=== PATIENT | female | born 1970 | race Caucasian/White ===

== ENCOUNTER 2021-06-28 15:47 | Emergency (ER) | payer MEDICAID ==
--- NOTE | 2021-06-28 16:35 | ED Physician Documentation ---
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 She has a history of asthma, bronchitis, diabetes and was worked up for her current pain in [place] in April and was found to have some sort of pulmonic cyst per her which was quite small and not felt to be the reason for her pain. She presents today with 1 weeks worth of kind of diffuse pain across the upper left breast, shoulder, and left upper back. Is worse with deep breathing and she is short of breath with it. It is also much worse if she moves the left shoulder. She denies fevers or chills. No cough. Review of Systems Constitutional: denies: Fever, Chills Cardiac: reports: Chest pain / pressure Respiratory: reports: Dyspnea. denies: Cough GI: denies: Abdominal Pain, Nausea, Vomiting PD PAST MEDICAL HISTORY - Present Medications Home Medications: Ambulatory Orders Medication Instructions Recorded Confirmed Meloxicam [Mobic] 7.5 mg PO BID PRN #20 tablet 06/28/21 - Allergies Allergies/Adverse Reactions: Allergies Allergy/AdvReac Type Severity Reaction Status Date / Time Iodinated Contrast Media AdvReac Rash Verified 06/28/21 16:15 PD ED PE NORMAL - Vitals Vital signs reviewed: Yes - General General: Alert and oriented X 3, Other (She appears uncomfortable and especially winces with any motion of the left shoulder.) - Neck Neck: Supple, no meningeal sign, No bony TTP - Cardiac Cardiac: RRR, No murmur - Respiratory Respiratory: No respiratory distress, Clear bilaterally - Abdomen Abdomen: Normal bowel sounds, Soft, Non tender - Back Back: No CVA TTP, No spinal TTP - Derm Derm: Normal color, Warm and dry - Extremities Extremities: Other (Kind of diffuse muscular tenderness of the upper back, left sternocleidomastoids and shoulder. Pain with range of motion of the shoulder which at times is quite severe but she is able to move it.) - Neuro Neuro: Alert and oriented X 3, Normal speech Results - Vitals Vitals: Vital Signs - 24 hr 06/28/21 06/28/21 06/28/21 15:52 16:48 17:35 Temperature 36.6 C Heart Rate 84 79 72 Respiratory 20 22 21 Rate Blood Pressure 136/80 H 141/90 H 141/83 H O2 Saturation 98 95 96 Oxygen O2 Source Room air - EKG (time done) 1602 Rate: Rate (enter#) (77) Rhythm: NSR [place]: Normal Intervals: Normal [place] QRS: Normal Ischemia: Non specific changes. No: ST elevation c/w ischemia, ST depression, T wave inversion - Labs Labs: Laboratory Tests 06/28/21 06/28/21 06/28/21 16:30 16:30 16:30 WBC 6.5 RBC 4.28 Hgb 12.8 Hct 38.3 MCV 89.5 MCH 29.9 MCHC 33.4 RDW 13.2 Plt Count 204 MPV 8.8 Neut # (Auto) 4.4 Lymph # (Auto) 1.7 Person # (Auto) 0.4 Eos # (Auto) 0.1 Baso # (Auto) 0.0 Absolute Nucleated RBC 0.00 Nucleated RBC % 0.0 Sodium 135 Potassium 4.1 Chloride 102 Carbon Dioxide 23 Anion Gap 10.0 BUN 15 Creatinine 0.7 Estimated GFR (MDRD) 89 Glucose 169 H Calcium 9.0 Total Bilirubin 0.4 AST 15 ALT 17 Alkaline Phosphatase 60 Troponin I High Sens 3.5 Total Protein 7.4 Albumin 3.8 Globulin 3.6 Albumin/Globulin Ratio 1.1 PD MEDICAL DECISION MAKING - ED course ED course: 51-year-old woman with what seems like musculoskeletal pain around the left shoulder neck. That said with recent travel and shortness of breath as well as some previous work-ups concerning for lung disease CT angiography was done to rule out structural lung disease and pulmonary embolus and this was done and negative. As was her EKG and labs except for mild hyperglycemia given known history of type 2 diabetes. She is feeling better after Toradol. Discussed need for follow-up and return precautions. Departure - Departure Disposition: 01 Home, Self Care Clinical Impression: Acromioclavicular arthrosis Qualifiers: Laterality: left Qualified Code(s): M19.012 - Primary osteoarthritis, left shoulder Chest wall muscle strain Qualifiers: Encounter type: initial encounter Qualified Code(s): S29.011A - Strain of muscle and tendon of front wall of thorax, initial encounter Condition: Good Record reviewed to determine appropriate education?: Yes Instructions: ED Sprain Strain Neck, Arthritis Acromioclavicular Prescriptions: Meloxicam [Mobic] 7.5 mg PO BID PRN #20 tablet PRN Reason: Pain Print Language: Omani Comments: Geovany se discuti, lo vieron hoy por dolor en el pecho, el zaynab y el hombro. Se realizaron anlisis de laboratorio y solo tiene un nivel levemente elevado de azcar en la shayan; de ??lo contrario, jaclyn anlisis son todos normales, sin evidencia de problemas cardacos. La tomografa computarizada de sanchez trax fue normal y la radiografa del hombro mostr artritis de la articulacin acromioclavicular. Le estoy recetando algunos antiinflamatorios y puede recogerlos en [facility] en [place], le envi la receta electrnicamente all. Cuando sanchez nuevo seguro est activo la prxima semana, trate de encontrar un mdico de atencin primaria para establecer. Regrese por cualquier sntoma nuevo o que empeore. Puede usar calor y estiramientos suaves, as geovany la medicacin para el dolor.
[2021-06-28 16:44] LABS: BASOPHILS % (AUTO) 0.5 %; EOSINOPHILS # (AUTO) 0.1 10^3/uL (0.0-0.7); EOSINOPHILS % (AUTO) 0.8 %; HCT - HEMATOCRIT 38.3 % (37.0-47.0); HGB - HEMOGLOBIN 12.8 g/dL (12.0-16.0); LYMPHOCYTES # (AUTO) 1.7 10^3/uL (1.5-3.5); MEAN CORPUSCULAR HEMOGLOBIN 29.9 pg (27.0-31.0); MEAN CORPUSCULAR HGB CONC 33.4 g/dL (32.0-36.0); MEAN CORPUSCULAR VOLUME 89.5 fL (81.0-99.0); MEAN PLATELET VOLUME 8.8 fL (7.9-10.8); MONOCYTES # (AUTO) 0.4 10^3/uL (0.0-1.0); MONOCYTES % (AUTO) 5.4 %; NEUTROPHILS # (AUTO) 4.4 10^3/uL (1.5-6.6); NEUTROPHILS % (AUTO) 66.8 %; PLT - PLATELET COUNT 204 10^3/uL (130-450); RED BLOOD COUNT 4.28 10^6/uL (4.20-5.40); RED CELL DISTRIBUTION WIDTH 13.2 % (12.0-15.0); WHITE BLOOD COUNT 6.5 x10^3/uL (4.8-10.8)
[2021-06-28] MEDS ORDERED: iohexoL-300 100 ML VIAL ONE (16:46)
[2021-06-28] MEDS: KETOROLAC 15 MG/ML VIAL IVP STA (16:48)
[2021-06-28 16:54] LABS: ALBUMIN 3.8 g/dL (3.2-5.5); ALBUMIN/GLOBULIN RATIO 1.1 (1.0-2.2); BILIRUBIN,TOTAL 0.4 mg/dL (0.2-1.0); CREATININE 0.7 mg/dL (0.4-1.0); POTASSIUM 4.1 mmol/L (3.5-5.0); TOTAL PROTEIN 7.4 g/dL (6.7-8.2)
--- NOTE | 2021-06-28 17:11 | XRAY Report ---
PROCEDURE: Shoulder 3 View LT INDICATIONS: L shoulder pain TECHNIQUE: 3 views of the shoulder were acquired. COMPARISON: None. FINDINGS: Bones: No acute fractures or dislocations. Degenerative changes of the acromioclavicular joint. No s uspicious bony lesions. Visualized ribs appear intact. Soft tissues: No suspicious soft tissue calcifications. IMPRESSION: Left shoulder without acute fracture or dislocation. Left acromioclavicular osteoarthros is. Reviewed by: Campos Nowak MD on 06/28/2021 5:10 PM PST Approved by: Campos Nowak MD on 06/28/2021 5:10 PM PST Station ID: [id number]
[2021-06-28] MEDS: diphenhydrAMINE INJ 50 MG/ML VIAL IVP STA (17:36)
--- NOTE | 2021-06-28 18:32 | CT Report ---
PROCEDURE: ANGIO CHEST W/WO INDICATIONS: chest pain, dyspnea, pe protocol CONTRAST: IV CONTRAST: Isovue 300 ml: 80 PO CONTRAST: *NO PO CONTRAST TECHNIQUE: After the administration of intravenous contrast, 2 mm axial images were acquired from the pulmonary apices to the posterior costophrenic angles during the arterial phase. In addition, 1 mm lung kernel and 5 mm soft tissue kernel reconstructions were performed. 3-dimensional coronal oblique maximum int ensity projection (MIP) reformats, 8 mm axial MIP, and 5 mm coronal and sagittal MPR reformats were t hen performed through the thorax. For radiation dose reduction, the following was used: automated exp osure control, adjustment of mA and/or kV according to patient size. COMPARISON: None FINDINGS: Image quality: Excellent. Pulmonary arteries: Pulmonary arteries are normal in size, and demonstrate no intraluminal filling d efects to suggest central pulmonary embolism. Lungs and pleura: Lungs are clear. No pleural effusions or pneumothorax. Central and peripheral ai rways are patent. Right lower lobe pulmonary infiltrate noted in the costophrenic sulcus Mediastinum: Heart size is normal, without pericardial effusion. No mediastinal or hilar adenopathy . Thoracic aorta is normal in caliber and enhancement. Esophagus is normal in caliber, without hiat al hernia. Bones and chest wall: No suspicious bony lesions. Ribs and thoracic spine appear intact throughout. No axillary or supraclavicular adenopathy. The thyroid is normal in size and there are no incident al findings. Abdomen: Visualized upper abdominal solid organs appear normal in the early arterial phase of enhanc ement. IMPRESSION: No evidence of pulmonary motion, aortic dissection or aneurysm. Small focus of atelectasis and or infiltrate in the right lower lobe costophrenic sulcus. Reviewed by: Dung Howard MD on 06/28/2021 5:31 PM [facility] Approved by: Dung Howard MD on 06/28/2021 5:31 PM [facility] Station ID: [id number]
[2021-06-28] MEDS ORDERED: KETOROLAC 15 MG/ML VIAL IVP STA (18:43)
[2021-06-28 18:58] VITALS: BP 136/79
[2021-06-28] MEDS: iohexoL-300 100 ML VIAL IVP ONE (20:49)
== END 2021-06-28 18:56 | disposition home or self-care (01) ==
LOC: ED 15:47
DX: M19.012 Primary osteoarthritis, left shoulder (principal); S29.011A Strain of muscle and tendon of front wall of thorax, initial encounter; X58.XXXA Exposure to other specified factors, initial encounter; R06.09 Other forms of dyspnea
CPT/HCPCS: 36415; 71275; 73030; 80053; 84484; 85025; 93005; 96374; 96375; 99284; J1200; Q9967

== ENCOUNTER 2021-07-26 10:35 | Emergency (ER) | payer MEDICAID ==
[2021-07-26 13:19] VITALS: BP 136/83
[2021-07-26] MEDS ORDERED: oxyCODONE 5 MG TABLET PO STA (13:57)
[2021-07-26] MEDS ORDERED: methocarbamoL 500 MG TABLET PO STA (13:57)
--- NOTE | 2021-07-26 14:02 | ED Physician Documentation ---
History of Present Illness - Stated complaint Stated Complaint: L SHOULDER AND BACK PX - Chief complaint Chief Complaint: Ext Problem - History obtained from History obtained from: Patient - History of Present Illness Timing: How many weeks ago (2) Pain level max: 8 Pain level now: 7 - Additonal information Additional information: Patient is a 51-year-old female who states she slipped and fell 2 weeks ago. Injuring the left ribs, mid back and left shoulder. Most of the pain is in the left shoulder. She states worse with movement, better with rest. Unable to fully lift her arm. Patient is right-handed. No loss of bowel or bladder control. She is not having relief with Motrin and Tylenol. Back pain is worse with bending over. 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 Review of Systems Constitutional: denies: Fever, Chills GI: denies: Abdominal Pain, Nausea, Vomiting, Diarrhea Musculoskeletal: denies: Neck pain, Back pain Neurologic: denies: Focal weakness, Numbness, Headache PD PAST MEDICAL HISTORY - Past Medical History Past Medical History: No - Present Medications Home Medications: Ambulatory Orders Medication Instructions Recorded Confirmed Meloxicam [Mobic] 7.5 mg PO BID PRN #20 tablet 06/28/21 Oxycodone HCl/Acetaminophen 1 - 2 each PO Q6H PRN #14 tablet 07/26/21 [Percocet 5-325 mg Tablet] methocarbamoL [Robaxin] 500 mg PO Q6H PRN #20 tablet 07/26/21 - Allergies Allergies/Adverse Reactions: Allergies Allergy/AdvReac Type Severity Reaction Status Date / Time Iodinated Contrast Media AdvReac Rash Verified 07/26/21 11:09 - Living Situation Living Arrangement: reports: At home - Social History Does the pt have substance abuse?: No - Family History Family history: reports: Non contributory PD ED PE NORMAL - Vitals Vital signs reviewed: Yes - General General: Alert and oriented X 3, No acute distress - HEENT HEENT: Moist mucous membranes - Neck Neck: Supple, no meningeal sign - Cardiac Cardiac: RRR, Strong equal pulses - Respiratory Respiratory: No respiratory distress, Clear bilaterally - Abdomen Abdomen: Soft, Non tender, Non distended - Back Back: No spinal TTP (No midline tenderness to palpation or percussion. No step- off or deformity.) - Derm Derm: Warm and dry - Extremities Extremities: Other (Normal bilateral lower extremity patellar and ankle jerk reflexes. Normal great toe extension bilaterally. no saddle anesthesia) - Neuro Neuro: Alert and oriented X 3, No motor deficit, No sensory deficit - Psych Psych: Normal mood, Normal affect - Free text exam Free text exam: Mild tenderness over the left glenohumeral joint. Has significant pain with abduction of the left arm, especially above 90 degrees. She is unable to actively range her left shoulder above about 80 degrees. Also has pain with external rotation. The pain is in the anterior aspect of the rotator cuff. Neurovascular intact. No bony tenderness Also has mild tenderness over the left posterior ribs. No crepitus or ecchymosis Results - Vitals Vitals: Vital Signs - 24 hr 07/26/21 07/26/21 07/26/21 10:54 13:19 14:44 Temperature 36.7 C 36.9 C Heart Rate 77 70 80 Respiratory 19 16 18 Rate Blood Pressure 140/85 H 136/83 H O2 Saturation 100 98 Oxygen O2 Source Room air - Rads (name of study) Chest x-ray with ribs Radiology: Final report received, EMP read contemporaneously, See rad report (No acute abnormality) Left shoulder x-ray Radiology: Final report received, EMP read contemporaneously, See rad report (No acute abnormality) PD MEDICAL DECISION MAKING - ED course Complexity details: reviewed results, re-evaluated patient, considered different ial, d/w patient ED course: 51-year-old female with what appears to be a rotator cuff injury. Possible tendinitis versus strain versus tear. No acute findings on x-ray. We will have her follow-up with orthopedics for further care. Given a sling for comfort. Pain well controlled. No significant findings on rib x-ray. No indication for x-ray of the back at this time. No midline tenderness to palpation or percussion. No step-off or deformity. Neurologically normal. I am prescribing a short course of short-acting opioid pain medication for this patient. I have reviewed the patients [employer]TER and no concerning findings were noted. I have discussed that the opioids are for short term therapy only, and will not be refilled from the ED. patient counseled regarding signs and symptoms for which I believe and urgent re-evaluation would be necessary. Patient with good understanding of and agreement to plan and is comfortable going home at this time This document was made in part using voice recognition software. While efforts are made to proofread this document, sound alike and grammatical errors may occur. Departure - Departure Disposition: 01 Home, Self Care Clinical Impression: Rotator cuff strain Qualifiers: Encounter type: initial encounter Laterality: left Qualified Code(s): S46.012A - Strain of muscle(s) and tendon(s) of the rotator cuff of left shoulder, initial encounter Back strain Qualifiers: Encounter type: initial encounter Qualified Code(s): S39.012A - Strain of muscle, fascia and tendon of lower back, initial encounter Condition: Good Instructions: ED Neck Back Pain General, ED Torn Rotator Cuff, ED Tendinitis Rotator Cuff Follow-Up: Orthopedic Care [Provider Group] - Within 1 week Prescriptions: Oxycodone HCl/Acetaminophen [Percocet 5-325 mg Tablet] 1 - 2 each PO Q6H PRN #14 tablet PRN Reason: pain methocarbamoL [Robaxin] 500 mg PO Q6H PRN #20 tablet PRN Reason: muscle spasm Print Language: Palestinian Comments: Por favor, john un seguimiento con ortopedia para recibir atencin adicional. Regresa si empeoras. Aleksandra recetas fueron enviadas a [facility] en [place]. Contine estirando suavemente sanchez hombro nathalie discutimos. Puede usar el cabestrillo segn sea necesario para mayor comodidad. Le estoy recetando un ciclo corto de analgsicos narcticos. Estos son medicamentos potencialmente peligrosos y adictivos que deben usarse con cuidado. Estos medicamentos pueden causarle estreimiento. [place] un ablandador de heces de venta porfirio (docusato) dos veces al da con abundante agua mientras matilde estos medicamentos. Si pasa 24 horas sin defecar, tome miralax de venta porfirio, segn las instrucciones del paquete. No zhao ni conduzca mientras matilde estos medicamentos. Si recibi medicamentos narcticos o sedantes mientras estaba en el departamento de emergencias, no conduzca tania 24 horas. Guarde abhi medicamento en un lugar seguro y fuera del alcance de los nios. Es va violacin de la yanna federal nikhil o teacher selection specialist abhi medicamento a otra persona o usarlo de va manera diferente a la recetada. El ED no volver a surtir recetas de narcticos, incluidas las recetas perdidas o robadas. Para desechar medicamentos no deseados: 1. Precinto Gretchen del Departamento del [facility] del [facility] en [facility] [address] en [place] tiene un buzn de medicamentos. Aceptan medicamentos recetados (en forma de pastillas) de lunes a viernes de 9:00 a. m. a 5:00 p. m. 2. El Departamento de [place] de la [facility] acepta medicamentos recetados (solo en forma de pldora) para sanchez eliminacin tania todo el ao. Williams phillips para ms informacin. 3. Comunquese con el alguacil del [facility] para conocer el prximo evento de recoleccin de medicamentos recetados patrocinado por la BETH. , [phone], o [phone]; Please follow-up with orthopedics for further care. Return if you worsen. Your prescriptions were sent to [facility] in [place]. Continue to gently stretch your shoulder as we discussed. You can wear the sling as needed for comfort. I am prescribing a short course of narcotic pain medication for you. These are potentially dangerous and addictive medications that should be used carefully. These medications may constipate you. Take an qouf-ykv-neouzkf stool softener (docusate) twice daily with plenty of water while taking these medications. If you go 24 hours without a bowel movement, take pomh-jea-aznuyqv miralax, per package instructions. Do not drink or drive while taking these medications. If you received narcotic or sedating medications while in the emergency department, do not drive for 24 hours. Store this medication in a safe, secure place and out of reach of children. It is a violation of federal law to give or sell this medication to another person or to use in a manner other than prescribed. The ED will not refill narcotic prescriptions, including prescriptions lost or stolen. To dispose of unwanted medications: 1. [facility] at [address] [facility] in [place] has a medication drop box. They accept prescription medications (in pill form) Friday through Friday 9:00 a.m. to 5:00 p.m. 2. The [facility] accepts prescription medications (in pill form only) for disposal year round. Call for more information. 3. Contact the [facility] for the next [facility] sponsored prescription drug collection event. , [phone], or [phone]; Discharge Date/Time: 07/26/21 14:44
--- NOTE | 2021-07-26 14:08 | XRAY Report ---
PROCEDURE: Ribs w/PA Chest LT INDICATIONS: fall, L rib pain TECHNIQUE: 2 views of the left ribs were acquired, along with a single view chest. COMPARISON: 06/28/2021 FINDINGS: Surgical changes and devices: None. Bones and chest wall: No fractures or dislocations. No suspicious bony lesions. Overlying soft tis sues appear unremarkable. Left humeral bone island or enostosis noted in the humeral head Lungs and pleura: No pleural effusions or pneumothorax. Lungs appear clear. Mediastinum: Mediastinal contours appear normal. Heart size is normal. IMPRESSION: No evidence of rib fracture or pneumothorax No acute cardiac pulmonary findings Reviewed by: Dung Howard MD on 07/26/2021 1:07 PM [facility] Approved by: Dung Howard MD on 07/26/2021 1:07 PM [facility] Station ID: [id number]
--- NOTE | 2021-07-26 14:29 | XRAY Report ---
PROCEDURE: Shoulder 3 View LT INDICATIONS: fall, L shoulder pain TECHNIQUE: 3 views of the shoulder were acquired. COMPARISON: None. FINDINGS: Bones: No fractures or dislocations. No suspicious bony lesions. Visualized ribs appear intact. 1 cm osteoma or enostosis noted in the left humeral head, stable from the prior. Mild degenerative harvey nges noted involving the acromioclavicular joint Soft tissues: No suspicious soft tissue calcifications. Surgical clips noted over the thyroid bed IMPRESSION: 1. No acute findings. No fracture or dislocation. 2. Stable humeral head osteoma or bone island Reviewed by: Dugn Howard MD on 07/26/2021 1:28 PM [facility] Approved by: Dung Howard MD on 07/26/2021 1:28 PM [facility] Station ID: [id number]
== END 2021-07-26 14:44 | disposition home or self-care (01) ==
LOC: ED 10:35
DX: S46.012A Strain of muscle(s) and tendon(s) of the rotator cuff of left shoulder, initial encounter (principal); S39.012A Strain of muscle, fascia and tendon of lower back, initial encounter; W01.0XXA Fall on same level from slipping, tripping and stumbling without subsequent striking against object, initial encounter; E03.9 Hypothyroidism, unspecified; E78.5 Hyperlipidemia, unspecified; E11.9 Type 2 diabetes mellitus without complications; M06.9 Rheumatoid arthritis, unspecified; Z86.2 Personal history of diseases of the blood and blood-forming organs and certain disorders involving the immune mechanism; Z11.59 Encounter for screening for other viral diseases; Z13.1 Encounter for screening for diabetes mellitus
CPT/HCPCS: 36415; 71101; 73030; 80053; 80061; 82043; 82570; 83036; 84443; 84481; 85025; 85651; 86038; 86140; 86376; 86800; 86803; 99282; 99284; A9270; 83721

== ENCOUNTER 2021-07-26 12:29 | Outpatient (CLI) | payer MEDICAID ==
[2021-07-26 12:51] LABS: BASOPHILS % (AUTO) 0.5 %; EOSINOPHILS # (AUTO) 0.1 10^3/uL (0.0-0.7); EOSINOPHILS % (AUTO) 0.7 %; HCT - HEMATOCRIT 40.7 % (37.0-47.0); HGB - HEMOGLOBIN 13.4 g/dL (12.0-16.0); LYMPHOCYTES # (AUTO) 2.1 10^3/uL (1.5-3.5); LYMPHOCYTES % (AUTO) 26.4 %; MEAN CORPUSCULAR HEMOGLOBIN 29.5 pg (27.0-31.0); MEAN CORPUSCULAR HGB CONC 32.9 g/dL (32.0-36.0); MEAN CORPUSCULAR VOLUME 89.5 fL (81.0-99.0); MEAN PLATELET VOLUME 8.6 fL (7.9-10.8); MONOCYTES # (AUTO) 0.5 10^3/uL (0.0-1.0); MONOCYTES % (AUTO) 6.6 %; NEUTROPHILS # (AUTO) 5.2 10^3/uL (1.5-6.6); NEUTROPHILS % (AUTO) 65.3 %; PLT - PLATELET COUNT 211 10^3/uL (130-450); RED BLOOD COUNT 4.55 10^6/uL (4.20-5.40); RED CELL DISTRIBUTION WIDTH 13.5 % (12.0-15.0)
[2021-07-26 13:10] LABS: ALBUMIN 4.3 g/dL (3.2-5.5); ALBUMIN/GLOBULIN RATIO 1.1 (1.0-2.2); ALKALINE PHOSPHATASE 62 IU/L (42-121); ALT ALANINE AMINOTRANSFERASE 18 IU/L (10-60); AST ASPARTATE AMINOTRANSFERASE 14 IU/L (10-42); BILIRUBIN,TOTAL 0.6 mg/dL (0.2-1.0); BUN - BLOOD UREA NITROGEN 16 mg/dL (6-20); CARBON DIOXIDE - CO2 27 mmol/L (21-32); CHLORIDE 99 mmol/L (101-111); CHOL/HDL RATIO 3.8 (<4.4); CHOLESTEROL 230 mg/dL; CREATININE 0.7 mg/dL (0.4-1.0); GFR - MDRD 89 (>89); GLUCOSE 129 mg/dL (70-100); HDL CHOLESTEROL 60 mg/dL; LDL CHOLESTEROL,CALCULATED 139 mg/dL; LDL/HDL RATIO 2.3 (<4.4); POTASSIUM 4.1 mmol/L (3.5-5.0); SODIUM 132 mmol/L (135-145); TOTAL PROTEIN 8.2 g/dL (6.7-8.2); TRIGLYCERIDES 154 mg/dL; VLDL CHOLESTEROL 31 mg/dL
[2021-07-26 13:12] LABS: CREATININE,URINE 168.3 mg/dL; MICROALBUM/CREATININE RATIO,UR 4.2 ug/mg (<30.0); MICROALBUMIN,URINE 0.7 mg/dL (0-300.0)
[2021-07-26 13:13] LABS: CRP - C-REACTIVE PROTEIN < 1.0 mg/dL (0-1.0)
[2021-07-26 13:21] LABS: THYROID STIMULATING HORMONE 3.45 uIU/mL (0.34-5.60)
[2021-07-26 13:22] LABS: FREE T3 3.32 pg/mL (2.5-3.9)
[2021-07-26 13:28] LABS: ESTIMATED AVERAGE GLUCOSE 151 mg/dL (70-100); HEMOGLOBIN A1c% 6.9 % (4.27-6.07)
[2021-07-27 10:35] LABS: HEPATITIS C ANTIBODY NON-REACTIVE (NON-REACTIVE)
[2021-07-30 16:36] LABS: THYROID PEROXIDASE ANTIBODIES 1 IU/mL (<9)
[2021-07-31 06:26] LABS: ANA SCREEN NEGATIVE (NEGATIVE)
== END 2021-07-26 12:30 | disposition home or self-care (01) ==
LOC: LAB 12:29
PROVIDERS: ATTEND Nurse Practitioner Family
DX: E03.9 Hypothyroidism, unspecified (principal); E78.5 Hyperlipidemia, unspecified; E11.9 Type 2 diabetes mellitus without complications; M06.9 Rheumatoid arthritis, unspecified; Z86.2 Personal history of diseases of the blood and blood-forming organs and certain disorders involving the immune mechanism; Z11.59 Encounter for screening for other viral diseases; Z13.1 Encounter for screening for diabetes mellitus; Z13.220 Encounter for screening for lipoid disorders
CPT/HCPCS: 36415; 80053; 80061; 82043; 82570; 83036; 83721; 84443; 84481; 85025; 85651; 86038; 86140; 86376; 86800; 86803

== ENCOUNTER 2021-07-29 13:26 | Outpatient (CLI) | payer MEDICAID ==
--- NOTE | 2021-07-29 14:49 | XRAY Report ---
PROCEDURE: Cervical Spine 2 View INDICATIONS: PAIN OF LEFT SHOULDER JOINT TECHNIQUE: 2 lateral view(s) of the cervical spine were acquired. COMPARISON: None. FINDINGS: Bones: On the lateral view, no acute fracture or traumatic dislocation noted to the level of C7. Stra ightening of normal cervical lordosis. Moderate multilevel cervical spondylosis with degenerative end plate changes and prominent endplate osteophyte formation. Findings are most pronounced from C4-5 thr ough C6-7. Soft tissues: No prevertebral soft tissue swelling. Multiple surgical clips project in the lower ne ck over the expected location of the thyroid gland. IMPRESSION: Lateral view of the cervical spine without evidence for acute fracture or traumatic amado lignment. Straightening of normal cervical lordosis likely related to positioning and/or concurrent m uscle spasms. Moderate multilevel cervical spondylosis. Reviewed by: Campos Nowak MD on 07/29/2021 1:48 PM [facility] Approved by: Campos Nowak MD on 07/29/2021 1:[address] [facility] Station ID: [id number]
--- NOTE | 2021-07-29 14:51 | XRAY Report ---
PROCEDURE: Knee 3 View LT INDICATIONS: PAIN IN LEFT KNEE TECHNIQUE: 2 views of the left knee(s) were acquired. COMPARISON: None. FINDINGS: Bones: No acute fractures or dislocations. No suspicious bony lesions. Tricompartmental degenerativ e changes of the left knee with mild joint space narrowing of the medial femorotibial compartment. Soft tissues: No joint effusion. No suspicious soft tissue calcifications. IMPRESSION: Left knee without acute fracture or dislocation. Mild tricompartmental degenerative campos ges of the left knee with mild medial femorotibial compartment joint space narrowing. Reviewed by: Campos Nowak MD on 07/29/2021 1:49 PM [facility] Approved by: Campos Nowak MD on 07/29/2021 1:49 PM [facility] Station ID: [id number]
--- NOTE | 2021-07-30 05:55 | XRAY Report ---
PROCEDURE: Shoulder 3 View LT INDICATIONS: LEFT SHOULDER PAIN TECHNIQUE: 2 views of the shoulder were acquired. COMPARISON: 06/28/2021. FINDINGS: Bones: No acute fractures or dislocations. Mild-moderate hypertrophic osteoarthritic changes of the acromioclavicular joint. Stable 1.0 cm oval sclerotic focus in the left humeral head likely represent ing an osteoma or bone island. Visualized ribs appear intact. Soft tissues: No suspicious soft tissue calcifications. IMPRESSION: Left shoulder without acute fracture or dislocation. Degenerative changes of the left acromioclavicular joint. Stable humeral head osteonecrosis/bone island. Reviewed by: Campos Nowak MD on 07/29/2021 1:53 PM [facility] Approved by: Campos Nowak MD on 07/29/2021 1:53 PM [facility] Station ID: [id number]
== END 2021-07-29 13:27 | disposition home or self-care (01) ==
LOC: DI 13:26
PROVIDERS: ATTEND Nurse Practitioner Family
DX: M25.512 Pain in left shoulder (principal); M25.562 Pain in left knee; M47.812 Spondylosis without myelopathy or radiculopathy, cervical region; E03.9 Hypothyroidism, unspecified; E78.5 Hyperlipidemia, unspecified; E11.9 Type 2 diabetes mellitus without complications; M06.9 Rheumatoid arthritis, unspecified; Z86.2 Personal history of diseases of the blood and blood-forming organs and certain disorders involving the immune mechanism; Z11.59 Encounter for screening for other viral diseases; Z13.1 Encounter for screening for diabetes mellitus; Z13.220 Encounter for screening for lipoid disorders; M17.12 Unilateral primary osteoarthritis, left knee; M19.012 Primary osteoarthritis, left shoulder; M87.9 Osteonecrosis, unspecified
CPT/HCPCS: 36415; 80053; 80061; 82043; 82570; 83036; 83721; 84443; 84481; 85025; 85651; 86038; 86140; 86376; 86800; 86803

== ENCOUNTER 2021-08-15 08:58 | Outpatient (CLI) | payer MEDICAID ==
--- NOTE | 2021-08-15 16:04 | DEXA Report ---
PROCEDURE: Dexa Spine and/or Hip INDICATIONS: OSTEOPENIA TECHNIQUE: Dual energy x-ray absorptiometry (DXA) was performed on a [employer] System. Regions measur ed are the AP Spine, femoral neck, and if needed forearm. COMPARISON: None. FINDINGS: Lumbar Spine: Bone Mineral Density 1.467 g/cm/cm,T score 2.4, normal bone density Left Hip: Bone Mineral Density 1.100 g/cm/cm,T score 0.7, normal bone density Left Femoral Neck: Bone Mineral Density 0.905 g/cm/cm, T score -1.0, normal bone density (T score greater or equal to -1.0: NORMAL) (T score from -1.1 to -2.4: OSTEOPENIA) (T score less than or equal to -2.5 to: OSTEOPOROSIS) Impression: Normal bone mineral density. Patients with diagnosis of osteoporosis or osteopenia should have regular bone mineral density assess ment. For those eligible for Medicare, routine testing is allowed once every 2 years. Testing frequ ency can be increased for patients who have rapidly progressing disease or for those who are receivin g medical therapy to restore bone mass. Reviewed by: Campos Nowak MD on 08/15/2021 4:03 PM PDT Approved by: Campos Nowak MD on 08/15/2021 4:03 PM PDT Station ID: [id number]
== END 2021-08-15 08:59 | disposition home or self-care (01) ==
LOC: DI 08:58
PROVIDERS: ATTEND Nurse Practitioner Family
DX: M85.80 Other specified disorders of bone density and structure, unspecified site (principal)

== ENCOUNTER 2021-09-17 10:53 | Outpatient (CLI) | payer MEDICAID ==
--- NOTE | 2021-09-17 14:53 | XRAY Report ---
PROCEDURE: Shoulder 3 View LT INDICATIONS: LEFT SHOULDER DISLOCATION TECHNIQUE: 4 views of the shoulder were acquired. COMPARISON: Left shoulder radiograph 07/29/2021 FINDINGS: Bones: No acute fractures or dislocations. No suspicious bony lesions. Stable benign bone island i n the humeral head. Visualized ribs appear intact. Mild to moderate grade articular surfaces. Soft tissues: No suspicious soft tissue calcifications. Surgical clips partially imaged in the neck . IMPRESSION: No acute osseous abnormality. If symptoms persist or there is continued clinical concern , further evaluation with MRI or CT may be helpful. Reviewed by: Neto Salazar MD on 09/17/2021 2:51 PM PDT Approved by: Neto Salazar MD on 09/17/2021 2:51 PM PDT Station ID: [id number]
== END 2021-09-17 23:59 | disposition home or self-care (01) ==
LOC: DI.WOS 10:53
PROVIDERS: ATTEND Orthopaedic Surgery
DX: M25.512 Pain in left shoulder (principal)

== ENCOUNTER 2021-10-03 11:00 | Outpatient (CLI) | payer MEDICAID ==
[2021-10-03] MEDS ORDERED: ALBUTEROL 1 PUFF INH STA (17:37)
== END 2021-10-03 11:01 | disposition home or self-care (01) ==
LOC: RT 11:00
PROVIDERS: ATTEND Nurse Practitioner Family
DX: J44.9 Chronic obstructive pulmonary disease, unspecified (principal)
CPT/HCPCS: 94060

== ENCOUNTER 2021-11-13 06:00 | Outpatient (CLI) | payer MEDICAID ==
--- NOTE | 2021-11-13 17:48 | XRAY Report ---
PROCEDURE: Knee 2 View LT INDICATIONS: LEFT KNEE PAIN TECHNIQUE: 2 views of the left knee(s) were acquired. COMPARISON: None. FINDINGS: Bones: No fractures or dislocations. No suspicious bony lesions. Mild left knee lateral and medial compartment osteoarthritis. Soft tissues: No joint effusion. No suspicious soft tissue calcifications. IMPRESSION: Mild left knee osteoarthritis. Reviewed by: Renée Estrada MD, PhD on 11/13/2021 5:46 PM PDT Approved by: Renée Estrada MD, PhD on 11/13/2021 5:46 PM PDT Station ID: [id number]
== END 2021-11-13 23:59 | disposition home or self-care (01) ==
LOC: DI.WOS 06:00
PROVIDERS: ATTEND Physician Assistant
DX: M17.12 Unilateral primary osteoarthritis, left knee (principal)

== ENCOUNTER 2022-03-05 11:43 | Emergency (ER) | payer MEDICAID ==
[2022-03-05] MEDS ORDERED: diphenhydrAMINE INJ 50 MG/ML VIAL IVP STA (12:35)
[2022-03-05] MEDS ORDERED: methylPREDNISolone SUCCINATE 125 MG/2 ML VIAL IVP STA (12:35)
--- NOTE | 2022-03-05 12:55 | ED Physician Documentation ---
History of Present Illness - Stated complaint Stated Complaint: LT EYE SWELLING/POST OP - Chief complaint Chief Complaint: Heent - History obtained from History obtained from: Patient - History of Present Illness Timing: How many days ago (4) Pain level max: 7 Pain level now: 6 - Additonal information Additional information: Patient is a 51-year-old female, history of diabetes who presents to the emergency department complaining of postoperative swelling. She states that she had surgery to her left eye about 4 days ago. This was done at [facility] in [place]. She does not know what the operation was or why she had the operation. She is unsure if the operation was performed in a clinic or a hos pital. She states that her daughter had been speaking with the office staff and they had recently prescribed an antibiotic for her. She started this 2 days ago but is having continued swelling today. She has had fevers at home as well. No vision changes. She has had pain to the left side of her face and left side of her head. She is taking Percocet for this. Review of Systems Constitutional: reports: Fever (Subjective). denies: Chills Nose: denies: Rhinorrhea / runny nose, Congestion Cardiac: denies: Chest pain / pressure Respiratory: denies: Cough GI: denies: Vomiting : denies: Dysuria Skin: denies: Rash Musculoskeletal: denies: Neck pain, Back pain Neurologic: reports: Other (Patient states she occasionally feels lightheaded with standing.) PD PAST MEDICAL HISTORY - Past Medical History Cardiovascular: Hypertension, High cholesterol Respiratory: Asthma, COPD Neuro: Migraines, Seizure disorder Endocrine/Autoimmune: Type 2 diabetes GI: GERD, Diverticulitis Psych: Depression, Anxiety Derm: Eczema - Present Medications Home Medications: Ambulatory Orders Medication Instructions Recorded Confirmed Albuterol Sulf [Ventolin Hfa 1 - 2 puffs INH Q4HR PRN 08/23/21 08/23/21 Inhaler] EPINEPHrine [Epinephrine] 0.3 mg IJ ONCE PRN 08/23/21 08/23/21 Levetiracetam [Keppra] 500 mg PO BID 08/23/21 08/23/21 Montelukast [Singulair] 10 mg PO QPM 08/23/21 08/23/21 Omeprazole 20 mg PO BID 08/23/21 08/23/21 Rosuvastatin Calcium [Crestor] 5 mg PO QPM 08/23/21 08/23/21 Sertraline HCl 200 mg PO QPM 08/23/21 08/23/21 Spironolactone [Aldactone] 25 mg PO DAILY 08/23/21 08/23/21 Thyroid,Pork [[place] Thyroid] 60 mg PO DAILY 08/23/21 08/23/21 Triamterene/Hydrochlorothiazid 0.5 tab PO DAILY 08/23/21 08/23/21 [Maxzide 37.5 mg-25 mg Tablet] metFORMIN [Glucophage] 500 mg PO BIDWM 10/26/21 10/26/21 Metoclopramide [Reglan] 10 mg PO Q6H PRN #20 tablet 01/14/22 Sucralfate [Carafate] 1 gm PO ACHS #60 tablet 01/14/22 Ondansetron Odt [Zofran] 4 mg TL Q6H PRN #20 tablet 03/05/22 Oxycodone HCl/Acetaminophen 1 each PO Q6H PRN #10 tablet 03/05/22 [Percocet 5-325 mg Tablet] - Allergies Allergies/Adverse Reactions: Allergies Allergy/AdvReac Type Severity Reaction Status Date / Time Iodinated Contrast Media AdvReac Rash Verified 01/14/22 18:48 - Social History Does the pt have substance abuse?: No PD ED PE NORMAL - Vitals Vital signs reviewed: Yes - General General: Alert and oriented X 3, No acute distress - HEENT HEENT: Moist mucous membranes, Other (There is swelling to the left upper eyelid, sutures in place. No purulent drainage at this time. Pupil is equal, round, reactive to light. There is swelling in the left periorbital area and down the left side of the face. There is tenderness on that side as well. No overlying skin changes.) - Neck Neck: Supple, no meningeal sign - Cardiac Cardiac: RRR, Strong equal pulses - Respiratory Respiratory: No respiratory distress, Clear bilaterally - Abdomen Abdomen: Soft, Non tender, Non distended - Derm Derm: Warm and dry - Neuro Neuro: Alert and oriented X 3, respiratory support technician 2-12 intact, No motor deficit, No sensory deficit, Normal speech Eye Opening: Spontaneous Motor: Obeys Commands Verbal: Oriented GCS Score: 15 - Psych Psych: Normal mood, Normal affect Results - Vitals Vitals: Vital Signs - 24 hr 03/05/22 03/05/22 03/05/22 11:49 11:56 12:26 Temperature 37.7 C 37.7 C Heart Rate 82 82 76 Respiratory 22 22 19 Rate Blood Pressure 146/82 H 146/82 H 159/99 H O2 Saturation 100 100 97 03/05/22 03/05/22 03/05/22 12:30 13:00 13:30 Temperature 36.6 C Heart Rate 77 72 74 Respiratory 17 20 18 Rate Blood Pressure 159/99 H 140/96 H 138/94 H O2 Saturation 97 99 100 03/05/22 03/05/22 03/05/22 14:00 14:30 15:00 Temperature Heart Rate 74 68 74 Respiratory 20 20 23 Rate Blood Pressure 135/86 H 139/82 H 129/85 H O2 Saturation 99 99 98 03/05/22 15:30 Temperature Heart Rate 77 Respiratory 21 Rate Blood Pressure 129/85 H O2 Saturation 98 Oxygen O2 Source Room air - Labs Labs: Laboratory Tests 03/05/22 03/05/22 03/05/22 12:02 12:20 12:45 WBC 7.2 RBC 4.27 Hgb 12.7 Hct 37.9 MCV 88.8 MCH 29.7 MCHC 33.5 RDW 13.3 Plt Count 200 MPV 8.5 Neut # (Auto) 4.3 Lymph # (Auto) 2.3 [place] # (Auto) 0.5 Eos # (Auto) 0.1 Baso # (Auto) 0.0 Absolute Nucleated RBC 0.00 Nucleated RBC % 0.0 Sodium Potassium Chloride Carbon Dioxide Anion Gap BUN Creatinine Estimated GFR (MDRD) Glucose POC Whole Bld Glucose 133 H Lactic Acid Calcium Total Bilirubin AST ALT Alkaline Phosphatase Total Protein Albumin Globulin Albumin/Globulin Ratio Nasal Adenovirus (PCR) NOT DETECTED Nasal B. parapertussis DNA (PCR) NOT DETECTED Nasal Coronavir 229E PCR NOT DETECTED Nasal Coronavir HKU1 PCR NOT DETECTED Nasal Coronavir NL63 PCR NOT DETECTED Nasal Coronavir OC43 PCR NOT DETECTED Nasal Enterovir/Rhinovir PCR NOT DETECTED Nasal Influenza B PCR NOT DETECTED Nasal Influenza A PCR NOT DETECTED Nasal Parainfluen 1 PCR NOT DETECTED Nasal Parainfluen 2 PCR NOT DETECTED Nasal Parainfluen 3 PCR NOT DETECTED Nasal Parainfluen 4 PCR NOT DETECTED Nasal RSV (PCR) NOT DETECTED Nasal B.pertussis DNA PCR NOT DETECTED Nasal C.pneumoniae (PCR) NOT DETECTED Herbert Human Metapneumo PCR NOT DETECTED Nasal M.pneumoniae (PCR) NOT DETECTED Nasal SARS-CoV-2 (PCR) NOT DETECTED 03/05/22 03/05/22 12:45 12:45 WBC RBC Hgb Hct MCV MCH MCHC RDW Plt Count MPV Neut # (Auto) Lymph # (Auto) [place] # (Auto) Eos # (Auto) Baso # (Auto) Absolute Nucleated RBC Nucleated RBC % Sodium 135 Potassium 3.6 Chloride 99 L Carbon Dioxide 28 Anion Gap 8.0 BUN 16 Creatinine 0.7 Estimated GFR (MDRD) 89 Glucose 117 H POC Whole Bld Glucose Lactic Acid 1.3 Calcium 9.2 Total Bilirubin 0.4 AST 18 ALT 23 Alkaline Phosphatase 64 Total Protein 7.5 Albumin 4.0 Globulin 3.5 Albumin/Globulin Ratio 1.1 Nasal Adenovirus (PCR) Nasal B. parapertussis DNA (PCR) Nasal Coronavir 229E PCR Nasal Coronavir HKU1 PCR Nasal Coronavir NL63 PCR Nasal Coronavir OC43 PCR Nasal Enterovir/Rhinovir PCR Nasal Influenza B PCR Nasal Influenza A PCR Nasal Parainfluen 1 PCR Nasal Parainfluen 2 PCR Nasal Parainfluen 3 PCR Nasal Parainfluen 4 PCR Nasal RSV (PCR) Nasal B.pertussis DNA PCR Nasal C.pneumoniae (PCR) Herbert Human Metapneumo PCR Nasal M.pneumoniae (PCR) Nasal SARS-CoV-2 (PCR) - Rads (name of study) CT head with Radiology: Final report received, EMP read contemporaneously, See rad report CT orbits with Radiology: Final report received, EMP read contemporaneously, See rad report PD MEDICAL DECISION MAKING - ED course Complexity details: reviewed results, re-evaluated patient, considered differential, d/w patient, d/w legal nurse consultant ED course: web pressman was used for all patient interactions. [facility] was contacted regarding records for this patient. They did send over partial records but there is no operative note available. The procedure was an orbitotomy without bone flap with removal. Patient does not have significant infection on physical exam. Appears more consistent with bruising. Discussed the case with her security analyst, Dr. Reid, We reviewed her laboratory test and her CT findings of the orbits and head. No significant abnormalities at this time. We will have her continue her antibiotics at home as well as her steroids. We will prescribe pain medication and nausea medication for home as well. Afebrile here. No evidence of sepsis. No evidence of orbital cellulitis or abscess. Patient has a follow-up appointment in 3 days with the security analyst. She will return if she worsens. Patient counseled regarding signs and symptoms for which I believe and urgent re-evaluation would be necessary. Patient with good understanding of and agreement to plan and is comfortable going home at this time This document was made in part using voice recognition software. While efforts are made to proofread this document, sound alike and grammatical errors may occur. Departure - Departure Disposition: Home, Self Care Clinical Impression: Post-operative pain Condition: Good Instructions: ED Post Op Pain Follow-Up: NATALI SCHUSTER ARNP [Primary Care Provider] - ELIZABETH REID MD [Physician No Access] - 03/08/22 Prescriptions: Oxycodone HCl/Acetaminophen [Percocet 5-325 mg Tablet] 1 each PO Q6H PRN #10 tablet PRN Reason: pain Ondansetron Odt [Zofran] 4 mg TL Q6H PRN #20 tablet PRN Reason: Nausea / Vomiting Print Language: Persian Comments: Please continue your antibiotics at home. Please return if you worsen. Please follow-up with your doctor on Friday as scheduled. You should continue the steroids at home as well. Your head CT, orbital CT and laboratory testing are normal today. Your respiratory panel including a COVID test is negative today as well. Your prescriptions were sent to [facility] in [place]. Contine con aleksandra antibiticos en casa. Por favor, devulvelo si empeoras. Por favor, john un seguimiento con ecsobar mdico el viernes segn lo programado. Tambin debe continuar con los esteroides en casa. Escobar tomografa computarizada de la adrian, la tomografa computarizada orbital y las pruebas de laboratorio son normales hoy. Escobar panel respiratorio, incluida va prueba de COVID, tambin es negativo hoy. Aleksandra recetas fueron enviadas a [facility] en [place]. Discharge Date/Time: 03/05/22 15:43
[2022-03-05 12:57] LABS: BASOPHILS % (AUTO) 0.4 %; EOSINOPHILS # (AUTO) 0.1 10^3/uL (0.0-0.7); EOSINOPHILS % (AUTO) 0.8 %; HCT - HEMATOCRIT 37.9 % (37.0-47.0); HGB - HEMOGLOBIN 12.7 g/dL (12.0-16.0); LYMPHOCYTES # (AUTO) 2.3 10^3/uL (1.5-3.5); LYMPHOCYTES % (AUTO) 31.5 %; MEAN CORPUSCULAR HEMOGLOBIN 29.7 pg (27.0-31.0); MEAN CORPUSCULAR HGB CONC 33.5 g/dL (32.0-36.0); MEAN CORPUSCULAR VOLUME 88.8 fL (81.0-99.0); MEAN PLATELET VOLUME 8.5 fL (7.9-10.8); MONOCYTES # (AUTO) 0.5 10^3/uL (0.0-1.0); MONOCYTES % (AUTO) 7.5 %; NEUTROPHILS # (AUTO) 4.3 10^3/uL (1.5-6.6); NEUTROPHILS % (AUTO) 59.5 %; PLT - PLATELET COUNT 200 10^3/uL (130-450); RED BLOOD COUNT 4.27 10^6/uL (4.20-5.40); RED CELL DISTRIBUTION WIDTH 13.3 % (12.0-15.0); WHITE BLOOD COUNT 7.2 x10^3/uL (4.8-10.8)
[2022-03-05] MEDS ORDERED: SODIUM CHLORIDE 0.9% 1,000 ML IV STA (12:57)
[2022-03-05 13:00] LABS: B. PARAPERTUSSIS- RESP PCR PAN NOT DETECTED; B. PERTUSSIS- RESP PCR PANEL NOT DETECTED; C. PNEUMONIAE- RESP PCR PANEL NOT DETECTED; CORONAVIRUS 229E-RESP PCR NOT DETECTED; CORONAVIRUS HKU1-RESP PCR NOT DETECTED; CORONAVIRUS NL63-RESP PCR NOT DETECTED; CORONAVIRUS OC43-RESP PCR NOT DETECTED; HUMAN METAPNEUMOVIRUS NOT DETECTED; INFLUENZA A- RESP PCR PANEL NOT DETECTED; INFLUENZA B - RESP PCR PANEL NOT DETECTED; M. PNEUMONIAE- RESP PCR PANEL NOT DETECTED; PARAINFLUENZA VIRUS 1 NOT DETECTED; PARAINFLUENZA VIRUS 2 NOT DETECTED; PARAINFLUENZA VIRUS 3 NOT DETECTED; PARAINFLUENZA VIRUS 4 NOT DETECTED; RHINOVIRUS/ENTEROVIRUS NOT DETECTED; RSV- RESP PCR PANEL NOT DETECTED; SARS-CoV-2 -RESP PCR PANEL NOT DETECTED
[2022-03-05 13:12] LABS: ALBUMIN/GLOBULIN RATIO 1.1 (1.0-2.2); BILIRUBIN,TOTAL 0.4 mg/dL (0.2-1.0); CALCIUM 9.2 mg/dL (8.5-10.3); CREATININE 0.7 mg/dL (0.4-1.0); POTASSIUM 3.6 mmol/L (3.5-5.0); TOTAL PROTEIN 7.5 g/dL (6.7-8.2)
[2022-03-05] MEDS ORDERED: iohexoL-300 100 ML VIAL ONE (13:39)
--- NOTE | 2022-03-05 14:33 | CT Report ---
PROCEDURE: HEAD W INDICATIONS: headaches post op, L eye orbitotomy CONTRAST: IV CONTRAST: Optiray 320 ml: 100 PO CONTRAST: *NO PO CONTRAST TECHNIQUE: 4.5 mm thick angled axial sections acquired from the foramen magnum to the vertex after the administr ation of intravenous contrast. For radiation dose reduction, the following was used: automated expo sure control, adjustment of mA and/or kV according to patient size. COMPARISON: CT orbits 03/05/2022 FINDINGS: Image quality: Excellent. CSF Spaces: Basal cisterns are patent. No extra-axial fluid collections. Ventricles are normal in size and shape. Brain: No midline shift. No intracranial bleeds or masses. No abnormal intracranial enhancement. Tello-white interface appears normal. Skull and face: Calvarium and visualized facial bones appear intact, without suspicious lesions. Th ere is mild left periorbital soft tissue edema. No focal fluid collection. No retroconal inflammatory change. Sinuses: Visualized sinuses and mastoids are clear. IMPRESSION: 1. No acute intracranial process. Reviewed by: Kimberly Mayen MD on 03/05/2022 2:31 PM PDT Approved by: Kimberly Mayen MD on 03/05/2022 2:31 PM PDT Station ID: [id number]
--- NOTE | 2022-03-05 14:37 | CT Report ---
PROCEDURE: ORBITS W INDICATIONS: swelling, fever, post op, L eye orbitotomy CONTRAST: IV CONTRAST: Optiray 320 ml: 100 PO CONTRAST: *NO PO CONTRAST TECHNIQUE: After the administration of intravenous contrast, 2.0 mm axial images acquired through the orbits, wi th coronal reformatting. For radiation dose reduction, the following was used: automated exposure c ontrol, adjustment of mA and/or kV according to patient size. COMPARISON: CT head: 03/05/2022 FINDINGS: Image quality: Excellent. Orbits: Globes are symmetrical. The optic nerves are normal in size and enhancement. No retrobulba r masses or fat abnormalities. The extra-ocular muscles are normal and symmetrical in appearance. L acrimal glands are normal. Optic chiasm is normal. There is mild left anterior periorbital soft tiss ue edema. No abscess. Clinical information. Intracranial: The pituitary gland is normal, without sellar or suprasellar masses. Visualized cereb ral hemispheres, brainstem, and spinal cord appear normal. Bones and sinuses: Visualized calvarium and facial bones appear intact. Visualized sinuses and mast oids are clear. IMPRESSION: Left periorbital soft tissue edema without abscess. No retroconal inflammatory change. Reviewed by: Kimberly Mayen MD on 03/05/2022 2:35 PM PDT Approved by: Kimberly Mayen MD on 03/05/2022 2:35 PM PDT Station ID: [id number]
[2022-03-05 15:04] VITALS: BP 129/85
[2022-03-05] MEDS ORDERED: oxyCODONE 5 MG TABLET PO STA (15:06)
[2022-03-05] MEDS ORDERED: iohexoL-300 100 ML VIAL IVP ONE (18:21)
== END 2022-03-05 15:43 | disposition home or self-care (01) ==
LOC: ED 11:43
DX: L76.34 Postprocedural seroma of skin and subcutaneous tissue following other procedure (principal); I10 Essential (primary) hypertension; Z20.822 Contact with and (suspected) exposure to COVID-19
CPT/HCPCS: 36415; 70460; 70481; 80053; 83605; 85025; 87633; 96374; 96375; 99284; A9270; J1200; Q9967

== ENCOUNTER 2022-05-01 13:45 | Outpatient (CLI) | payer MEDICAID ==
[2022-05-02 10:49] LABS: BILIRUBIN,URINE NEGATIVE (NEGATIVE); GLUCOSE, URINE (UA) NEGATIVE (NEGATIVE); KETONES,URINE (UA) NEGATIVE (NEGATIVE); LEUKOCYTE ESTERASE, URINE NEGATIVE (NEGATIVE); NITRITE,URINE NEGATIVE (NEGATIVE); OCCULT BLOOD,URINE SMALL (NEGATIVE); PROTEIN,URINE NEGATIVE (NEGATIVE); UROBILINOGEN,URINE 0.2 (NORMAL) E.U./dL (NORMAL)
[2022-05-02 10:51] LABS: CLARITY,URINE CLEAR (CLEAR)
[2022-05-02 11:27] LABS: BACTERIA,URINE Rare /HPF (None Seen); RBC,URINE 0-5 /HPF (0-5); SQUAMOUS EPITHELIAL CELL,UR FEW Squamous (<= Few); WBC,URINE 0-3 /HPF (0-5)
[2022-05-02 11:28] LABS: CRYSTALS,URINE 6-10 Calcium Oxalate /LPF
== END 2022-05-01 23:59 | disposition home or self-care (01) ==
LOC: LAB.WC 13:45
PROVIDERS: ATTEND Nurse Practitioner
DX: R30.0 Dysuria (principal); N90.89 Other specified noninflammatory disorders of vulva and perineum
CPT/HCPCS: 81001; 87086; 87252

== ENCOUNTER 2022-05-06 08:53 | Emergency (ER) | payer MEDICAID ==
--- NOTE | 2022-05-06 09:41 | ED Physician Documentation ---
PD HPI FEMALE - Stated complaint Stated Complaint: DIZZY,FEMALE - Chief complaint Chief Complaint: General - History obtained from History obtained from: Patient - History of Present Illness Timing - onset: How many weeks ago (1) Timing - duration: Weeks (1) Timing - details: Gradual onset, Still present Associated symptoms: Other (rash on lower abdomen for a week. seen at [facility] clinic 4 days ago and given nystatin cream, that patient says caused increased pain radiating to left abd soon after applying it. now pain left abd for past 2 days.). No: Vaginal bleeding, Vaginal discharge, Dysuria Contributing factors: No: Exposed to STD Similar symptoms before: Has not had sx before Recently seen: Clinic Review of Systems Constitutional: denies: Fever, Chills, Myalgias Nose: denies: Rhinorrhea / runny nose, Congestion Throat: denies: Sore throat Cardiac: denies: Chest pain / pressure, Palpitations Respiratory: denies: Dyspnea, Cough GI: reports: Abdominal Pain, Constipation. denies: Nausea, Vomiting, Diarrhea : denies: Dysuria, Frequency Skin: reports: Rash (lower abd under pannus of the abdomen) PD PAST MEDICAL HISTORY - Past Medical History Cardiovascular: Hypertension, High cholesterol Respiratory: Asthma, COPD Neuro: Migraines, Seizure disorder Endocrine/Autoimmune: Type 2 diabetes GI: GERD, Diverticulitis Psych: Depression, Anxiety Derm: Eczema - Present Medications Home Medications: Ambulatory Orders Medication Instructions Recorded Confirmed Albuterol Sulf [Ventolin Hfa 1 - 2 puffs INH Q4HR PRN 08/23/21 08/23/21 Inhaler] EPINEPHrine [Epinephrine] 0.3 mg IJ ONCE PRN 08/23/21 08/23/21 Levetiracetam [Keppra] 500 mg PO BID 08/23/21 08/23/21 Montelukast [Singulair] 10 mg PO QPM 08/23/21 08/23/21 Omeprazole 20 mg PO BID 08/23/21 08/23/21 Rosuvastatin Calcium [Crestor] 5 mg PO QPM 08/23/21 08/23/21 Sertraline HCl 200 mg PO QPM 08/23/21 08/23/21 Spironolactone [Aldactone] 25 mg PO DAILY 08/23/21 08/23/21 Thyroid,Pork [[place] Thyroid] 60 mg PO DAILY 08/23/21 08/23/21 Triamterene/Hydrochlorothiazid 0.5 tab PO DAILY 08/23/21 08/23/21 [Maxzide 37.5 mg-25 mg Tablet] metFORMIN [Glucophage] 500 mg PO BIDWM 10/26/21 10/26/21 Metoclopramide [Reglan] 10 mg PO Q6H PRN #20 tablet 01/14/22 Sucralfate [Carafate] 1 gm PO ACHS #60 tablet 01/14/22 Ondansetron Odt [Zofran] 4 mg TL Q6H PRN #20 tablet 03/05/22 Oxycodone HCl/Acetaminophen 1 each PO Q6H PRN #10 tablet 03/05/22 [Percocet 5-325 mg Tablet] Fluconazole [Diflucan] 150 mg PO Q3D #2 tablet 05/06/22 HYDROcod/ACETAM 5/325 [[place] 5/325] 1 ea PO Q6H PRN #10 tablet 05/06/22 Naproxen 500 mg PO BID #20 tab 05/06/22 - Allergies Allergies/Adverse Reactions: Allergies Allergy/AdvReac Type Severity Reaction Status Date / Time Iodinated Contrast Media AdvReac Rash Verified 05/06/22 09:14 - Social History Does the pt smoke?: No Smoking Status: Never smoker Does the pt have substance abuse?: No PD ED PE NORMAL - Vitals Vital signs reviewed: Yes - General General: Alert and oriented X 3, Well developed/nourished - Neck Neck: Supple, no meningeal sign, No adenopathy - Cardiac Cardiac: RRR, No murmur - Respiratory Respiratory: Clear bilaterally - Abdomen Abdomen: Normal bowel sounds, Soft, Non distended, No organomegaly, Other (tender without guarding left lower to mid abdomen. the lower mid abdomen has red rash with mild excoriation on crease under the abd tissue pannus. red edged with mild superficial discharge. no abscess. ) Results - Vitals Vitals: Oxygen O2 Source Room air - Labs Labs: Laboratory Tests 05/06/22 05/06/22 05/06/22 10:22 10:22 11:57 WBC 5.6 RBC 4.08 L Hgb 12.0 Hct 36.5 L MCV 89.5 MCH 29.4 MCHC 32.9 RDW 13.5 Plt Count 160 MPV 8.4 Neut # (Auto) 4.1 Lymph # (Auto) 0.9 L [place] # (Auto) 0.5 Eos # (Auto) 0.1 Baso # (Auto) 0.0 Absolute Nucleated RBC 0.00 Nucleated RBC % 0.0 Sodium 136 Potassium 3.7 Chloride 99 L Carbon Dioxide 26 Anion Gap 11.0 BUN 12 Creatinine 0.6 Estimated GFR (MDRD) 106 Glucose 155 H Calcium 8.6 Total Bilirubin 0.7 AST 15 ALT 19 Alkaline Phosphatase 59 Total Protein 7.0 Albumin 4.1 Globulin 2.9 Albumin/Globulin Ratio 1.4 Lipase 59 H Urine Color LIGHT YELLOW Urine Clarity CLEAR Urine pH 6.5 Ur Specific [place] <=1.005 Urine Protein NEGATIVE Urine Glucose (UA) NEGATIVE Urine Ketones NEGATIVE Urine Occult Blood NEGATIVE Urine Nitrite NEGATIVE Urine Bilirubin NEGATIVE Urine Urobilinogen 0.2 (NORMAL) Ur Leukocyte Esterase NEGATIVE Ur Microscopic Review NOT INDICATED Urine Culture Comments NOT INDICATED - Rads (name of study) abd/pelvic cT Radiology: Prelim report reviewed (No acute intraabdominbal process. ), See rad report PD MEDICAL DECISION MAKING - ED course Complexity details: reviewed results (no acute abd process. ), considered differential (has rash under pannus skin of abd with redness, mild weeping, seems c/w yeast. also tender LLQ/left abd, so consider other process as well. Can get labs/ct. ), d/w patient Departure - Departure Disposition: 01 Home, Self Care Clinical Impression: Left sided abdominal pain, Yeast infection of the skin Condition: Stable Record reviewed to determine appropriate education?: Yes Instructions: ED Abdominal Pain Female Non-Specific Abdominal Pain, ED Candidiasis Cutaneous Follow-Up: NATALI SCHUSTER ARNP [Primary Care Provider] - [facility] [Provider Group] Prescriptions: Fluconazole [Diflucan] 150 mg PO Q3D #2 tablet Naproxen 500 mg PO BID #20 tab HYDROcod/ACETAM 5/325 [[place] 5/325] 1 ea PO Q6H PRN #10 tablet PRN Reason: Pain Comments: Your CT scan does not show any acute abnormality. Your urine test is not showing any signs of infection. Basic blood count and chemistry panel/electrolytes are good as well. No signs of more significant cause of the pain on your abdomen. Consideration would be musculoskeletal pain. There could also be stomach inflammation or irritation of the intestines that would not necessarily show up on the CT scan. Common treatment for these would be anti-inflammatory of naproxen twice daily with food for the next 7 to 10 days. Add Tylenol if needed for pain. To that add hydrocodone every 4-6 hours if needed for worse pain. Regarding the infection/rash in the lower abdominal fold, discontinue the antifungal that seem to cause the reaction. Instead clean the area with soap and water once or twice daily and apply some skin barrier treatment such as zinc oxide/Desitin or vitamin A&E or similar. Use Diflucan every 3 days for 2 more doses to help with the fungal infection. You did receive a dose today so your next dose will be in 3 days. I sent your prescriptions to [facility] pharmacy in [place]. Recheck if not improved well over the next 2 to 3 days return sooner if worse. I am prescribing a short course of narcotic pain medication for you. These are potentially dangerous and addictive medications that should be used carefully. These medications may constipate you. Take an [id number] stool softener such as docusate twice daily with plenty of water while taking these medications. If you go 24 hours without a bowel movement, take [id number] MiraLAX, per package instructions. Do not drink or drive while taking these medications. If you received narcotic or sedating medications while in the emergency department do not drive for 24 hours. Store this medication in a safe, secure place and out of reach of children. It is a violation of federal law to give or sell this medication to another person or to use in a manner other than prescribed. The ED will not refill narcotic prescriptions, including prescriptions lost or stolen. You can dispose of unwanted medications at the [facility]'s office or at several pharmacies such as [facility]. Discharge Date/Time: 05/06/22 12:34
[2022-05-06] MEDS ORDERED: KETOROLAC 15 MG/ML VIAL IVP STA (10:13)
[2022-05-06] MEDS ORDERED: FLUCONAZOLE 100 MG TABLET PO STA (10:13)
[2022-05-06 10:29] LABS: BASOPHILS % (AUTO) 0.4 %; EOSINOPHILS # (AUTO) 0.1 10^3/uL (0.0-0.7); EOSINOPHILS % (AUTO) 1.4 %; HCT - HEMATOCRIT 36.5 % (37.0-47.0); LYMPHOCYTES # (AUTO) 0.9 10^3/uL (1.5-3.5); LYMPHOCYTES % (AUTO) 16.2 %; MEAN CORPUSCULAR HEMOGLOBIN 29.4 pg (27.0-31.0); MEAN CORPUSCULAR HGB CONC 32.9 g/dL (32.0-36.0); MEAN CORPUSCULAR VOLUME 89.5 fL (81.0-99.0); MEAN PLATELET VOLUME 8.4 fL (7.9-10.8); MONOCYTES # (AUTO) 0.5 10^3/uL (0.0-1.0); MONOCYTES % (AUTO) 8.6 %; NEUTROPHILS # (AUTO) 4.1 10^3/uL (1.5-6.6); PLT - PLATELET COUNT 160 10^3/uL (130-450); RED BLOOD COUNT 4.08 10^6/uL (4.20-5.40); RED CELL DISTRIBUTION WIDTH 13.5 % (12.0-15.0); WHITE BLOOD COUNT 5.6 x10^3/uL (4.8-10.8)
[2022-05-06 10:49] LABS: ALBUMIN 4.1 g/dL (3.2-5.5); ALBUMIN/GLOBULIN RATIO 1.4 (1.0-2.2); BILIRUBIN,TOTAL 0.7 mg/dL (0.2-1.0); CALCIUM 8.6 mg/dL (8.5-10.3); CREATININE 0.6 mg/dL (0.4-1.0); POTASSIUM 3.7 mmol/L (3.5-5.0)
--- NOTE | 2022-05-06 11:37 | CT Report ---
PROCEDURE: ABDOMEN/PELVIS WO INDICATIONS: left flank/abd pain several days TECHNIQUE: Noncontrast 5 mm thick sections acquired from the diaphragms to the symphysis. 5 mm coronal and sagi ttal reformats were then performed. For radiation dose reduction, the following was used: automated exposure control, adjustment of mA and/or kV according to patient size. COMPARISON: CT abdomen and pelvis dated 01/14/2022.. FINDINGS: Image quality: Excellent. ABDOMEN: Lung bases: There is a small nodular density at the extreme right lung base, lateral aspect, image 15 /3. This was present on the prior study. It potentially a bit larger. It may represent atelectasis. H owever, cannot exclude a growing pulmonary nodule. Heart size is normal. Solid organs: Liver and spleen are normal in size. Probable calcified granuloma in the spleen. Gall bladder is unremarkable. Pancreas is normal in contours. No adrenal nodules. Kidneys are normal in size, without hydronephrosis or nephrolithiasis. Peritoneum and bowel: Unenhanced bowel loops demonstrate normal wall thickness and caliber. No free fluid or air. Nodes and vessels: No retroperitoneal or mesenteric adenopathy by size criteria. Aorta and inferior vena cava are normal in caliber. Mild diverticulosis without evidence of diverticulitis. Miscellaneous: No ventral hernias. PELVIS: Genitourinary: Bladder wall thickness is normal. Miscellaneous: No inguinal hernias or adenopathy. Remote supracervical hysterectomy. Probable bilate ral ovaries are normal in size. Bones: No suspicious bony lesions. No vertebral body compression fractures. Degenerative change. A t least moderate canal stenosis at L4-L5. IMPRESSION: 1. No evidence of acute abdominal process. No renal stones, ureteral stones, or hydronephrosis. 2. Mild diverticulosis. 3. Small nodular density extreme right lung base. This may represent a tiny area of atelectasis. Reid otoniel, cannot exclude a growing pulmonary nodule. Comment: Consider CT chest. Reviewed by: Jim Santos MD on 05/06/2022 11:36 AM PST Approved by: Jim Santos MD on 05/06/2022 11:36 AM PST Station ID: [id number]
[2022-05-06 12:34] VITALS: BP 131/74
[2022-05-06 12:46] LABS: BILIRUBIN,URINE NEGATIVE (NEGATIVE); CLARITY,URINE CLEAR (CLEAR); GLUCOSE, URINE (UA) NEGATIVE (NEGATIVE); KETONES,URINE (UA) NEGATIVE (NEGATIVE); LEUKOCYTE ESTERASE, URINE NEGATIVE (NEGATIVE); NITRITE,URINE NEGATIVE (NEGATIVE); OCCULT BLOOD,URINE NEGATIVE (NEGATIVE); PH,URINE 6.5 PH (5.0-7.5); PROTEIN,URINE NEGATIVE (NEGATIVE); UROBILINOGEN,URINE 0.2 (NORMAL) E.U./dL (NORMAL)
== END 2022-05-06 12:34 | disposition home or self-care (01) ==
LOC: ED 08:53
DX: R10.32 Left lower quadrant pain (principal); B37.2 Candidiasis of skin and nail
CPT/HCPCS: 36415; 74176; 80053; 81003; 83690; 85025; 96374; 99284; A9270; 81001; 87086

== ENCOUNTER 2022-05-13 11:51 | Emergency (ER) | payer MEDICAID ==
[2022-05-13 12:56] LABS: BASOPHILS % (AUTO) 0.2 %; EOSINOPHILS % (AUTO) 0.3 %; HCT - HEMATOCRIT 39.1 % (37.0-47.0); HGB - HEMOGLOBIN 12.7 g/dL (12.0-16.0); LYMPHOCYTES # (AUTO) 1.8 10^3/uL (1.5-3.5); MEAN CORPUSCULAR HEMOGLOBIN 29.1 pg (27.0-31.0); MEAN CORPUSCULAR HGB CONC 32.5 g/dL (32.0-36.0); MEAN CORPUSCULAR VOLUME 89.7 fL (81.0-99.0); MEAN PLATELET VOLUME 8.7 fL (7.9-10.8); MONOCYTES # (AUTO) 0.4 10^3/uL (0.0-1.0); MONOCYTES % (AUTO) 6.3 %; NEUTROPHILS # (AUTO) 3.7 10^3/uL (1.5-6.6); NEUTROPHILS % (AUTO) 61.9 %; PLT - PLATELET COUNT 169 10^3/uL (130-450); RED BLOOD COUNT 4.36 10^6/uL (4.20-5.40); RED CELL DISTRIBUTION WIDTH 13.4 % (12.0-15.0); WHITE BLOOD COUNT 5.9 x10^3/uL (4.8-10.8)
--- NOTE | 2022-05-13 13:06 | XRAY Report ---
PROCEDURE: Chest 1 View X-Ray INDICATIONS: Chest Pain TECHNIQUE: One view of the chest was acquired. COMPARISON: None. FINDINGS: Surgical changes and devices: None. Lungs and pleura: No pleural effusions or pneumothorax. Lungs are clear. Mediastinum: Mediastinal contours appear normal. Heart size is normal. Bones and chest wall: No suspicious bony lesions. Overlying soft tissues appear unremarkable. IMPRESSION: No acute cardiopulmonary process demonstrated radiographically. Reviewed by: Tyler Thomas MD on 05/13/2022 1:05 PM [facility] Approved by: Tyler Thomas MD on 05/13/2022 1:05 PM [facility] Station ID: [id number]
[2022-05-13 13:07] LABS: ALBUMIN/GLOBULIN RATIO 1.1 (1.0-2.2); BILIRUBIN,TOTAL 0.6 mg/dL (0.2-1.0); CALCIUM 9.1 mg/dL (8.5-10.3); CREATININE 0.7 mg/dL (0.4-1.0); POTASSIUM 3.9 mmol/L (3.5-5.0); TOTAL PROTEIN 7.7 g/dL (6.7-8.2)
[2022-05-13 16:16] VITALS: BP 130/94
== END 2022-05-13 19:20 | disposition left against medical advice (07) ==
LOC: ED 11:51
DX: U07.1 COVID-19 (principal); Z53.21 Procedure and treatment not carried out due to patient leaving prior to being seen by health care provider
CPT/HCPCS: 36415; 80053; 83690; 84484; 85025; 93005

== ENCOUNTER 2022-05-31 10:23 | Outpatient (CLI) | payer MEDICAID ==
[2022-05-31 10:49] LABS: BILIRUBIN,URINE NEGATIVE (NEGATIVE); GLUCOSE, URINE (UA) NEGATIVE (NEGATIVE); KETONES,URINE (UA) NEGATIVE (NEGATIVE); LEUKOCYTE ESTERASE, URINE NEGATIVE (NEGATIVE); NITRITE,URINE NEGATIVE (NEGATIVE); OCCULT BLOOD,URINE NEGATIVE (NEGATIVE); PROTEIN,URINE NEGATIVE (NEGATIVE); UROBILINOGEN,URINE 0.2 (NORMAL) E.U./dL (NORMAL)
[2022-05-31 10:51] LABS: BASOPHILS % (AUTO) 0.5 %; EOSINOPHILS # (AUTO) 0.1 10^3/uL (0.0-0.7); EOSINOPHILS % (AUTO) 1.3 %; HCT - HEMATOCRIT 35.7 % (37.0-47.0); HGB - HEMOGLOBIN 11.5 g/dL (12.0-16.0); LYMPHOCYTES # (AUTO) 1.5 10^3/uL (1.5-3.5); LYMPHOCYTES % (AUTO) 27.6 %; MEAN CORPUSCULAR HEMOGLOBIN 28.8 pg (27.0-31.0); MEAN CORPUSCULAR HGB CONC 32.2 g/dL (32.0-36.0); MEAN CORPUSCULAR VOLUME 89.5 fL (81.0-99.0); MEAN PLATELET VOLUME 8.6 fL (7.9-10.8); MONOCYTES # (AUTO) 0.5 10^3/uL (0.0-1.0); MONOCYTES % (AUTO) 8.2 %; NEUTROPHILS # (AUTO) 3.4 10^3/uL (1.5-6.6); NEUTROPHILS % (AUTO) 61.7 %; PLT - PLATELET COUNT 205 10^3/uL (130-450); RED BLOOD COUNT 3.99 10^6/uL (4.20-5.40); WHITE BLOOD COUNT 5.6 x10^3/uL (4.8-10.8)
[2022-05-31 10:54] LABS: BACTERIA,URINE Rare /HPF (None Seen); CLARITY,URINE CLEAR (CLEAR); RBC,URINE None Seen /HPF (0-5); SQUAMOUS EPITHELIAL CELL,UR RARE Squamous (<= Few); WBC,URINE 0-3 /HPF (0-5)
[2022-05-31 11:11] LABS: ESTIMATED AVERAGE GLUCOSE 154 mg/dL (70-100)
[2022-05-31 11:13] LABS: ALBUMIN/GLOBULIN RATIO 1.3 (1.0-2.2); ALKALINE PHOSPHATASE 52 IU/L (42-121); ALT ALANINE AMINOTRANSFERASE 37 IU/L (10-60); AST ASPARTATE AMINOTRANSFERASE 25 IU/L (10-42); BILIRUBIN,TOTAL 0.5 mg/dL (0.2-1.0); BUN - BLOOD UREA NITROGEN 13 mg/dL (6-20); CALCIUM 8.5 mg/dL (8.5-10.3); CARBON DIOXIDE - CO2 26 mmol/L (21-32); CHLORIDE 101 mmol/L (101-111); CHOL/HDL RATIO 2.7 (<4.4); CHOLESTEROL 155 mg/dL; CREATININE 0.6 mg/dL (0.4-1.0); GFR - MDRD 105 (>89); GLUCOSE 148 mg/dL (70-100); HDL CHOLESTEROL 57 mg/dL; LDL CHOLESTEROL,CALCULATED 81 mg/dL; LDL/HDL RATIO 1.4 (<4.4); POTASSIUM 3.9 mmol/L (3.5-5.0); SODIUM 135 mmol/L (135-145); TOTAL PROTEIN 7.2 g/dL (6.7-8.2); TRIGLYCERIDES 87 mg/dL; VLDL CHOLESTEROL 17 mg/dL
[2022-06-01 07:08] LABS: HSV 2 IGG TYPE SPEC <0.91 index (0.00-0.90)
== END 2022-05-31 10:24 | disposition home or self-care (01) ==
LOC: LAB 10:23
PROVIDERS: ATTEND Nurse Practitioner
DX: R31.9 Hematuria, unspecified (principal); R30.0 Dysuria; Z13.1 Encounter for screening for diabetes mellitus; Z13.0 Encounter for screening for diseases of the blood and blood-forming organs and certain disorders involving the immune mechanism; N90.89 Other specified noninflammatory disorders of vulva and perineum; Z13.220 Encounter for screening for lipoid disorders
CPT/HCPCS: 36415; 80053; 80061; 81001; 83036; 83721; 85025; 86695; 86696; 87086

== ENCOUNTER 2022-06-06 11:42 | Outpatient (CLI) | payer MEDICAID ==
[2022-06-06 12:24] LABS: % IRON SATURATION 18 % (20-50); IRON 69 ug/dL (28-170); TOTAL IRON BINDING CAPACITY 377 ug/dL (250-450); TRANSFERRIN 269 mg/dL (192-382)
[2022-06-06 12:35] LABS: FERRITIN 19.9 ng/mL (11.0-306.8)
== END 2022-06-06 11:43 | disposition home or self-care (01) ==
LOC: LAB 11:42
PROVIDERS: ATTEND Nurse Practitioner
DX: Z13.0 Encounter for screening for diseases of the blood and blood-forming organs and certain disorders involving the immune mechanism (principal)
CPT/HCPCS: 36415; 82607; 82728; 83540; 84466

== ENCOUNTER 2022-07-10 08:03 | Outpatient (CLI) | payer MEDICAID ==
[2022-07-10 08:25] LABS: BASOPHILS % (AUTO) 0.5 %; EOSINOPHILS # (AUTO) 0.1 10^3/uL (0.0-0.7); EOSINOPHILS % (AUTO) 1.1 %; HCT - HEMATOCRIT 39.3 % (37.0-47.0); HGB - HEMOGLOBIN 12.6 g/dL (12.0-16.0); LYMPHOCYTES # (AUTO) 2.6 10^3/uL (1.5-3.5); LYMPHOCYTES % (AUTO) 31.9 %; MEAN CORPUSCULAR HEMOGLOBIN 28.6 pg (27.0-31.0); MEAN CORPUSCULAR HGB CONC 32.1 g/dL (32.0-36.0); MEAN CORPUSCULAR VOLUME 89.1 fL (81.0-99.0); MEAN PLATELET VOLUME 8.6 fL (7.9-10.8); MONOCYTES # (AUTO) 0.6 10^3/uL (0.0-1.0); MONOCYTES % (AUTO) 7.5 %; NEUTROPHILS # (AUTO) 4.7 10^3/uL (1.5-6.6); NEUTROPHILS % (AUTO) 58.6 %; PLT - PLATELET COUNT 220 10^3/uL (130-450); RED BLOOD COUNT 4.41 10^6/uL (4.20-5.40); RED CELL DISTRIBUTION WIDTH 13.6 % (12.0-15.0)
[2022-07-10 08:56] LABS: THYROID STIMULATING HORMONE 1.79 uIU/mL (0.34-5.60)
[2022-07-10 08:58] LABS: FREE T4 (FREE THYROXINE) 0.72 ng/dL (0.58-1.64)
[2022-07-10 08:59] LABS: FREE T3 2.64 pg/mL (2.5-3.9)
[2022-07-10 09:04] LABS: FERRITIN 36.7 ng/mL (11.0-306.8)
[2022-07-11 06:10] LABS: VITAMIN D 25-HYDROXY 37.6 ng/mL (30.0-100.0)
== END 2022-07-10 08:04 | disposition home or self-care (01) ==
LOC: LAB 08:03
PROVIDERS: ATTEND Nurse Practitioner
DX: L65.9 Nonscarring hair loss, unspecified (principal); L30.4 Erythema intertrigo
CPT/HCPCS: 36415; 82306; 82607; 82728; 82746; 84439; 84443; 84481; 84630; 85025

== ENCOUNTER 2022-07-10 15:17 | Outpatient (CLI) | payer MEDICAID ==
--- NOTE | 2022-07-11 17:27 | Ultrasound Report ---
PROCEDURE: Pelvic w/Transvaginal INDICATIONS: PELVIC MASS TECHNIQUE: Real-time scanning was performed of the pelvic organs, with image documentation. Additional endovagi nal scanning was necessary due to incomplete visualization of the adnexal and endometrial structures by transabdominal scanning. COMPARISON: None. FINDINGS: Uterus: Removed. Ovaries: The right ovary measures 3.9 x 2.2 x 2.3 cm, with a calculated ovarian volume of 10.4 cc. The left ovary measures 3.4 x 1.7 x 2.1 cm, with a calculated ovarian volume of 6.0 cc. The ovaries have a normal sonographic appearance. Less than 12 follicles can be seen in each ovary. No adnexal masses are seen. Other: No pathologic free abdominal or pelvic fluid. IMPRESSION: No visualized pelvic mass. Reviewed by: Kimberly Mayen MD on 07/11/2022 4:56 PM PST Approved by: Kimberly Mayen MD on 07/11/2022 4:56 PM [facility] Station ID: [id number]
== END 2022-07-10 15:18 | disposition home or self-care (01) ==
LOC: DI 15:17
PROVIDERS: ATTEND Nurse Practitioner
DX: R19.00 Intra-abdominal and pelvic swelling, mass and lump, unspecified site (principal); L65.9 Nonscarring hair loss, unspecified; L30.4 Erythema intertrigo
CPT/HCPCS: 36415; 82306; 82607; 82728; 82746; 84439; 84443; 84481; 84630; 85025

== ENCOUNTER 2022-09-11 10:48 | Emergency (ER) | payer MEDICAID ==
[2022-09-11 11:35] LABS: BILIRUBIN,URINE NEGATIVE (NEGATIVE); GLUCOSE, URINE (UA) NEGATIVE (NEGATIVE); KETONES,URINE (UA) NEGATIVE (NEGATIVE); LEUKOCYTE ESTERASE, URINE SMALL (NEGATIVE); NITRITE,URINE NEGATIVE (NEGATIVE); OCCULT BLOOD,URINE NEGATIVE (NEGATIVE); PROTEIN,URINE NEGATIVE (NEGATIVE); UROBILINOGEN,URINE 0.2 (NORMAL) E.U./dL (NORMAL)
[2022-09-11 11:37] LABS: CLARITY,URINE CLEAR (CLEAR)
[2022-09-11 11:39] LABS: HCG UR QUAL NEGATIVE
[2022-09-11 11:45] LABS: BASOPHILS % (AUTO) 0.5 %
[2022-09-11 11:48] LABS: EOSINOPHILS # (AUTO) 0.1 10^3/uL (0.0-0.7); EOSINOPHILS % (AUTO) 1.1 %; HCT - HEMATOCRIT 40.3 % (37.0-47.0); HGB - HEMOGLOBIN 12.9 g/dL (12.0-16.0); LYMPHOCYTES # (AUTO) 2.2 10^3/uL (1.5-3.5); LYMPHOCYTES % (AUTO) 30.1 %; MEAN CORPUSCULAR VOLUME 87.6 fL (81.0-99.0); MEAN PLATELET VOLUME 8.8 fL (7.9-10.8); MONOCYTES # (AUTO) 0.5 10^3/uL (0.0-1.0); NEUTROPHILS # (AUTO) 4.5 10^3/uL (1.5-6.6); NEUTROPHILS % (AUTO) 60.9 %; PLT - PLATELET COUNT 205 10^3/uL (130-450); RED CELL DISTRIBUTION WIDTH 13.6 % (12.0-15.0); WHITE BLOOD COUNT 7.4 x10^3/uL (4.8-10.8)
[2022-09-11 11:54] LABS: BACTERIA,URINE Few /HPF (None Seen); RBC,URINE 0-5 /HPF (0-5); SQUAMOUS EPITHELIAL CELL,UR FEW Squamous (<= Few)
[2022-09-11 11:54] LABS: SLIDE REVIEW? Indicated
[2022-09-11] MEDS ORDERED: ONDANSETRON 4 MG/2 ML VIAL IVP STA (11:56)
[2022-09-11] MEDS ORDERED: HYDROmorphone 1 MG/ML CARPUJECT IVP STA (11:56)
--- NOTE | 2022-09-11 11:59 | ED Physician Documentation ---
PD HPI ABD PAIN - Stated complaint Stated Complaint: ABD PX, NAUSEA, INFLAMMATION - Chief complaint Chief Complaint: Abd Pain - History obtained from History obtained from: Patient - Additional information Additional information: 52-year-old woman with history of type 2 diabetes, seizure disorder, hypertension presents with 4 days of epigastric and left upper quadrant pain radiating to the left flank. It is associated with nausea but no vomiting. She has been constipated and poor appetite with it. She feels bloated. No history of abdominal surgeries. Review of the chart shows that she had similar symptoms in December of last year with negative work-up, and pelvic ultrasound approximately 2 months ago which was negative. PD PAST MEDICAL HISTORY - Past Medical History Cardiovascular: Hypertension, High cholesterol Respiratory: Asthma, COPD Neuro: Migraines, Seizure disorder Endocrine/Autoimmune: Type 2 diabetes GI: GERD, Diverticulitis Psych: Depression, Anxiety Derm: Eczema - Present Medications Home Medications: Ambulatory Orders Medication Instructions Recorded Confirmed Albuterol Sulf [Ventolin Hfa 1 - 2 puffs INH Q4HR PRN 08/23/21 08/23/21 Inhaler] EPINEPHrine [Epinephrine] 0.3 mg IJ ONCE PRN 08/23/21 08/23/21 Levetiracetam [Keppra] 500 mg PO BID 08/23/21 08/23/21 Montelukast [Singulair] 10 mg PO QPM 08/23/21 08/23/21 Omeprazole 20 mg PO BID 08/23/21 08/23/21 Rosuvastatin Calcium [Crestor] 5 mg PO QPM 08/23/21 08/23/21 Sertraline HCl 200 mg PO QPM 08/23/21 08/23/21 Spironolactone [Aldactone] 25 mg PO DAILY 08/23/21 08/23/21 Thyroid,Pork [[place] Thyroid] 60 mg PO DAILY 08/23/21 08/23/21 Triamterene/Hydrochlorothiazid 0.5 tab PO DAILY 08/23/21 08/23/21 [Maxzide 37.5 mg-25 mg Tablet] metFORMIN [Glucophage] 500 mg PO BIDWM 10/26/21 10/26/21 Metoclopramide [Reglan] 10 mg PO Q6H PRN #20 tablet 01/14/22 Sucralfate [Carafate] 1 gm PO ACHS #60 tablet 01/14/22 Ondansetron Odt [Zofran] 4 mg TL Q6H PRN #20 tablet 03/05/22 Oxycodone HCl/Acetaminophen 1 each PO Q6H PRN #10 tablet 03/05/22 [Percocet 5-325 mg Tablet] Fluconazole [Diflucan] 150 mg PO Q3D #2 tablet 05/06/22 HYDROcod/ACETAM 5/325 [Paron 5/325] 1 ea PO Q6H PRN #10 tablet 05/06/22 Naproxen 500 mg PO BID #20 tab 05/06/22 Metoclopramide [Reglan] 10 mg PO Q6H PRN #20 tablet 09/11/22 Sucralfate [Carafate] 1 gm PO ACHS #60 tablet 09/11/22 - Allergies Allergies/Adverse Reactions: Allergies Allergy/AdvReac Type Severity Reaction Status Date / Time Iodinated Contrast Media AdvReac Rash Verified 09/11/22 11:04 - Social History Does the pt smoke?: No Smoking Status: Never smoker Does the pt have substance abuse?: No PD ED PE NORMAL - Vitals Vital signs reviewed: Yes - General General: Alert and oriented X 3, No acute distress - Abdomen Abdomen: Normal bowel sounds, Soft, Non tender, Other (Bedside ultrasound does not demonstrate ascites) - Back Back: No CVA TTP, No spinal TTP - Extremities Extremities: No edema, No calf tenderness / cord - Neuro Neuro: Alert and oriented X 3, Normal speech Results - Vitals Vitals: Vital Signs - 24 hr 09/11/22 09/11/22 09/11/22 11:00 12:09 12:30 Temperature 36.0 C L Heart Rate 77 74 78 Respiratory 16 16 15 Rate Blood Pressure 132/87 H 128/87 H 140/95 H O2 Saturation 99 100 100 If not protocol 2 : Oxygen Flow, liters/minute Oxygen O2 Source Nasal cannula - Labs Labs: Laboratory Tests 09/11/22 09/11/22 09/11/22 11:25 11:25 11:38 WBC 7.4 RBC 4.60 Hgb 12.9 Hct 40.3 MCV 87.6 MCH 28.0 MCHC 32.0 RDW 13.6 Plt Count 205 MPV 8.8 Neut # (Auto) 4.5 Lymph # (Auto) 2.2 [place] # (Auto) 0.5 Eos # (Auto) 0.1 Baso # (Auto) 0.0 Absolute Nucleated RBC 0.00 Nucleated RBC % 0.0 Manual Slide Review Indicated WBC Morphology 1+ REACTIVE LYMPHS Sodium Potassium Chloride Carbon Dioxide Anion Gap BUN Creatinine Estimated GFR (MDRD) Glucose Calcium Total Bilirubin AST ALT Alkaline Phosphatase Total Protein Albumin Globulin Albumin/Globulin Ratio Lipase Urine Color YELLOW Urine Clarity CLEAR Urine pH 6.0 Ur Specific [place] 1.025 Urine Protein NEGATIVE Urine Glucose (UA) NEGATIVE Urine Ketones NEGATIVE Urine Occult Blood NEGATIVE Urine Nitrite NEGATIVE Urine Bilirubin NEGATIVE Urine Urobilinogen 0.2 (NORMAL) Ur Leukocyte Esterase SMALL H Urine RBC 0-5 Urine WBC 6-10 H Ur Squamous Epith Cells FEW Squamous Urine Bacteria Few Ur Microscopic Review INDICATED Urine Culture Comments INDICATED Urine HCG, Qual NEGATIVE 09/11/22 11:38 WBC RBC Hgb Hct MCV MCH MCHC RDW Plt Count MPV Neut # (Auto) Lymph # (Auto) [place] # (Auto) Eos # (Auto) Baso # (Auto) Absolute Nucleated RBC Nucleated RBC % Manual Slide Review WBC Morphology Sodium 136 Potassium 4.4 Chloride 103 Carbon Dioxide 29 Anion Gap 4.0 L BUN 18 Creatinine 0.6 Estimated GFR (MDRD) 105 Glucose 145 H Calcium 9.0 Total Bilirubin 0.3 AST 14 ALT 18 Alkaline Phosphatase 66 Total Protein 7.7 Albumin 4.1 Globulin 3.6 Albumin/Globulin Ratio 1.1 Lipase 54 H Urine Color Urine Clarity Urine pH Ur Specific [place] Urine Protein Urine Glucose (UA) Urine Ketones Urine Occult Blood Urine Nitrite Urine Bilirubin Urine Urobilinogen Ur Leukocyte Esterase Urine RBC Urine WBC Ur Squamous Epith Cells Urine Bacteria Ur Microscopic Review Urine Culture Comments Urine HCG, Qual - Rads (name of study) CT KUB (no contrast d/t allergy) Relevant Findings:: Final report received, EMP independent interpretation of test PD Medical Decision Making - ED course ED course: This is a silvia 52-year-old woman who presents with left upper quadrant pain radiating to the left flank. Review of the chart shows she had a similar episode in December of last year thought to be gastritis or gastroparesis and she did get relief at that time with a combination of sucralfate and metoclopramide. Today her pain is all but resolved after a single dose of Dilaudid and Zofran. Her work-up is notable for normal CBC, CMP showing minimal elevation of lipase and glucose, otherwise negative, urine showing a few white cells and small leukocyte esterase in the absence of urinary symptoms so would not treat at this juncture. Urine test is negative. CT of the abdomen pelvis de monstrating mild hepatomegaly and steatosis and diverticulosis without diverticulitis. Departure - Departure Disposition: Home, Self Care Clinical Impression: Gastritis Qualifiers: Gastritis type: unspecified gastritis Chronicity: acute Gastritis bleeding: without bleeding Qualified Code(s): K29.00 - Acute gastritis without bleeding Condition: Good Record reviewed to determine appropriate education?: Yes Instructions: ED PUD Vs Gastritis Prescriptions: Sucralfate [Carafate] 1 gm PO ACHS #60 tablet Metoclopramide [Reglan] 10 mg PO Q6H PRN #20 tablet PRN Reason: nausea or headache Comments: You were seen today for a for abdominal pain which I think is either gastritis or gastroparesis. You should follow-up with your primary care physician for further evaluation and treatment. In the meantime I sent the prescription for the medication that helped last year to [facility] in [place]. Return if worse.
[2022-09-11 12:00] LABS: ALBUMIN 4.1 g/dL (3.2-5.5); ALBUMIN/GLOBULIN RATIO 1.1 (1.0-2.2); BILIRUBIN,TOTAL 0.3 mg/dL (0.2-1.0); CREATININE 0.6 mg/dL (0.4-1.0); POTASSIUM 4.4 mmol/L (3.5-5.0); TOTAL PROTEIN 7.7 g/dL (6.7-8.2)
--- OUTSIDE RECORDS SUMMARY | 2022-09-11 12:04 | EXTERNAL MEDICAL SUMMARY RPT | Continuity of Care Document ---
:1970 Author Organization [facility] Address [address] [place] [address] Phone Care Team Providers Name Role Phone Regina Doyle Unavailable Unavailable Julian Anglin Unavailable Unavailable Allergies and Intolerances date description facility type (no date) No Known Drug Allergies [facility] ([facility] own) Encounters No information. Functional Status No information. Immunizations No information. Medications date description facility 2022-06-17 00:00 famotidine All 2022-06-17 00:00 nitrofurantoin monohyd/m-cryst All 2022-06-17 00:00 ondansetron All 2022-06-17 00:00 lidocaine All 2022-06-17 00:00 ondansetron All 2022-06-17 00:00 phenazopyridine All 2022-06-17 00:00 dexlansoprazole All 2022-06-17 00:00 nitrofurantoin monohyd/m-cryst All 2022-06-17 00:00 phenazopyridine All 2022-06-17 00:00 nitrofurantoin monohyd/m-cryst All 2022-06-17 00:00 lidocaine All 2022-06-17 00:00 montelukast All 2022-06-17 00:00 ketoconazole All 2022-06-17 00:00 diclofenac sodium All 2022-06-17 00:00 clobetasol All 2022-06-17 00:00 metformin All 2022-06-17 00:00 famotidine All 2022-06-17 00:00 ketoconazole All 2022-06-17 00:00 nitrofurantoin monohyd/m-cryst All 2022-06-17 00:00 sertraline All 2022-06-21 00:00 [facility] 2022-06-17 00:00 famotidine All 2022-06-17 00:00 sertraline All 2022-06-17 00:00 sumatriptan succinate All 2022-06-17 00:00 atorvastatin All 2022-06-17 00:00 clotrimazole All 2022-06-17 00:00 sumatriptan succinate All 2022-06-17 00:00 montelukast All 2022-06-17 00:00 atorvastatin All 2022-06-17 00:00 famotidine All 2022-06-17 00:00 dexlansoprazole All 2022-06-17 00:00 ondansetron All 2022-06-17 00:00 clobetasol All 2022-06-17 00:00 clotrimazole All 2022-06-17 00:00 ketoconazole All 2022-06-17 00:00 montelukast All 2022-06-17 00:00 pimecrolimus All 2022-06-17 00:00 phenazopyridine All 2022-06-17 00:00 sertraline All 2022-06-17 00:00 sertraline All 2022-06-17 00:00 atorvastatin All 2022-06-17 00:00 metformin All 2022-06-17 00:00 sumatriptan succinate All 2022-06-17 00:00 atorvastatin All 2022-06-17 00:00 ondansetron All 2022-06-17 00:00 dexlansoprazole All 2022-06-17 00:00 diclofenac sodium All 2022-06-17 00:00 lidocaine All 2022-06-17 00:00 montelukast All 2022-06-17 00:00 phenazopyridine All 2022-06-17 00:00 sumatriptan succinate All 2022-06-17 00:00 metformin All 2022-06-17 00:00 pimecrolimus All 2022-06-17 00:00 pimecrolimus All 2022-06-17 00:00 diclofenac sodium All 2022-06-17 00:00 metformin All 2022-06-17 00:00 clobetasol All 2022-06-17 00:00 clotrimazole All 2022-06-17 00:00 ketoconazole All 2022-06-17 00:00 diclofenac sodium All 2022-06-17 00:00 dexlansoprazole All 2022-06-17 00:00 clobetasol All 2022-06-17 00:00 pimecrolimus All 2022-06-17 00:00 lidocaine All Problems date description facility 2022-06-21 00:00 Otitis media [facility] 2022-06-21 00:[address] [facility] 2022-06-21 00:00 Multiple pulmonary nodules [facility] Procedures date description facility 2022-06-21 00:00 X-ray of chest, single view [facility] 2022-06-21 00:00 CT abdomen pelvis w con [facility] Results/Labs test date author facility value unit interpret ation Result panel 1 ([facility]) (no [facility]) Result panel 2 (unknown) (no date) ([facility]) Result panel 3 (unknown) (no date) (unknown[facility]) Result panel 4 (unknown) (no date) (unknown[facility]) Result panel 5 (unknown) (no date) (unknown[facility]) Result panel 6 (unknown) (no date) (unknown[facility]) Result panel 7 (unknown) (no date) (unknown[facility]) Result panel 8 (unknown) (no date) (unknown[facility]) Result panel 9 (unknown) (no date) (unknown[facility]) Result panel 10 (unknown) (no date) (unknown[facility]) Result panel 11 (unknown) (no date) (unknown[facility]) Result panel 12 (unknown) (no date) (unknown[facility]) Result panel 13 (unknown) (no date) (unknown[facility]) Result panel 14 (unknown) (no date) (unknown[facility]) Result panel 15 (unknown) (no date) (unknown[facility]) Result panel 16 (unknown) (no date) (unknown[facility]) Result panel 17 (unknown) (no date) (unknown[facility]) Result panel 18 (unknown) (no date) (unknown[facility]) Result panel 19 (unknown) (no date) (unknown[facility]) Result panel 20 (unknown) (no date) (unknown[facility]) Result panel 21 (unknown) (no date) (unknown[facility]) Result panel 22 (unknown) (no date) (unknown[facility]) Result panel 23 (unknown) (no date) (unknown[facility]) Result panel 24 (unknown) (no date) (unknown[facility]) Result panel 25 (unknown) (no date) (unknown[facility]) Result panel 26 (unknown) (no date) (unknown[facility]) Result panel 27 (unknown) (no date) (unknown[facility]) Result panel 28 (unknown) (no date) (unknown[facility]) Result panel 29 (unknown) (no date) (unknown[facility]) Result panel 30 (unknown) (no date) (unknown[facility]) Result panel 31 (unknown) (no date) (unknown[facility]) Result panel 32 (unknown) (no date) (unknown[facility]) Result panel 33 (unknown) (no date) (unknown[facility]) Result panel 34 (unknown) (no date) (unknown[facility]) Result panel 35 (unknown) (no date) (unknown[facility]) Result panel 36 (unknown) (no date) (unknown[facility]) Result panel 37 (unknown) (no date) (unknown[facility]) Result panel 38 (unknown) (no date) (unknown[facility]) Result panel 39 (unknown) (no date) (unknown[facility]) Result panel 40 (unknown) (no date) (unknown[facility]) Result panel 41 (unknown) (no date) (unknown[facility]) Result panel 42 (unknown) (no date) (unknown[facility]) Result panel 43 (unknown) (no date) (unknown[facility]) Result panel 44 (unknown) (no date) (unknown[facility]) Result panel 45 (unknown) (no date) (unknown[facility]) Result panel 46 (unknown) (no date) (unknown[facility]) Result panel 47 (unknown) (no date) (unknown[facility]) Result panel 48 (unknown) (no date) (unknown[facility]) Result panel 49 (unknown) (no date) (unknown[facility]) Result panel 50 (unknown) (no date) (unknown[facility]) Result panel 51 (unknown) (no date) (unknown[facility]) Result panel 52 (unknown) (no date) (unknown[facility]) Result panel 53 (unknown) (no date) (unknown[facility]) Result panel 54 (unknown) (no date) (unknown[facility]) Result panel 55 (unknown) (no date) (unknown[facility]) Result panel 56 (unknown) (no date) (unknown[facility]) Result panel 57 (unknown) (no date) (unknown[facility]) Result panel 58 (unknown) (no date) (unknown[facility]) Result panel 59 (unknown) (no date) (unknown[facility]) Result panel 60 (unknown) (no date) (unknown[facility]) Result panel 61 (unknown) (no date) (unknown[facility]) Result panel 62 (unknown) (no date) (unknown[facility]) Result panel 63 (unknown) (no date) (unknown[facility]) Result panel 64 (unknown) (no date) (unknown[facility]) Result panel 65 (unknown) (no date) (unknown[facility]) Result panel 66 (unknown) (no date) (unknown[facility]) Result panel 67 (unknown) (no date) (unknown[facility]) Result panel 68 (unknown) (no date) (unknown[facility]) Result panel 69 (unknown) (no date) (unknown[facility]) Result panel 70 (unknown) (no date) (unknown[facility]) Result panel 71 (unknown) (no date) (unknown[facility]) Result panel 72 (unknown) (no date) (unknown[facility]) Result panel 73 (unknown) (no date) (unknown) (unknown) (no value) (units (un known) unknown) (unknown) (no date) (unknown) (unknown) 06/21/22 04:44 (units (unknown) unknown) (unknown) (no date) (unknown) (unknown) : [id number] (units ( unknown) unknown) (unknown) (no date) (unknown) (unknown) Age/Sex: 52 / (units (unknown) F unknown) (unknown) (no date) (unknown) (unknown) Chief (units (unkn own) complaint: unknown) Upper Respiratory Symptoms (unknown) (no date) (unknown) (unknown) Course (units (unkn own) unknown) (unknown) (no date) (unknown) (unknown) Covid-19 + FLU (units (unknown) A/B + RSV - PCR unknown) Stat (unknown) (no date) (unknown) (unknown) : (units (unkn own) 1970 unknown) Acct:[id number] (unknown) (no date) (unknown) (unknown) Date of (units (unkn own) Service: unknown) 06/21/22 (unknown) (no date) (unknown) (unknown) ED Orders (units (unk nown) unknown) (unknown) (no date) (unknown) (unknown) ER Physician: (units (unknown) Wisam Barone unknown) D.O. (unknown) (no date) (unknown) (unknown) Emergency (units (unk nown) Report unknown) (unknown) (no date) (unknown) (unknown) General (units (unkn own) unknown) (unknown) (no date) (unknown) (unknown) HPI - General (units (unknown) Adult unknown) (unknown) (no date) (unknown) (unknown) [facility] [address] unknown) [address] [place] [id number] (unknown) (no date) (unknown) (unknown) Ordered: (units (unkn own) unknown) (unknown) (no date) (unknown) (unknown) Orders (units (unkn own) unknown) (unknown) (no date) (unknown) (unknown) Patient: Cristiana (units (unknown) Maggie Orourke unknown) MR# (unknown) (no date) (unknown) (unknown) Signed By: (units (un known) unknown) (unknown) (no date) (unknown) (unknown) Stated (units (unkn own) complaint: unknown) bodyaches, congested (unknown) (no date) (unknown) (unknown) Time Seen by (units ( unknown) Provider: unknown) 06/21/22 04:34 Result panel 74 (unknown) (no date) (unknown) (unknown) Flu A (units (unkn own) NEGATIVE unknown) (unknown) (no date) (unknown) (unknown) Flu B (units (unkn own) NEGATIVE unknown) (unknown) (no date) (unknown) (unknown) Negative (units (unkn own) unknown) (unknown) (no date) (unknown) (unknown) Negative (units (unkn own) unknown) Result panel 75 (unknown) (no (unknown) (unknown) (no value) (units (unk nown) date) unknown) (unknown) (no (unknown) (unknown) #: [id number] (units ( unknown) date) unknown) (unknown) (no (unknown) (unknown) 06/21/22 (units (unkno wn) date) unknown) (unknown) (no (unknown) (unknown) [address] [place] [address] (units (unknown) date) unknown) (unknown) (no (unknown) (unknown) Accession Number: (units (unknown) date) [id number] unknown) (unknown) (no (unknown) (unknown) Age/Sex: 52 / F (units (unknown) date) Date of Service: unknown) (unknown) (no (unknown) (unknown) [place] (units ( unknown) date) [id number] unknown) (unknown) (no (unknown) (unknown) Approved by: (units (u nknown) date) Campos Nowak M.D. on unknown) 06/21/2022 at 7:04 (unknown) (no (unknown) (unknown) Bones and chest (units (unknown) date) wall: No unknown) suspicious bony lesions. Overlying soft tissues (unknown) (no (unknown) (unknown) COMPARISON: None. (units (unknown) date) unknown) (unknown) (no (unknown) (unknown) : 1970 (units (unknown) date) Acct:[id number] unknown) (unknown) (no (unknown) (unknown) Dictated by: (units (u nknown) date) Campos Nowak M.D. on unknown) 06/21/2022 at 7:04 (unknown) (no (unknown) (unknown) FINDINGS: (units (unkn own) date) unknown) (unknown) (no (unknown) (unknown) IMPRESSION: No (units (unknown) date) acute unknown) cardiopulmonary abnormalities or focal airspace disease. (unknown) (no (unknown) (unknown) INDICATIONS: eval (units (unknown) date) for PNA unknown) (unknown) (no (unknown) (unknown) [facility] (units (unknown) date) unknown) (unknown) (no (unknown) (unknown) Loc: ED (units (unkno wn) date) unknown) (unknown) (no (unknown) (unknown) Lungs and pleura: (units (unknown) date) Lungs are clear. unknown) No pleural effusions or pneumothorax. (unknown) (no (unknown) (unknown) Mediastinum: (units (u nknown) date) Mediastinal unknown) contours appear normal. Heart size is normal. (unknown) (no (unknown) (unknown) No significant (units (unknown) date) discrepancy with unknown) the awake overnight monitor radiology preliminary report. (unknown) (no (unknown) (unknown) Ordering (units (unkno wn) date) Provider: unknown) Wisam Barone D.O. (unknown) (no (unknown) (unknown) PROCEDURE: XR (units ( unknown) date) CHEST 1V unknown) (unknown) (no (unknown) (unknown) Patient: Cristiana (units (unknown) date) Maggie Orourke MR unknown) (unknown) (no (unknown) (unknown) Procedure: XR (units ( unknown) date) chest 1V unknown) (unknown) (no (unknown) (unknown) Signed (units (unkno wn) date) unknown) (unknown) (no (unknown) (unknown) Surgical changes (units (unknown) date) and devices: None. unknown) (unknown) (no (unknown) (unknown) TECHNIQUE: One (units (unknown) date) view of the chest unknown) was acquired. (unknown) (no (unknown) (unknown) XRay Report (units (un known) date) unknown) (unknown) (no (unknown) (unknown) appear (units (unkno wn) date) unknown) (unknown) (no (unknown) (unknown) unremarkable. (units ( unknown) date) unknown) Result panel 76 (unknown) (no (unknown) (unknown) (no value) (units (unk nown) date) unknown) (unknown) (no (unknown) (unknown) 06/21/22 04:40 (units (unknown) date) unknown) (unknown) (no (unknown) (unknown) 06/21/22 05:31 (units (unknown) date) unknown) (unknown) (no (unknown) (unknown) 06/21/22 (units (unkno wn) date) Range/Units unknown) (unknown) (no (unknown) (unknown) 06/21/22 (units (unkno wn) date) unknown) (unknown) (no (unknown) (unknown) 04:40 (units (unkno wn) date) unknown) (unknown) (no (unknown) (unknown) 04:46 (units (unkno wn) date) unknown) (unknown) (no (unknown) (unknown) 52-year-old (units (un known) date) female. Is unknown) Cuban-speaking only. Language/translat ion line was (unknown) (no (unknown) (unknown) : [id number] (units (u nknown) date) unknown) (unknown) (no (unknown) (unknown) Acetaminophen (units ( unknown) date) (Acetaminophen unknown) 325 Mg Tablet) 650 mg PO NOW ONE (unknown) (no (unknown) (unknown) Age/Sex: 52 / F (units (unknown) date) unknown) (unknown) (no (unknown) (unknown) Allergies (units (unkn own) date) unknown) (unknown) (no (unknown) (unknown) Allergy/AdvReac (units (unknown) date) Type Severity unknown) Reaction Status Date / Time (unknown) (no (unknown) (unknown) Auscultation: (units ( unknown) date) clear to unknown) auscultation bilaterally (unknown) (no (unknown) (unknown) Blood Pressure (units (unknown) date) 185/93 H 06/21/22 unknown) 04:46 (unknown) (no (unknown) (unknown) Blood Pressure (units (unknown) date) 185/93 H unknown) (unknown) (no (unknown) (unknown) Cardio (units (unkno wn) date) unknown) (unknown) (no (unknown) (unknown) Chief complaint: (units (unknown) date) Upper Respiratory unknown) Symptoms (unknown) (no (unknown) (unknown) Const (units (unkno wn) date) unknown) (unknown) (no (unknown) (unknown) Constitutional (units (unknown) date) unknown) (unknown) (no (unknown) (unknown) Constitutional: (units (unknown) date) Reports system unknown) reviewed and no additional complaints, except as (unknown) (no (unknown) (unknown) Course (units (unkno wn) date) unknown) (unknown) (no (unknown) (unknown) Covid-19 + FLU (units (unknown) date) A/B + RSV - PCR unknown) Stat (unknown) (no (unknown) (unknown) : 1970 (units (unknown) date) Acct:[id number] unknown) (unknown) (no (unknown) (unknown) Date of Service: (units (unknown) date) 06/21/22 unknown) (unknown) (no (unknown) (unknown) Discontinued (units (u nknown) date) Medications unknown) (unknown) (no (unknown) (unknown) Documented By: (units (unknown) date) OW unknown) (unknown) (no (unknown) (unknown) ED Orders (units (unkn own) date) unknown) (unknown) (no (unknown) (unknown) ENT (units (unkno wn) date) unknown) (unknown) (no (unknown) (unknown) ER Physician: (units ( unknown) date) Wisam Barone unknown) D.O. (unknown) (no (unknown) (unknown) Ears, Nose, (units (un known) date) Mouth, and unknown) Throat: Reports system reviewed and no additional (unknown) (no (unknown) (unknown) Ears: EAC's (units (un known) date) normal and TM unknown) abnormal bulging on the left; not on the right, dull (unknown) (no (unknown) (unknown) Effort + (units (unkno wn) date) Inspection: unknown) normal respiratory effort (unknown) (no (unknown) (unknown) Emergency Report (units (unknown) date) unknown) (unknown) (no (unknown) (unknown) Exam (units (unkno wn) date) unknown) (unknown) (no (unknown) (unknown) Extrem (units (unkno wn) date) unknown) (unknown) (no (unknown) (unknown) GI (units (unkno wn) date) unknown) (unknown) (no (unknown) (unknown) General (units (unkno wn) date) unknown) (unknown) (no (unknown) (unknown) General: (units (unkno wn) date) cooperative and unknown) comfortable (unknown) (no (unknown) (unknown) General: no (units (un known) date) rashes or lesions unknown) noted (unknown) (no (unknown) (unknown) General: normal (units (unknown) date) to inspection and unknown) capillary refill normal (unknown) (no (unknown) (unknown) General: patient (units (unknown) date) alert, patient unknown) awake and moves all extremities (unknown) (no (unknown) (unknown) HENMT (units (unkno wn) date) unknown) (unknown) (no (unknown) (unknown) HPI - General (units ( unknown) date) Adult unknown) (unknown) (no (unknown) (unknown) HPI narrative: (units (unknown) date) unknown) (unknown) (no (unknown) (unknown) History of (units (unk nown) date) Present Illness unknown) (unknown) (no (unknown) (unknown) Influenza A (units (un known) date) (RT-PCR) Flu a unknown) negative (NEGATIVE) (unknown) (no (unknown) (unknown) Influenza B (units (un known) date) (RT-PCR) Flu b unknown) negative (NEGATIVE) (unknown) (no (unknown) (unknown) Initial Vital (units ( unknown) date) Signs unknown) (unknown) (no (unknown) (unknown) Initial Vital (units ( unknown) date) Signs: unknown) (unknown) (no (unknown) (unknown) Inspection: (units (un known) date) normal to unknown) inspection (unknown) (no (unknown) (unknown) Integumentary/Br (units (unknown) date) easts unknown) (unknown) (no (unknown) (unknown) [facility] (units (unknown) date) [address] [place] [address] unknown) [place] [address] (unknown) (no (unknown) (unknown) Lab Data (units (unkno wn) date) unknown) (unknown) (no (unknown) (unknown) Lab Results (units (un known) date) unknown) (unknown) (no (unknown) (unknown) Labs: (units (unkno wn) date) unknown) (unknown) (no (unknown) (unknown) Last Admin: (units (un known) date) 06/21/22 04:48 unknown) Dose: 650 mg (unknown) (no (unknown) (unknown) Limitations: (units (u nknown) date) language barrier unknown) (unknown) (no (unknown) (unknown) Medical Decision (units (unknown) date) Making unknown) (unknown) (no (unknown) (unknown) Mode of arrival: (units (unknown) date) Ambulatory unknown) (unknown) (no (unknown) (unknown) Neuro (units (unkno wn) date) unknown) (unknown) (no (unknown) (unknown) No Known Drug (units ( unknown) date) Allergies Allergy unknown) Verified 06/21/22 04:46 (unknown) (no (unknown) (unknown) Ordered: (units (unkno wn) date) unknown) (unknown) (no (unknown) (unknown) Orders (units (unkno wn) date) unknown) (unknown) (no (unknown) (unknown) Oxygen Delivery (units (unknown) date) Method 06/21/22 unknown) 04:46 (unknown) (no (unknown) (unknown) Oxygen Delivery (units (unknown) date) Method Room Air unknown) (unknown) (no (unknown) (unknown) Patient History (units (unknown) date) unknown) (unknown) (no (unknown) (unknown) Patient: Cristiana (units (unknown) date) Maggie Orourke unknown) MR# (unknown) (no (unknown) (unknown) Pulse Oximetry (units (unknown) date) 98 06/21/22 04:46 unknown) (unknown) (no (unknown) (unknown) Pulse Oximetry (units (unknown) date) 98 unknown) (unknown) (no (unknown) (unknown) Pulse Rate 100 H (units (unknown) date) 06/21/22 04:46 unknown) (unknown) (no (unknown) (unknown) Pulse Rate 100 H (units (unknown) date) unknown) (unknown) (no (unknown) (unknown) RSV (PCR) (units (unkn own) date) Negative unknown) (Negative) (unknown) (no (unknown) (unknown) Rate: regular (units ( unknown) date) rate unknown) (unknown) (no (unknown) (unknown) Related Data (units (u nknown) date) unknown) (unknown) (no (unknown) (unknown) Resp (units (unkno wn) date) unknown) (unknown) (no (unknown) (unknown) Respiratory Rate (units (unknown) date) 21 06/21/22 04:46 unknown) (unknown) (no (unknown) (unknown) Respiratory Rate (units (unknown) date) 21 unknown) (unknown) (no (unknown) (unknown) Respiratory (units (un known) date) unknown) (unknown) (no (unknown) (unknown) Respiratory: (units (u nknown) date) Reports system unknown) reviewed and no additional complaints, except as (unknown) (no (unknown) (unknown) Review of (units (unkn own) date) Systems unknown) (unknown) (no (unknown) (unknown) SARS-CoV-2 (PCR) (units (unknown) date) Negative unknown) (Negative) (unknown) (no (unknown) (unknown) Signed By: (units (unk nown) date) unknown) (unknown) (no (unknown) (unknown) Skin (units (unkno wn) date) unknown) (unknown) (no (unknown) (unknown) Skin/Breast: (units (u nknown) date) Reports system unknown) reviewed and no additional complaints, except as (unknown) (no (unknown) (unknown) Smoking Status: (units (unknown) date) Never smoker unknown) (unknown) (no (unknown) (unknown) Social History (units (unknown) date) (Reviewed unknown) 06/21/22 @ 05:41 by Wisam Barone DO) (unknown) (no (unknown) (unknown) Source: patient (units (unknown) date) unknown) (unknown) (no (unknown) (unknown) Stated (units (unkno wn) date) complaint: unknown) bodyaches, congested (unknown) (no (unknown) (unknown) Stop: 06/21/22 (units (unknown) date) 04:46 unknown) (unknown) (no (unknown) (unknown) Temperature 98.5 (units (unknown) date) F 06/21/22 04:46 unknown) (unknown) (no (unknown) (unknown) Temperature 98.5 (units (unknown) date) F unknown) (unknown) (no (unknown) (unknown) Time Seen by (units (u nknown) date) Provider: unknown) 06/21/22 04:34 (unknown) (no (unknown) (unknown) Vital Signs - 8 (units (unknown) date) hr unknown) (unknown) (no (unknown) (unknown) Vital Signs (units (un known) date) unknown) (unknown) (no (unknown) (unknown) Vital signs: (units (u nknown) date) unknown) (unknown) (no (unknown) (unknown) XR chest 1V Stat (units (unknown) date) unknown) (unknown) (no (unknown) (unknown) complaints, (units (un known) date) except as unknown) documented (unknown) (no (unknown) (unknown) documented (units (unk nown) date) unknown) (unknown) (no (unknown) (unknown) left ear pain, (units (unknown) date) body aches, unknown) headache, cough and generally not feeling well for (unknown) (no (unknown) (unknown) on the left and (units (unknown) date) with fluid behind unknown) the TM on the left; not on the right (unknown) (no (unknown) (unknown) the past several (units (unknown) date) hours/day. No unknown) fevers. (unknown) (no (unknown) (unknown) used for HPI and (units (unknown) date) review of unknown) systems. She is here for evaluation of congestion, Result panel 77 (unknown) (no (unknown) (unknown) (no value) (units (unk nown) date) unknown) (unknown) (no (unknown) (unknown) #: [id number] (units ( unknown) date) unknown) (unknown) (no (unknown) (unknown) (image (units (unkno wn) date) unknown) (unknown) (no (unknown) (unknown) 06/21/22 (units (unkno wn) date) unknown) (unknown) (no (unknown) (unknown) 1. CT abdomen and (units (unknown) date) pelvis without unknown) acute abnormalities. (unknown) (no (unknown) (unknown) [address] [place] [address] (units (unknown) date) unknown) (unknown) (no (unknown) (unknown) 2. Multiple (units (un known) date) scattered unknown) mesenteric lymph nodes more notable for number rather (unknown) (no (unknown) (unknown) 3. Scanned (units (unk nown) date) colonic unknown) diverticulosis without acute diverticulitis. (unknown) (no (unknown) (unknown) 4. Multiple right (units (unknown) date) middle lobe sub cm unknown) nodules with a 9 mm ground-glass nodule. (unknown) (no (unknown) (unknown) 5. Multilevel (units ( unknown) date) lumbar spondylosis unknown) most severe at L4-5. (unknown) (no (unknown) (unknown) 5/series 3). (units (u nknown) date) unknown) (unknown) (no (unknown) (unknown) 9 mm (units (unkno wn) date) unknown) (unknown) (no (unknown) (unknown) ABDOMEN: (units (unkno wn) date) unknown) (unknown) (no (unknown) (unknown) Abdominal Nodes: (units (unknown) date) Multiple scattered unknown) mesenteric lymph nodes are more notable (unknown) (no (unknown) (unknown) Accession Number: (units (unknown) date) [id number] unknown) (unknown) (no (unknown) (unknown) Adrenal Glands: (units (unknown) date) Unremarkable. unknown) (unknown) (no (unknown) (unknown) After the (units (unkn own) date) administration of unknown) intravenous contrast, axial sections acquired from (unknown) (no (unknown) (unknown) Age/Sex: 52 / F (units (unknown) date) Date of Service: unknown) (unknown) (no (unknown) (unknown) [place], [place] (units ( unknown) date) [id number] unknown) (unknown) (no (unknown) (unknown) Approved by: (units (u ) date) Campos Nowak M.D. on unknown) 06/21/2022 at 7:33 (unknown) (no (unknown) (unknown) Biliary ducts: (units (unknown) date) Unremarkable. unknown) (unknown) (no (unknown) (unknown) Bladder: (units (unkno wn) date) Unremarkable. unknown) (unknown) (no (unknown) (unknown) Bones: No acute (units (unknown) date) vertebral body unknown) compression fractures. Multilevel spondylitic (unknown) (no (unknown) (unknown) COMPARISON: None. (units (unknown) date) unknown) (unknown) (no (unknown) (unknown) CT Scan Report (units (unknown) date) unknown) (unknown) (no (unknown) (unknown) : 1970 (units (unknown) date) Acct:[id number] unknown) (unknown) (no (unknown) (unknown) Dictated by: (units (u nknown) date) Campos Nowak M.D. on unknown) 06/21/2022 at 7:20 (unknown) (no (unknown) (unknown) FINDINGS: (units (unkn own) date) unknown) (unknown) (no (unknown) (unknown) For (units (unkno wn) date) unknown) (unknown) (no (unknown) (unknown) Gallbladder: (units (u nknown) date) Unremarkable. unknown) (unknown) (no (unknown) (unknown) Heart: No (units (unkn own) date) significant unknown) findings. (unknown) (no (unknown) (unknown) IMPRESSION: (units (un known) date) unknown) (unknown) (no (unknown) (unknown) INDICATIONS: (units (u nknown) date) Left-sided unknown) abdominal pain (unknown) (no (unknown) (unknown) Image quality: (units (unknown) date) Excellent. unknown) (unknown) (no (unknown) (unknown) [facility] (units (unknown) date) unknown) (unknown) (no (unknown) (unknown) Kidneys and (units (un known) date) Ureters: unknown) Unremarkable. (unknown) (no (unknown) (unknown) Liver: There is (units (unknown) date) diffuse unknown) hypoattenuation of the liver parenchyma relative to (unknown) (no (unknown) (unknown) Loc: ED (units (unkno wn) date) unknown) (unknown) (no (unknown) (unknown) Lung bases: (units (un known) date) Bibasilar unknown) atelectasis. Multiple scattered noncalcified pulmonary (unknown) (no (unknown) (unknown) Miscellaneous: No (units (unknown) date) inguinal hernias unknown) are seen. (unknown) (no (unknown) (unknown) No significant (units (unknown) date) discrepancy with unknown) the awake overnight monitor radiology preliminary report. (unknown) (no (unknown) (unknown) Ordering (units (unkno wn) date) Provider: unknown) Wisam Barone D.O. (unknown) (no (unknown) (unknown) PELVIS: (units (unkno wn) date) unknown) (unknown) (no (unknown) (unknown) PROCEDURE: CT (units ( unknown) date) ABDOMEN PELVIS W unknown) CON (unknown) (no (unknown) (unknown) Pancreas: (units (unkn own) date) Unremarkable. unknown) (unknown) (no (unknown) (unknown) Patient: Illas (units (unknown) date) Orourke,Maggie MR unknown) (unknown) (no (unknown) (unknown) Pelvic Nodes: No (units (unknown) date) enlarged lymph unknown) nodes. (unknown) (no (unknown) (unknown) Pelvic Organs: (units (unknown) date) Unremarkable. unknown) (unknown) (no (unknown) (unknown) Peritoneum: No (units (unknown) date) abnormal unknown) intraperitoneal fluid. No free air. (unknown) (no (unknown) (unknown) Procedure: CT (units ( unknown) date) abdomen pelvis w unknown) con (unknown) (no (unknown) (unknown) Recommend (units (unkn own) date) unknown) (unknown) (no (unknown) (unknown) Signed (units (unkno wn) date) unknown) (unknown) (no (unknown) (unknown) Spleen: (units (unkno wn) date) Unremarkable. unknown) (unknown) (no (unknown) (unknown) Stomach and (units (un known) date) Bowel: Stomach, unknown) small bowel loops, and colon are unremarkable. A (unknown) (no (unknown) (unknown) TECHNIQUE: (units (unk nown) date) unknown) (unknown) (no (unknown) (unknown) Ventral Wall: No (units (unknown) date) hernia. unknown) (unknown) (no (unknown) (unknown) Vessels: Aorta (units (unknown) date) and inferior vena unknown) cava are normal in size. (unknown) (no (unknown) (unknown) adjustment (units (unk nown) date) unknown) (unknown) (no (unknown) (unknown) appendix. (units (unkn own) date) unknown) (unknown) (no (unknown) (unknown) bases to the (units (u nknown) date) pubic symphysis. unknown) Coronal and sagittal reformats were performed. (unknown) (no (unknown) (unknown) changes (units (unkno wn) date) unknown) (unknown) (no (unknown) (unknown) colonic (units (unkno wn) date) diverticula unknown) without evidence for acute diverticulitis. Normal (unknown) (no (unknown) (unknown) compatible with (units (unknown) date) hepatic steatosis. unknown) (unknown) (no (unknown) (unknown) degenerative (units (u nknown) date) unknown) (unknown) (no (unknown) (unknown) endplate changes (units (unknown) date) noted at L4-5. unknown) Focal oval sclerotic lesion at L1. (unknown) (no (unknown) (unknown) few scant (units (unkn own) date) unknown) (unknown) (no (unknown) (unknown) follow-up chest (units (unknown) date) CT further unknown) evaluation. (unknown) (no (unknown) (unknown) for number (units (unk nown) date) unknown) (unknown) (no (unknown) (unknown) ground-glass (units (u nknown) date) nodule noted in unknown) the subpleural region of the right middle lobe (unknown) (no (unknown) (unknown) left periaortic (units (unknown) date) region near the unknown) level of the renal vessels. (unknown) (no (unknown) (unknown) likely reactive (units (unknown) date) in etiology. unknown) (unknown) (no (unknown) (unknown) nodules in (units (unk nown) date) unknown) (unknown) (no (unknown) (unknown) noted in the (units (u nknown) date) unknown) (unknown) (no (unknown) (unknown) of mA and/or kV (units (unknown) date) according to unknown) patient size. (unknown) (no (unknown) (unknown) radiation dose (units (unknown) date) reduction, the unknown) following was used: automated exposure control, (unknown) (no (unknown) (unknown) rather than size (units (unknown) date) and likely unknown) reactive in etiology. Most prominent lymph node (unknown) (no (unknown) (unknown) than size, (units (unk nown) date) unknown) (unknown) (no (unknown) (unknown) the lung (units (unkno wn) date) unknown) (unknown) (no (unknown) (unknown) the right middle (units (unknown) date) lobe measuring unknown) approximately 4-5 mm in size. There is also a (unknown) (no (unknown) (unknown) the spleen (units (unk nown) date) unknown) (unknown) (no (unknown) (unknown) throughout the (units (unknown) date) imaged spine. No unknown) suspicious osseous lesions. Moderate Result panel 78 (unknown) (no date) (unknown) (unknown) 0.4 % (unkn own) (unknown) (no date) (unknown) (unknown) 0.7 % (unkn own) (unknown) (no date) (unknown) (unknown) 100 /ul (unkn own) (unknown) (no date) (unknown) (unknown) 100 /ul (unkn own) (unknown) (no date) (unknown) (unknown) 11.9 g/dl (unkn own) (unknown) (no date) (unknown) (unknown) 12.0 x10 3/ul (unkn own) (unknown) (no date) (unknown) (unknown) 14.5 % (unkn own) (unknown) (no date) (unknown) (unknown) 15.2 % (unkn own) (unknown) (no date) (unknown) (unknown) 1800 /ul (unkn own) (unknown) (no date) (unknown) (unknown) 223 x10 3/ul (unkn own) (unknown) (no date) (unknown) (unknown) 28.9 pg (unkn own) (unknown) (no date) (unknown) (unknown) 33.2 % (unkn own) (unknown) (no date) (unknown) (unknown) 35.7 % (unkn own) (unknown) (no date) (unknown) (unknown) 4.10 x10 6/ul (unkn own) (unknown) (no date) (unknown) (unknown) 7.4 % (unkn own) (unknown) (no date) (unknown) (unknown) 76.3 % (unkn own) (unknown) (no date) (unknown) (unknown) 87.1 fl (unkn own) (unknown) (no date) (unknown) (unknown) 900 /ul (unkn own) (unknown) (no date) (unknown) (unknown) 9100 /ul (unkn own) Result panel 79 (unknown) (no (unknown) (unknown) (no value) (units (unk nown) date) unknown) (unknown) (no (unknown) (unknown) 06/21/22 04:40 (units (unknown) date) unknown) (unknown) (no (unknown) (unknown) 06/21/22 05:31 (units (unknown) date) unknown) (unknown) (no (unknown) (unknown) 06/21/22 06:04 (units (unknown) date) unknown) (unknown) (no (unknown) (unknown) 06/21/22 06:10 (units (unknown) date) unknown) (unknown) (no (unknown) (unknown) 06/21/22 (units (unkno wn) date) Range/Units unknown) (unknown) (no (unknown) (unknown) 06/21/22 (units (unkno wn) date) unknown) (unknown) (no (unknown) (unknown) 04:40 (units (unkno wn) date) unknown) (unknown) (no (unknown) (unknown) 04:46 06/21/22 (units (unknown) date) unknown) (unknown) (no (unknown) (unknown) 05:56 (units (unkno wn) date) unknown) (unknown) (no (unknown) (unknown) 52-year-old (units (un known) date) female. Is unknown) Cuban-speaking only. Language/translat ion line was (unknown) (no (unknown) (unknown) : [id number] (units (u nknown) date) unknown) (unknown) (no (unknown) (unknown) Acetaminophen (units ( unknown) date) (Acetaminophen unknown) 325 Mg Tablet) 650 mg PO NOW ONE (unknown) (no (unknown) (unknown) Age/Sex: 52 / F (units (unknown) date) unknown) (unknown) (no (unknown) (unknown) Allergies (units (unkn own) date) unknown) (unknown) (no (unknown) (unknown) Allergy/AdvReac (units (unknown) date) Type Severity unknown) Reaction Status Date / Time (unknown) (no (unknown) (unknown) Attestation: I (units (unknown) date) personally unknown) reviewed and interpreted this imaging study as (unknown) (no (unknown) (unknown) Auscultation: (units ( unknown) date) clear to unknown) auscultation bilaterally (unknown) (no (unknown) (unknown) Blood Pressure (units (unknown) date) 185/93 H 06/21/22 unknown) 04:46 (unknown) (no (unknown) (unknown) Blood Pressure (units (unknown) date) 185/93 H 139/88 unknown) (unknown) (no (unknown) (unknown) CT abdomen (units (unk nown) date) pelvis w con Stat unknown) (unknown) (no (unknown) (unknown) Cardio (units (unkno wn) date) unknown) (unknown) (no (unknown) (unknown) Chest x-ray: (units (u nknown) date) unknown) (unknown) (no (unknown) (unknown) Chief complaint: (units (unknown) date) Upper Respiratory unknown) Symptoms (unknown) (no (unknown) (unknown) Complete Blood (units (unknown) date) Count AUTO DIFF unknown) Stat (unknown) (no (unknown) (unknown) Comprehensive (units ( unknown) date) Metabolic Panel unknown) Stat (unknown) (no (unknown) (unknown) Condition is:: (units (unknown) date) Failing to change unknown) as expected (unknown) (no (unknown) (unknown) Const (units (unkno wn) date) unknown) (unknown) (no (unknown) (unknown) Constitutional (units (unknown) date) unknown) (unknown) (no (unknown) (unknown) Constitutional: (units (unknown) date) Reports system unknown) reviewed and no additional complaints, except as (unknown) (no (unknown) (unknown) Course (units (unkno wn) date) unknown) (unknown) (no (unknown) (unknown) Covid-19 + FLU (units (unknown) date) A/B + RSV - PCR unknown) Stat (unknown) (no (unknown) (unknown) : 1970 (units (unknown) date) Acct:[id number] unknown) (unknown) (no (unknown) (unknown) Date of Service: (units (unknown) date) 06/21/22 unknown) (unknown) (no (unknown) (unknown) Differential (units (u nknown) date) Diagnosis unknown) (unknown) (no (unknown) (unknown) Differential (units (u nknown) date) Diagnosis: unknown) COVID-19, influenza, sepsis urinary tract infection, (unknown) (no (unknown) (unknown) Discontinued (units (u nknown) date) Medications unknown) (unknown) (no (unknown) (unknown) Documented By: (units (unknown) date) OW unknown) (unknown) (no (unknown) (unknown) ED Orders (units (unkn own) date) unknown) (unknown) (no (unknown) (unknown) ENT (units (unkno wn) date) unknown) (unknown) (no (unknown) (unknown) ER Physician: (units ( unknown) date) Wisam Barone unknown) D.O. (unknown) (no (unknown) (unknown) Ears, Nose, (units (un known) date) Mouth, and unknown) Throat: Reports system reviewed and no additional (unknown) (no (unknown) (unknown) Ears: EAC's (units (un known) date) normal and TM unknown) abnormal bulging on the left; not on the right, dull (unknown) (no (unknown) (unknown) Effort + (units (unkno wn) date) Inspection: unknown) normal respiratory effort (unknown) (no (unknown) (unknown) Emergency Report (units (unknown) date) unknown) (unknown) (no (unknown) (unknown) [place] and I (units ( unknown) date) was able to have unknown) a conversation with her without the language (unknown) (no (unknown) (unknown) Exam (units (unkno wn) date) unknown) (unknown) (no (unknown) (unknown) Extrem (units (unkno wn) date) unknown) (unknown) (no (unknown) (unknown) GI (units (unkno wn) date) unknown) (unknown) (no (unknown) (unknown) General (units (unkno wn) date) unknown) (unknown) (no (unknown) (unknown) General: (units (unkno wn) date) cooperative and unknown) comfortable (unknown) (no (unknown) (unknown) General: no (units (un known) date) rashes or lesions unknown) noted (unknown) (no (unknown) (unknown) General: normal (units (unknown) date) to inspection and unknown) capillary refill normal (unknown) (no (unknown) (unknown) General: patient (units (unknown) date) alert, patient unknown) awake and moves all extremities (unknown) (no (unknown) (unknown) HENMT (units (unkno wn) date) unknown) (unknown) (no (unknown) (unknown) HPI - General (units ( unknown) date) Adult unknown) (unknown) (no (unknown) (unknown) HPI narrative: (units (unknown) date) unknown) (unknown) (no (unknown) (unknown) History of (units (unk nown) date) Present Illness unknown) (unknown) (no (unknown) (unknown) Imaging Data (units (u nknown) date) unknown) (unknown) (no (unknown) (unknown) Influenza A (units (un known) date) (RT-PCR) Flu a unknown) negative (NEGATIVE) (unknown) (no (unknown) (unknown) Influenza B (units (un known) date) (RT-PCR) Flu b unknown) negative (NEGATIVE) (unknown) (no (unknown) (unknown) Initial Vital (units ( unknown) date) Signs unknown) (unknown) (no (unknown) (unknown) Initial Vital (units ( unknown) date) Signs: unknown) (unknown) (no (unknown) (unknown) Inspection: (units (un known) date) normal to unknown) inspection (unknown) (no (unknown) (unknown) Integumentary/Br (units (unknown) date) easts unknown) (unknown) (no (unknown) (unknown) [facility] (units (unknown) date) [address] [place] [address] unknown) [place] [address] (unknown) (no (unknown) (unknown) Ketorolac (units (unkn own) date) Tromethamine unknown) (Ketorolac 30 Mg/Ml Vial) 30 mg IV NOW ONE (unknown) (no (unknown) (unknown) Lab Data (units (unkno wn) date) unknown) (unknown) (no (unknown) (unknown) Lab Results (units (un known) date) unknown) (unknown) (no (unknown) (unknown) Labs: (units (unkno wn) date) unknown) (unknown) (no (unknown) (unknown) Last Admin: (units (un known) date) 06/21/22 04:48 unknown) Dose: 650 mg (unknown) (no (unknown) (unknown) Last Admin: (units (un known) date) 06/21/22 06:15 unknown) Dose: 1,000 mls/hr (unknown) (no (unknown) (unknown) Last Admin: (units (un known) date) 06/21/22 06:16 unknown) Dose: 30 mg (unknown) (no (unknown) (unknown) Limitations: (units (u nknown) date) language barrier unknown) (unknown) (no (unknown) (unknown) Lipase Stat (units (un known) date) unknown) (unknown) (no (unknown) (unknown) MDM Narrative (units ( unknown) date) unknown) (unknown) (no (unknown) (unknown) Medical Decision (units (unknown) date) Making unknown) (unknown) (no (unknown) (unknown) Medical decision (units (unknown) date) making narrative: unknown) (unknown) (no (unknown) (unknown) Mode of arrival: (units (unknown) date) Ambulatory unknown) (unknown) (no (unknown) (unknown) My Impression: (units (unknown) date) unknown) (unknown) (no (unknown) (unknown) Neuro (units (unkno wn) date) unknown) (unknown) (no (unknown) (unknown) No Known Drug (units ( unknown) date) Allergies Allergy unknown) Verified 06/21/22 04:46 (unknown) (no (unknown) (unknown) No acute changes (units (unknown) date) unknown) (unknown) (no (unknown) (unknown) No acute (units (unkno wn) date) findings unknown) (unknown) (no (unknown) (unknown) Ordered: (units (unkno wn) date) unknown) (unknown) (no (unknown) (unknown) Orders (units (unkno wn) date) unknown) (unknown) (no (unknown) (unknown) Oxygen Delivery (units (unknown) date) Method 06/21/22 unknown) 04:46 (unknown) (no (unknown) (unknown) Oxygen Delivery (units (unknown) date) Method Room Air unknown) Room Air (unknown) (no (unknown) (unknown) Patient History (units (unknown) date) unknown) (unknown) (no (unknown) (unknown) Patient: Cristiana (units (unknown) date) Maggie Orourke unknown) MR# (unknown) (no (unknown) (unknown) Pulse Oximetry (units (unknown) date) 98 06/21/22 04:46 unknown) (unknown) (no (unknown) (unknown) Pulse Oximetry (units (unknown) date) 98 97 unknown) (unknown) (no (unknown) (unknown) Pulse Rate 100 H (units (unknown) date) 06/21/22 04:46 unknown) (unknown) (no (unknown) (unknown) Pulse Rate 100 H (units (unknown) date) 82 unknown) (unknown) (no (unknown) (unknown) RSV (PCR) (units (unkn own) date) Negative unknown) (Negative) (unknown) (no (unknown) (unknown) Radiologist's (units ( unknown) date) Impression: unknown) (unknown) (no (unknown) (unknown) Rate: regular (units ( unknown) date) rate unknown) (unknown) (no (unknown) (unknown) Related Data (units (u nknown) date) unknown) (unknown) (no (unknown) (unknown) Resp (units (unkno wn) date) unknown) (unknown) (no (unknown) (unknown) Respiratory Rate (units (unknown) date) 21 06/21/22 04:46 unknown) (unknown) (no (unknown) (unknown) Respiratory Rate (units (unknown) date) 21 20 unknown) (unknown) (no (unknown) (unknown) Respiratory (units (un known) date) unknown) (unknown) (no (unknown) (unknown) Respiratory: (units (u nknown) date) Reports system unknown) reviewed and no additional complaints, except as (unknown) (no (unknown) (unknown) Result diagrams: (units (unknown) date) unknown) (unknown) (no (unknown) (unknown) Review of (units (unkn own) date) Systems unknown) (unknown) (no (unknown) (unknown) SARS-CoV-2 (PCR) (units (unknown) date) Negative unknown) (Negative) (unknown) (no (unknown) (unknown) She is having (units ( unknown) date) some left-sided unknown) abdominal tenderness. This has been worsening (unknown) (no (unknown) (unknown) Signed By: (units (unk nown) date) unknown) (unknown) (no (unknown) (unknown) Skin (units (unkno wn) date) unknown) (unknown) (no (unknown) (unknown) Skin/Breast: (units (u nknown) date) Reports system unknown) reviewed and no additional complaints, except as (unknown) (no (unknown) (unknown) Smoking Status: (units (unknown) date) Never smoker unknown) (unknown) (no (unknown) (unknown) Social History (units (unknown) date) (Reviewed unknown) 06/21/22 @ 05:41 by Wisam Barone DO) (unknown) (no (unknown) (unknown) Sodium Chloride (units (unknown) date) (Normal Saline unknown) 0.9%) 1,000 mls @ 1,000 mls/hr IV BOLUS ONE (unknown) (no (unknown) (unknown) Source: patient (units (unknown) date) unknown) (unknown) (no (unknown) (unknown) Stated (units (unkno wn) date) complaint: unknown) bodyaches, congested (unknown) (no (unknown) (unknown) Stop: 06/21/22 (units (unknown) date) 04:46 unknown) (unknown) (no (unknown) (unknown) Stop: 06/21/22 (units (unknown) date) 06:04 unknown) (unknown) (no (unknown) (unknown) Stop: 06/21/22 (units (unknown) date) 07:02 unknown) (unknown) (no (unknown) (unknown) Temperature 98.5 (units (unknown) date) F 06/21/22 04:46 unknown) (unknown) (no (unknown) (unknown) Temperature 98.5 (units (unknown) date) F 98.1 F unknown) (unknown) (no (unknown) (unknown) Time Seen by (units (u nknown) date) Provider: unknown) 06/21/22 04:34 (unknown) (no (unknown) (unknown) Upon arrival my (units (unknown) date) initial thought unknown) was that the patient either had COVID or (unknown) (no (unknown) (unknown) Vital Signs - 8 (units (unknown) date) hr unknown) (unknown) (no (unknown) (unknown) Vital Signs (units (un known) date) unknown) (unknown) (no (unknown) (unknown) Vital signs: (units (u nknown) date) unknown) (unknown) (no (unknown) (unknown) XR chest 1V Stat (units (unknown) date) unknown) (unknown) (no (unknown) (unknown) [Embedded Image (units (unknown) date) Not Available] unknown) (unknown) (no (unknown) (unknown) and COVID we (units (u nknown) date) will draw labs unknown) and obtain a CT scan of the abdomen for further (unknown) (no (unknown) (unknown) banding. She (units (u nknown) date) would quite a bit unknown) of discomfort afterwards but not much today. (unknown) (no (unknown) (unknown) cellulitis. (units (un known) date) Given her lack of unknown) improvement with Tylenol and negative influenza (unknown) (no (unknown) (unknown) complaints, (units (un known) date) except as unknown) documented (unknown) (no (unknown) (unknown) documented (units (unk nown) date) unknown) (unknown) (no (unknown) (unknown) does have a rash (units (unknown) date) under the her unknown) abdominal pannus but no other signs of (unknown) (no (unknown) (unknown) evaluation. (units (un known) date) Patient expressed unknown) understanding and agreement with this. (unknown) (no (unknown) (unknown) follows: (units (unkno wn) date) unknown) (unknown) (no (unknown) (unknown) infection (units (unkn own) date) however her unknown) testing for COVID influenza is negative. Her chest x-ray (unknown) (no (unknown) (unknown) influenza given (units (unknown) date) her presentation. unknown) She has a bulging left tympanic membrane that (unknown) (no (unknown) (unknown) is not (units (unkno wn) date) erythematous and unknown) other findings consistent with an upper respiratory (unknown) (no (unknown) (unknown) left ear pain, (units (unknown) date) body aches, unknown) headache, cough and generally not feeling well for (unknown) (no (unknown) (unknown) line. She denied (units (unknown) date) any urinary unknown) symptoms. Yesterday she did have hemorrhoid (unknown) (no (unknown) (unknown) on the left and (units (unknown) date) with fluid behind unknown) the TM on the left; not on the right (unknown) (no (unknown) (unknown) over the past (units ( unknown) date) couple days. She unknown) is also had some nausea but no vomiting. She (unknown) (no (unknown) (unknown) pneumonia and (units ( unknown) date) others unknown) (unknown) (no (unknown) (unknown) shows no signs (units (unknown) date) of pneumonia. unknown) Turns out that the patient does speak very good (unknown) (no (unknown) (unknown) the past several (units (unknown) date) hours/day. No unknown) fevers. (unknown) (no (unknown) (unknown) used for HPI and (units (unknown) date) review of unknown) systems. She is here for evaluation of congestion, Result panel 80 (unknown) (no date) (unknown) (unknown) > 60 ml/min (unkn own) (unknown) (no date) (unknown) (unknown) > 60 ml/min (unkn own) (unknown) (no date) (unknown) (unknown) 0.55 mg/dl (unkn own) (unknown) (no date) (unknown) (unknown) 0.6 mg/dl (unkn own) (unknown) (no date) (unknown) (unknown) 101 mmol/l (unkn own) (unknown) (no date) (unknown) (unknown) 13 mg/dl (unkn own) (unknown) (no date) (unknown) (unknown) 138 mmol/l (unkn own) (unknown) (no date) (unknown) (unknown) 139 mg/dl (unkn own) (unknown) (no date) (unknown) (unknown) 139 mg/dl (unkn own) (unknown) (no date) (unknown) (unknown) 17 iu/l (unkn own) (unknown) (no date) (unknown) (unknown) 21 iu/l (unkn own) (unknown) (no date) (unknown) (unknown) 23.6 (units unknown) (unknown) (unknown) (no date) (unknown) (unknown) 267 u/l (unkn own) (unknown) (no date) (unknown) (unknown) 27 mmol/l (unkn own) (unknown) (no date) (unknown) (unknown) 4.0 mmol/l (unkn own) (unknown) (no date) (unknown) (unknown) 7.7 g/dl (unkn own) (unknown) (no date) (unknown) (unknown) 73 u/l (unkn own) (unknown) (no date) (unknown) (unknown) 8.4 mg/dl (unkn own) Result panel 81 (unknown) (no (unknown) (unknown) (no value) (units (unk nown) date) unknown) (unknown) (no (unknown) (unknown) 06/21/22 (units (unkno wn) date) 06/21/22 06/21/22 unknown) Range/Units (unknown) (no (unknown) (unknown) 06/21/22 04:40 (units (unknown) date) unknown) (unknown) (no (unknown) (unknown) 06/21/22 05:31 (units (unknown) date) unknown) (unknown) (no (unknown) (unknown) 06/21/22 06:04 (units (unknown) date) unknown) (unknown) (no (unknown) (unknown) 06/21/22 06:10 (units (unknown) date) unknown) (unknown) (no (unknown) (unknown) 06/21/22 (units (unkno wn) date) unknown) (unknown) (no (unknown) (unknown) 04:40 06:10 (units (un known) date) 06:10 unknown) (unknown) (no (unknown) (unknown) 04:46 06/21/22 (units (unknown) date) unknown) (unknown) (no (unknown) (unknown) 05:56 (units (unkno wn) date) unknown) (unknown) (no (unknown) (unknown) 52-year-old (units (un known) date) female. Is unknown) Cuban-speaking only. Language/translat ion line was (unknown) (no (unknown) (unknown) : [id number] (units (u nknown) date) unknown) (unknown) (no (unknown) (unknown) ALT 21 (<35) (units (u nknown) date) IU/L unknown) (unknown) (no (unknown) (unknown) AST 17 (14-36) (units (unknown) date) IU/L unknown) (unknown) (no (unknown) (unknown) Acetaminophen (units ( unknown) date) (Acetaminophen unknown) 325 Mg Tablet) 650 mg PO NOW ONE (unknown) (no (unknown) (unknown) Age/Sex: 52 / F (units (unknown) date) unknown) (unknown) (no (unknown) (unknown) Alkaline (units (unkno wn) date) Phosphatase 73 unknown) (38-126) U/L (unknown) (no (unknown) (unknown) Allergies (units (unkn own) date) unknown) (unknown) (no (unknown) (unknown) Allergy/AdvReac (units (unknown) date) Type Severity unknown) Reaction Status Date / Time (unknown) (no (unknown) (unknown) Attestation: I (units (unknown) date) personally unknown) reviewed and interpreted this imaging study as (unknown) (no (unknown) (unknown) Auscultation: (units ( unknown) date) clear to unknown) auscultation bilaterally (unknown) (no (unknown) (unknown) BUN 13 (7-17) (units ( unknown) date) mg/dL unknown) (unknown) (no (unknown) (unknown) BUN/Creatinine (units (unknown) date) Ratio 23.6 H unknown) (6-22) (unknown) (no (unknown) (unknown) Baso # (Auto) (units ( unknown) date) 100 (0-100) /uL unknown) (unknown) (no (unknown) (unknown) Baso % (Auto) (units ( unknown) date) 0.4 (0-2) % unknown) (unknown) (no (unknown) (unknown) Blood Pressure (units (unknown) date) 185/93 H 06/21/22 unknown) 04:46 (unknown) (no (unknown) (unknown) Blood Pressure (units (unknown) date) 185/93 H 139/88 unknown) (unknown) (no (unknown) (unknown) CT abdomen (units (unk nown) date) pelvis w con Stat unknown) (unknown) (no (unknown) (unknown) Calcium 8.4 (units (un known) date) (8.4-10.2) mg/dL unknown) (unknown) (no (unknown) (unknown) Carbon Dioxide (units (unknown) date) 27 (22-32) mmol/L unknown) (unknown) (no (unknown) (unknown) Cardio (units (unkno wn) date) unknown) (unknown) (no (unknown) (unknown) Chest x-ray: (units (u nknown) date) unknown) (unknown) (no (unknown) (unknown) Chief complaint: (units (unknown) date) Upper Respiratory unknown) Symptoms (unknown) (no (unknown) (unknown) Chloride 101 (units (u nknown) date) (98-107) mmol/L unknown) (unknown) (no (unknown) (unknown) Complete Blood (units (unknown) date) Count AUTO DIFF unknown) Stat (unknown) (no (unknown) (unknown) Comprehensive (units ( unknown) date) Metabolic Panel unknown) Stat (unknown) (no (unknown) (unknown) Condition is:: (units (unknown) date) Failing to change unknown) as expected (unknown) (no (unknown) (unknown) Const (units (unkno wn) date) unknown) (unknown) (no (unknown) (unknown) Constitutional (units (unknown) date) unknown) (unknown) (no (unknown) (unknown) Constitutional: (units (unknown) date) Reports system unknown) reviewed and no additional complaints, except as (unknown) (no (unknown) (unknown) Course (units (unkno wn) date) unknown) (unknown) (no (unknown) (unknown) Covid-19 + FLU (units (unknown) date) A/B + RSV - PCR unknown) Stat (unknown) (no (unknown) (unknown) Creatinine 0.55 (units (unknown) date) (0.52-1.04) mg/dL unknown) (unknown) (no (unknown) (unknown) : 1970 (units (unknown) date) Acct:[id number] unknown) (unknown) (no (unknown) (unknown) Date of Service: (units (unknown) date) 06/21/22 unknown) (unknown) (no (unknown) (unknown) Differential (units (u nknown) date) Diagnosis unknown) (unknown) (no (unknown) (unknown) Differential (units (u nknown) date) Diagnosis: unknown) COVID-19, influenza, sepsis urinary tract infection, (unknown) (no (unknown) (unknown) Discontinued (units (u nknown) date) Medications unknown) (unknown) (no (unknown) (unknown) Documented By: (units (unknown) date) OW unknown) (unknown) (no (unknown) (unknown) ED Orders (units (unkn own) date) unknown) (unknown) (no (unknown) (unknown) ENT (units (unkno wn) date) unknown) (unknown) (no (unknown) (unknown) ER Physician: (units ( unknown) date) Wisam Barone unknown) D.O. (unknown) (no (unknown) (unknown) Ears, Nose, (units (un known) date) Mouth, and unknown) Throat: Reports system reviewed and no additional (unknown) (no (unknown) (unknown) Ears: EAC's (units (un known) date) normal and TM unknown) abnormal bulging on the left; not on the right, dull (unknown) (no (unknown) (unknown) Effort + (units (unkno wn) date) Inspection: unknown) normal respiratory effort (unknown) (no (unknown) (unknown) Emergency Report (units (unknown) date) unknown) (unknown) (no (unknown) (unknown) [place] and I (units ( unknown) date) was able to have unknown) a conversation with her without the language (unknown) (no (unknown) (unknown) Eos # (Auto) 100 (units (unknown) date) (0-450) /uL unknown) (unknown) (no (unknown) (unknown) Eos % (Auto) 0.7 (units (unknown) date) L (2-4) % unknown) (unknown) (no (unknown) (unknown) Estimated GFR > (units (unknown) date) 60 (>60) mL/min unknown) (unknown) (no (unknown) (unknown) Exam (units (unkno wn) date) unknown) (unknown) (no (unknown) (unknown) Extrem (units (unkno wn) date) unknown) (unknown) (no (unknown) (unknown) GI (units (unkno wn) date) unknown) (unknown) (no (unknown) (unknown) General (units (unkno wn) date) unknown) (unknown) (no (unknown) (unknown) General: (units (unkno wn) date) cooperative and unknown) comfortable (unknown) (no (unknown) (unknown) General: no (units (un known) date) rashes or lesions unknown) noted (unknown) (no (unknown) (unknown) General: normal (units (unknown) date) to inspection and unknown) capillary refill normal (unknown) (no (unknown) (unknown) General: patient (units (unknown) date) alert, patient unknown) awake and moves all extremities (unknown) (no (unknown) (unknown) Glucose 139 H (units ( unknown) date) (70-100) mg/dL unknown) (unknown) (no (unknown) (unknown) HENMT (units (unkno wn) date) unknown) (unknown) (no (unknown) (unknown) HPI - General (units ( unknown) date) Adult unknown) (unknown) (no (unknown) (unknown) HPI narrative: (units (unknown) date) unknown) (unknown) (no (unknown) (unknown) Hct 35.7 L (units (unk nown) date) (36-46) % unknown) (unknown) (no (unknown) (unknown) Hgb 11.9 L (units (unk nown) date) (12.0-16.0) g/dL unknown) (unknown) (no (unknown) (unknown) History of (units (unk nown) date) Present Illness unknown) (unknown) (no (unknown) (unknown) Imaging Data (units (u nknown) date) unknown) (unknown) (no (unknown) (unknown) Influenza A (units (un known) date) (RT-PCR) Flu a unknown) negative (NEGATIVE) (unknown) (no (unknown) (unknown) Influenza B (units (un known) date) (RT-PCR) Flu b unknown) negative (NEGATIVE) (unknown) (no (unknown) (unknown) Initial Vital (units ( unknown) date) Signs unknown) (unknown) (no (unknown) (unknown) Initial Vital (units ( unknown) date) Signs: unknown) (unknown) (no (unknown) (unknown) Inspection: (units (un known) date) normal to unknown) inspection (unknown) (no (unknown) (unknown) Integumentary/Br (units (unknown) date) easts unknown) (unknown) (no (unknown) (unknown) [facility] (units (unknown) date) [address] unknown) [place] [address] (unknown) (no (unknown) (unknown) Ketorolac (units (unkn own) date) Tromethamine unknown) (Ketorolac 30 Mg/Ml Vial) 30 mg IV NOW ONE (unknown) (no (unknown) (unknown) Lab Data (units (unkno wn) date) unknown) (unknown) (no (unknown) (unknown) Lab Results (units (un known) date) unknown) (unknown) (no (unknown) (unknown) Labs: (units (unkno wn) date) unknown) (unknown) (no (unknown) (unknown) Last Admin: (units (un known) date) 06/21/22 04:48 unknown) Dose: 650 mg (unknown) (no (unknown) (unknown) Last Admin: (units (un known) date) 06/21/22 06:15 unknown) Dose: 1,000 mls/hr (unknown) (no (unknown) (unknown) Last Admin: (units (un known) date) 06/21/22 06:16 unknown) Dose: 30 mg (unknown) (no (unknown) (unknown) Limitations: (units (u nknown) date) language barrier unknown) (unknown) (no (unknown) (unknown) Lipase 267 (units (unk nown) date) (23-300) U/L unknown) (unknown) (no (unknown) (unknown) Lipase Stat (units (un known) date) unknown) (unknown) (no (unknown) (unknown) Lymph # (Auto) (units (unknown) date) 1800 ([id number]) unknown) /uL (unknown) (no (unknown) (unknown) Lymph % (Auto) (units (unknown) date) 15.2 L (25-40) % unknown) (unknown) (no (unknown) (unknown) MCH 28.9 (26-34) (units (unknown) date) PG unknown) (unknown) (no (unknown) (unknown) MCHC 33.2 (units (unkn own) date) (30-36) % unknown) (unknown) (no (unknown) (unknown) MCV 87.1 (units (unkno wn) date) (80-100) fL unknown) (unknown) (no (unknown) (unknown) MDM Narrative (units ( unknown) date) unknown) (unknown) (no (unknown) (unknown) Medical Decision (units (unknown) date) Making unknown) (unknown) (no (unknown) (unknown) Medical decision (units (unknown) date) making narrative: unknown) (unknown) (no (unknown) (unknown) Mode of arrival: (units (unknown) date) Ambulatory unknown) (unknown) (no (unknown) (unknown) Quay # (Auto) (units ( unknown) date) 900 (0-900) /uL unknown) (unknown) (no (unknown) (unknown) Quay % (Auto) (units ( unknown) date) 7.4 (3-14) % unknown) (unknown) (no (unknown) (unknown) My Impression: (units (unknown) date) unknown) (unknown) (no (unknown) (unknown) Neuro (units (unkno wn) date) unknown) (unknown) (no (unknown) (unknown) Neut # (Auto) (units ( unknown) date) 9100 H unknown) ([id number]) /uL (unknown) (no (unknown) (unknown) Neut % (Auto) (units ( unknown) date) 76.3 H (50-75) % unknown) (unknown) (no (unknown) (unknown) No Known Drug (units ( unknown) date) Allergies Allergy unknown) Verified 06/21/22 04:46 (unknown) (no (unknown) (unknown) No acute changes (units (unknown) date) unknown) (unknown) (no (unknown) (unknown) No acute (units (unkno wn) date) findings unknown) (unknown) (no (unknown) (unknown) Ordered: (units (unkno wn) date) unknown) (unknown) (no (unknown) (unknown) Orders (units (unkno wn) date) unknown) (unknown) (no (unknown) (unknown) Oxygen Delivery (units (unknown) date) Method 06/21/22 unknown) 04:46 (unknown) (no (unknown) (unknown) Oxygen Delivery (units (unknown) date) Method Room Air unknown) Room Air (unknown) (no (unknown) (unknown) Patient History (units (unknown) date) unknown) (unknown) (no (unknown) (unknown) Patient: Illas (units (unknown) date) Orourke,Maggie unknown) MR# (unknown) (no (unknown) (unknown) Plt Count 223 (units ( unknown) date) (150-400) X103/uL unknown) (unknown) (no (unknown) (unknown) Potassium 4.0 (units ( unknown) date) (3.4-5.1) mmol/L unknown) (unknown) (no (unknown) (unknown) Pulse Oximetry (units (unknown) date) 98 06/21/22 04:46 unknown) (unknown) (no (unknown) (unknown) Pulse Oximetry (units (unknown) date) 98 97 unknown) (unknown) (no (unknown) (unknown) Pulse Rate 100 H (units (unknown) date) 06/21/22 04:46 unknown) (unknown) (no (unknown) (unknown) Pulse Rate 100 H (units (unknown) date) 82 unknown) (unknown) (no (unknown) (unknown) RBC 4.10 (units (unkno wn) date) (4.0-5.2) X106/uL unknown) (unknown) (no (unknown) (unknown) RDW 14.5 (units (unkno wn) date) (11.6-14.8) % unknown) (unknown) (no (unknown) (unknown) RSV (PCR) (units (unkn own) date) Negative unknown) (Negative) (unknown) (no (unknown) (unknown) Radiologist's (units ( unknown) date) Impression: unknown) (unknown) (no (unknown) (unknown) Rate: regular (units ( unknown) date) rate unknown) (unknown) (no (unknown) (unknown) Related Data (units (u nknown) date) unknown) (unknown) (no (unknown) (unknown) Resp (units (unkno wn) date) unknown) (unknown) (no (unknown) (unknown) Respiratory Rate (units (unknown) date) 21 06/21/22 04:46 unknown) (unknown) (no (unknown) (unknown) Respiratory Rate (units (unknown) date) 21 20 unknown) (unknown) (no (unknown) (unknown) Respiratory (units (un known) date) unknown) (unknown) (no (unknown) (unknown) Respiratory: (units (u nknown) date) Reports system unknown) reviewed and no additional complaints, except as (unknown) (no (unknown) (unknown) Result diagrams: (units (unknown) date) unknown) (unknown) (no (unknown) (unknown) Review of (units (unkn own) date) Systems unknown) (unknown) (no (unknown) (unknown) SARS-CoV-2 (PCR) (units (unknown) date) Negative unknown) (Negative) (unknown) (no (unknown) (unknown) She is having (units ( unknown) date) some left-sided unknown) abdominal tenderness. This has been worsening (unknown) (no (unknown) (unknown) Signed By: (units (unk nown) date) unknown) (unknown) (no (unknown) (unknown) Skin (units (unkno wn) date) unknown) (unknown) (no (unknown) (unknown) Skin/Breast: (units (u nknown) date) Reports system unknown) reviewed and no additional complaints, except as (unknown) (no (unknown) (unknown) Smoking Status: (units (unknown) date) Never smoker unknown) (unknown) (no (unknown) (unknown) Social History (units (unknown) date) (Reviewed unknown) 06/21/22 @ 05:41 by Wisam Barone DO) (unknown) (no (unknown) (unknown) Sodium 138 (units (unk nown) date) (137-145) mmol/L unknown) (unknown) (no (unknown) (unknown) Sodium Chloride (units (unknown) date) (Normal Saline unknown) 0.9%) 1,000 mls @ 1,000 mls/hr IV BOLUS ONE (unknown) (no (unknown) (unknown) Source: patient (units (unknown) date) unknown) (unknown) (no (unknown) (unknown) Stated (units (unkno wn) date) complaint: unknown) bodyaches, congested (unknown) (no (unknown) (unknown) Stop: 06/21/22 (units (unknown) date) 04:46 unknown) (unknown) (no (unknown) (unknown) Stop: 06/21/22 (units (unknown) date) 06:04 unknown) (unknown) (no (unknown) (unknown) Stop: 06/21/22 (units (unknown) date) 07:02 unknown) (unknown) (no (unknown) (unknown) Temperature 98.5 (units (unknown) date) F 06/21/22 04:46 unknown) (unknown) (no (unknown) (unknown) Temperature 98.5 (units (unknown) date) F 98.1 F unknown) (unknown) (no (unknown) (unknown) Time Seen by (units (u nknown) date) Provider: unknown) 06/21/22 04:34 (unknown) (no (unknown) (unknown) Total Bilirubin (units (unknown) date) 0.6 (0.2-1.3) unknown) mg/dL (unknown) (no (unknown) (unknown) Total Protein (units ( unknown) date) 7.7 (6.3-8.2) unknown) g/dL (unknown) (no (unknown) (unknown) Upon arrival my (units (unknown) date) initial thought unknown) was that the patient either had COVID or (unknown) (no (unknown) (unknown) Vital Signs - 8 (units (unknown) date) hr unknown) (unknown) (no (unknown) (unknown) Vital Signs (units (un known) date) unknown) (unknown) (no (unknown) (unknown) Vital signs: (units (u nknown) date) unknown) (unknown) (no (unknown) (unknown) WBC 12.0 H (units (unk nown) date) (4.5-11.0) unknown) X103/uL (unknown) (no (unknown) (unknown) XR chest 1V Stat (units (unknown) date) unknown) (unknown) (no (unknown) (unknown) [Embedded Image (units (unknown) date) Not Available] unknown) (unknown) (no (unknown) (unknown) and COVID we (units (u nknown) date) will draw labs unknown) and obtain a CT scan of the abdomen for further (unknown) (no (unknown) (unknown) banding. She (units (u nknown) date) would quite a bit unknown) of discomfort afterwards but not much today. (unknown) (no (unknown) (unknown) cellulitis. (units (un known) date) Given her lack of unknown) improvement with Tylenol and negative influenza (unknown) (no (unknown) (unknown) complaints, (units (un known) date) except as unknown) documented (unknown) (no (unknown) (unknown) documented (units (unk nown) date) unknown) (unknown) (no (unknown) (unknown) does have a rash (units (unknown) date) under the her unknown) abdominal pannus but no other signs of (unknown) (no (unknown) (unknown) evaluation. (units (un known) date) Patient expressed unknown) understanding and agreement with this. Care (unknown) (no (unknown) (unknown) follows: (units (unkno wn) date) unknown) (unknown) (no (unknown) (unknown) infection (units (unkn own) date) however her unknown) testing for COVID influenza is negative. Her chest x-ray (unknown) (no (unknown) (unknown) influenza given (units (unknown) date) her presentation. unknown) She has a bulging left tympanic membrane that (unknown) (no (unknown) (unknown) is not (units (unkno wn) date) erythematous and unknown) other findings consistent with an upper respiratory (unknown) (no (unknown) (unknown) left ear pain, (units (unknown) date) body aches, unknown) headache, cough and generally not feeling well for (unknown) (no (unknown) (unknown) line. She denied (units (unknown) date) any urinary unknown) symptoms. Yesterday she did have hemorrhoid (unknown) (no (unknown) (unknown) on the left and (units (unknown) date) with fluid behind unknown) the TM on the left; not on the right (unknown) (no (unknown) (unknown) over the past (units ( unknown) date) couple days. She unknown) is also had some nausea but no vomiting. She (unknown) (no (unknown) (unknown) pneumonia and (units ( unknown) date) others unknown) (unknown) (no (unknown) (unknown) shows no signs (units (unknown) date) of pneumonia. unknown) Turns out that the patient does speak very good (unknown) (no (unknown) (unknown) the past several (units (unknown) date) hours/day. No unknown) fevers. (unknown) (no (unknown) (unknown) turned over to (units (unknown) date) Dr. Bird to unknown) follow-up on CT scan and disposition. (unknown) (no (unknown) (unknown) used for HPI and (units (unknown) date) review of unknown) systems. She is here for evaluation of congestion, Result panel 82 (unknown) (no (unknown) (unknown) (no value) (units (unk nown) date) unknown) (unknown) (no (unknown) (unknown) <Wisam Barone, (units (unknown) date) DO - Last Filed: unknown) 06/21/22 06:49> (unknown) (no (unknown) (unknown) <Julieta Prince Pelon, (units (unknown) date) DO - Last Filed: unknown) 06/21/22 09:14> (unknown) (no (unknown) (unknown) (image (units (unkno wn) date) unknown) (unknown) (no (unknown) (unknown) 06/21/22 06/21/22 (units (unknown) date) 06/21/22 unknown) Range/Units (unknown) (no (unknown) (unknown) 06/21/22 04:40 (units (unknown) date) unknown) (unknown) (no (unknown) (unknown) 06/21/22 05:31 (units (unknown) date) unknown) (unknown) (no (unknown) (unknown) 06/21/22 06:04 (units (unknown) date) unknown) (unknown) (no (unknown) (unknown) 06/21/22 06:10 (units (unknown) date) unknown) (unknown) (no (unknown) (unknown) 06/21/22 (units (unkno wn) date) unknown) (unknown) (no (unknown) (unknown) 04:40 06:10 06:10 (units (unknown) date) unknown) (unknown) (no (unknown) (unknown) 04:46 06/21/22 (units (unknown) date) unknown) (unknown) (no (unknown) (unknown) 05:56 06/21/22 (units (unknown) date) unknown) (unknown) (no (unknown) (unknown) 06:30 (units (unkno wn) date) unknown) (unknown) (no (unknown) (unknown) 07:00 06/21/22 (units (unknown) date) unknown) (unknown) (no (unknown) (unknown) 07:30 06/21/22 (units (unknown) date) unknown) (unknown) (no (unknown) (unknown) 08:00 (units (unkno wn) date) unknown) (unknown) (no (unknown) (unknown) 08:16 06/21/22 (units (unknown) date) unknown) (unknown) (no (unknown) (unknown) 08:16 (units (unkno wn) date) unknown) (unknown) (no (unknown) (unknown) 1. CT abdomen and (units (unknown) date) pelvis without unknown) acute abnormalities. (unknown) (no (unknown) (unknown) 06/21/22 [place]: (units ( unknown) date) Patient signed out unknown) by Dr. Barone to myself. Patient seen (unknown) (no (unknown) (unknown) [address] [place] [address] (units (unknown) date) unknown) (unknown) (no (unknown) (unknown) 2-5) (units (unkno wn) date) unknown) (unknown) (no (unknown) (unknown) 2. Multiple (units (unk nown) date) scattered unknown) mesenteric lymph nodes more notable for number rather than (unknown) (no (unknown) (unknown) 3. Scanned (units (unk nown) date) colonic unknown) diverticulosis without acute diverticulitis. (unknown) (no (unknown) (unknown) 4. Multiple right (units (unknown) date) middle lobe sub cm unknown) nodules with a 9 mm ground-glass nodule.? (unknown) (no (unknown) (unknown) 5. Multilevel (units ( unknown) date) lumbar spondylosis unknown) most severe at L4-5. (unknown) (no (unknown) (unknown) 5/series 3). ? (units (unknown) date) unknown) (unknown) (no (unknown) (unknown) 52-year-old (units (un known) date) female. Is unknown) Cuban-speaking only. Language/translati on line was (unknown) (no (unknown) (unknown) : [id number] (units (u nknown) date) unknown) (unknown) (no (unknown) (unknown) ? (units (unkno wn) date) unknown) (unknown) (no (unknown) (unknown) ABDOMEN: (units (unkno wn) date) unknown) (unknown) (no (unknown) (unknown) ALT 21 (<35) IU/L (units (unknown) date) unknown) (unknown) (no (unknown) (unknown) AST 17 (14-36) (units (unknown) date) IU/L unknown) (unknown) (no (unknown) (unknown) Abdominal Nodes:? (units (unknown) date) Multiple scattered unknown) mesenteric lymph nodes are more notable for (unknown) (no (unknown) (unknown) Accession Number: (units (unknown) date) [id number] ?? unknown) (unknown) (no (unknown) (unknown) Acct:[id number] (units (unknown) date) unknown) (unknown) (no (unknown) (unknown) Acetaminophen (units ( unknown) date) (Acetaminophen 325 unknown) Mg Tablet) 650 mg PO NOW ONE (unknown) (no (unknown) (unknown) Activity (units (unkno wn) date) Restrictions/Addit unknown) ional Instructions: (unknown) (no (unknown) (unknown) Admin: 06/21/22 (units (unknown) date) 06:15 Dose: 1,000 unknown) mls/hr (unknown) (no (unknown) (unknown) Adrenal Glands:? (units (unknown) date) Unremarkable.? ? unknown) (unknown) (no (unknown) (unknown) After the (units (unkn own) date) administration of unknown) intravenous contrast, axial sections acquired from (unknown) (no (unknown) (unknown) Age/Sex: 52 / F (units (unknown) date) unknown) (unknown) (no (unknown) (unknown) Alkaline (units (unkno wn) date) Phosphatase 73 unknown) (38-126) U/L (unknown) (no (unknown) (unknown) Allergies (units (unkn own) date) unknown) (unknown) (no (unknown) (unknown) Allergy/AdvReac (units (unknown) date) Type Severity unknown) Reaction Status Date / Time (unknown) (no (unknown) (unknown) MAGAN Cannon (units ( unknown) date) [address] unknown) (unknown) (no (unknown) (unknown) Approved by: (units (u nknown) date) Campos Nowak M.D. on unknown) 06/21/2022 at 7:33?? (unknown) (no (unknown) (unknown) Attestation: I (units (unknown) date) personally unknown) reviewed and interpreted this imaging study as (unknown) (no (unknown) (unknown) Auscultation: (units ( unknown) date) clear to unknown) auscultation bilaterally (unknown) (no (unknown) (unknown) BUN 13 (7-17) (units ( unknown) date) mg/dL unknown) (unknown) (no (unknown) (unknown) BUN/Creatinine (units (unknown) date) Ratio 23.6 H unknown) (6-22) (unknown) (no (unknown) (unknown) Baso # (Auto) 100 (units (unknown) date) (0-100) /uL unknown) (unknown) (no (unknown) (unknown) Baso % (Auto) 0.4 (units (unknown) date) (0-2) % unknown) (unknown) (no (unknown) (unknown) Bedside Urine (units ( unknown) date) Bilirubin - unknown) Negative (unknown) (no (unknown) (unknown) Bedside Urine (units ( unknown) date) Glucose Negative unknown) (unknown) (no (unknown) (unknown) Bedside Urine (units ( unknown) date) Ketone - Negative unknown) (unknown) (no (unknown) (unknown) Bedside Urine (units ( unknown) date) Leukocytes - unknown) Negative (unknown) (no (unknown) (unknown) Bedside Urine (units ( unknown) date) Nitrite - Negative unknown) (unknown) (no (unknown) (unknown) Bedside Urine (units ( unknown) date) Occult Blood - unknown) Negative (unknown) (no (unknown) (unknown) Bedside Urine (units ( unknown) date) Protein - Negative unknown) (unknown) (no (unknown) (unknown) Bedside Urine (units ( unknown) date) Urobilinogen - unknown) Negative (unknown) (no (unknown) (unknown) Bedside Urine pH (units (unknown) date) 6.0 unknown) (unknown) (no (unknown) (unknown) Biliary ducts:? (units (unknown) date) Unremarkable.? ? unknown) (unknown) (no (unknown) (unknown) Bladder:? (units (unkn own) date) Unremarkable.? ? unknown) (unknown) (no (unknown) (unknown) Blood Pressure (units (unknown) date) 131/82 unknown) (unknown) (no (unknown) (unknown) Blood Pressure (units (unknown) date) 185/93 H 06/21/22 unknown) 04:46 (unknown) (no (unknown) (unknown) Blood Pressure (units (unknown) date) 185/93 H 139/88 unknown) 137/80 (unknown) (no (unknown) (unknown) Blood Pressure (units (unknown) date) unknown) (unknown) (no (unknown) (unknown) Bones:? No acute (units (unknown) date) vertebral body unknown) compression fractures. Multilevel spondylitic (unknown) (no (unknown) (unknown) COMPARISON:? (units (u nknown) date) None. unknown) (unknown) (no (unknown) (unknown) CT Scan Report (units (unknown) date) unknown) (unknown) (no (unknown) (unknown) CT abdomen pelvis (units (unknown) date) w con Stat unknown) (unknown) (no (unknown) (unknown) CT scan - (units (unkn own) date) abdomen/pelvis: unknown) (unknown) (no (unknown) (unknown) Calcium 8.4 (units (un known) date) (8.4-10.2) mg/dL unknown) (unknown) (no (unknown) (unknown) Carbon Dioxide 27 (units (unknown) date) (22-32) mmol/L unknown) (unknown) (no (unknown) (unknown) Cardio (units (unkno wn) date) unknown) (unknown) (no (unknown) (unknown) Chest x-ray: (units (u nknown) date) unknown) (unknown) (no (unknown) (unknown) Chief complaint: (units (unknown) date) Upper Respiratory unknown) Symptoms (unknown) (no (unknown) (unknown) Chloride 101 (units (u nknown) date) (98-107) mmol/L unknown) (unknown) (no (unknown) (unknown) Clinical (units (unkno wn) date) Impression: unknown) (unknown) (no (unknown) (unknown) Complete Blood (units (unknown) date) Count AUTO DIFF unknown) Stat (unknown) (no (unknown) (unknown) Comprehensive (units ( unknown) date) Metabolic Panel unknown) Stat (unknown) (no (unknown) (unknown) Condition is:: (units (unknown) date) Failing to change unknown) as expected (unknown) (no (unknown) (unknown) Const (units (unkno wn) date) unknown) (unknown) (no (unknown) (unknown) Constitutional (units (unknown) date) unknown) (unknown) (no (unknown) (unknown) Constitutional: (units (unknown) date) Reports system unknown) reviewed and no additional complaints, except as (unknown) (no (unknown) (unknown) Course (units (unkno wn) date) unknown) (unknown) (no (unknown) (unknown) Covid-19 + FLU (units (unknown) date) A/B + RSV - PCR unknown) Stat (unknown) (no (unknown) (unknown) Creatinine 0.55 (units (unknown) date) (0.52-1.04) mg/dL unknown) (unknown) (no (unknown) (unknown) : 1970 (units (unknown) date) Acct:[id number] unknown) (unknown) (no (unknown) (unknown) : 1970 (units (unknown) date) unknown) (unknown) (no (unknown) (unknown) Date of Service: (units (unknown) date) 06/21/22 unknown) (unknown) (no (unknown) (unknown) Departure (units (unkn own) date) unknown) (unknown) (no (unknown) (unknown) Dictated by: (units (u nknown) date) Campos Nowak M.D. on unknown) 06/21/2022 at 7:20 ? ? (unknown) (no (unknown) (unknown) Differential (units (u nknown) date) Diagnosis unknown) (unknown) (no (unknown) (unknown) Differential (units (u nknown) date) Diagnosis: unknown) COVID-19, influenza, sepsis urinary tract infection, (unknown) (no (unknown) (unknown) Discharge Plan (units (unknown) date) unknown) (unknown) (no (unknown) (unknown) Discontinued (units (u nknown) date) Medications unknown) (unknown) (no (unknown) (unknown) Documented By: KB (units (unknown) date) unknown) (unknown) (no (unknown) (unknown) Documented By: OW (units (unknown) date) unknown) (unknown) (no (unknown) (unknown) ED Orders (units (unkn own) date) unknown) (unknown) (no (unknown) (unknown) ENT (units (unkno wn) date) unknown) (unknown) (no (unknown) (unknown) ER Physician: (units ( unknown) date) Julieta Bird D.O. unknown) (unknown) (no (unknown) (unknown) Ears, Nose, (units (un known) date) Mouth, and Throat: unknown) Reports system reviewed and no additional (unknown) (no (unknown) (unknown) Ears: EAC's (units (un known) date) normal and TM unknown) abnormal bulging on the left; not on the right, dull (unknown) (no (unknown) (unknown) Effort + (units (unkno wn) date) Inspection: normal unknown) respiratory effort (unknown) (no (unknown) (unknown) Emergency Report (units (unknown) date) unknown) (unknown) (no (unknown) (unknown) [place] and I was (units (unknown) date) able to have a unknown) conversation with her without the language (unknown) (no (unknown) (unknown) Eos # (Auto) 100 (units (unknown) date) (0-450) /uL unknown) (unknown) (no (unknown) (unknown) Eos % (Auto) 0.7 (units (unknown) date) L (2-4) % unknown) (unknown) (no (unknown) (unknown) Esterase (units (unkno wn) date) unknown) (unknown) (no (unknown) (unknown) Estimated GFR > (units (unknown) date) 60 (>60) mL/min unknown) (unknown) (no (unknown) (unknown) Exam (units (unkno wn) date) unknown) (unknown) (no (unknown) (unknown) Extrem (units (unkno wn) date) unknown) (unknown) (no (unknown) (unknown) FINDINGS: (units (unkn own) date) unknown) (unknown) (no (unknown) (unknown) For 250 mg dose (units (unknown) date) pack: take 500 mg unknown) today (day 1), then 250 mg for 4 days (days (unknown) (no (unknown) (unknown) For (units (unkno wn) date) unknown) (unknown) (no (unknown) (unknown) GI (units (unkno wn) date) unknown) (unknown) (no (unknown) (unknown) Gallbladder:? (units ( unknown) date) Unremarkable.? ? unknown) (unknown) (no (unknown) (unknown) General (units (unkno wn) date) unknown) (unknown) (no (unknown) (unknown) General: (units (unkno wn) date) cooperative and unknown) comfortable (unknown) (no (unknown) (unknown) General: no (units (un known) date) rashes or lesions unknown) noted (unknown) (no (unknown) (unknown) General: normal (units (unknown) date) to inspection and unknown) capillary refill normal (unknown) (no (unknown) (unknown) General: patient (units (unknown) date) alert, patient unknown) awake and moves all extremities (unknown) (no (unknown) (unknown) Glucose 139 H (units ( unknown) date) (70-100) mg/dL unknown) (unknown) (no (unknown) (unknown) HENMT (units (unkno wn) date) unknown) (unknown) (no (unknown) (unknown) HPI - General (units ( unknown) date) Adult unknown) (unknown) (no (unknown) (unknown) HPI narrative: (units (unknown) date) unknown) (unknown) (no (unknown) (unknown) Hct 35.7 L (units (unk nown) date) (36-46) % unknown) (unknown) (no (unknown) (unknown) Heart:? No (units (unk nown) date) significant unknown) findings. (unknown) (no (unknown) (unknown) Hgb 11.9 L (units (unk nown) date) (12.0-16.0) g/dL unknown) (unknown) (no (unknown) (unknown) History of (units (unk nown) date) Present Illness unknown) (unknown) (no (unknown) (unknown) IMPRESSION:? (units (u nknown) date) unknown) (unknown) (no (unknown) (unknown) INDICATIONS:? (units ( unknown) date) Left-sided unknown) abdominal pain (unknown) (no (unknown) (unknown) Image quality:? (units (unknown) date) Excellent.? unknown) (unknown) (no (unknown) (unknown) Imaging Data (units (u nknown) date) unknown) (unknown) (no (unknown) (unknown) Influenza A (units (un known) date) (RT-PCR) Flu a unknown) negative (NEGATIVE) (unknown) (no (unknown) (unknown) Influenza B (units (un known) date) (RT-PCR) Flu b unknown) negative (NEGATIVE) (unknown) (no (unknown) (unknown) Initial Vital (units ( unknown) date) Signs unknown) (unknown) (no (unknown) (unknown) Initial Vital (units ( unknown) date) Signs: unknown) (unknown) (no (unknown) (unknown) Inspection: (units (un known) date) normal to unknown) inspection (unknown) (no (unknown) (unknown) Integumentary/Anastasiya (units (unknown) date) asts unknown) (unknown) (no (unknown) (unknown) [facility] (units (unknown) date) [address] unknown) [place] [address] (unknown) (no (unknown) (unknown) [facility] (units (unknown) date) unknown) (unknown) (no (unknown) (unknown) Ketorolac (units (unkn own) date) Tromethamine unknown) (Ketorolac 30 Mg/Ml Vial) 30 mg IV NOW ONE (unknown) (no (unknown) (unknown) Kidneys and (units (un known) date) Ureters:? unknown) Unremarkable.? ? (unknown) (no (unknown) (unknown) Lab Data (units (unkno wn) date) unknown) (unknown) (no (unknown) (unknown) Lab Results (units (un known) date) unknown) (unknown) (no (unknown) (unknown) Labs: (units (unkno wn) date) unknown) (unknown) (no (unknown) (unknown) Last Admin: (units (un known) date) 06/21/22 04:48 unknown) Dose: 650 mg (unknown) (no (unknown) (unknown) Last Admin: (units (un known) date) 06/21/22 06:16 unknown) Dose: 30 mg (unknown) (no (unknown) (unknown) Last Infusion: (units (unknown) date) 06/21/22 08:07 unknown) Dose: 0 mls/hr (unknown) (no (unknown) (unknown) Limitations: (units (u nknown) date) language barrier unknown) (unknown) (no (unknown) (unknown) Lipase 267 (units (unk nown) date) (23-300) U/L unknown) (unknown) (no (unknown) (unknown) Lipase Stat (units (un known) date) unknown) (unknown) (no (unknown) (unknown) Liver:? There is (units (unknown) date) diffuse unknown) hypoattenuation of the liver parenchyma relative to the (unknown) (no (unknown) (unknown) Loc: ED (units (unkno wn) date) unknown) (unknown) (no (unknown) (unknown) Lung bases:? (units (u nknown) date) Bibasilar unknown) atelectasis.? Multiple scattered noncalcified pulmonary (unknown) (no (unknown) (unknown) Lymph # (Auto) (units (unknown) date) 1800 (4576-3926) unknown) /uL (unknown) (no (unknown) (unknown) Lymph % (Auto) (units (unknown) date) 15.2 L (25-40) % unknown) (unknown) (no (unknown) (unknown) MCH 28.9 (26-34) (units (unknown) date) PG unknown) (unknown) (no (unknown) (unknown) MCHC 33.2 (30-36) (units (unknown) date) % unknown) (unknown) (no (unknown) (unknown) MCV 87.1 (80-100) (units (unknown) date) fL unknown) (unknown) (no (unknown) (unknown) MDM Narrative (units ( unknown) date) unknown) (unknown) (no (unknown) (unknown) MR#: [id number] (units (unknown) date) unknown) (unknown) (no (unknown) (unknown) Medical Decision (units (unknown) date) Making unknown) (unknown) (no (unknown) (unknown) Medical decision (units (unknown) date) making narrative: unknown) (unknown) (no (unknown) (unknown) Medication (units (unk nown) date) Instructions unknown) Recorded (unknown) (no (unknown) (unknown) Miscellaneous: No (units (unknown) date) inguinal hernias unknown) are seen. ? ? (unknown) (no (unknown) (unknown) Mode of arrival: (units (unknown) date) Ambulatory unknown) (unknown) (no (unknown) (unknown) Quay # (Auto) 900 (units (unknown) date) (0-900) /uL unknown) (unknown) (no (unknown) (unknown) Quay % (Auto) 7.4 (units (unknown) date) (3-14) % unknown) (unknown) (no (unknown) (unknown) My Impression: (units (unknown) date) unknown) (unknown) (no (unknown) (unknown) Neuro (units (unkno wn) date) unknown) (unknown) (no (unknown) (unknown) Neut # (Auto) (units ( unknown) date) 9100 H (4301-2734) unknown) /uL (unknown) (no (unknown) (unknown) Neut % (Auto) (units ( unknown) date) 76.3 H (50-75) % unknown) (unknown) (no (unknown) (unknown) New (units (unkno wn) date) unknown) (unknown) (no (unknown) (unknown) No Known Drug (units ( unknown) date) Allergies Allergy unknown) Verified 06/21/22 04:46 (unknown) (no (unknown) (unknown) No acute changes (units (unknown) date) unknown) (unknown) (no (unknown) (unknown) No acute findings (units (unknown) date) unknown) (unknown) (no (unknown) (unknown) No significant (units (unknown) date) discrepancy with unknown) the awake overnight monitor radiology preliminary report.? (unknown) (no (unknown) (unknown) Ordered: (units (unkno wn) date) unknown) (unknown) (no (unknown) (unknown) Ordering (units (unkno wn) date) Provider: unknown) Wisam Barone D.O. (unknown) (no (unknown) (unknown) Orders (units (unkno wn) date) unknown) (unknown) (no (unknown) (unknown) Oxygen Delivery (units (unknown) date) Method 06/21/22 unknown) 04:46 (unknown) (no (unknown) (unknown) Oxygen Delivery (units (unknown) date) Method Room Air unknown) Room Air Room Air (unknown) (no (unknown) (unknown) Oxygen Delivery (units (unknown) date) Method unknown) (unknown) (no (unknown) (unknown) PELVIS: (units (unkno wn) date) unknown) (unknown) (no (unknown) (unknown) PROCEDURE:? CT (units (unknown) date) ABDOMEN PELVIS W unknown) CON (unknown) (no (unknown) (unknown) Pancreas:? (units (unk nown) date) Unremarkable.? ? unknown) (unknown) (no (unknown) (unknown) Patient (units (unkno wn) date) Disposition: Home unknown) (unknown) (no (unknown) (unknown) Patient History (units (unknown) date) unknown) (unknown) (no (unknown) (unknown) Patient is not (units (unknown) date) actually unknown) Cuban-speaking only. Patient's imaging overall (unknown) (no (unknown) (unknown) Patient: Cristiana (units (unknown) date) Maggie Orourke MR# unknown) (unknown) (no (unknown) (unknown) Patient: Cristiana (units (unknown) date) Maggie Orourke unknown) (unknown) (no (unknown) (unknown) Pelvic Nodes: No (units (unknown) date) enlarged lymph unknown) nodes.? (unknown) (no (unknown) (unknown) Pelvic Organs:? (units (unknown) date) Unremarkable.? ? unknown) (unknown) (no (unknown) (unknown) Peritoneum:? No (units (unknown) date) abnormal unknown) intraperitoneal fluid.? No free air.? (unknown) (no (unknown) (unknown) Please follow-up (units (unknown) date) with your unknown) physician to schedule this. (unknown) (no (unknown) (unknown) Please return if (units (unknown) date) your symptoms are unknown) significantly worsening new chest pain, (unknown) (no (unknown) (unknown) Plt Count 223 (units ( unknown) date) (150-400) X103/uL unknown) (unknown) (no (unknown) (unknown) Point of care (units ( unknown) date) testing: unknown) (unknown) (no (unknown) (unknown) Potassium 4.0 (units ( unknown) date) (3.4-5.1) mmol/L unknown) (unknown) (no (unknown) (unknown) Prescription sent (units (unknown) date) for antibiotic if unknown) your ear is not improving after (unknown) (no (unknown) (unknown) Prescription sent (units (unknown) date) to [facility] [place]) [place] (unknown) (no (unknown) (unknown) Prescriptions: (units (unknown) date) unknown) (unknown) (no (unknown) (unknown) Previous Rx's (units ( unknown) date) unknown) (unknown) (no (unknown) (unknown) Procedure: CT (units ( unknown) date) abdomen pelvis w unknown) con (unknown) (no (unknown) (unknown) Pulse Oximetry 96 (units (unknown) date) 96 98 unknown) (unknown) (no (unknown) (unknown) Pulse Oximetry 98 (units (unknown) date) 06/21/22 04:46 unknown) (unknown) (no (unknown) (unknown) Pulse Oximetry 98 (units (unknown) date) 97 97 unknown) (unknown) (no (unknown) (unknown) Pulse Oximetry 98 (units (unknown) date) unknown) (unknown) (no (unknown) (unknown) Pulse Rate 100 H (units (unknown) date) 06/21/22 04:46 unknown) (unknown) (no (unknown) (unknown) Pulse Rate 100 H (units (unknown) date) 82 75 unknown) (unknown) (no (unknown) (unknown) Pulse Rate 76 78 (units (unknown) date) 72 unknown) (unknown) (no (unknown) (unknown) Pulse Rate 78 (units ( unknown) date) unknown) (unknown) (no (unknown) (unknown) RBC 4.10 (units (unkno wn) date) (4.0-5.2) X106/uL unknown) (unknown) (no (unknown) (unknown) RDW 14.5 (units (unkno wn) date) (11.6-14.8) % unknown) (unknown) (no (unknown) (unknown) RSV (PCR) (units (unkn own) date) Negative unknown) (Negative) (unknown) (no (unknown) (unknown) Radiologist's (units ( unknown) date) Impression: unknown) (unknown) (no (unknown) (unknown) Rate: regular (units ( unknown) date) rate unknown) (unknown) (no (unknown) (unknown) Recommend (units (unkn own) date) unknown) (unknown) (no (unknown) (unknown) Referrals: (units (unk nown) date) unknown) (unknown) (no (unknown) (unknown) Related Data (units (u nknown) date) unknown) (unknown) (no (unknown) (unknown) Resp (units (unkno wn) date) unknown) (unknown) (no (unknown) (unknown) Respiratory Rate (units (unknown) date) 06/21/22 04:46 unknown) (unknown) (no (unknown) (unknown) Respiratory Rate (units (unknown) date) unknown) (unknown) (no (unknown) (unknown) Respiratory Rate (units (unknown) date) unknown) (unknown) (no (unknown) (unknown) Respiratory (units (un known) date) unknown) (unknown) (no (unknown) (unknown) Respiratory: (units (u nknown) date) Reports system unknown) reviewed and no additional complaints, except as (unknown) (no (unknown) (unknown) Result diagrams: (units (unknown) date) unknown) (unknown) (no (unknown) (unknown) Review of Systems (units (unknown) date) unknown) (unknown) (no (unknown) (unknown) Rx Instructions: (units (unknown) date) unknown) (unknown) (no (unknown) (unknown) SARS-CoV-2 (PCR) (units (unknown) date) Negative unknown) (Negative) (unknown) (no (unknown) (unknown) See Rx (units (unkno wn) date) Instructions unknown) .ROUTE .COMPLEX Qty: 6 0RF (unknown) (no (unknown) (unknown) She is having (units ( unknown) date) some left-sided unknown) abdominal tenderness. This has been worsening (unknown) (no (unknown) (unknown) Signed By: (units (unk nown) date) unknown) (unknown) (no (unknown) (unknown) Signed (units (unkno wn) date) unknown) (unknown) (no (unknown) (unknown) Skin (units (unkno wn) date) unknown) (unknown) (no (unknown) (unknown) Skin/Breast: (units (u nknown) date) Reports system unknown) reviewed and no additional complaints, except as (unknown) (no (unknown) (unknown) Smoking Status: (units (unknown) date) Never smoker unknown) (unknown) (no (unknown) (unknown) Social History (units (unknown) date) (Reviewed 06/21/22 unknown) @ 05:41 by Wisam Barone DO) (unknown) (no (unknown) (unknown) Sodium 138 (units (unk nown) date) (137-145) mmol/L unknown) (unknown) (no (unknown) (unknown) Sodium Chloride (units (unknown) date) (Normal Saline unknown) 0.9%) 1,000 mls @ 1,000 mls/hr IV BOLUS ONE (unknown) (no (unknown) (unknown) Source: patient (units (unknown) date) unknown) (unknown) (no (unknown) (unknown) Spleen:? (units (unkno wn) date) Unremarkable.? ? unknown) (unknown) (no (unknown) (unknown) Stand Alone (units (un known) date) Forms: Patient unknown) Portal/API (unknown) (no (unknown) (unknown) Stated complaint: (units (unknown) date) bodyaches, unknown) congested (unknown) (no (unknown) (unknown) Stomach and (units (un known) date) Bowel:? Stomach, unknown) small bowel loops, and colon are unremarkable.? A (unknown) (no (unknown) (unknown) Stop: 06/21/22 (units (unknown) date) 04:46 unknown) (unknown) (no (unknown) (unknown) Stop: 06/21/22 (units (unknown) date) 06:04 unknown) (unknown) (no (unknown) (unknown) Stop: 06/21/22 (units (unknown) date) 07:02 unknown) (unknown) (no (unknown) (unknown) TECHNIQUE:? (units (un known) date) unknown) (unknown) (no (unknown) (unknown) Temperature 98.5 (units (unknown) date) F 06/21/22 04:46 unknown) (unknown) (no (unknown) (unknown) Temperature 98.5 (units (unknown) date) F 98.1 F unknown) (unknown) (no (unknown) (unknown) Temperature (units (un known) date) unknown) (unknown) (no (unknown) (unknown) Time Seen by (units (u nknown) date) Provider: 06/21/22 unknown) 04:34 (unknown) (no (unknown) (unknown) Total Bilirubin (units (unknown) date) 0.6 (0.2-1.3) unknown) mg/dL (unknown) (no (unknown) (unknown) Total Protein 7.7 (units (unknown) date) (6.3-8.2) g/dL unknown) (unknown) (no (unknown) (unknown) Upon arrival my (units (unknown) date) initial thought unknown) was that the patient either had COVID or (unknown) (no (unknown) (unknown) Upper respiratory (units (unknown) date) infection, Lung unknown) nodule, multiple, Otitis media (unknown) (no (unknown) (unknown) Urine Dip (units (unkn own) date) unknown) (unknown) (no (unknown) (unknown) Urine Specific (units (unknown) date) Jamison 1.015 unknown) (unknown) (no (unknown) (unknown) Ventral Wall: ? (units (unknown) date) No hernia.? unknown) (unknown) (no (unknown) (unknown) Vessels:? Aorta (units (unknown) date) and inferior vena unknown) cava are normal in size.? (unknown) (no (unknown) (unknown) Vital Signs - 8 (units (unknown) date) hr unknown) (unknown) (no (unknown) (unknown) Vital Signs (units (un known) date) unknown) (unknown) (no (unknown) (unknown) Vital signs: (units (u nknown) date) unknown) (unknown) (no (unknown) (unknown) WBC 12.0 H (units (unk nown) date) (4.5-11.0) X103/uL unknown) (unknown) (no (unknown) (unknown) We did review all (units (unknown) date) of her findings unknown) today no all questions answered. (unknown) (no (unknown) (unknown) Melanie Sheets DO (units (unknown) date) [Physician] unknown) (unknown) (no (unknown) (unknown) XR chest 1V Stat (units (unknown) date) unknown) (unknown) (no (unknown) (unknown) You can use an (units (unknown) date) [id number] unknown) decongestant help your left ear drain. (unknown) (no (unknown) (unknown) You may find it (units (unknown) date) helpful to use unknown) Flonase once daily in each nostril. (unknown) (no (unknown) (unknown) Your CT today (units ( unknown) date) showed several unknown) small nodules in the right lung and is recommended (unknown) (no (unknown) (unknown) [Embedded Image (units (unknown) date) Not Available] unknown) (unknown) (no (unknown) (unknown) adjustment (units (unk nown) date) unknown) (unknown) (no (unknown) (unknown) and COVID we will (units (unknown) date) draw labs and unknown) obtain a CT scan of the abdomen for further (unknown) (no (unknown) (unknown) available. (units (unk nown) date) COVID/influenza/RS unknown) V swab is negative. Suspect more viral cause (unknown) (no (unknown) (unknown) azithromycin 250 (units (unknown) date) mg tablet See Rx unknown) Instructions PO .COMPLEX #6 06/21/22 (unknown) (no (unknown) (unknown) azithromycin 250 (units (unknown) date) mg tablet unknown) (unknown) (no (unknown) (unknown) banding. She (units (u nknown) date) would quite a bit unknown) of discomfort afterwards but not much today. (unknown) (no (unknown) (unknown) bases to the (units (u nknown) date) pubic symphysis.? unknown) Coronal and sagittal reformats were performed.? (unknown) (no (unknown) (unknown) cellulitis. Given (units (unknown) date) her lack of unknown) improvement with Tylenol and negative influenza (unknown) (no (unknown) (unknown) changes (units (unkno wn) date) unknown) (unknown) (no (unknown) (unknown) colonic (units (unkno wn) date) diverticula unknown) without evidence for acute diverticulitis.? Normal appendix. (unknown) (no (unknown) (unknown) compatible with (units (unknown) date) hepatic unknown) steatosis.? ? (unknown) (no (unknown) (unknown) complaints, (units (un known) date) except as unknown) documented (unknown) (no (unknown) (unknown) concerning (units (unk nown) date) changes. unknown) (unknown) (no (unknown) (unknown) congestion on (units ( unknown) date) examination no unknown) overall findings are consistent with viral URI. (unknown) (no (unknown) (unknown) decongestants is (units (unknown) date) not improving unknown) particularly with her ground-glass nodules this (unknown) (no (unknown) (unknown) decongestants. (units (unknown) date) unknown) (unknown) (no (unknown) (unknown) degenerative (units (u nknown) date) unknown) (unknown) (no (unknown) (unknown) documented (units (unk nown) date) unknown) (unknown) (no (unknown) (unknown) does have a rash (units (unknown) date) under the her unknown) abdominal pannus but no other signs of (unknown) (no (unknown) (unknown) endplate changes (units (unknown) date) noted at L4-5.? unknown) Focal oval sclerotic lesion at L1. (unknown) (no (unknown) (unknown) evaluation. (units (un known) date) Patient expressed unknown) understanding and agreement with this. Care (unknown) (no (unknown) (unknown) few scant (units (unkn own) date) unknown) (unknown) (no (unknown) (unknown) follow-up chest (units (unknown) date) CT further unknown) evaluation. (unknown) (no (unknown) (unknown) follows: (units (unkno wn) date) unknown) (unknown) (no (unknown) (unknown) ground-glass (units (u nknown) date) nodule noted in unknown) the subpleural region of the right middle lobe (unknown) (no (unknown) (unknown) independently (units ( unknown) date) evaluated by unknown) myself. Patient is clearly has upper respiratory (unknown) (no (unknown) (unknown) infection however (units (unknown) date) her testing for unknown) COVID influenza is negative. Her chest x-ray (unknown) (no (unknown) (unknown) infection require (units (unknown) date) antibiotics but unknown) likely cause of her left ear pain, appreciated (unknown) (no (unknown) (unknown) influenza given (units (unknown) date) her presentation. unknown) She has a bulging left tympanic membrane that (unknown) (no (unknown) (unknown) is felt (units (unkno wn) date) appropriate. unknown) Patient agreed expressed her understanding. Gave her (unknown) (no (unknown) (unknown) is not (units (unkno wn) date) erythematous and unknown) other findings consistent with an upper respiratory (unknown) (no (unknown) (unknown) left ear pain, (units (unknown) date) body aches, unknown) headache, cough and generally not feeling well for (unknown) (no (unknown) (unknown) left periaortic (units (unknown) date) region near the unknown) level of the renal vessels. (unknown) (no (unknown) (unknown) leftward shift, (units (unknown) date) cmp overall unknown) normal, albumin not done secondary to no agent (unknown) (no (unknown) (unknown) likely reactive (units (unknown) date) in etiology. ? unknown) (unknown) (no (unknown) (unknown) line. She denied (units (unknown) date) any urinary unknown) symptoms. Yesterday she did have hemorrhoid (unknown) (no (unknown) (unknown) lower quadrant (units (unknown) date) discomfort. unknown) Patient is noted to have multiple right middle lobe (unknown) (no (unknown) (unknown) mm (units (unkno wn) date) unknown) (unknown) (no (unknown) (unknown) more erythema on (units (unknown) date) exam although not unknown) complete. Discussed with patient will give (unknown) (no (unknown) (unknown) nodes. Patient's (units (unknown) date) labs overall show unknown) a mild leukocytosis, hemoglobin of 11, (unknown) (no (unknown) (unknown) nodules in (units (unk nown) date) unknown) (unknown) (no (unknown) (unknown) noted in the (units (u nknown) date) unknown) (unknown) (no (unknown) (unknown) number (units (unkno wn) date) unknown) (unknown) (no (unknown) (unknown) obtained as (units (unk nown) date) patient had recent unknown) hemorrhoid banding and had some complaint of left (unknown) (no (unknown) (unknown) of mA and/or kV (units (unknown) date) according to unknown) patient size.? (unknown) (no (unknown) (unknown) on the left and (units (unknown) date) with fluid behind unknown) the TM on the left; not on the right (unknown) (no (unknown) (unknown) option for primary (units (unknown) date) care follow-up unknown) although she states she is moving to [place]. (unknown) (no (unknown) (unknown) over the past (units ( unknown) date) couple days. She unknown) is also had some nausea but no vomiting. She (unknown) (no (unknown) (unknown) pain, persistent (units (unknown) date) fevers, worsening unknown) black or bloody stools or other new or (unknown) (no (unknown) (unknown) patient does have (units (unknown) date) multiple lymph unknown) nodes in the right lower lung discussed patient (unknown) (no (unknown) (unknown) pneumonia and (units ( unknown) date) others unknown) (unknown) (no (unknown) (unknown) prescription for (units (unknown) date) azithromycin but unknown) only to start if after several days of (unknown) (no (unknown) (unknown) radiation dose (units (unknown) date) reduction, the unknown) following was used:? automated exposure control, (unknown) (no (unknown) (unknown) rather than size (units (unknown) date) and likely unknown) reactive in etiology.? Most prominent lymph node (unknown) (no (unknown) (unknown) reassuring likely (units (unknown) date) has viral illness unknown) causing her symptoms CT abdomen pelvis was (unknown) (no (unknown) (unknown) shortness of (units (un known) date) breath, persistent unknown) vomiting, rapidly worsening abdominal back flank (unknown) (no (unknown) (unknown) shows no signs of (units (unknown) date) pneumonia. Turns unknown) out that the patient does speak very good (unknown) (no (unknown) (unknown) size, (units (unkno wn) date) unknown) (unknown) (no (unknown) (unknown) spleen (units (unkno wn) date) unknown) (unknown) (no (unknown) (unknown) subcentimeter (units ( unknown) date) nodules with a 9 unknown) mm ground-glass nodule recommended have follow (unknown) (no (unknown) (unknown) tabs (units (unkno wn) date) unknown) (unknown) (no (unknown) (unknown) that you have a (units (unknown) date) repeat CT of the unknown) chest in the future. (unknown) (no (unknown) (unknown) the lung (units (unkno wn) date) unknown) (unknown) (no (unknown) (unknown) the past several (units (unknown) date) hours/day. No unknown) fevers. (unknown) (no (unknown) (unknown) the right middle (units (unknown) date) lobe measuring unknown) approximately 4-5 mm in size.? There is also a 9 (unknown) (no (unknown) (unknown) throughout the (units (unknown) date) imaged spine.? No unknown) suspicious osseous lesions.? ? Moderate (unknown) (no (unknown) (unknown) to start (units (unkno wn) date) antibiotic versus unknown) watchful waiting and need for follow-up CT. Patient (unknown) (no (unknown) (unknown) turned over to (units (unknown) date) Dr. Bird to unknown) follow-up on CT scan and disposition. (unknown) (no (unknown) (unknown) up CT chest for (units (unknown) date) repeat evaluation unknown) in the future, scattered mesenteric lymph (unknown) (no (unknown) (unknown) used for HPI and (units (unknown) date) review of systems. unknown) She is here for evaluation of congestion, (unknown) (no (unknown) (unknown) was noted to have (units (unknown) date) bulging left unknown) tympanic membrane without erythema or signs of Result panel 83 (unknown) (no (unknown) (unknown) (no value) (units (unk nown) date) unknown) (unknown) (no (unknown) (unknown) <Electronically (units (unknown) date) signed by Julieta Prince unknown) Velia Bird> (unknown) (no (unknown) (unknown) <Wisam Barone, (units (unknown) date) DO - Last Filed: unknown) 06/21/22 06:49> (unknown) (no (unknown) (unknown) <Julieta Bird, (units (unknown) date) DO - Last Filed: unknown) 06/21/22 09:27> (unknown) (no (unknown) (unknown) (image (units (unkno wn) date) unknown) (unknown) (no (unknown) (unknown) 06/21/22 06/21/22 (units (unknown) date) 06/21/22 unknown) Range/Units (unknown) (no (unknown) (unknown) 06/21/22 04:40 (units (unknown) date) unknown) (unknown) (no (unknown) (unknown) 06/21/22 05:31 (units (unknown) date) unknown) (unknown) (no (unknown) (unknown) 06/21/22 06:04 (units (unknown) date) unknown) (unknown) (no (unknown) (unknown) 06/21/22 06:10 (units (unknown) date) unknown) (unknown) (no (unknown) (unknown) 06/21/22 0927 (units ( unknown) date) unknown) (unknown) (no (unknown) (unknown) 06/21/22 (units (unkno wn) date) unknown) (unknown) (no (unknown) (unknown) 04:40 06:10 06:10 (units (unknown) date) unknown) (unknown) (no (unknown) (unknown) 04:46 06/21/22 (units (unknown) date) unknown) (unknown) (no (unknown) (unknown) 05:56 06/21/22 (units (unknown) date) unknown) (unknown) (no (unknown) (unknown) 06:30 (units (unkno wn) date) unknown) (unknown) (no (unknown) (unknown) 07:00 06/21/22 (units (unknown) date) unknown) (unknown) (no (unknown) (unknown) 07:30 06/21/22 (units (unknown) date) unknown) (unknown) (no (unknown) (unknown) 08:00 (units (unkno wn) date) unknown) (unknown) (no (unknown) (unknown) 08:16 06/21/22 (units (unknown) date) unknown) (unknown) (no (unknown) (unknown) 08:30 06/21/22 (units (unknown) date) unknown) (unknown) (no (unknown) (unknown) 08:30 (units (unkno wn) date) unknown) (unknown) (no (unknown) (unknown) 09:00 06/21/22 (units (unknown) date) unknown) (unknown) (no (unknown) (unknown) 09:00 (units (unkno wn) date) unknown) (unknown) (no (unknown) (unknown) 09:21 (units (unkno wn) date) unknown) (unknown) (no (unknown) (unknown) 1. CT abdomen and (units (unknown) date) pelvis without unknown) acute abnormalities. (unknown) (no (unknown) (unknown) 06/21/22 [place]: (units ( unknown) date) Patient signed out unknown) by Dr. Barone to myself. Patient seen (unknown) (no (unknown) (unknown) [address] [place] [address] (units (unknown) date) unknown) (unknown) (no (unknown) (unknown) 2-5) (units (unkno wn) date) unknown) (unknown) (no (unknown) (unknown) 2. Multiple (units (unk nown) date) scattered unknown) mesenteric lymph nodes more notable for number rather than (unknown) (no (unknown) (unknown) 3. Scanned (units (unk nown) date) colonic unknown) diverticulosis without acute diverticulitis. (unknown) (no (unknown) (unknown) 4. Multiple right (units (unknown) date) middle lobe sub cm unknown) nodules with a 9 mm ground-glass nodule.? (unknown) (no (unknown) (unknown) 5. Multilevel (units ( unknown) date) lumbar spondylosis unknown) most severe at L4-5. (unknown) (no (unknown) (unknown) 5/series 3). ? (units (unknown) date) unknown) (unknown) (no (unknown) (unknown) 52-year-old (units (un known) date) female. Is unknown) Cuban-speaking only. Language/translati on line was (unknown) (no (unknown) (unknown) : [id number] (units (u nknown) date) unknown) (unknown) (no (unknown) (unknown) ? (units (unkno wn) date) unknown) (unknown) (no (unknown) (unknown) ABDOMEN: (units (unkno wn) date) unknown) (unknown) (no (unknown) (unknown) ALT 21 (<35) IU/L (units (unknown) date) unknown) (unknown) (no (unknown) (unknown) AST 17 (14-36) (units (unknown) date) IU/L unknown) (unknown) (no (unknown) (unknown) Abdominal Nodes:? (units (unknown) date) Multiple scattered unknown) mesenteric lymph nodes are more notable for (unknown) (no (unknown) (unknown) Accession Number: (units (unknown) date) [id number] ?? unknown) (unknown) (no (unknown) (unknown) Acct:[id number] (units (unknown) date) unknown) (unknown) (no (unknown) (unknown) Acetaminophen (units ( unknown) date) (Acetaminophen 325 unknown) Mg Tablet) 650 mg PO NOW ONE (unknown) (no (unknown) (unknown) Activity (units (unkno wn) date) Restrictions/Addit unknown) ional Instructions: (unknown) (no (unknown) (unknown) Admin: 06/21/22 (units (unknown) date) 06:15 Dose: 1,000 unknown) mls/hr (unknown) (no (unknown) (unknown) Adrenal Glands:? (units (unknown) date) Unremarkable.? ? unknown) (unknown) (no (unknown) (unknown) After the (units (unkn own) date) administration of unknown) intravenous contrast, axial sections acquired from (unknown) (no (unknown) (unknown) Age/Sex: 52 / F (units (unknown) date) unknown) (unknown) (no (unknown) (unknown) Alkaline (units (unkno wn) date) Phosphatase 73 unknown) (38-126) U/L (unknown) (no (unknown) (unknown) Allergies (units (unkn own) date) unknown) (unknown) (no (unknown) (unknown) Allergy/AdvReac (units (unknown) date) Type Severity unknown) Reaction Status Date / Time (unknown) (no (unknown) (unknown) [place], [place] (units ( unknown) date) [id number] unknown) (unknown) (no (unknown) (unknown) Approved by: (units (u nknown) date) Campos Nowak M.D. on unknown) 06/21/2022 at 7:33?? (unknown) (no (unknown) (unknown) Attestation: I (units (unknown) date) personally unknown) reviewed and interpreted this imaging study as (unknown) (no (unknown) (unknown) Auscultation: (units ( unknown) date) clear to unknown) auscultation bilaterally (unknown) (no (unknown) (unknown) BUN 13 (7-17) (units ( unknown) date) mg/dL unknown) (unknown) (no (unknown) (unknown) BUN/Creatinine (units (unknown) date) Ratio 23.6 H unknown) (6-22) (unknown) (no (unknown) (unknown) Baso # (Auto) 100 (units (unknown) date) (0-100) /uL unknown) (unknown) (no (unknown) (unknown) Baso % (Auto) 0.4 (units (unknown) date) (0-2) % unknown) (unknown) (no (unknown) (unknown) Bedside Urine (units ( unknown) date) Bilirubin - unknown) Negative (unknown) (no (unknown) (unknown) Bedside Urine (units ( unknown) date) Glucose Negative unknown) (unknown) (no (unknown) (unknown) Bedside Urine (units ( unknown) date) Ketone - Negative unknown) (unknown) (no (unknown) (unknown) Bedside Urine (units ( unknown) date) Leukocytes - unknown) Negative (unknown) (no (unknown) (unknown) Bedside Urine (units ( unknown) date) Nitrite - Negative unknown) (unknown) (no (unknown) (unknown) Bedside Urine (units ( unknown) date) Occult Blood - unknown) Negative (unknown) (no (unknown) (unknown) Bedside Urine (units ( unknown) date) Protein - Negative unknown) (unknown) (no (unknown) (unknown) Bedside Urine (units ( unknown) date) Urobilinogen - unknown) Negative (unknown) (no (unknown) (unknown) Bedside Urine pH (units (unknown) date) 6.0 unknown) (unknown) (no (unknown) (unknown) Biliary ducts:? (units (unknown) date) Unremarkable.? ? unknown) (unknown) (no (unknown) (unknown) Bladder:? (units (unkn own) date) Unremarkable.? ? unknown) (unknown) (no (unknown) (unknown) Blood Pressure (units (unknown) date) 128/85 unknown) (unknown) (no (unknown) (unknown) Blood Pressure (units (unknown) date) 131/82 134/78 unknown) (unknown) (no (unknown) (unknown) Blood Pressure (units (unknown) date) 185/93 H 06/21/22 unknown) 04:46 (unknown) (no (unknown) (unknown) Blood Pressure (units (unknown) date) 185/93 H 139/88 unknown) 137/80 (unknown) (no (unknown) (unknown) Blood Pressure (units (unknown) date) unknown) (unknown) (no (unknown) (unknown) Bones:? No acute (units (unknown) date) vertebral body unknown) compression fractures. Multilevel spondylitic (unknown) (no (unknown) (unknown) COMPARISON:? (units (u nknown) date) None. unknown) (unknown) (no (unknown) (unknown) CT Scan Report (units (unknown) date) unknown) (unknown) (no (unknown) (unknown) CT abdomen pelvis (units (unknown) date) w con Stat unknown) (unknown) (no (unknown) (unknown) CT scan - (units (unkn own) date) abdomen/pelvis: unknown) (unknown) (no (unknown) (unknown) Calcium 8.4 (units (un known) date) (8.4-10.2) mg/dL unknown) (unknown) (no (unknown) (unknown) Carbon Dioxide 27 (units (unknown) date) (22-32) mmol/L unknown) (unknown) (no (unknown) (unknown) Cardio (units (unkno wn) date) unknown) (unknown) (no (unknown) (unknown) Chest x-ray: (units (u nknown) date) unknown) (unknown) (no (unknown) (unknown) Chief complaint: (units (unknown) date) Upper Respiratory unknown) Symptoms (unknown) (no (unknown) (unknown) Chloride 101 (units (u nknown) date) (98-107) mmol/L unknown) (unknown) (no (unknown) (unknown) Clinical (units (unkno wn) date) Impression: unknown) (unknown) (no (unknown) (unknown) Complete Blood (units (unknown) date) Count AUTO DIFF unknown) Stat (unknown) (no (unknown) (unknown) Comprehensive (units ( unknown) date) Metabolic Panel unknown) Stat (unknown) (no (unknown) (unknown) Condition is:: (units (unknown) date) Failing to change unknown) as expected (unknown) (no (unknown) (unknown) Const (units (unkno wn) date) unknown) (unknown) (no (unknown) (unknown) Constitutional (units (unknown) date) unknown) (unknown) (no (unknown) (unknown) Constitutional: (units (unknown) date) Reports system unknown) reviewed and no additional complaints, except as (unknown) (no (unknown) (unknown) Course (units (unkno wn) date) unknown) (unknown) (no (unknown) (unknown) Covid-19 + FLU (units (unknown) date) A/B + RSV - PCR unknown) Stat (unknown) (no (unknown) (unknown) Creatinine 0.55 (units (unknown) date) (0.52-1.04) mg/dL unknown) (unknown) (no (unknown) (unknown) : 1970 (units (unknown) date) Acct:[id number] unknown) (unknown) (no (unknown) (unknown) : 1970 (units (unknown) date) unknown) (unknown) (no (unknown) (unknown) Date of Service: (units (unknown) date) 06/21/22 unknown) (unknown) (no (unknown) (unknown) Departure (units (unkn own) date) unknown) (unknown) (no (unknown) (unknown) Dictated by: (units (u nknown) date) Campos Nowak M.D. on unknown) 06/21/2022 at 7:20 ? ? (unknown) (no (unknown) (unknown) Differential (units (u nknown) date) Diagnosis unknown) (unknown) (no (unknown) (unknown) Differential (units (u nknown) date) Diagnosis: unknown) COVID-19, influenza, sepsis urinary tract infection, (unknown) (no (unknown) (unknown) Discharge Plan (units (unknown) date) unknown) (unknown) (no (unknown) (unknown) Discontinued (units (u nknown) date) Medications unknown) (unknown) (no (unknown) (unknown) Documented By: KB (units (unknown) date) unknown) (unknown) (no (unknown) (unknown) Documented By: OW (units (unknown) date) unknown) (unknown) (no (unknown) (unknown) Dr. Bird to (units (un known) date) follow-up on CT unknown) scan and disposition. (unknown) (no (unknown) (unknown) ED Orders (units (unkn own) date) unknown) (unknown) (no (unknown) (unknown) ENT (units (unkno wn) date) unknown) (unknown) (no (unknown) (unknown) ER Physician: (units ( unknown) date) Julieta Bird D.O. unknown) (unknown) (no (unknown) (unknown) Ears, Nose, (units (un known) date) Mouth, and Throat: unknown) Reports system reviewed and no additional (unknown) (no (unknown) (unknown) Ears: EAC's (units (un known) date) normal and TM unknown) abnormal bulging on the left; not on the right, dull (unknown) (no (unknown) (unknown) Effort + (units (unkno wn) date) Inspection: normal unknown) respiratory effort (unknown) (no (unknown) (unknown) Emergency Report (units (unknown) date) unknown) (unknown) (no (unknown) (unknown) [place] and I was (units (unknown) date) able to have a unknown) conversation with her without the language (unknown) (no (unknown) (unknown) Eos # (Auto) 100 (units (unknown) date) (0-450) /uL unknown) (unknown) (no (unknown) (unknown) Eos % (Auto) 0.7 (units (unknown) date) L (2-4) % unknown) (unknown) (no (unknown) (unknown) Esterase (units (unkno wn) date) unknown) (unknown) (no (unknown) (unknown) Estimated GFR > (units (unknown) date) 60 (>60) mL/min unknown) (unknown) (no (unknown) (unknown) Exam (units (unkno wn) date) unknown) (unknown) (no (unknown) (unknown) Extrem (units (unkno wn) date) unknown) (unknown) (no (unknown) (unknown) FINDINGS: (units (unkn own) date) unknown) (unknown) (no (unknown) (unknown) For 250 mg dose (units (unknown) date) pack: take 500 mg unknown) today (day 1), then 250 mg for 4 days (days (unknown) (no (unknown) (unknown) For (units (unkno wn) date) unknown) (unknown) (no (unknown) (unknown) GI (units (unkno wn) date) unknown) (unknown) (no (unknown) (unknown) Gallbladder:? (units ( unknown) date) Unremarkable.? ? unknown) (unknown) (no (unknown) (unknown) General (units (unkno wn) date) unknown) (unknown) (no (unknown) (unknown) General: (units (o wn) date) cooperative and unknown) comfortable (unknown) (no (unknown) (unknown) General: no (units (un known) date) rashes or lesions unknown) noted (unknown) (no (unknown) (unknown) General: normal (units (unknown) date) to inspection and unknown) capillary refill normal (unknown) (no (unknown) (unknown) General: patient (units (unknown) date) alert, patient unknown) awake and moves all extremities (unknown) (no (unknown) (unknown) Given her lack of (units (unknown) date) improvement with unknown) Tylenol and negative influenza and COVID we (unknown) (no (unknown) (unknown) Glucose 139 H (units ( unknown) date) (70-100) mg/dL unknown) (unknown) (no (unknown) (unknown) HENMT (units (unkno wn) date) unknown) (unknown) (no (unknown) (unknown) HPI - General (units ( unknown) date) Adult unknown) (unknown) (no (unknown) (unknown) HPI narrative: (units (unknown) date) unknown) (unknown) (no (unknown) (unknown) Hct 35.7 L (units (unk nown) date) (36-46) % unknown) (unknown) (no (unknown) (unknown) Heart:? No (units (unk nown) date) significant unknown) findings. (unknown) (no (unknown) (unknown) Hgb 11.9 L (units (unk nown) date) (12.0-16.0) g/dL unknown) (unknown) (no (unknown) (unknown) History of (units (unk nown) date) Present Illness unknown) (unknown) (no (unknown) (unknown) IMPRESSION:? (units (u nknown) date) unknown) (unknown) (no (unknown) (unknown) INDICATIONS:? (units ( unknown) date) Left-sided unknown) abdominal pain (unknown) (no (unknown) (unknown) Image quality:? (units (unknown) date) Excellent.? unknown) (unknown) (no (unknown) (unknown) Imaging Data (units (u nknown) date) unknown) (unknown) (no (unknown) (unknown) Influenza A (units (un known) date) (RT-PCR) Flu a unknown) negative (NEGATIVE) (unknown) (no (unknown) (unknown) Influenza B (units (un known) date) (RT-PCR) Flu b unknown) negative (NEGATIVE) (unknown) (no (unknown) (unknown) Initial Vital (units ( unknown) date) Signs unknown) (unknown) (no (unknown) (unknown) Initial Vital (units ( unknown) date) Signs: unknown) (unknown) (no (unknown) (unknown) Inspection: (units (un known) date) normal to unknown) inspection (unknown) (no (unknown) (unknown) Integumentary/Anastasiya (units (unknown) date) asts unknown) (unknown) (no (unknown) (unknown) [facility] (units (unknown) date) [address] unknown) [place] [address] (unknown) (no (unknown) (unknown) [facility] (units (unknown) date) unknown) (unknown) (no (unknown) (unknown) Ketorolac (units (unkn own) date) Tromethamine unknown) (Ketorolac 30 Mg/Ml Vial) 30 mg IV NOW ONE (unknown) (no (unknown) (unknown) Kidneys and (units (un known) date) Ureters:? unknown) Unremarkable.? ? (unknown) (no (unknown) (unknown) Lab Data (units (unkno wn) date) unknown) (unknown) (no (unknown) (unknown) Lab Results (units (un known) date) unknown) (unknown) (no (unknown) (unknown) Labs: (units (unkno wn) date) unknown) (unknown) (no (unknown) (unknown) Last Admin: (units (un known) date) 06/21/22 04:48 unknown) Dose: 650 mg (unknown) (no (unknown) (unknown) Last Admin: (units (un known) date) 06/21/22 06:16 unknown) Dose: 30 mg (unknown) (no (unknown) (unknown) Last Infusion: (units (unknown) date) 06/21/22 08:07 unknown) Dose: 0 mls/hr (unknown) (no (unknown) (unknown) Limitations: (units (u nknown) date) language barrier unknown) (unknown) (no (unknown) (unknown) Lipase 267 (units (unk nown) date) (23-300) U/L unknown) (unknown) (no (unknown) (unknown) Lipase Stat (units (un known) date) unknown) (unknown) (no (unknown) (unknown) Liver:? There is (units (unknown) date) diffuse unknown) hypoattenuation of the liver parenchyma relative to the (unknown) (no (unknown) (unknown) Loc: ED (units (unkno wn) date) unknown) (unknown) (no (unknown) (unknown) Lung bases:? (units (u nknown) date) Bibasilar unknown) atelectasis.? Multiple scattered noncalcified pulmonary (unknown) (no (unknown) (unknown) Lymph # (Auto) (units (unknown) date) 1800 ([id number]) unknown) /uL (unknown) (no (unknown) (unknown) Lymph % (Auto) (units (unknown) date) 15.2 L (25-40) % unknown) (unknown) (no (unknown) (unknown) MCH 28.9 (26-34) (units (unknown) date) PG unknown) (unknown) (no (unknown) (unknown) MCHC 33.2 (30-36) (units (unknown) date) % unknown) (unknown) (no (unknown) (unknown) MCV 87.1 (80-100) (units (unknown) date) fL unknown) (unknown) (no (unknown) (unknown) MDM Narrative (units ( unknown) date) unknown) (unknown) (no (unknown) (unknown) MR#: [id number] (units (unknown) date) unknown) (unknown) (no (unknown) (unknown) Medical Decision (units (unknown) date) Making unknown) (unknown) (no (unknown) (unknown) Medical decision (units (unknown) date) making narrative: unknown) (unknown) (no (unknown) (unknown) Medication (units (unk nown) date) Instructions unknown) Recorded (unknown) (no (unknown) (unknown) Miscellaneous: No (units (unknown) date) inguinal hernias unknown) are seen. ? ? (unknown) (no (unknown) (unknown) Mode of arrival: (units (unknown) date) Ambulatory unknown) (unknown) (no (unknown) (unknown) Quay # (Auto) 900 (units (unknown) date) (0-900) /uL unknown) (unknown) (no (unknown) (unknown) Quay % (Auto) 7.4 (units (unknown) date) (3-14) % unknown) (unknown) (no (unknown) (unknown) My Impression: (units (unknown) date) unknown) (unknown) (no (unknown) (unknown) Neuro (units (unkno wn) date) unknown) (unknown) (no (unknown) (unknown) Neut # (Auto) (units ( unknown) date) 9100 H (0498-4828) unknown) /uL (unknown) (no (unknown) (unknown) Neut % (Auto) (units ( unknown) date) 76.3 H (50-75) % unknown) (unknown) (no (unknown) (unknown) New (units (unkno wn) date) unknown) (unknown) (no (unknown) (unknown) No Known Drug (units ( unknown) date) Allergies Allergy unknown) Verified 06/21/22 04:46 (unknown) (no (unknown) (unknown) No acute changes (units (unknown) date) unknown) (unknown) (no (unknown) (unknown) No acute findings (units (unknown) date) unknown) (unknown) (no (unknown) (unknown) No significant (units (unknown) date) discrepancy with unknown) the awake overnight monitor radiology preliminary report.? (unknown) (no (unknown) (unknown) Ordered: (units (unkno wn) date) unknown) (unknown) (no (unknown) (unknown) Ordering (units (unkno wn) date) Provider: unknown) Wisam Barone D.O. (unknown) (no (unknown) (unknown) Orders (units (unkno wn) date) unknown) (unknown) (no (unknown) (unknown) Oxygen Delivery (units (unknown) date) Method 06/21/22 unknown) 04:46 (unknown) (no (unknown) (unknown) Oxygen Delivery (units (unknown) date) Method Room Air unknown) Room Air Room Air (unknown) (no (unknown) (unknown) Oxygen Delivery (units (unknown) date) Method Room Air unknown) (unknown) (no (unknown) (unknown) Oxygen Delivery (units (unknown) date) Method unknown) (unknown) (no (unknown) (unknown) PELVIS: (units (unkno wn) date) unknown) (unknown) (no (unknown) (unknown) PROCEDURE:? CT (units (unknown) date) ABDOMEN PELVIS W unknown) CON (unknown) (no (unknown) (unknown) Pancreas:? (units (unk nown) date) Unremarkable.? ? unknown) (unknown) (no (unknown) (unknown) Patient (units (unkno wn) date) Disposition: Home unknown) (unknown) (no (unknown) (unknown) Patient History (units (unknown) date) unknown) (unknown) (no (unknown) (unknown) Patient expressed (units (unknown) date) understanding and unknown) agreement with this. Care turned over to (unknown) (no (unknown) (unknown) Patient is not (units (unknown) date) actually unknown) Cuban-speaking only. Patient's imaging overall (unknown) (no (unknown) (unknown) Patient: Cristiana (units (unknown) date) Maggie Orourke MR# unknown) (unknown) (no (unknown) (unknown) Patient: Illas (units (unknown) date) OrourkeMaggie limon unknown) (unknown) (no (unknown) (unknown) Pelvic Nodes: No (units (unknown) date) enlarged lymph unknown) nodes.? (unknown) (no (unknown) (unknown) Pelvic Organs:? (units (unknown) date) Unremarkable.? ? unknown) (unknown) (no (unknown) (unknown) Peritoneum:? No (units (unknown) date) abnormal unknown) intraperitoneal fluid.? No free air.? (unknown) (no (unknown) (unknown) Please follow-up (units (unknown) date) with your unknown) physician to schedule this. (unknown) (no (unknown) (unknown) Please return if (units (unknown) date) your symptoms are unknown) significantly worsening new chest pain, (unknown) (no (unknown) (unknown) Plt Count 223 (units ( unknown) date) (150-400) X103/uL unknown) (unknown) (no (unknown) (unknown) Point of care (units ( unknown) date) testing: unknown) (unknown) (no (unknown) (unknown) Potassium 4.0 (units ( unknown) date) (3.4-5.1) mmol/L unknown) (unknown) (no (unknown) (unknown) Prescription sent (units (unknown) date) for antibiotic if unknown) your ear is not improving after (unknown) (no (unknown) (unknown) Prescription sent (units (unknown) date) to [facility] in unknown) [place] (unknown) (no (unknown) (unknown) Prescriptions: (units (unknown) date) unknown) (unknown) (no (unknown) (unknown) Previous Rx's (units ( unknown) date) unknown) (unknown) (no (unknown) (unknown) Procedure: CT (units ( unknown) date) abdomen pelvis w unknown) con (unknown) (no (unknown) (unknown) Pulse Oximetry 96 (units (unknown) date) 96 98 unknown) (unknown) (no (unknown) (unknown) Pulse Oximetry 97 (units (unknown) date) 97 unknown) (unknown) (no (unknown) (unknown) Pulse Oximetry 98 (units (unknown) date) 06/21/22 04:46 unknown) (unknown) (no (unknown) (unknown) Pulse Oximetry 98 (units (unknown) date) 97 97 unknown) (unknown) (no (unknown) (unknown) Pulse Oximetry 98 (units (unknown) date) unknown) (unknown) (no (unknown) (unknown) Pulse Rate 100 H (units (unknown) date) 06/21/22 04:46 unknown) (unknown) (no (unknown) (unknown) Pulse Rate 100 H (units (unknown) date) 82 75 unknown) (unknown) (no (unknown) (unknown) Pulse Rate 72 (units ( unknown) date) unknown) (unknown) (no (unknown) (unknown) Pulse Rate 76 78 (units (unknown) date) 72 unknown) (unknown) (no (unknown) (unknown) Pulse Rate 77 77 (units (unknown) date) unknown) (unknown) (no (unknown) (unknown) Pulse Rate 78 (units ( unknown) date) unknown) (unknown) (no (unknown) (unknown) RBC 4.10 (units (unkno wn) date) (4.0-5.2) X106/uL unknown) (unknown) (no (unknown) (unknown) RDW 14.5 (units (unkno wn) date) (11.6-14.8) % unknown) (unknown) (no (unknown) (unknown) RSV (PCR) (units (unkn own) date) Negative unknown) (Negative) (unknown) (no (unknown) (unknown) Radiologist's (units ( unknown) date) Impression: unknown) (unknown) (no (unknown) (unknown) Rate: regular (units ( unknown) date) rate unknown) (unknown) (no (unknown) (unknown) Recommend (units (unkn own) date) unknown) (unknown) (no (unknown) (unknown) Referrals: (units (unk nown) date) unknown) (unknown) (no (unknown) (unknown) Related Data (units (u nknown) date) unknown) (unknown) (no (unknown) (unknown) Resp (units (unkno wn) date) unknown) (unknown) (no (unknown) (unknown) Respiratory Rate (units (unknown) date) 06/21/22 04:46 unknown) (unknown) (no (unknown) (unknown) Respiratory Rate (units (unknown) date) 21 unknown) (unknown) (no (unknown) (unknown) Respiratory Rate (units (unknown) date) unknown) (unknown) (no (unknown) (unknown) Respiratory (units (un known) date) unknown) (unknown) (no (unknown) (unknown) Respiratory: (units (u nknown) date) Reports system unknown) reviewed and no additional complaints, except as (unknown) (no (unknown) (unknown) Result diagrams: (units (unknown) date) unknown) (unknown) (no (unknown) (unknown) Review of Systems (units (unknown) date) unknown) (unknown) (no (unknown) (unknown) Rx Instructions: (units (unknown) date) unknown) (unknown) (no (unknown) (unknown) SARS-CoV-2 (PCR) (units (unknown) date) Negative unknown) (Negative) (unknown) (no (unknown) (unknown) See Rx (units (unkno wn) date) Instructions unknown) .ROUTE .COMPLEX Qty: 6 0RF (unknown) (no (unknown) (unknown) She is having (units ( unknown) date) some left-sided unknown) abdominal tenderness. This has been worsening (unknown) (no (unknown) (unknown) Signed By: (units (unk nown) date) unknown) (unknown) (no (unknown) (unknown) Signed (units (unkno wn) date) unknown) (unknown) (no (unknown) (unknown) Skin (units (unkno wn) date) unknown) (unknown) (no (unknown) (unknown) Skin/Breast: (units (u nknown) date) Reports system unknown) reviewed and no additional complaints, except as (unknown) (no (unknown) (unknown) Smoking Status: (units (unknown) date) Never smoker unknown) (unknown) (no (unknown) (unknown) Social History (units (unknown) date) (Reviewed 06/21/22 unknown) @ 05:41 by Wisam Barone DO) (unknown) (no (unknown) (unknown) Sodium 138 (units (unk nown) date) (137-145) mmol/L unknown) (unknown) (no (unknown) (unknown) Sodium Chloride (units (unknown) date) (Normal Saline unknown) 0.9%) 1,000 mls @ 1,000 mls/hr IV BOLUS ONE (unknown) (no (unknown) (unknown) Source: patient (units (unknown) date) unknown) (unknown) (no (unknown) (unknown) Spleen:? (units (unkno wn) date) Unremarkable.? ? unknown) (unknown) (no (unknown) (unknown) Stand Alone (units (un known) date) Forms: Patient unknown) Portal/API (unknown) (no (unknown) (unknown) Stated complaint: (units (unknown) date) bodyaches, unknown) congested (unknown) (no (unknown) (unknown) Stomach and (units (un known) date) Bowel:? Stomach, unknown) small bowel loops, and colon are unremarkable.? A (unknown) (no (unknown) (unknown) Stop: 06/21/22 (units (unknown) date) 04:46 unknown) (unknown) (no (unknown) (unknown) Stop: 06/21/22 (units (unknown) date) 06:04 unknown) (unknown) (no (unknown) (unknown) Stop: 06/21/22 (units (unknown) date) 07:02 unknown) (unknown) (no (unknown) (unknown) TECHNIQUE:? (units (un known) date) unknown) (unknown) (no (unknown) (unknown) Temperature 98.5 (units (unknown) date) F 06/21/22 04:46 unknown) (unknown) (no (unknown) (unknown) Temperature 98.5 (units (unknown) date) F 98.1 F unknown) (unknown) (no (unknown) (unknown) Temperature (units (un known) date) unknown) (unknown) (no (unknown) (unknown) Time Seen by (units (u nknown) date) Provider: 06/21/22 unknown) 04:34 (unknown) (no (unknown) (unknown) Total Bilirubin (units (unknown) date) 0.6 (0.2-1.3) unknown) mg/dL (unknown) (no (unknown) (unknown) Total Protein 7.7 (units (unknown) date) (6.3-8.2) g/dL unknown) (unknown) (no (unknown) (unknown) Upon arrival my (units (unknown) date) initial thought unknown) was that the patient either had COVID or (unknown) (no (unknown) (unknown) Upper respiratory (units (unknown) date) infection, Lung unknown) nodule, multiple, Otitis media (unknown) (no (unknown) (unknown) Urine Dip (units (unkn own) date) unknown) (unknown) (no (unknown) (unknown) Urine Specific (units (unknown) date) Jamison 1.015 unknown) (unknown) (no (unknown) (unknown) Ventral Wall: ? (units (unknown) date) No hernia.? unknown) (unknown) (no (unknown) (unknown) Vessels:? Aorta (units (unknown) date) and inferior vena unknown) cava are normal in size.? (unknown) (no (unknown) (unknown) Vital Signs - 8 (units (unknown) date) hr unknown) (unknown) (no (unknown) (unknown) Vital Signs (units (un known) date) unknown) (unknown) (no (unknown) (unknown) Vital signs: (units (u nknown) date) unknown) (unknown) (no (unknown) (unknown) WBC 12.0 H (units (unk nown) date) (4.5-11.0) X103/uL unknown) (unknown) (no (unknown) (unknown) We did review all (units (unknown) date) of her findings unknown) today no all questions answered. (unknown) (no (unknown) (unknown) Melanie Sheets, DO (units (unknown) date) [Physician] unknown) (unknown) (no (unknown) (unknown) XR chest 1V Stat (units (unknown) date) unknown) (unknown) (no (unknown) (unknown) You can use an (units (unknown) date) [id number] unknown) decongestant help your left ear drain. (unknown) (no (unknown) (unknown) You may find it (units (unknown) date) helpful to use unknown) Flonase once daily in each nostril. (unknown) (no (unknown) (unknown) Your CT today (units ( unknown) date) showed several unknown) small nodules in the right lung and is recommended (unknown) (no (unknown) (unknown) [Embedded Image (units (unknown) date) Not Available] unknown) (unknown) (no (unknown) (unknown) adjustment (units (unk nown) date) unknown) (unknown) (no (unknown) (unknown) and COVID we will (units (unknown) date) draw labs and unknown) obtain a CT scan of the abdomen for further (unknown) (no (unknown) (unknown) available. (units (unk nown) date) COVID/influenza/RS unknown) V swab is negative. Suspect more viral cause (unknown) (no (unknown) (unknown) azithromycin 250 (units (unknown) date) mg tablet See Rx unknown) Instructions PO .COMPLEX #6 06/21/22 (unknown) (no (unknown) (unknown) azithromycin 250 (units (unknown) date) mg tablet unknown) (unknown) (no (unknown) (unknown) banding. She (units (u nknown) date) would quite a bit unknown) of discomfort afterwards but not much today. (unknown) (no (unknown) (unknown) bases to the (units (u nknown) date) pubic symphysis.? unknown) Coronal and sagittal reformats were performed.? (unknown) (no (unknown) (unknown) cellulitis. Given (units (unknown) date) her lack of unknown) improvement with Tylenol and negative influenza (unknown) (no (unknown) (unknown) changes (units (unkno wn) date) unknown) (unknown) (no (unknown) (unknown) colonic (units (unkno wn) date) diverticula unknown) without evidence for acute diverticulitis.? Normal appendix. (unknown) (no (unknown) (unknown) compatible with (units (unknown) date) hepatic unknown) steatosis.? ? (unknown) (no (unknown) (unknown) complaints, (units (un known) date) except as unknown) documented (unknown) (no (unknown) (unknown) concerning (units (unk nown) date) changes. unknown) (unknown) (no (unknown) (unknown) congestion on (units ( unknown) date) examination no unknown) overall findings are consistent with viral URI. (unknown) (no (unknown) (unknown) decongestants is (units (unknown) date) not improving unknown) particularly with her ground-glass nodules this (unknown) (no (unknown) (unknown) decongestants. (units (unknown) date) unknown) (unknown) (no (unknown) (unknown) degenerative (units (u nknown) date) unknown) (unknown) (no (unknown) (unknown) ding. She would (units (unknown) date) quite a bit of unknown) discomfort afterwards but not much today. She (unknown) (no (unknown) (unknown) documented (units (unk nown) date) unknown) (unknown) (no (unknown) (unknown) does have a rash (units (unknown) date) under the her unknown) abdominal pannus but no other signs of (unknown) (no (unknown) (unknown) endplate changes (units (unknown) date) noted at L4-5.? unknown) Focal oval sclerotic lesion at L1. (unknown) (no (unknown) (unknown) evaluation. (units (un known) date) Patient expressed unknown) understanding and agreement with this. Care (unknown) (no (unknown) (unknown) few scant (units (unkn own) date) unknown) (unknown) (no (unknown) (unknown) follow-up chest (units (unknown) date) CT further unknown) evaluation. (unknown) (no (unknown) (unknown) follows: (units (unkno wn) date) unknown) (unknown) (no (unknown) (unknown) ground-glass (units (u nknown) date) nodule noted in unknown) the subpleural region of the right middle lobe (unknown) (no (unknown) (unknown) have a rash under (units (unknown) date) the her abdominal unknown) pannus but no other signs of cellulitis. (unknown) (no (unknown) (unknown) independently (units ( unknown) date) evaluated by unknown) myself. Patient is clearly has upper respiratory (unknown) (no (unknown) (unknown) infection however (units (unknown) date) her testing for unknown) COVID influenza is negative. Her chest x-ray (unknown) (no (unknown) (unknown) infection require (units (unknown) date) antibiotics but unknown) likely cause of her left ear pain, appreciated (unknown) (no (unknown) (unknown) influenza given (units (unknown) date) her presentation. unknown) She has a bulging left tympanic membrane that (unknown) (no (unknown) (unknown) is felt (units (unkno wn) date) appropriate. unknown) Patient agreed expressed her understanding. Gave her (unknown) (no (unknown) (unknown) is having some (units (unknown) date) left-sided unknown) abdominal tenderness. This has been worsening over (unknown) (no (unknown) (unknown) is not (units (unkno wn) date) erythematous and unknown) other findings consistent with an upper respiratory (unknown) (no (unknown) (unknown) left ear pain, (units (unknown) date) body aches, unknown) headache, cough and generally not feeling well for (unknown) (no (unknown) (unknown) left periaortic (units (unknown) date) region near the unknown) level of the renal vessels. (unknown) (no (unknown) (unknown) leftward shift, (units (unknown) date) cmp overall unknown) normal, albumin not done secondary to no agent (unknown) (no (unknown) (unknown) likely reactive (units (unknown) date) in etiology. ? unknown) (unknown) (no (unknown) (unknown) line. She denied (units (unknown) date) any urinary unknown) symptoms. Yesterday she did have hemorrhoid ban (unknown) (no (unknown) (unknown) line. She denied (units (unknown) date) any urinary unknown) symptoms. Yesterday she did have hemorrhoid (unknown) (no (unknown) (unknown) lower quadrant (units (unknown) date) discomfort. unknown) Patient is noted to have multiple right middle lobe (unknown) (no (unknown) (unknown) mm (units (unkno wn) date) unknown) (unknown) (no (unknown) (unknown) more erythema on (units (unknown) date) exam although not unknown) complete. Discussed with patient will give (unknown) (no (unknown) (unknown) nodes. Patient's (units (unknown) date) labs overall show unknown) a mild leukocytosis, hemoglobin of 11, (unknown) (no (unknown) (unknown) nodules in (units (unk nown) date) unknown) (unknown) (no (unknown) (unknown) noted in the (units (u nknown) date) unknown) (unknown) (no (unknown) (unknown) number (units (unkno wn) date) unknown) (unknown) (no (unknown) (unknown) obtained as (units (unk nown) date) patient had recent unknown) hemorrhoid banding and had some complaint of left (unknown) (no (unknown) (unknown) of mA and/or kV (units (unknown) date) according to unknown) patient size.? (unknown) (no (unknown) (unknown) on the left and (units (unknown) date) with fluid behind unknown) the TM on the left; not on the right (unknown) (no (unknown) (unknown) option for primary (units (unknown) date) care follow-up unknown) although she states she is moving to [place]. (unknown) (no (unknown) (unknown) over the past (units ( unknown) date) couple days. She unknown) is also had some nausea but no vomiting. She (unknown) (no (unknown) (unknown) pain, persistent (units (unknown) date) fevers, worsening unknown) black or bloody stools or other new or (unknown) (no (unknown) (unknown) patient does have (units (unknown) date) multiple lymph unknown) nodes in the right lower lung discussed patient (unknown) (no (unknown) (unknown) pneumonia and (units ( unknown) date) others unknown) (unknown) (no (unknown) (unknown) prescription for (units (unknown) date) azithromycin but unknown) only to start if after several days of (unknown) (no (unknown) (unknown) radiation dose (units (unknown) date) reduction, the unknown) following was used:? automated exposure control, (unknown) (no (unknown) (unknown) rather than size (units (unknown) date) and likely unknown) reactive in etiology.? Most prominent lymph node (unknown) (no (unknown) (unknown) reassuring likely (units (unknown) date) has viral illness unknown) causing her symptoms CT abdomen pelvis was (unknown) (no (unknown) (unknown) shortness of (units (un known) date) breath, persistent unknown) vomiting, rapidly worsening abdominal back flank (unknown) (no (unknown) (unknown) shows no signs of (units (unknown) date) pneumonia. Turns unknown) out that the patient does speak very good (unknown) (no (unknown) (unknown) size, (units (unkno wn) date) unknown) (unknown) (no (unknown) (unknown) spleen (units (unkno wn) date) unknown) (unknown) (no (unknown) (unknown) subcentimeter (units ( unknown) date) nodules with a 9 unknown) mm ground-glass nodule recommended have follow (unknown) (no (unknown) (unknown) tabs (units (unkno wn) date) unknown) (unknown) (no (unknown) (unknown) that you have a (units (unknown) date) repeat CT of the unknown) chest in the future. (unknown) (no (unknown) (unknown) the lung (units (unkno wn) date) unknown) (unknown) (no (unknown) (unknown) the past couple (units (unknown) date) days. She is also unknown) had some nausea but no vomiting. She does (unknown) (no (unknown) (unknown) the past several (units (unknown) date) hours/day. No unknown) fevers. (unknown) (no (unknown) (unknown) the right middle (units (unknown) date) lobe measuring unknown) approximately 4-5 mm in size.? There is also a 9 (unknown) (no (unknown) (unknown) throughout the (units (unknown) date) imaged spine.? No unknown) suspicious osseous lesions.? ? Moderate (unknown) (no (unknown) (unknown) to start (units (unkno wn) date) antibiotic versus unknown) watchful waiting and need for follow-up CT. Patient (unknown) (no (unknown) (unknown) turned over to (units (unknown) date) Dr. Bird to unknown) follow-up on CT scan and disposition. (unknown) (no (unknown) (unknown) up CT chest for (units (unknown) date) repeat evaluation unknown) in the future, scattered mesenteric lymph (unknown) (no (unknown) (unknown) used for HPI and (units (unknown) date) review of systems. unknown) She is here for evaluation of congestion, (unknown) (no (unknown) (unknown) was noted to have (units (unknown) date) bulging left unknown) tympanic membrane without erythema or signs of (unknown) (no (unknown) (unknown) will draw labs (units (unknown) date) and obtain a CT unknown) scan of the abdomen for further evaluation. Result panel 84 (unknown) (no date) (unknown) (unknown) > 60 ml/min (unkn own) (unknown) (no date) (unknown) (unknown) > 60 ml/min (unkn own) (unknown) (no date) (unknown) (unknown) 0.55 mg/dl (unkn own) (unknown) (no date) (unknown) (unknown) 0.6 mg/dl (unkn own) (unknown) (no date) (unknown) (unknown) 1.1 (units unknown) (unknown) (unknown) (no date) (unknown) (unknown) 101 mmol/l (unkn own) (unknown) (no date) (unknown) (unknown) 13 mg/dl (unkn own) (unknown) (no date) (unknown) (unknown) 138 mmol/l (unkn own) (unknown) (no date) (unknown) (unknown) 139 mg/dl (unkn own) (unknown) (no date) (unknown) (unknown) 139 mg/dl (unkn own) (unknown) (no date) (unknown) (unknown) 17 iu/l (unkn own) (unknown) (no date) (unknown) (unknown) 21 iu/l (unkn own) (unknown) (no date) (unknown) (unknown) 23.6 (units unknown) (unknown) (unknown) (no date) (unknown) (unknown) 267 u/l (unkn own) (unknown) (no date) (unknown) (unknown) 27 mmol/l (unkn own) (unknown) (no date) (unknown) (unknown) 3.7 g/dl (unkn own) (unknown) (no date) (unknown) (unknown) 4.0 g/dl (unkn own) (unknown) (no date) (unknown) (unknown) 4.0 mmol/l (unkn own) (unknown) (no date) (unknown) (unknown) 7.7 g/dl (unkn own) (unknown) (no date) (unknown) (unknown) 73 u/l (unkn own) (unknown) (no date) (unknown) (unknown) 8.4 mg/dl (unkn own) Result panel 85 (unknown) (no (unknown) (unknown) (no value) (units (unk nown) date) unknown) (unknown) (no (unknown) (unknown) <Electronically (units (unknown) date) signed by Wisam johnson) Velia Barone> (unknown) (no (unknown) (unknown) <Electronically (units (unknown) date) signed by Julieta Prince unknown) Velia Bird> (unknown) (no (unknown) (unknown) <Wisam Barone, (units (unknown) date) DO - Last Filed: unknown) 06/21/22 18:08> (unknown) (no (unknown) (unknown) <Julieta Bird, (units (unknown) date) DO - Last Filed: unknown) 06/21/22 09:27> (unknown) (no (unknown) (unknown) (image (units (unkno wn) date) unknown) (unknown) (no (unknown) (unknown) 06/21/22 06/21/22 (units (unknown) date) 06/21/22 unknown) Range/Units (unknown) (no (unknown) (unknown) 06/21/22 06:10 (units (unknown) date) unknown) (unknown) (no (unknown) (unknown) 06/21/22 0927 (units ( unknown) date) unknown) (unknown) (no (unknown) (unknown) 06/21/22 1808 (units ( unknown) date) unknown) (unknown) (no (unknown) (unknown) 06/21/22 (units (unkno wn) date) unknown) (unknown) (no (unknown) (unknown) 04:40 06:10 06:10 (units (unknown) date) unknown) (unknown) (no (unknown) (unknown) 04:46 06/21/22 (units (unknown) date) unknown) (unknown) (no (unknown) (unknown) 05:56 06/21/22 (units (unknown) date) unknown) (unknown) (no (unknown) (unknown) 06:30 (units (unkno wn) date) unknown) (unknown) (no (unknown) (unknown) 07:00 06/21/22 (units (unknown) date) unknown) (unknown) (no (unknown) (unknown) 07:30 06/21/22 (units (unknown) date) unknown) (unknown) (no (unknown) (unknown) 08:00 (units (unkno wn) date) unknown) (unknown) (no (unknown) (unknown) 08:16 06/21/22 (units (unknown) date) unknown) (unknown) (no (unknown) (unknown) 08:30 06/21/22 (units (unknown) date) unknown) (unknown) (no (unknown) (unknown) 08:30 (units (unkno wn) date) unknown) (unknown) (no (unknown) (unknown) 09:00 06/21/22 (units (unknown) date) unknown) (unknown) (no (unknown) (unknown) 09:00 (units (unkno wn) date) unknown) (unknown) (no (unknown) (unknown) 09:21 (units (unkno wn) date) unknown) (unknown) (no (unknown) (unknown) 1. CT abdomen and (units (unknown) date) pelvis without unknown) acute abnormalities. (unknown) (no (unknown) (unknown) 06/21/22 Mank: (units ( unknown) date) Patient signed out unknown) by Dr. Barone to myself. Patient seen (unknown) (no (unknown) (unknown) [address] [place] [address] (units (unknown) date) unknown) (unknown) (no (unknown) (unknown) 2-5) (units (unkno wn) date) unknown) (unknown) (no (unknown) (unknown) 2. Multiple (units (unk nown) date) scattered unknown) mesenteric lymph nodes more notable for number rather than (unknown) (no (unknown) (unknown) 3. Scanned (units (unk nown) date) colonic unknown) diverticulosis without acute diverticulitis. (unknown) (no (unknown) (unknown) 4. Multiple right (units (unknown) date) middle lobe sub cm unknown) nodules with a 9 mm ground-glass nodule.? (unknown) (no (unknown) (unknown) 5. Multilevel (units ( unknown) date) lumbar spondylosis unknown) most severe at L4-5. (unknown) (no (unknown) (unknown) 5/series 3). ? (units (unknown) date) unknown) (unknown) (no (unknown) (unknown) 52-year-old (units (un known) date) female. Is unknown) Cuban-speaking only. Language/translati on line was (unknown) (no (unknown) (unknown) : [id number] (units (u nknown) date) unknown) (unknown) (no (unknown) (unknown) ? (units (unkno wn) date) unknown) (unknown) (no (unknown) (unknown) ABDOMEN: (units (unkno wn) date) unknown) (unknown) (no (unknown) (unknown) ALT 21 (<35) IU/L (units (unknown) date) unknown) (unknown) (no (unknown) (unknown) AST 17 (14-36) (units (unknown) date) IU/L unknown) (unknown) (no (unknown) (unknown) Abdominal Nodes:? (units (unknown) date) Multiple scattered unknown) mesenteric lymph nodes are more notable for (unknown) (no (unknown) (unknown) Accession Number: (units (unknown) date) [id number] ?? unknown) (unknown) (no (unknown) (unknown) Acct:[id number] (units (unknown) date) unknown) (unknown) (no (unknown) (unknown) Acetaminophen (units ( unknown) date) (Acetaminophen 325 unknown) Mg Tablet) 650 mg PO NOW ONE (unknown) (no (unknown) (unknown) Activity (units (unkno wn) date) Restrictions/Addit unknown) ional Instructions: (unknown) (no (unknown) (unknown) Admin: 06/21/22 (units (unknown) date) 06:15 Dose: 1,000 unknown) mls/hr (unknown) (no (unknown) (unknown) Adrenal Glands:? (units (unknown) date) Unremarkable.? ? unknown) (unknown) (no (unknown) (unknown) After the (units (unkn own) date) administration of unknown) intravenous contrast, axial sections acquired from (unknown) (no (unknown) (unknown) Age/Sex: 52 / F (units (unknown) date) unknown) (unknown) (no (unknown) (unknown) Albumin 4.0 (units (un known) date) (3.5-5.0) g/dL unknown) (unknown) (no (unknown) (unknown) Albumin/Globulin (units (unknown) date) Ratio 1.1 unknown) (1.0-2.8) (unknown) (no (unknown) (unknown) Alkaline (units (unkno wn) date) Phosphatase 73 unknown) (38-126) U/L (unknown) (no (unknown) (unknown) Allergies (units (unkn own) date) unknown) (unknown) (no (unknown) (unknown) Allergy/AdvReac (units (unknown) date) Type Severity unknown) Reaction Status Date / Time (unknown) (no (unknown) (unknown) [place], [place] (units ( unknown) date) [id number] unknown) (unknown) (no (unknown) (unknown) Approved by: (units (u nknown) date) Campos Nowak M.D. on unknown) 06/21/2022 at 7:33?? (unknown) (no (unknown) (unknown) Attestation: I (units (unknown) date) personally unknown) reviewed and interpreted this imaging study as (unknown) (no (unknown) (unknown) Auscultation: (units ( unknown) date) clear to unknown) auscultation bilaterally (unknown) (no (unknown) (unknown) BUN 13 (7-17) (units ( unknown) date) mg/dL unknown) (unknown) (no (unknown) (unknown) BUN/Creatinine (units (unknown) date) Ratio 23.6 H unknown) (6-22) (unknown) (no (unknown) (unknown) Baso # (Auto) 100 (units (unknown) date) (0-100) /uL unknown) (unknown) (no (unknown) (unknown) Baso % (Auto) 0.4 (units (unknown) date) (0-2) % unknown) (unknown) (no (unknown) (unknown) Bedside Urine (units ( unknown) date) Bilirubin - unknown) Negative (unknown) (no (unknown) (unknown) Bedside Urine (units ( unknown) date) Glucose Negative unknown) (unknown) (no (unknown) (unknown) Bedside Urine (units ( unknown) date) Ketone - Negative unknown) (unknown) (no (unknown) (unknown) Bedside Urine (units ( unknown) date) Leukocytes - unknown) Negative (unknown) (no (unknown) (unknown) Bedside Urine (units ( unknown) date) Nitrite - Negative unknown) (unknown) (no (unknown) (unknown) Bedside Urine (units ( unknown) date) Occult Blood - unknown) Negative (unknown) (no (unknown) (unknown) Bedside Urine (units ( unknown) date) Protein - Negative unknown) (unknown) (no (unknown) (unknown) Bedside Urine (units ( unknown) date) Urobilinogen - unknown) Negative (unknown) (no (unknown) (unknown) Bedside Urine pH (units (unknown) date) 6.0 unknown) (unknown) (no (unknown) (unknown) Biliary ducts:? (units (unknown) date) Unremarkable.? ? unknown) (unknown) (no (unknown) (unknown) Bladder:? (units (unkn own) date) Unremarkable.? ? unknown) (unknown) (no (unknown) (unknown) Blood Pressure (units (unknown) date) 128/85 unknown) (unknown) (no (unknown) (unknown) Blood Pressure (units (unknown) date) 131/82 134/78 unknown) (unknown) (no (unknown) (unknown) Blood Pressure (units (unknown) date) 185/93 H 06/21/22 unknown) 04:46 (unknown) (no (unknown) (unknown) Blood Pressure (units (unknown) date) 185/93 H 139/88 unknown) 137/80 (unknown) (no (unknown) (unknown) Blood Pressure (units (unknown) date) unknown) (unknown) (no (unknown) (unknown) Bones:? No acute (units (unknown) date) vertebral body unknown) compression fractures. Multilevel spondylitic (unknown) (no (unknown) (unknown) COMPARISON:? (units (u nknown) date) None. unknown) (unknown) (no (unknown) (unknown) CT Scan Report (units (unknown) date) unknown) (unknown) (no (unknown) (unknown) CT scan - (units (unkn own) date) abdomen/pelvis: unknown) (unknown) (no (unknown) (unknown) Calcium 8.4 (units (un known) date) (8.4-10.2) mg/dL unknown) (unknown) (no (unknown) (unknown) Carbon Dioxide 27 (units (unknown) date) (22-32) mmol/L unknown) (unknown) (no (unknown) (unknown) Cardio (units (unkno wn) date) unknown) (unknown) (no (unknown) (unknown) Chest x-ray: (units (u nknown) date) unknown) (unknown) (no (unknown) (unknown) Chief complaint: (units (unknown) date) Upper Respiratory unknown) Symptoms (unknown) (no (unknown) (unknown) Chloride 101 (units (u nknown) date) (98-107) mmol/L unknown) (unknown) (no (unknown) (unknown) Clinical (units (unkno wn) date) Impression: unknown) (unknown) (no (unknown) (unknown) Condition is:: (units (unknown) date) Failing to change unknown) as expected (unknown) (no (unknown) (unknown) Const (units (unkno wn) date) unknown) (unknown) (no (unknown) (unknown) Constitutional (units (unknown) date) unknown) (unknown) (no (unknown) (unknown) Constitutional: (units (unknown) date) Reports system unknown) reviewed and no additional complaints, except as (unknown) (no (unknown) (unknown) Course (units (unkno wn) date) unknown) (unknown) (no (unknown) (unknown) Creatinine 0.55 (units (unknown) date) (0.52-1.04) mg/dL unknown) (unknown) (no (unknown) (unknown) : 1970 (units (unknown) date) Acct:[id number] unknown) (unknown) (no (unknown) (unknown) : 1970 (units (unknown) date) unknown) (unknown) (no (unknown) (unknown) Date of Service: (units (unknown) date) 06/21/22 unknown) (unknown) (no (unknown) (unknown) Departure (units (unkn own) date) unknown) (unknown) (no (unknown) (unknown) Dictated by: (units (u nknown) date) Campos Nowak M.D. on unknown) 06/21/2022 at 7:20 ? ? (unknown) (no (unknown) (unknown) Differential (units (u nknown) date) Diagnosis unknown) (unknown) (no (unknown) (unknown) Differential (units (u nknown) date) Diagnosis: unknown) COVID-19, influenza, sepsis urinary tract infection, (unknown) (no (unknown) (unknown) Discharge Plan (units (unknown) date) unknown) (unknown) (no (unknown) (unknown) Discontinued (units (u nknown) date) Medications unknown) (unknown) (no (unknown) (unknown) Documented By: KB (units (unknown) date) unknown) (unknown) (no (unknown) (unknown) Documented By: OW (units (unknown) date) unknown) (unknown) (no (unknown) (unknown) ENT (units (unkno wn) date) unknown) (unknown) (no (unknown) (unknown) ER Physician: (units ( unknown) date) Julieta Bird D.O. unknown) (unknown) (no (unknown) (unknown) Ears, Nose, (units (un known) date) Mouth, and Throat: unknown) Reports system reviewed and no additional (unknown) (no (unknown) (unknown) Ears: EAC's (units (un known) date) normal and TM unknown) abnormal bulging on the left; not on the right, dull (unknown) (no (unknown) (unknown) Effort + (units (unkno wn) date) Inspection: normal unknown) respiratory effort (unknown) (no (unknown) (unknown) Emergency Report (units (unknown) date) unknown) (unknown) (no (unknown) (unknown) [place] and I was (units (unknown) date) able to have a unknown) conversation with her without the language (unknown) (no (unknown) (unknown) Eos # (Auto) 100 (units (unknown) date) (0-450) /uL unknown) (unknown) (no (unknown) (unknown) Eos % (Auto) 0.7 (units (unknown) date) L (2-4) % unknown) (unknown) (no (unknown) (unknown) Esterase (units (unkno wn) date) unknown) (unknown) (no (unknown) (unknown) Estimated GFR > (units (unknown) date) 60 (>60) mL/min unknown) (unknown) (no (unknown) (unknown) Exam (units (unkno wn) date) unknown) (unknown) (no (unknown) (unknown) Extrem (units (unkno wn) date) unknown) (unknown) (no (unknown) (unknown) FINDINGS: (units (unkn own) date) unknown) (unknown) (no (unknown) (unknown) For 250 mg dose (units (unknown) date) pack: take 500 mg unknown) today (day 1), then 250 mg for 4 days (days (unknown) (no (unknown) (unknown) For (units (unkno wn) date) unknown) (unknown) (no (unknown) (unknown) GI (units (unkno wn) date) unknown) (unknown) (no (unknown) (unknown) Gallbladder:? (units ( unknown) date) Unremarkable.? ? unknown) (unknown) (no (unknown) (unknown) General (units (unkno wn) date) unknown) (unknown) (no (unknown) (unknown) General: (units (unkno wn) date) cooperative and unknown) comfortable (unknown) (no (unknown) (unknown) General: no (units (un known) date) rashes or lesions unknown) noted (unknown) (no (unknown) (unknown) General: normal (units (unknown) date) to inspection and unknown) capillary refill normal (unknown) (no (unknown) (unknown) General: patient (units (unknown) date) alert, patient unknown) awake and moves all extremities (unknown) (no (unknown) (unknown) Globulin 3.7 (units (u nknown) date) (1.7-4.1) g/dL unknown) (unknown) (no (unknown) (unknown) Glucose 139 H (units ( unknown) date) (70-100) mg/dL unknown) (unknown) (no (unknown) (unknown) HENMT (units (unkno wn) date) unknown) (unknown) (no (unknown) (unknown) HPI - General (units ( unknown) date) Adult unknown) (unknown) (no (unknown) (unknown) HPI narrative: (units (unknown) date) unknown) (unknown) (no (unknown) (unknown) Hct 35.7 L (units (unk nown) date) (36-46) % unknown) (unknown) (no (unknown) (unknown) Heart:? No (units (unk nown) date) significant unknown) findings. (unknown) (no (unknown) (unknown) Hgb 11.9 L (units (unk nown) date) (12.0-16.0) g/dL unknown) (unknown) (no (unknown) (unknown) History of (units (unk nown) date) Present Illness unknown) (unknown) (no (unknown) (unknown) IMPRESSION:? (units (u nknown) date) unknown) (unknown) (no (unknown) (unknown) INDICATIONS:? (units ( unknown) date) Left-sided unknown) abdominal pain (unknown) (no (unknown) (unknown) Image quality:? (units (unknown) date) Excellent.? unknown) (unknown) (no (unknown) (unknown) Imaging Data (units (u nknown) date) unknown) (unknown) (no (unknown) (unknown) Influenza A (units (un known) date) (RT-PCR) Flu a unknown) negative (NEGATIVE) (unknown) (no (unknown) (unknown) Influenza B (units (un known) date) (RT-PCR) Flu b unknown) negative (NEGATIVE) (unknown) (no (unknown) (unknown) Initial Vital (units ( unknown) date) Signs unknown) (unknown) (no (unknown) (unknown) Initial Vital (units ( unknown) date) Signs: unknown) (unknown) (no (unknown) (unknown) Inspection: (units (un known) date) normal to unknown) inspection (unknown) (no (unknown) (unknown) Integumentary/Anastasiya (units (unknown) date) asts unknown) (unknown) (no (unknown) (unknown) [facility] (units (unknown) date) [address] unknown) [place] [address] (unknown) (no (unknown) (unknown) [facility] (units (unknown) date) unknown) (unknown) (no (unknown) (unknown) Ketorolac (units (unkn own) date) Tromethamine unknown) (Ketorolac 30 Mg/Ml Vial) 30 mg IV NOW ONE (unknown) (no (unknown) (unknown) Kidneys and (units (un known) date) Ureters:? unknown) Unremarkable.? ? (unknown) (no (unknown) (unknown) Lab Data (units (unkno wn) date) unknown) (unknown) (no (unknown) (unknown) Lab Results (units (un known) date) unknown) (unknown) (no (unknown) (unknown) Labs: (units (unkno wn) date) unknown) (unknown) (no (unknown) (unknown) Last Admin: (units (un known) date) 06/21/22 04:48 unknown) Dose: 650 mg (unknown) (no (unknown) (unknown) Last Admin: (units (un known) date) 06/21/22 06:16 unknown) Dose: 30 mg (unknown) (no (unknown) (unknown) Last Infusion: (units (unknown) date) 06/21/22 08:07 unknown) Dose: 0 mls/hr (unknown) (no (unknown) (unknown) Limitations: (units (u nknown) date) language barrier unknown) (unknown) (no (unknown) (unknown) Lipase 267 (units (unk nown) date) (23-300) U/L unknown) (unknown) (no (unknown) (unknown) Liver:? There is (units (unknown) date) diffuse unknown) hypoattenuation of the liver parenchyma relative to the (unknown) (no (unknown) (unknown) Loc: ED (units (unkno wn) date) unknown) (unknown) (no (unknown) (unknown) Lung bases:? (units (u nknown) date) Bibasilar unknown) atelectasis.? Multiple scattered noncalcified pulmonary (unknown) (no (unknown) (unknown) Lymph # (Auto) (units (unknown) date) 1800 (1831-1479) unknown) /uL (unknown) (no (unknown) (unknown) Lymph % (Auto) (units (unknown) date) 15.2 L (25-40) % unknown) (unknown) (no (unknown) (unknown) MCH 28.9 (26-34) (units (unknown) date) PG unknown) (unknown) (no (unknown) (unknown) MCHC 33.2 (30-36) (units (unknown) date) % unknown) (unknown) (no (unknown) (unknown) MCV 87.1 (80-100) (units (unknown) date) fL unknown) (unknown) (no (unknown) (unknown) MDM Narrative (units ( unknown) date) unknown) (unknown) (no (unknown) (unknown) MR#: [id number] (units (unknown) date) unknown) (unknown) (no (unknown) (unknown) Medical Decision (units (unknown) date) Making unknown) (unknown) (no (unknown) (unknown) Medical decision (units (unknown) date) making narrative: unknown) (unknown) (no (unknown) (unknown) Medication (units (unk nown) date) Instructions unknown) Recorded (unknown) (no (unknown) (unknown) Miscellaneous: No (units (unknown) date) inguinal hernias unknown) are seen. ? ? (unknown) (no (unknown) (unknown) Mode of arrival: (units (unknown) date) Ambulatory unknown) (unknown) (no (unknown) (unknown) Quay # (Auto) 900 (units (unknown) date) (0-900) /uL unknown) (unknown) (no (unknown) (unknown) Quay % (Auto) 7.4 (units (unknown) date) (3-14) % unknown) (unknown) (no (unknown) (unknown) My Impression: (units (unknown) date) unknown) (unknown) (no (unknown) (unknown) Neuro (units (unkno wn) date) unknown) (unknown) (no (unknown) (unknown) Neut # (Auto) (units ( unknown) date) 9100 H (4144-7247) unknown) /uL (unknown) (no (unknown) (unknown) Neut % (Auto) (units ( unknown) date) 76.3 H (50-75) % unknown) (unknown) (no (unknown) (unknown) New (units (unkno wn) date) unknown) (unknown) (no (unknown) (unknown) No Known Drug (units ( unknown) date) Allergies Allergy unknown) Verified 06/21/22 04:46 (unknown) (no (unknown) (unknown) No acute changes (units (unknown) date) unknown) (unknown) (no (unknown) (unknown) No acute findings (units (unknown) date) unknown) (unknown) (no (unknown) (unknown) No significant (units (unknown) date) discrepancy with unknown) the awake overnight monitor radiology preliminary report.? (unknown) (no (unknown) (unknown) Ordered: (units (unkno wn) date) unknown) (unknown) (no (unknown) (unknown) Ordering (units (unkno wn) date) Provider: unknown) Wisam Barone D.O. (unknown) (no (unknown) (unknown) Orders (units (unkno wn) date) unknown) (unknown) (no (unknown) (unknown) Oxygen Delivery (units (unknown) date) Method 06/21/22 unknown) 04:46 (unknown) (no (unknown) (unknown) Oxygen Delivery (units (unknown) date) Method Room Air unknown) Room Air Room Air (unknown) (no (unknown) (unknown) Oxygen Delivery (units (unknown) date) Method Room Air unknown) (unknown) (no (unknown) (unknown) Oxygen Delivery (units (unknown) date) Method unknown) (unknown) (no (unknown) (unknown) PELVIS: (units (unkno wn) date) unknown) (unknown) (no (unknown) (unknown) PROCEDURE:? CT (units (unknown) date) ABDOMEN PELVIS W unknown) CON (unknown) (no (unknown) (unknown) Pancreas:? (units (unk nown) date) Unremarkable.? ? unknown) (unknown) (no (unknown) (unknown) Patient (units (unkno wn) date) Disposition: Home unknown) (unknown) (no (unknown) (unknown) Patient History (units (unknown) date) unknown) (unknown) (no (unknown) (unknown) Patient is not (units (unknown) date) actually unknown) Cuban-speaking only. Patient's imaging overall (unknown) (no (unknown) (unknown) Patient: Cristiana (units (unknown) date) Maggie Orourke MR# unknown) (unknown) (no (unknown) (unknown) Patient: Cristiana (units (unknown) date) Maggie Orourke unknown) (unknown) (no (unknown) (unknown) Pelvic Nodes: No (units (unknown) date) enlarged lymph unknown) nodes.? (unknown) (no (unknown) (unknown) Pelvic Organs:? (units (unknown) date) Unremarkable.? ? unknown) (unknown) (no (unknown) (unknown) Peritoneum:? No (units (unknown) date) abnormal unknown) intraperitoneal fluid.? No free air.? (unknown) (no (unknown) (unknown) Please follow-up (units (unknown) date) with your unknown) physician to schedule this. (unknown) (no (unknown) (unknown) Please return if (units (unknown) date) your symptoms are unknown) significantly worsening new chest pain, (unknown) (no (unknown) (unknown) Plt Count 223 (units ( unknown) date) (150-400) X103/uL unknown) (unknown) (no (unknown) (unknown) Point of care (units ( unknown) date) testing: unknown) (unknown) (no (unknown) (unknown) Potassium 4.0 (units ( unknown) date) (3.4-5.1) mmol/L unknown) (unknown) (no (unknown) (unknown) Prescription sent (units (unknown) date) for antibiotic if unknown) your ear is not improving after (unknown) (no (unknown) (unknown) [facility] [place] (unknown) (no (unknown) (unknown) Prescriptions: (units (unknown) date) unknown) (unknown) (no (unknown) (unknown) Previous Rx's (units ( unknown) date) unknown) (unknown) (no (unknown) (unknown) Procedure: CT (units ( unknown) date) abdomen pelvis w unknown) con (unknown) (no (unknown) (unknown) Pulse Oximetry 96 (units (unknown) date) 96 98 unknown) (unknown) (no (unknown) (unknown) Pulse Oximetry 97 (units (unknown) date) 97 unknown) (unknown) (no (unknown) (unknown) Pulse Oximetry 98 (units (unknown) date) 06/21/22 04:46 unknown) (unknown) (no (unknown) (unknown) Pulse Oximetry 98 (units (unknown) date) 97 97 unknown) (unknown) (no (unknown) (unknown) Pulse Oximetry 98 (units (unknown) date) unknown) (unknown) (no (unknown) (unknown) Pulse Rate 100 H (units (unknown) date) 06/21/22 04:46 unknown) (unknown) (no (unknown) (unknown) Pulse Rate 100 H (units (unknown) date) 82 75 unknown) (unknown) (no (unknown) (unknown) Pulse Rate 72 (units ( unknown) date) unknown) (unknown) (no (unknown) (unknown) Pulse Rate 76 78 (units (unknown) date) 72 unknown) (unknown) (no (unknown) (unknown) Pulse Rate 77 77 (units (unknown) date) unknown) (unknown) (no (unknown) (unknown) Pulse Rate 78 (units ( unknown) date) unknown) (unknown) (no (unknown) (unknown) RBC 4.10 (units (unkno wn) date) (4.0-5.2) X106/uL unknown) (unknown) (no (unknown) (unknown) RDW 14.5 (units (unkno wn) date) (11.6-14.8) % unknown) (unknown) (no (unknown) (unknown) RSV (PCR) (units (unkn own) date) Negative unknown) (Negative) (unknown) (no (unknown) (unknown) Radiologist's (units ( unknown) date) Impression: unknown) (unknown) (no (unknown) (unknown) Rate: regular (units ( unknown) date) rate unknown) (unknown) (no (unknown) (unknown) Recommend (units (unkn own) date) unknown) (unknown) (no (unknown) (unknown) Referrals: (units (unk nown) date) unknown) (unknown) (no (unknown) (unknown) Related Data (units (u nknown) date) unknown) (unknown) (no (unknown) (unknown) Resp (units (unkno wn) date) unknown) (unknown) (no (unknown) (unknown) Respiratory Rate (units (unknown) date) 06/21/22 04:46 unknown) (unknown) (no (unknown) (unknown) Respiratory Rate (units (unknown) date) unknown) (unknown) (no (unknown) (unknown) Respiratory Rate (units (unknown) date) unknown) (unknown) (no (unknown) (unknown) Respiratory (units (un known) date) unknown) (unknown) (no (unknown) (unknown) Respiratory: (units (u nknown) date) Reports system unknown) reviewed and no additional complaints, except as (unknown) (no (unknown) (unknown) Result diagrams: (units (unknown) date) unknown) (unknown) (no (unknown) (unknown) Review of Systems (units (unknown) date) unknown) (unknown) (no (unknown) (unknown) Rx Instructions: (units (unknown) date) unknown) (unknown) (no (unknown) (unknown) SARS-CoV-2 (PCR) (units (unknown) date) Negative unknown) (Negative) (unknown) (no (unknown) (unknown) See Rx (units (unkno wn) date) Instructions unknown) .ROUTE .COMPLEX Qty: 6 0RF (unknown) (no (unknown) (unknown) She is having (units ( unknown) date) some left-sided unknown) abdominal tenderness. This has been worsening (unknown) (no (unknown) (unknown) Signed By: (units (unk nown) date) unknown) (unknown) (no (unknown) (unknown) Signed (units (unkno wn) date) unknown) (unknown) (no (unknown) (unknown) Skin (units (unkno wn) date) unknown) (unknown) (no (unknown) (unknown) Skin/Breast: (units (u nknown) date) Reports system unknown) reviewed and no additional complaints, except as (unknown) (no (unknown) (unknown) Smoking Status: (units (unknown) date) Never smoker unknown) (unknown) (no (unknown) (unknown) Social History (units (unknown) date) (Reviewed 06/21/22 unknown) @ 05:41 by Wisam Barone DO) (unknown) (no (unknown) (unknown) Sodium 138 (units (unk nown) date) (137-145) mmol/L unknown) (unknown) (no (unknown) (unknown) Sodium Chloride (units (unknown) date) (Normal Saline unknown) 0.9%) 1,000 mls @ 1,000 mls/hr IV BOLUS ONE (unknown) (no (unknown) (unknown) Source: patient (units (unknown) date) unknown) (unknown) (no (unknown) (unknown) Spleen:? (units (unkno wn) date) Unremarkable.? ? unknown) (unknown) (no (unknown) (unknown) Stand Alone (units (un known) date) Forms: Patient unknown) Portal/API (unknown) (no (unknown) (unknown) Stated complaint: (units (unknown) date) bodyaches, unknown) congested (unknown) (no (unknown) (unknown) Stomach and (units (un known) date) Bowel:? Stomach, unknown) small bowel loops, and colon are unremarkable.? A (unknown) (no (unknown) (unknown) Stop: 06/21/22 (units (unknown) date) 04:46 unknown) (unknown) (no (unknown) (unknown) Stop: 06/21/22 (units (unknown) date) 06:04 unknown) (unknown) (no (unknown) (unknown) Stop: 06/21/22 (units (unknown) date) 07:02 unknown) (unknown) (no (unknown) (unknown) TECHNIQUE:? (units (un known) date) unknown) (unknown) (no (unknown) (unknown) Temperature 98.5 (units (unknown) date) F 06/21/22 04:46 unknown) (unknown) (no (unknown) (unknown) Temperature 98.5 (units (unknown) date) F 98.1 F unknown) (unknown) (no (unknown) (unknown) Temperature (units (un known) date) unknown) (unknown) (no (unknown) (unknown) Time Seen by (units (u nknown) date) Provider: 06/21/22 unknown) 04:34 (unknown) (no (unknown) (unknown) Total Bilirubin (units (unknown) date) 0.6 (0.2-1.3) unknown) mg/dL (unknown) (no (unknown) (unknown) Total Protein 7.7 (units (unknown) date) (6.3-8.2) g/dL unknown) (unknown) (no (unknown) (unknown) Upon arrival my (units (unknown) date) initial thought unknown) was that the patient either had COVID or (unknown) (no (unknown) (unknown) Upper respiratory (units (unknown) date) infection, Lung unknown) nodule, multiple, Otitis media (unknown) (no (unknown) (unknown) Urine Dip (units (unkn own) date) unknown) (unknown) (no (unknown) (unknown) Urine Specific (units (unknown) date) Jamison 1.015 unknown) (unknown) (no (unknown) (unknown) Ventral Wall: ? (units (unknown) date) No hernia.? unknown) (unknown) (no (unknown) (unknown) Vessels:? Aorta (units (unknown) date) and inferior vena unknown) cava are normal in size.? (unknown) (no (unknown) (unknown) Vital Signs - 8 (units (unknown) date) hr unknown) (unknown) (no (unknown) (unknown) Vital Signs (units (un known) date) unknown) (unknown) (no (unknown) (unknown) Vital signs: (units (u nknown) date) unknown) (unknown) (no (unknown) (unknown) WBC 12.0 H (units (unk nown) date) (4.5-11.0) X103/uL unknown) (unknown) (no (unknown) (unknown) We did review all (units (unknown) date) of her findings unknown) today no all questions answered. (unknown) (no (unknown) (unknown) Weeks,Melanie, DO (units (unknown) date) [Physician] unknown) (unknown) (no (unknown) (unknown) You can use an (units (unknown) date) [id number] unknown) decongestant help your left ear drain. (unknown) (no (unknown) (unknown) You may find it (units (unknown) date) helpful to use unknown) Flonase once daily in each nostril. (unknown) (no (unknown) (unknown) Your CT today (units ( unknown) date) showed several unknown) small nodules in the right lung and is recommended (unknown) (no (unknown) (unknown) [Embedded Image (units (unknown) date) Not Available] unknown) (unknown) (no (unknown) (unknown) adjustment (units (unk nown) date) unknown) (unknown) (no (unknown) (unknown) and COVID we will (units (unknown) date) draw labs and unknown) obtain a CT scan of the abdomen for further (unknown) (no (unknown) (unknown) available. (units (unk nown) date) COVID/influenza/RS unknown) V swab is negative. Suspect more viral cause (unknown) (no (unknown) (unknown) azithromycin 250 (units (unknown) date) mg tablet See Rx unknown) Instructions PO .COMPLEX #6 06/21/22 (unknown) (no (unknown) (unknown) azithromycin 250 (units (unknown) date) mg tablet unknown) (unknown) (no (unknown) (unknown) banding. She (units (u nknown) date) would quite a bit unknown) of discomfort afterwards but not much today. (unknown) (no (unknown) (unknown) bases to the (units (u nknown) date) pubic symphysis.? unknown) Coronal and sagittal reformats were performed.? (unknown) (no (unknown) (unknown) cellulitis. Given (units (unknown) date) her lack of unknown) improvement with Tylenol and negative influenza (unknown) (no (unknown) (unknown) changes (units (unkno wn) date) unknown) (unknown) (no (unknown) (unknown) colonic (units (unkno wn) date) diverticula unknown) without evidence for acute diverticulitis.? Normal appendix. (unknown) (no (unknown) (unknown) compatible with (units (unknown) date) hepatic unknown) steatosis.? ? (unknown) (no (unknown) (unknown) complaints, (units (un known) date) except as unknown) documented (unknown) (no (unknown) (unknown) concerning (units (unk nown) date) changes. unknown) (unknown) (no (unknown) (unknown) congestion on (units ( unknown) date) examination no unknown) overall findings are consistent with viral URI. (unknown) (no (unknown) (unknown) decongestants is (units (unknown) date) not improving unknown) particularly with her ground-glass nodules this (unknown) (no (unknown) (unknown) decongestants. (units (unknown) date) unknown) (unknown) (no (unknown) (unknown) degenerative (units (u nknown) date) unknown) (unknown) (no (unknown) (unknown) documented (units (unk nown) date) unknown) (unknown) (no (unknown) (unknown) does have a rash (units (unknown) date) under the her unknown) abdominal pannus but no other signs of (unknown) (no (unknown) (unknown) endplate changes (units (unknown) date) noted at L4-5.? unknown) Focal oval sclerotic lesion at L1. (unknown) (no (unknown) (unknown) evaluation. (units (un known) date) Patient expressed unknown) understanding and agreement with this. Care (unknown) (no (unknown) (unknown) few scant (units (unkn own) date) unknown) (unknown) (no (unknown) (unknown) follow-up chest (units (unknown) date) CT further unknown) evaluation. (unknown) (no (unknown) (unknown) follows: (units (unkno wn) date) unknown) (unknown) (no (unknown) (unknown) ground-glass (units (u nknown) date) nodule noted in unknown) the subpleural region of the right middle lobe (unknown) (no (unknown) (unknown) independently (units ( unknown) date) evaluated by unknown) myself. Patient is clearly has upper respiratory (unknown) (no (unknown) (unknown) infection however (units (unknown) date) her testing for unknown) COVID influenza is negative. Her chest x-ray (unknown) (no (unknown) (unknown) infection require (units (unknown) date) antibiotics but unknown) likely cause of her left ear pain, appreciated (unknown) (no (unknown) (unknown) influenza given (units (unknown) date) her presentation. unknown) She has a bulging left tympanic membrane that (unknown) (no (unknown) (unknown) is felt (units (unkno wn) date) appropriate. unknown) Patient agreed expressed her understanding. Gave her (unknown) (no (unknown) (unknown) is not (units (unkno wn) date) erythematous and unknown) other findings consistent with an upper respiratory (unknown) (no (unknown) (unknown) left ear pain, (units (unknown) date) body aches, unknown) headache, cough and generally not feeling well for (unknown) (no (unknown) (unknown) left periaortic (units (unknown) date) region near the unknown) level of the renal vessels. (unknown) (no (unknown) (unknown) leftward shift, (units (unknown) date) cmp overall unknown) normal, albumin not done secondary to no agent (unknown) (no (unknown) (unknown) likely reactive (units (unknown) date) in etiology. ? unknown) (unknown) (no (unknown) (unknown) line. She denied (units (unknown) date) any urinary unknown) symptoms. Yesterday she did have hemorrhoid (unknown) (no (unknown) (unknown) lower quadrant (units (unknown) date) discomfort. unknown) Patient is noted to have multiple right middle lobe (unknown) (no (unknown) (unknown) mm (units (unkno wn) date) unknown) (unknown) (no (unknown) (unknown) more erythema on (units (unknown) date) exam although not unknown) complete. Discussed with patient will give (unknown) (no (unknown) (unknown) nodes. Patient's (units (unknown) date) labs overall show unknown) a mild leukocytosis, hemoglobin of 11, (unknown) (no (unknown) (unknown) nodules in (units (unk nown) date) unknown) (unknown) (no (unknown) (unknown) noted in the (units (u nknown) date) unknown) (unknown) (no (unknown) (unknown) number (units (unkno wn) date) unknown) (unknown) (no (unknown) (unknown) obtained as (units (unk nown) date) patient had recent unknown) hemorrhoid banding and had some complaint of left (unknown) (no (unknown) (unknown) of mA and/or kV (units (unknown) date) according to unknown) patient size.? (unknown) (no (unknown) (unknown) on the left and (units (unknown) date) with fluid behind unknown) the TM on the left; not on the right (unknown) (no (unknown) (unknown) option for primary (units (unknown) date) care follow-up unknown) although she states she is moving to [place]. (unknown) (no (unknown) (unknown) over the past (units ( unknown) date) couple days. She unknown) is also had some nausea but no vomiting. She (unknown) (no (unknown) (unknown) pain, persistent (units (unknown) date) fevers, worsening unknown) black or bloody stools or other new or (unknown) (no (unknown) (unknown) patient does have (units (unknown) date) multiple lymph unknown) nodes in the right lower lung discussed patient (unknown) (no (unknown) (unknown) pneumonia and (units ( unknown) date) others unknown) (unknown) (no (unknown) (unknown) prescription for (units (unknown) date) azithromycin but unknown) only to start if after several days of (unknown) (no (unknown) (unknown) radiation dose (units (unknown) date) reduction, the unknown) following was used:? automated exposure control, (unknown) (no (unknown) (unknown) rather than size (units (unknown) date) and likely unknown) reactive in etiology.? Most prominent lymph node (unknown) (no (unknown) (unknown) reassuring likely (units (unknown) date) has viral illness unknown) causing her symptoms CT abdomen pelvis was (unknown) (no (unknown) (unknown) shortness of (units (un known) date) breath, persistent unknown) vomiting, rapidly worsening abdominal back flank (unknown) (no (unknown) (unknown) shows no signs of (units (unknown) date) pneumonia. Turns unknown) out that the patient does speak very good (unknown) (no (unknown) (unknown) size, (units (unkno wn) date) unknown) (unknown) (no (unknown) (unknown) spleen (units (unkno wn) date) unknown) (unknown) (no (unknown) (unknown) subcentimeter (units ( unknown) date) nodules with a 9 unknown) mm ground-glass nodule recommended have follow (unknown) (no (unknown) (unknown) tabs (units (unkno wn) date) unknown) (unknown) (no (unknown) (unknown) that you have a (units (unknown) date) repeat CT of the unknown) chest in the future. (unknown) (no (unknown) (unknown) the lung (units (unkno wn) date) unknown) (unknown) (no (unknown) (unknown) the past several (units (unknown) date) hours/day. No unknown) fevers. (unknown) (no (unknown) (unknown) the right middle (units (unknown) date) lobe measuring unknown) approximately 4-5 mm in size.? There is also a 9 (unknown) (no (unknown) (unknown) throughout the (units (unknown) date) imaged spine.? No unknown) suspicious osseous lesions.? ? Moderate (unknown) (no (unknown) (unknown) to start (units (unkno wn) date) antibiotic versus unknown) watchful waiting and need for follow-up CT. Patient (unknown) (no (unknown) (unknown) turned over to (units (unknown) date) Dr. Bird to unknown) follow-up on CT scan and disposition. (unknown) (no (unknown) (unknown) up CT chest for (units (unknown) date) repeat evaluation unknown) in the future, scattered mesenteric lymph (unknown) (no (unknown) (unknown) used for HPI and (units (unknown) date) review of systems. unknown) She is here for evaluation of congestion, (unknown) (no (unknown) (unknown) was noted to have (units (unknown) date) bulging left unknown) tympanic membrane without erythema or signs of Social History date description facility 2022-06-21 00:00 Never smoked tobacco (finding) [facility] Vital Signs date measurement value units 2022-06-21 00:00 BMI 37.4 kg/m2 2022-06-21 00:00 BP_diastolic 85 mmHg 2022-06-21 00:00 BP_systolic 128 mmHg 2022-06-21 00:00 heart_rate 72 /min 2022-06-21 00:00 height_metric 165.1 cm 2022-06-21 00:00 height_standard 65 in 2022-06-21 00:00 o2_saturation 98 % 2022-06-21 00:00 respiration_rate 20 /min 2022-06-21 00:00 temperature_metric 36.72 C 2022-06-21 00:00 temperature_standard 98.1 F 2022-06-21 00:00 weight_metric 102.05 kg 2022-06-21 00:00 weight_standard 224.98 lb
[2022-09-11 12:17] LABS: WBC MORPHOLOGY (MULTIPLE) 1+ REACTIVE LYMPHS (NORMAL)
--- NOTE | 2022-09-11 12:37 | CT Report ---
PROCEDURE: ABDOMEN/PELVIS WO INDICATIONS: abd pain, contrast allergy TECHNIQUE: Noncontrast 5 mm thick sections acquired from the diaphragms to the symphysis. 5 mm coronal and sagi ttal reformats were then performed. For radiation dose reduction, the following was used: automated exposure control, adjustment of mA and/or kV according to patient size. COMPARISON: 05/06/2022. FINDINGS: Image quality: Excellent. Lung bases and heart: Stable 2 mm right middle lobe pulmonary nodule, image 3 of series 3. Otherwise unremarkable.. Liver: Mild hepatomegaly. Mild diffuse hepatic steatosis.. Gallbladder and biliary tree: Unremarkable. No biliary dilation. Spleen: Unremarkable. Pancreas: Unremarkable. Adrenals: Unremarkable. Kidneys and ureters: Unremarkable. Bowel and peritoneum: No bowel distension. No pathologic free fluid. Mild diverticulosis without evid ence of diverticulitis. Lymph nodes: No central or retroperitoneal adenopathy. Vessels: Unremarkable. PELVIS Reproductive organs: Unremarkable. Bladder: Unremarkable. Lymph nodes: Shotty inguinal lymph nodes. The largest inguinal lymph node is on the left, measuring 1 .5 cm in diameter. Bones: No aggressive osseous abnormality. Lumbar degenerative changes with canal stenosis at L4-L5. Other: None. IMPRESSION: 1. No evidence of acute abdominal process. 2. Mild hepatomegaly, mild diffuse hepatic steatosis. 3. Mild diverticulosis without evidence of diverticulitis. Reviewed by: Jim Santos MD on 09/11/2022 12:36 PM PDT Approved by: Jim Santos MD on 09/11/2022 12:36 PM PDT Station ID: [id number]
[2022-09-11 13:34] VITALS: BP 134/88
== END 2022-09-11 13:45 | disposition home or self-care (01) ==
LOC: ED 10:48
DX: K29.00 Acute gastritis without bleeding (principal); R94.8 Abnormal results of function studies of other organs and systems; Z13.1 Encounter for screening for diabetes mellitus
CPT/HCPCS: 36415; 74176; 80053; 81001; 81025; 82150; 83036; 83690; 85025; 87086; 96374; 96375; 99284; J1170; 81003

== ENCOUNTER 2022-09-11 11:29 | Outpatient (CLI) | payer MEDICAID ==
[2022-09-11 12:12] LABS: AMYLASE 66 U/L (28-100); LIPASE 53 U/L (22-51)
[2022-09-11 12:19] LABS: ESTIMATED AVERAGE GLUCOSE 157 mg/dL (70-100); HEMOGLOBIN A1c% 7.1 % (4.27-6.07)
== END 2022-09-11 11:30 | disposition home or self-care (01) ==
LOC: LAB 11:29
PROVIDERS: ATTEND Nurse Practitioner
DX: R94.8 Abnormal results of function studies of other organs and systems (principal); Z13.1 Encounter for screening for diabetes mellitus
CPT/HCPCS: 36415; 82150; 83036; 83690

== ENCOUNTER 2022-10-01 06:56 | Outpatient (CLI) | payer MEDICAID ==
--- NOTE | 2022-10-01 08:42 | Ultrasound Report ---
PROCEDURE: Abdomen Limited INDICATIONS: ABD MASS TECHNIQUE: Real-time focused scanning was performed of the abdomen, with image documentation. COMPARISONS: None. FINDINGS: Targeted ultrasound of the region of concern demonstrates a partially encapsulated fat-containing les ion measuring 2.7 x 1.6 x 0.9 cm. IMPRESSION: Fat-containing lesion in the region of concern favors a benign lipoma. Reviewed by: Reddy Mckeon on 10/01/2022 8:41 AM PDT Approved by: Reddy Mckeon on 10/01/2022 8:41 AM PDT Station ID: [id number]
== END 2022-10-01 06:57 | disposition home or self-care (01) ==
LOC: DI 06:56
PROVIDERS: ATTEND Nurse Practitioner
DX: R19.02 Left upper quadrant abdominal swelling, mass and lump (principal)

== ENCOUNTER 2022-10-03 10:38 | Emergency (ER) | payer MEDICAID ==
--- NOTE | 2022-10-03 11:22 | XRAY Report ---
PROCEDURE: Chest 1 View X-Ray INDICATIONS: chest pain TECHNIQUE: One view of the chest was acquired. COMPARISON: None. FINDINGS: Surgical changes and devices: None. Lungs and pleura: No pleural effusions or pneumothorax. Lungs are clear. Mediastinum: Mediastinal contours appear normal. Heart size is normal. Bones and chest wall: No suspicious bony lesions. Overlying soft tissues appear unremarkable. IMPRESSION: No acute cardiopulmonary process. Reviewed by: Reddy Mckeon on 10/03/2022 11:21 AM PDT Approved by: Reddy Mckeon on 10/03/2022 11:21 AM PDT Station ID: [id number]
[2022-10-03 11:23] LABS: BASOPHILS % (AUTO) 0.6 %; EOSINOPHILS # (AUTO) 0.1 10^3/uL (0.0-0.7); EOSINOPHILS % (AUTO) 1.1 %; HCT - HEMATOCRIT 36.7 % (37.0-47.0); HGB - HEMOGLOBIN 11.9 g/dL (12.0-16.0); LYMPHOCYTES # (AUTO) 1.6 10^3/uL (1.5-3.5); LYMPHOCYTES % (AUTO) 30.3 %; MEAN CORPUSCULAR HEMOGLOBIN 28.5 pg (27.0-31.0); MEAN CORPUSCULAR HGB CONC 32.4 g/dL (32.0-36.0); MEAN PLATELET VOLUME 8.5 fL (7.9-10.8); MONOCYTES # (AUTO) 0.4 10^3/uL (0.0-1.0); MONOCYTES % (AUTO) 7.1 %; NEUTROPHILS # (AUTO) 3.2 10^3/uL (1.5-6.6); NEUTROPHILS % (AUTO) 60.5 %; PLT - PLATELET COUNT 194 10^3/uL (130-450); RED BLOOD COUNT 4.17 10^6/uL (4.20-5.40); RED CELL DISTRIBUTION WIDTH 14.2 % (12.0-15.0); WHITE BLOOD COUNT 5.4 x10^3/uL (4.8-10.8)
[2022-10-03 12:48] LABS: ALBUMIN 3.9 g/dL (3.2-5.5); ALBUMIN/GLOBULIN RATIO 1.1 (1.0-2.2); BILIRUBIN,TOTAL 0.6 mg/dL (0.2-1.0); CALCIUM 8.8 mg/dL (8.5-10.3); CREATININE 0.6 mg/dL (0.4-1.0); POTASSIUM 3.7 mmol/L (3.5-5.0); TOTAL PROTEIN 7.3 g/dL (6.7-8.2)
[2022-10-03] MEDS ORDERED: iohexoL-300 100 ML VIAL ONE (13:41)
--- NOTE | 2022-10-03 14:28 | ED Physician Documentation ---
History of Present Illness - Stated complaint Stated Complaint: LF CHST PX - Chief complaint Chief Complaint: Cardiac - History obtained from History obtained from: Patient - Additonal information Additional information: The patient comes to the emergency department chief complaint of abdominal bloating and left upper quadrant and left chest pain that have been going on for the last couple of days. She has a history of some pancreatitis although she states this feels little different. She denies shortness of breath but states it does hurt to take a deep breath. No fever or chills. No urinary symptoms. No change in her bowel habits. She has no history of ulcers. Other than taking a deep breath, nothing makes the pain better or worse. She also has noticed a lump in her breast over about the last year but she has not gotten this checked out. She states it feels little bigger than it was. No other complaints at this time. The patient does note a history of diverticulitis previously. PD PAST MEDICAL HISTORY - Past Medical History Cardiovascular: High cholesterol, Hypertension Respiratory: Asthma, COPD Neuro: Migraines, Seizure disorder Endocrine/Autoimmune: Type 2 diabetes GI: Diverticulitis, GERD Psych: Depression, Anxiety Derm: Eczema - Present Medications Home Medications: Ambulatory Orders Medication Instructions Recorded Confirmed Albuterol Sulf [Ventolin Hfa 1 - 2 puffs INH Q4HR PRN 08/23/21 10/03/22 Inhaler] EPINEPHrine [Epinephrine] 0.3 mg IJ ONCE PRN 08/23/21 10/03/22 Levetiracetam [Keppra] 500 mg PO BID 08/23/21 08/23/21 Montelukast [Singulair] 10 mg PO QPM 08/23/21 10/03/22 Omeprazole 20 mg PO BID 08/23/21 10/03/22 Rosuvastatin Calcium [Crestor] 5 mg PO QPM 08/23/21 10/03/22 Sertraline HCl 200 mg PO QPM 08/23/21 10/03/22 Spironolactone [Aldactone] 25 mg PO DAILY 08/23/21 10/03/22 Thyroid,Pork [Ruston Thyroid] 60 mg PO DAILY 08/23/21 10/03/22 Triamterene/Hydrochlorothiazid 0.5 tab PO DAILY 08/23/21 10/03/22 [Maxzide 37.5 mg-25 mg Tablet] metFORMIN [Glucophage] 500 mg PO BIDWM 10/26/21 10/03/22 Sucralfate [Carafate] 1 gm PO ACHS #60 tablet 01/14/22 10/03/22 Naproxen 500 mg PO BID #20 tab 05/06/22 10/03/22 - Allergies Allergies/Adverse Reactions: Allergies Allergy/AdvReac Type Severity Reaction Status Date / Time Iodinated Contrast Media AdvReac Rash Verified 10/03/22 10:45 - Social History Does the pt smoke?: No Smoking Status: Never smoker Does the pt have substance abuse?: No PD ED PE NORMAL - Vitals Vital signs reviewed: Yes - General General: Alert and oriented X 3, No acute distress, Well developed/nourished - HEENT HEENT: Atraumatic, PERRL, EOMI, Moist mucous membranes - Neck Neck: Supple, no meningeal sign - Cardiac Cardiac: RRR, No murmur, Strong equal pulses - Respiratory Respiratory: No respiratory distress, Clear bilaterally - Abdomen Abdomen: Soft, Other (Moderate tenderness left abdomen. No rebound or guarding. Moderate obesity and distention.) - Derm Derm: Normal color, Warm and dry, No rash - Extremities Extremities: No deformity, No edema - Neuro Neuro: Alert and oriented X 3 - Psych Psych: Normal mood, Normal affect PD ED PE EXPANDED - Free text exam Free text exam: Chest wall exam: No rib tenderness over the left lateral chest wall. Breast exam: Mobile soft tissue masses palpable throughout left breast, consistent with normal fibrocystic breast tissue. No nonmobile masses or cysts are identifiable palpably. No peau d'orange. No nipple discharge or distortion. Results - Vitals Vitals: Vital Signs - 24 hr 10/03/22 10/03/22 10/03/22 10:42 11:26 12:10 Temperature 36.1 C L Heart Rate 76 69 81 Respiratory 20 18 15 Rate Blood Pressure 135/85 H 140/89 H O2 Saturation 99 97 10/03/22 10/03/22 10/03/22 13:24 15:05 15:40 Temperature Heart Rate 84 87 Respiratory 17 16 16 Rate Blood Pressure 132/84 H O2 Saturation 96 95 10/03/22 16:06 Temperature 36.5 C Heart Rate 86 Respiratory 16 Rate Blood Pressure O2 Saturation 99 Oxygen O2 Source Room air - Labs Labs: Laboratory Tests 10/03/22 10/03/22 10/03/22 11:18 11:18 11:18 WBC 5.4 RBC 4.17 L Hgb 11.9 L Hct 36.7 L MCV 88.0 MCH 28.5 MCHC 32.4 RDW 14.2 Plt Count 194 MPV 8.5 Neut # (Auto) 3.2 Lymph # (Auto) 1.6 [place] # (Auto) 0.4 Eos # (Auto) 0.1 Baso # (Auto) 0.0 Absolute Nucleated RBC 0.00 Nucleated RBC % 0.0 Sodium 138 Potassium 3.7 Chloride 104 Carbon Dioxide 25 Anion Gap 9.0 BUN 15 Creatinine 0.6 Estimated GFR (MDRD) 105 Glucose 137 H Calcium 8.8 Total Bilirubin 0.6 AST 17 ALT 22 Alkaline Phosphatase 51 Troponin I High Sens 3.3 Total Protein 7.3 Albumin 3.9 Globulin 3.4 Albumin/Globulin Ratio 1.1 Lipase 62 H - Rads (name of study) CT abdomen and pelvis Relevant Findings:: Final report received, See rad report (Negative for acute findings.) Chest x-ray Relevant Findings:: Final report received, See rad report (Negative) PD Medical Decision Making - ED course Complexity details: reviewed results, re-evaluated patient, considered differential, d/w patient ED course: The patient was evaluated with laboratory studies and EKG. EKG was unremarkable and laboratory studies included CBC, ER abdominal panel, and troponin, all of which were ordered and reviewed by me and unremarkable. Chest x-ray is unremarkable. Patient was worked up with CT scan of the abdomen and pelvis to evaluate her left sided abdominal pain in the setting of a history of diverticulitis. In the meantime, I have spoken to her about her concerns about her breast. I do not feel a mass that is particularly concerning for possible malignancy but I have discussed with her that the she should be getting mammograms at her age and that the best way to evaluate for concerning masses would be via mammogram initially followed by biopsy if needed. Patient expresses understanding. Departure - Departure Disposition: 01 Home, Self Care Clinical Impression: Abdominal pain Qualifiers: Abdominal location: upper abdomen, unspecified Qualified Code(s): R10.10 - Upper abdominal pain, unspecified Chest pain Qualifiers: Chest pain type: unspecified Qualified Code(s): R07.9 - Chest pain, unspecified Condition: Stable Instructions: ED Abdominal Pain Female Non-Specific Abdominal Pain Print Language: Bhutanese Comments: All of your tests look very good. It is not clear why you have had the upper abdominal pain and bloating. It is possible that you could have some inflammation in your esophagus and stomach, or you could even have an ulcer. You do not have diverticulitis at this time. As far as the mass on your breast, this feels like normal breast tissue, but nonetheless, at your age you should be getting a mammogram every year to evaluate for any cancer. Please speak with your primary doctor about getting scheduled for this. Discharge Date/Time: 10/03/22 16:07
--- NOTE | 2022-10-03 14:33 | CT Report ---
PROCEDURE: ABDOMEN/PELVIS W INDICATIONS: L abd pain, h/o diverticulitis CONTRAST: 100ml Omnipaque 300 TECHNIQUE: After the administration of intravenous contrast, 5 mm thick sections acquired from the diaphragms to the symphysis. 5 mm thick coronal and sagittal reformats were acquired. For radiation dose reducti on, the following was used: automated exposure control, adjustment of mA and/or kV according to ted ent size. COMPARISON: CT 09/11/2022 FINDINGS: Image quality: Excellent. Lung bases and heart: Unremarkable. Liver: Hepatic steatosis. Gallbladder and biliary tree: No radiopaque stones or wall thickening. No biliary dilation. Spleen: No splenomegaly. Pancreas: No pancreatic ductal dilation. Adrenals: No adrenal nodule. Kidneys and ureters: No hydronephrosis. No renal cystic lesion which requires follow up. No solid mas s. Bowel and peritoneum: No bowel distension. No pathologic free fluid. Diverticulosis without evidence of diverticulitis. Lymph nodes: No central or retroperitoneal adenopathy. Vessels: No infrarenal aortic aneurysm. PELVIS Reproductive organs: Unremarkable. Bladder: No wall thickness, accounting for underdistension. Pelvic lymph nodes: No pelvic adenopathy by size criteria. Bones: No aggressive osseous abnormality. Other: No significant ventral or inguinal hernia. IMPRESSION: No acute abnormality. Colonic diverticulosis without evidence of diverticulitis. Hepatic steatosis. Reviewed by: Reddy Mckeon on 10/03/2022 2:32 PM PDT Approved by: Reddy Mckeon on 10/03/2022 2:32 PM PDT Station ID: [id number]
[2022-10-03] MEDS ORDERED: iohexoL-300 100 ML VIAL IVP ONE (15:09)
[2022-10-03] MEDS ORDERED: ONDANSETRON ODT 4 MG TABLET TL STA (15:10)
[2022-10-03] MEDS ORDERED: KETOROLAC 30 MG/ML VIAL IVP STA (15:22)
[2022-10-03 15:42] VITALS: BP 132/84
== END 2022-10-03 16:07 | disposition home or self-care (01) ==
LOC: ED 10:38
DX: R14.0 Abdominal distension (gaseous) (principal); R10.10 Upper abdominal pain, unspecified; R07.9 Chest pain, unspecified
CPT/HCPCS: 36415; 71045; 74177; 80053; 83690; 84484; 85025; 93005; 96374; 99283; 99284; Q0162; Q9967

== ENCOUNTER 2022-10-09 07:13 | Outpatient (CLI) | payer MEDICAID ==
[2022-10-09 12:07] LABS: BASOPHILS % (AUTO) 0.6 %; EOSINOPHILS # (AUTO) 0.1 10^3/uL (0.0-0.7); EOSINOPHILS % (AUTO) 1.4 %; HCT - HEMATOCRIT 39.6 % (37.0-47.0); HGB - HEMOGLOBIN 12.7 g/dL (12.0-16.0); LYMPHOCYTES # (AUTO) 2.4 10^3/uL (1.5-3.5); LYMPHOCYTES % (AUTO) 33.4 %; MEAN CORPUSCULAR HEMOGLOBIN 28.5 pg (27.0-31.0); MEAN CORPUSCULAR HGB CONC 32.1 g/dL (32.0-36.0); MEAN CORPUSCULAR VOLUME 88.8 fL (81.0-99.0); MEAN PLATELET VOLUME 9.3 fL (7.9-10.8); MONOCYTES # (AUTO) 0.6 10^3/uL (0.0-1.0); MONOCYTES % (AUTO) 7.7 %; NEUTROPHILS # (AUTO) 4.1 10^3/uL (1.5-6.6); NEUTROPHILS % (AUTO) 56.5 %; PLT - PLATELET COUNT 211 10^3/uL (130-450); RED BLOOD COUNT 4.46 10^6/uL (4.20-5.40); RED CELL DISTRIBUTION WIDTH 14.4 % (12.0-15.0); WHITE BLOOD COUNT 7.2 x10^3/uL (4.8-10.8)
[2022-10-09 12:09] LABS: ESTIMATED AVERAGE GLUCOSE 160 mg/dL (70-100); HEMOGLOBIN A1c% 7.2 % (4.27-6.07)
[2022-10-09 12:10] LABS: ALBUMIN 4.1 g/dL (3.2-5.5); ALBUMIN/GLOBULIN RATIO 1.1 (1.0-2.2); ALKALINE PHOSPHATASE 55 IU/L (42-121); ALT ALANINE AMINOTRANSFERASE 20 IU/L (10-60); AST ASPARTATE AMINOTRANSFERASE 14 IU/L (10-42); BILIRUBIN,TOTAL 0.5 mg/dL (0.2-1.0); BUN - BLOOD UREA NITROGEN 11 mg/dL (6-20); CALCIUM 8.9 mg/dL (8.5-10.3); CARBON DIOXIDE - CO2 27 mmol/L (21-32); CHLORIDE 105 mmol/L (101-111); CHOL/HDL RATIO 3.7 (<4.4); CHOLESTEROL 236 mg/dL; CREATININE 0.8 mg/dL (0.4-1.0); GFR - MDRD 76 (>89); GLUCOSE 141 mg/dL (70-100); HDL CHOLESTEROL 63 mg/dL; LDL CHOLESTEROL,CALCULATED 147 mg/dL; LDL/HDL RATIO 2.3 (<4.4); POTASSIUM 4.5 mmol/L (3.5-5.0); SODIUM 138 mmol/L (135-145); TOTAL PROTEIN 7.8 g/dL (6.7-8.2); TRIGLYCERIDES 132 mg/dL; VLDL CHOLESTEROL 26 mg/dL
[2022-10-09 12:37] LABS: FREE T3 2.85 pg/mL (2.5-3.9)
[2022-10-09 12:39] LABS: THYROID STIMULATING HORMONE 2.87 uIU/mL (0.34-5.60)
[2022-10-09 12:41] LABS: FREE T4 (FREE THYROXINE) 0.63 ng/dL (0.58-1.64)
== END 2022-10-09 07:14 | disposition home or self-care (01) ==
LOC: LAB.N 07:13
PROVIDERS: ATTEND Registered Nurse
DX: R22.1 Localized swelling, mass and lump, neck (principal); R13.10 Dysphagia, unspecified; Z86.39 Personal history of other endocrine, nutritional and metabolic disease
CPT/HCPCS: 36415; 80053; 80061; 83036; 83721; 84439; 84443; 84481; 85025

== ENCOUNTER 2022-10-17 11:41 | Outpatient (CLI) | payer MEDICAID ==
--- NOTE | 2022-10-17 16:36 | Ultrasound Report ---
PROCEDURE: Head or Neck Soft Tissue INDICATIONS: SWELLING IN NECK TECHNIQUE: Real-time scanning was performed of the thyroid gland, with image documentation. COMPARISON: None FINDINGS: Right: Thyroid lobe measures 2.2 x 0.7 x 0.8 cm, and demonstrates a superior nodule Left: Thyroid lobe measures 1.9 x 0.8 x 0.8 cm, and is homogenous in echotexture. Nodule number: One Location: Right superior thyroid Size: 0.8 x 0.6 x 0.7 cm. Composition: Solid. Echogenicity: Isoechoic. Shape: wider than tall. Margins: Smooth (0 points). Echogenic foci: None (0 points). Total points: 3 ACR TI-RADS category: 3 recommendations: No follow-up necessary based on size.. IMPRESSION: Right thyroid nodule which requires no follow-up. Reviewed by: Onel Bertrand MD on 10/17/2022 4:35 PM PDT Approved by: Onel Bertrand MD on 10/17/2022 4:35 PM PDT Station ID: [id number]
== END 2022-10-17 11:42 | disposition home or self-care (01) ==
LOC: DI 11:41
PROVIDERS: ATTEND Family Medicine
DX: E04.1 Nontoxic single thyroid nodule (principal)

== ENCOUNTER 2022-10-28 08:43 | Emergency (ER) | payer MEDICAID ==
--- NOTE | 2022-10-28 09:07 | ED Physician Documentation ---
PD HPI URI - Stated complaint Stated Complaint: FEVER/COUGH/LEG NUMB - Chief complaint Chief Complaint: Fever - History obtained from History obtained from: Patient - History of Present Illness Timing - onset: How many days ago (5) Timing duration: Days (5) Timing details: Abrupt onset, Still present Associated symptoms: Fever, Chills, Dry cough, Dyspnea (with wheezing and increase of her baseline asthma. Using XOpenex nebs at home with some improvement.) Similar symptoms before: Diagnosis (history of sasthma and will get wheezing/dyspnea with URIs. etc. Does have history of some low back pain, with current pain worse than usual and onset of that with the illness and with coughing hard. She states some numbness down legs medially to great toes, is intermittent and currently unusual.) Review of Systems Constitutional: reports: Fever, Chills, Myalgias Nose: reports: Congestion Cardiac: denies: Chest pain / pressure, Palpitations Respiratory: reports: Dyspnea, Cough, Wheezing GI: reports: Nausea. denies: Abdominal Pain, Vomiting, Diarrhea PD PAST MEDICAL HISTORY - Past Medical History Cardiovascular: High cholesterol, Hypertension Respiratory: Asthma, COPD Neuro: Migraines, Seizure disorder Endocrine/Autoimmune: Type 2 diabetes GI: Diverticulitis, GERD Psych: Depression, Anxiety Derm: Eczema - Present Medications Home Medications: Ambulatory Orders Medication Instructions Recorded Confirmed Albuterol Sulf [Ventolin Hfa 1 - 2 puffs INH Q4HR PRN 08/23/21 10/28/22 Inhaler] EPINEPHrine [Epinephrine] 0.3 mg IJ ONCE PRN 08/23/21 10/28/22 Levetiracetam [Keppra] 500 mg PO BID 08/23/21 10/28/22 Montelukast [Singulair] 10 mg PO QPM 08/23/21 10/28/22 Omeprazole 20 mg PO BID 08/23/21 10/28/22 Rosuvastatin Calcium [Crestor] 5 mg PO QPM 08/23/21 10/03/22 Sertraline HCl 200 mg PO QPM 08/23/21 10/28/22 Spironolactone [Aldactone] 50 mg PO DAILY 08/23/21 10/28/22 Thyroid,Pork [[place] Thyroid] 60 mg PO DAILY 08/23/21 10/28/22 Triamterene/Hydrochlorothiazid 0.5 tab PO DAILY 08/23/21 10/28/22 [Maxzide 37.5 mg-25 mg Tablet] metFORMIN [Glucophage] 500 mg PO BIDWM 10/26/21 10/28/22 Sucralfate [Carafate] 1 gm PO ACHS #60 tablet 01/14/22 10/28/22 Naproxen 500 mg PO BID #20 tab 05/06/22 10/28/22 Benzonatate [Tessalon] 100 mg PO TID PRN #20 cap 10/28/22 Dexlansoprazole [Dexilant] 60 mg PO DAILY 10/28/22 10/28/22 HYDROcod/ACETAM 5/325 [[place] 5/325] 1 ea PO Q6H PRN #18 tablet 10/28/22 Levalbuterol [Xopenex] 1.25 mg INH Q8H #30 each 10/28/22 Linaclotide [Linzess] 290 mcg ORAL DAILY 10/28/22 10/28/22 dexAMETHasone [Decadron] 4 mg PO DAILY #5 tablet 10/28/22 - Allergies Allergies/Adverse Reactions: Allergies Allergy/AdvReac Type Severity Reaction Status Date / Time Iodinated Contrast Media AdvReac Rash Verified 10/28/22 08:51 - Social History Does the pt smoke?: No Smoking Status: Never smoker Does the pt have substance abuse?: No PD ED PE NORMAL - Vitals Vital signs reviewed: Yes - General General: Alert and oriented X 3, Well developed/nourished, Other (appears uncomfotable due to back pain. With regular couhghinh that also has wheeze. ) - HEENT HEENT: Pharynx benign - Neck Neck: Supple, no meningeal sign, No adenopathy - Cardiac Cardiac: RRR, No murmur - Respiratory Respiratory: No respiratory distress. No: Clear bilaterally (exp wheezing noted wtihout coarse sounds. ) - Abdomen Abdomen: Soft, Non tender - Derm Derm: Normal color, Warm and dry, No rash - Extremities Extremities: No tenderness to palpate, Normal ROM s pain, No edema, No calf tenderness / cord - Neuro Neuro: Alert and oriented X 3, No motor deficit, Normal speech, Other (some decreased sensation medial left lower leg and top of foot. No edema. Normal movement. Normal knee reflexes. ) Results - Vitals Vitals: Vital Signs - 24 hr 10/28/22 10/28/22 10/28/22 08:51 09:54 12:11 Temperature 36.4 C L Heart Rate 80 78 74 Respiratory 16 18 20 Rate Blood Pressure 134/90 H 123/87 H 137/96 H O2 Saturation 98 100 99 10/28/22 14:39 Temperature Heart Rate 70 Respiratory 16 Rate Blood Pressure 126/88 H O2 Saturation 98 Oxygen O2 Source Room air - Labs Labs: Laboratory Tests 10/28/22 09:50 Nasal Adenovirus (PCR) NOT DETECTED Nasal B. parapertussis DNA (PCR) NOT DETECTED Nasal Coronavir 229E PCR NOT DETECTED Nasal Coronavir HKU1 PCR NOT DETECTED Nasal Coronavir NL63 PCR NOT DETECTED Nasal Coronavir OC43 PCR NOT DETECTED Nasal Enterovir/Rhinovir PCR DETECTED A Nasal Influenza B PCR NOT DETECTED Nasal Influenza A PCR NOT DETECTED Nasal Parainfluen 1 PCR NOT DETECTED Nasal Parainfluen 2 PCR NOT DETECTED Nasal Parainfluen 3 PCR NOT DETECTED Nasal Parainfluen 4 PCR NOT DETECTED Nasal RSV (PCR) NOT DETECTED Nasal B.pertussis DNA PCR NOT DETECTED Nasal C.pneumoniae (PCR) NOT DETECTED Herbert Human Metapneumo PCR NOT DETECTED Nasal M.pneumoniae (PCR) NOT DETECTED Nasal SARS-CoV-2 (PCR) NOT DETECTED - Rads (name of study) chest xray Relevant Findings:: Prelim report reviewed, EMP independent interpretation of test (no infiltrates. ), See rad report lumbar CT Relevant Findings:: Prelim report reviewed (prior disc processes without change. No new acute abnormalities. ), EMP independent interpretation of test, See rad report PD Medical Decision Making - ED course Complexity details: reviewed results, re-evaluated patient (pain better with Toradol IM and PO hydrocodone. ), considered differential (URI and cough symptoms with exac of asthma, wheezing and feeling unwell. Has also complaint of lower back pain worse with movement and coughing. Numbness at times lower legs. No direct impact nor fall, but has had coughing. Given the degree of low back pain complaint, I felt it appropriate to eval.), d/w patient Departure - Departure Disposition: 01 Home, Self Care Clinical Impression: Viral URI with cough, Exacerbation of asthma, Low back strain Condition: Stable Record reviewed to determine appropriate education?: Yes Prescriptions: dexAMETHasone [Decadron] 4 mg PO DAILY #5 tablet HYDROcod/ACETAM 5/325 [[place] 5/325] 1 ea PO Q6H PRN #18 tablet PRN Reason: Pain Benzonatate [Tessalon] 100 mg PO TID PRN #20 cap PRN Reason: Cough Levalbuterol [Xopenex] 1.25 mg INH Q8H #30 each Comments: Your chest x-ray does not show any signs of pneumonia. Your respiratory viral panel is positive for a virus called rhinovirus. This will cause the congestion and cough and increased wheezing with your asthma. I presume the coughing and also general ill feeling is related to the soreness in your lower back. Your CT scan does not show any acute structural abnormality. I think we can treat this with anti-inflammatories and pain medicine. I wrote prescriptions for more of your Xopenex, short course of Decadron steroid for help with the wheezing and cough. Also benzonatate to help with cough. Tylenol every 4 4 to 6 hours as needed for pain and add hydrocodone if needed for worse pain. This would be presumed short-term. I sent your prescriptions to [facility] pharmacy. They are open till 6 PM today. My narcotic instructions I am prescribing a short course of narcotic pain medication for you. These are potentially dangerous and addictive medications that should be used carefully. These medications may constipate you. Take an bwhm-vtf-qbnpstm stool softener such as docusate twice daily with plenty of water while taking these medications. If you go 24 hours without a bowel movement, take fkwz-rua-aqltidz MiraLAX, per package instructions. Do not drink or drive while taking these medications. If you received narcotic or sedating medications while in the emergency department do not drive for 24 hours. Store this medication in a safe, secure place and out of reach of children. It is a violation of federal law to give or sell this medication to another person or to use in a manner other than prescribed. The ED will not refill narcotic prescriptions, including prescriptions lost or stolen. You can dispose of unwanted medications at the [facility]'s office or at several pharmacies such as [facility]. Discharge Date/Time: 10/28/22 14:40
[2022-10-28] MEDS ORDERED: CHERRY SYRUP 10 ML UDC PO ONE (09:37)
[2022-10-28] MEDS ORDERED: BENZONATATE 100 MG CAPSULE PO STA (09:37)
[2022-10-28] MEDS ORDERED: DEXAMETHASONE 10 MG/ML VIAL PO STA (09:37)
[2022-10-28] MEDS ORDERED: HYDROcod/ACETAM 5/325 MG TABLET PO STA ×2 (09:41→11:10)
--- NOTE | 2022-10-28 10:01 | XRAY Report ---
PROCEDURE: Chest 1 View X-Ray INDICATIONS: cough for 5 days TECHNIQUE: One view of the chest was acquired. COMPARISON: 10/03/2022 FINDINGS: Surgical changes and devices: Wireless pacemaker projecting over the left upper medial chest. Lungs and pleura: No pleural effusions or pneumothorax. Lungs are clear. Mediastinum: Mediastinal contours appear normal. Heart size is normal. Bones and chest wall: No suspicious bony lesions. Overlying soft tissues appear unremarkable. IMPRESSION: No acute cardiopulmonary process. Reviewed by: Tatum Chong MD on 10/28/2022 9:00 AM ASHA Approved by: Tatum Chong MD on 10/28/2022 9:00 AM ASHA Station ID: [id number]
[2022-10-28 10:59] LABS: B. PARAPERTUSSIS- RESP PCR PAN NOT DETECTED; B. PERTUSSIS- RESP PCR PANEL NOT DETECTED; C. PNEUMONIAE- RESP PCR PANEL NOT DETECTED; CORONAVIRUS 229E-RESP PCR NOT DETECTED; CORONAVIRUS HKU1-RESP PCR NOT DETECTED; CORONAVIRUS NL63-RESP PCR NOT DETECTED; CORONAVIRUS OC43-RESP PCR NOT DETECTED; HUMAN METAPNEUMOVIRUS NOT DETECTED; INFLUENZA A- RESP PCR PANEL NOT DETECTED; INFLUENZA B - RESP PCR PANEL NOT DETECTED; M. PNEUMONIAE- RESP PCR PANEL NOT DETECTED; PARAINFLUENZA VIRUS 1 NOT DETECTED; PARAINFLUENZA VIRUS 2 NOT DETECTED; PARAINFLUENZA VIRUS 3 NOT DETECTED; PARAINFLUENZA VIRUS 4 NOT DETECTED; RHINOVIRUS/ENTEROVIRUS DETECTED; RSV- RESP PCR PANEL NOT DETECTED; SARS-CoV-2 -RESP PCR PANEL NOT DETECTED
[2022-10-28] MEDS ORDERED: KETOROLAC 30 MG/ML VIAL IM STA (11:42)
--- NOTE | 2022-10-28 12:45 | CT Report ---
PROCEDURE: LUMBAR SPINE WO INDICATIONS: twidt injury with low back pain TECHNIQUE: Noncontrast 3 mm thick sections acquired from the T12 level to the sacrum. Sagittal and coronal refo rmats were constructed. For radiation dose reduction, the following was used: automated exposure co ntrol, adjustment of mA and/or kV according to patient size. COMPARISON: CT abdomen pelvis 01/14/2022 and 10/03/2022. FINDINGS: Image quality: Excellent. Bones: There is normal bony alignment. No acute vertebral body compression fractures. Chronic scle rotic bone island in the anterior aspect of L1. No suspicious lytic or blastic bony lesions. There a re degenerative endplate irregularity, spurring, and sclerosis at L4-5 secondary to chronic disc dege neration. Mild SI joint vacuum phenomenon. Central spinal caliber is of normal overall caliber. No p ars defects. T12-L1: Normal in appearance. L1-L2: Normal in appearance. L2-L3: Normal in appearance. L3-L4: Mild segmental disc bulge and facet arthropathy. Mild central canal narrowing. L4-L5: Moderate disc height loss, vacuum phenomenon, and circumferential disc bulge to moderate deg ree. Prominent facet arthropathy and moderate central canal stenosis. Mild bilateral foraminal narrow ing. No significant change. L5-S1: Mild broad-based disc bulge and moderate facet arthropathy causes mild central canal narrowi ng and mild bilateral neural foraminal narrowing. No significant change. Soft tissues: No retroperitoneal masses or hematomas. Visualized aorta is normal in caliber. IMPRESSION: 1. Chronic focal disc degeneration L4-5 and to a lesser extent L5-S1 causing central canal narrowing, most extensive at L4-5. This has not significantly progressed since prior studies. 2. No acute fractures or subluxation. Reviewed by: Tatum Chong MD on 10/28/2022 11:44 AM ASHA Approved by: Ttaum Chong MD on 10/28/2022 11:44 AM ASHA Station ID: [id number]
[2022-10-28 14:40] VITALS: BP 126/88
== END 2022-10-28 14:40 | disposition home or self-care (01) ==
LOC: ED 08:43
DX: J06.9 Acute upper respiratory infection, unspecified (principal); B97.89 Other viral agents as the cause of diseases classified elsewhere; J45.901 Unspecified asthma with (acute) exacerbation; S39.012A Strain of muscle, fascia and tendon of lower back, initial encounter; X58.XXXA Exposure to other specified factors, initial encounter; Y93.89 Activity, other specified; Z20.822 Contact with and (suspected) exposure to COVID-19
CPT/HCPCS: 71045; 72131; 87633; 96372; 99284; A9270

== ENCOUNTER 2022-11-13 00:36 | Outpatient (CLI) | payer MEDICAID | END 2022-11-13 23:59 | disposition EMS.NT | LOC: EMS 00:36 | DX: R51.9 Headache, unspecified (principal); R11.0 Nausea ==

== ENCOUNTER 2022-11-13 01:47 | Emergency (ER) | payer MEDICAID ==
--- NOTE | 2022-11-13 03:07 | ED Physician Documentation ---
PD HPI HEADACHE - Stated complaint Stated Complaint: HEADACHE/NECK PX - Chief complaint Chief Complaint: General - History obtained from History obtained from: Patient - Additional information Additional information: HPI from patient. 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 Pain is worse with movement of the neck. Symptoms are not new, and she was evaluated earlier today in a clinic in [place] where she underwent injections to the anterolateral left aspect of neck for these pains. This was the first time she underwent these injections, and she presents at this time due to having ongoing symptoms, slightly worse since having the injections. She says she had been on opiate pain medications in the past (she thinks either percocet or vicodin), but her description sounds like her prescribing doctor tapered her off so as to not lead to attenuation of effect and/or dependence. She says that she currently only takes cgwy-lag-ytcfwzd medications for pain. No injury. She says many years ago, she was diagnosed with in intracranial cyst on an MRI, and there was some question as to whether this was causing symptoms including headaches, neck pain. Review of Systems Constitutional: denies: Fever Throat: denies: Sore throat Cardiac: denies: Chest pain / pressure Respiratory: denies: Dyspnea, Cough Musculoskeletal: reports: Neck pain. denies: Back pain Neurologic: reports: Headache. 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 : None HEENT: None Psych: Depression, Anxiety Derm: Eczema - Past Surgical History Past Surgical History: Yes - Present Medications Home Medications: Ambulatory Orders Medication Instructions Recorded Confirmed Albuterol Sulf [Ventolin Hfa 1 - 2 puffs INH Q4HR PRN 08/23/21 10/28/22 Inhaler] EPINEPHrine [Epinephrine] 0.3 mg IJ ONCE PRN 08/23/21 10/28/22 Levetiracetam [Keppra] 500 mg PO BID 08/23/21 10/28/22 Montelukast [Singulair] 10 mg PO QPM 08/23/21 10/28/22 Omeprazole 20 mg PO BID 08/23/21 10/28/22 Rosuvastatin Calcium [Crestor] 5 mg PO QPM 08/23/21 10/03/22 Sertraline HCl 200 mg PO QPM 08/23/21 10/28/22 Spironolactone [Aldactone] 50 mg PO DAILY 08/23/21 10/28/22 Thyroid,Pork [[place] Thyroid] 60 mg PO DAILY 08/23/21 10/28/22 Triamterene/Hydrochlorothiazid 0.5 tab PO DAILY 08/23/21 10/28/22 [Maxzide 37.5 mg-25 mg Tablet] metFORMIN [Glucophage] 500 mg PO BIDWM 10/26/21 10/28/22 Sucralfate [Carafate] 1 gm PO ACHS #60 tablet 01/14/22 10/28/22 Naproxen 500 mg PO BID #20 tab 05/06/22 10/28/22 Benzonatate [Tessalon] 100 mg PO TID PRN #20 cap 10/28/22 Dexlansoprazole [Dexilant] 60 mg PO DAILY 10/28/22 10/28/22 HYDROcod/ACETAM 5/325 [[place] 5/325] 1 ea PO Q6H PRN #18 tablet 10/28/22 Levalbuterol [Xopenex] 1.25 mg INH Q8H #30 each 10/28/22 Linaclotide [Linzess] 290 mcg ORAL DAILY 10/28/22 10/28/22 dexAMETHasone [Decadron] 4 mg PO DAILY #5 tablet 10/28/22 oxyCODONE [Roxicodone] 5 - 10 mg PO Q6H PRN #14 tablet 11/13/22 - Allergies Allergies/Adverse Reactions: Allergies Allergy/AdvReac Type Severity Reaction Status Date / Time Iodinated Contrast Media AdvReac Rash Verified 11/13/22 02:01 - Social History Does the pt smoke?: No Smoking Status: Never smoker Does the pt have substance abuse?: No - Immunizations Immunizations are current?: Yes PD ED PE NORMAL - Vitals Vital signs reviewed: Yes - General General: Alert and oriented X 3, Well developed/nourished, Other (appears uncomfortable, mild-moderate painful discomfort) - HEENT HEENT: PERRL, EOMI, Moist mucous membranes, Pharynx benign - Neck Neck: Supple, no meningeal sign, No bony TTP, Other (left anterolateral aspect of neck: injection sites (covered with bandaid, which is removed for purposes of exam) are without swelling, erythema, d/c, tenderness) - Respiratory Respiratory: No respiratory distress, Clear bilaterally - Neuro Neuro: Alert and oriented X 3, 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, No motor deficit, No sensory d eficit, Normal speech Eye Opening: Spontaneous Motor: Obeys Commands Verbal: Oriented GCS Score: 15 Results - Vitals Vitals: Oxygen O2 Source Room air - Labs Labs: Laboratory Tests 11/13/22 02:36 Sodium 138 Potassium 4.0 Chloride 104 Carbon Dioxide 26 Anion Gap 8.0 BUN 20 Creatinine 0.8 Estimated GFR (MDRD) 76 L Glucose 141 H Calcium 8.9 PD Medical Decision Making - ED course Complexity details: reviewed results, re-evaluated patient, considered differential, d/w patient ED course: it is not clear to me if patient is having neck pain radiating to head causing headache, or DRIVER as a separate entity (or even DRIVER that is then causing neck pain). CTA head undertaken to look into possible mass or mass effect/shift, aneurysm, ICH. There were no abnormalities on this study. Given that neck pain is part of the chief complaint, and in light of the injections earlier today which did not improve her symptoms (patient says they feel slightly more intense), CTA neck was also performed, looking to rule out (though unlikely) vascular injury associated with the procedure, as well as carotid dissection, aneurysm. This study also was without abnormality. BMP performed to clear for contrast study. Patient says she can tolerate IV contrast if pre-medicated with benadryl, and thus 25mg IV benadryl given prior to these studies. We discussed options for pain control. I mentioned dilaudid, and she is not familiar with this medication. However, when I mention morphine, she says she does not want this medication, as it "made me feel like I was dying" (per patient) when she had it in the past. After further discussion, shared decision making resulted in decision to try IV toradol, although she appears more uncomfortable than what I would expect toradol to cover. On reevaluation, she reports mild improvement with toradol but certainly needs something stronger (per patient as well as how she appears). She agrees with trying a low-dose IV dilaudid, and she is given 0.5mg dilaudid IV with good effect. On reevaluation, she is sleeping, easily awoken to voice, and reports feeling significant improvement. She declines further analgesics and is comfortable with d/c home at this time. Rx for oxycodone provided. Return precautions carefully reviewed, and I instructed her to seek follow up with PMD as well as with whomever provided the injections yesterday. Departure - Departure Disposition: Home, Self Care Clinical Impression: Cervical radiculopathy Headache Qualifiers: Headache type: unspecified Headache chronicity pattern: acute headache Intractability: not intractable Qualified Code(s): R51.9 - Headache, unspecified Condition: Good Instructions: ED Cephalgia Unspecified, ED Cervical Radiculopathy Prescriptions: oxyCODONE [Roxicodone] 5 - 10 mg PO Q6H PRN #14 tablet PRN Reason: Pain >8 Comments: There were no concerning findings on tonight's test, including the CT scans of your head and neck. The cause of your symptoms is not apparent at this time, but it does not appear to be due to any concerning/dangerous process. I have electronically submitted a prescription for oxycodone (narcotic/opiate pain medication) to the [facility] pharmacy in [place]. I am prescribing a short course of narcotic pain medication for you. These are potentially dangerous and addictive medications that should be used carefully. These medications may constipate you. Take an cvwz-fyo-caxgqes stool softener (docusate) twice daily with plenty of water while taking these medications. If you go 24 hours without a bowel movement, take jooc-wrj-wznngwo miralax, per package instructions. Do not drink or drive while taking these medications. If you received narcotic or sedating medications while in the emergency department, do not drive for 24 hours. Store this medication in a safe, secure place and out of reach of children. It is a violation of federal law to give or sell this medication to another person or to use in a manner other than prescribed. The ED will not refill narcotic prescriptions, including prescriptions lost or stolen. To dispose of unwanted medications: 1. [facility] at [address] in [place] has a medication drop box. They accept prescription medications (in pill form) Friday through Friday 9:00 a.m. to 5:00 p.m. 2. The [facility] [employer] accepts prescription medications (in pill form only) for disposal year round. Call for more i nformation. 3. Contact the [facility] for the next [facility] sponsored prescription drug collection event. , [phone], or [phone]; Discharge Date/Time: 11/13/22 07:20
[2022-11-13] MEDS ORDERED: diphenhydrAMINE INJ 50 MG/ML VIAL IVP STA (03:36)
[2022-11-13] MEDS ORDERED: KETOROLAC 30 MG/ML VIAL IVP STA (03:37)
[2022-11-13] MEDS ORDERED: ONDANSETRON 4 MG/2 ML VIAL IVP STA (03:37)
[2022-11-13 03:57] LABS: CALCIUM 8.9 mg/dL (8.5-10.3); CREATININE 0.8 mg/dL (0.4-1.0)
[2022-11-13] MEDS ORDERED: HYDROmorphone 1 MG/ML CARPUJECT IVP STA (04:44)
[2022-11-13] MEDS ORDERED: iohexoL-300 100 ML VIAL IVP ONE (04:50)
[2022-11-13] MEDS ORDERED: iohexoL-300 100 ML VIAL ONE (05:02)
[2022-11-13 07:22] VITALS: BP 125/97
--- NOTE | 2022-11-13 08:26 | CT Report ---
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 Afte r the administration of intravenous contrast, 1 mm thick sections acquired through the [place] of [place] is. Postcontrast 4.5 mm thick sections then re-acquired from the foramen magnum to the vertex. 3-di mensional uysykzn-jqtsepmrq-yycfmralfr (MIP) and/or volume rendering reformats were acquired of the c entral intracranial vasculature. For radiation dose reduction, the following was used: automated ex posure control, adjustment of mA and/or kV according to patient size. COMPARISON: CTA neck 11/13/2022, CT head 03/05/2022 FINDINGS: Image quality: Excellent. Anterior circulation: Intracranial internal carotid arteries are normal in size and flow. The flow within the paired anterior cerebral arteries is normal and symmetric. The flow within the middle cer ebral arteries is normal and symmetric. The anterior communicating artery is seen. No aneurysms are seen. Posterior circulation: There is a right vertebral artery dominance. Visualized portions of the verte bral arteries demonstrate normal caliber, and join to form a normal appearing basilar artery. Flow w ithin the posterior cerebral arteries is normal and symmetric. No aneurysms are seen. CSF spaces: Ventricles are normal in size and shape. Basal cisterns are patent. No extra-axial flu id collections. Brain: No midline shift. No intracranial bleeds or masses. Tello-white matter interface appears int act. Skull and face: Calvarium and facial bones appear intact, without suspicious lesions. Sinuses: Visualized sinuses and mastoids are clear. IMPRESSION: 1. No acute intracranial process. 2. No areas of hemodynamically significant stenosis, vascular occlusion or aneurysmal dilation within the anterior circulation. 3. No areas of hemodynamically significant stenosis, vascular occlusion or aneurysmal dilation within the posterior circulation. The above findings are concordant with preliminary report. Reviewed by: Kimberly Mayen MD on 11/13/2022 8:24 AM PDT Approved by: Kimberly Mayen MD on 11/13/2022 8:24 AM PDT Station ID: [id number]
--- NOTE | 2022-11-13 08:27 | CT Report ---
PROCEDURE: ANGIO NECK W INDICATIONS: neck pain, had injection to neck yesterday CONTRAST: Omni 300 80ml TECHNIQUE: After the administration of intravenous contrast, 1.5 mm axial sections acquired from the aortic arch to the [place] of [place]. Coronal 3-D maximum intensity projection (MIP) and/or volume rendering ref ormats were then performed. For radiation dose reduction, the following was used: automated exposur e control, adjustment of mA and/or kV according to patient size. COMPARISON: CTA head 12/13/2022, CTA head 03/05/2022. FINDINGS: Image quality: Excellent. Carotid system: The great vessels demonstrate a conventional anatomy as they arise from the aortic a rch. The origins of the common carotid arteries appear patent. The common carotid arteries demonstr ate normal calibers and courses. The bifurcation regions appear normal bilaterally. The internal ca rotid arteries demonstrate normal caliber and course. Posterior circulation: There is a right vertebral artery dominance. The origins of the vertebral art eries appear patent. The more superior portions of the vertebral arteries demonstrate normal course and caliber. They join to form a normal appearing basilar artery. 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 Soft tissues: Visualized neck soft tissues demonstrate no suspicious abnormalities. The thyroid is normal in size and there are no incidental findings. Bones: No suspicious bony lesions. Visualized cervical spine appears normally aligned. IMPRESSION: There are no areas of hemodynamically significant stenosis, vascular occlusion or aneurysmal dilation within the neck vasculature. The above findings are concordant with preliminary report. The estimate of stenosis included in the report of the imaging study was calculated using the NASCET method CLINICAL RECOMMENDATION STATEMENTS: In patients <35 years with an ITN detected on CT, MRI, or extrathyroidal ultrasound, the Committee re commends further evaluation with dedicated thyroid ultrasound if the nodule is "e1 cm and has no susp icious imaging features, and if the patient has normal life expectancy. In patients "e35 years with an ITN detected on CT, MRI, or extrathyroidal ultrasound, the Committee r ecommends further evaluation with dedicated thyroid ultrasound if the nodule is "e1.5 cm and has no s uspicious imaging features, and if the patient has normal life expectancy. (ACR, 2014) Reviewed by: Kimberly Mayen MD on 11/13/2022 8:26 AM PDT Approved by: Kimberly Mayen MD on 11/13/2022 8:26 AM PDT Station ID: [id number]
== END 2022-11-13 07:20 | disposition home or self-care (01) ==
LOC: EDUNIT# → ED 01:47
DX: M54.12 Radiculopathy, cervical region (principal); R51.9 Headache, unspecified
CPT/HCPCS: 36415; 70496; 70498; 80048; 96374; 96375; 99283; 99284; J1170; J1200; Q9967

== ENCOUNTER 2022-12-13 10:15 | Outpatient (CLI) | payer MEDICAID | END 2022-12-13 10:16 | disposition home or self-care (01) | LOC: NS 10:15 | PROVIDERS: ATTEND Internal Medicine | DX: Z71.3 Dietary counseling and surveillance (principal); E11.9 Type 2 diabetes mellitus without complications; Z79.84 Long term (current) use of oral hypoglycemic drugs | CPT/HCPCS: 97802 ==

== ENCOUNTER 2022-12-14 08:00 | Outpatient (CLI) | payer MEDICAID ==
[2022-12-14 18:44] LABS: BASOPHILS % (AUTO) 0.4 %; EOSINOPHILS % (AUTO) 0.5 %; HCT - HEMATOCRIT 41.5 % (37.0-47.0); HGB - HEMOGLOBIN 13.1 g/dL (12.0-16.0); LYMPHOCYTES % (AUTO) 26.9 %; MEAN CORPUSCULAR HEMOGLOBIN 27.9 pg (27.0-31.0); MEAN CORPUSCULAR HGB CONC 31.6 g/dL (32.0-36.0); MEAN CORPUSCULAR VOLUME 88.5 fL (81.0-99.0); MEAN PLATELET VOLUME 9.4 fL (7.9-10.8); MONOCYTES # (AUTO) 0.5 10^3/uL (0.0-1.0); MONOCYTES % (AUTO) 6.3 %; NEUTROPHILS # (AUTO) 4.9 10^3/uL (1.5-6.6); NEUTROPHILS % (AUTO) 65.8 %; PLT - PLATELET COUNT 244 10^3/uL (130-450); RED BLOOD COUNT 4.69 10^6/uL (4.20-5.40); RED CELL DISTRIBUTION WIDTH 14.2 % (12.0-15.0); WHITE BLOOD COUNT 7.4 x10^3/uL (4.8-10.8)
[2022-12-14 19:01] LABS: ALBUMIN 4.3 g/dL (3.2-5.5); ALBUMIN/GLOBULIN RATIO 1.1 (1.0-2.2); BILIRUBIN,TOTAL 0.6 mg/dL (0.2-1.0); CALCIUM 9.8 mg/dL (8.5-10.3); CREATININE 0.8 mg/dL (0.4-1.0); POTASSIUM 4.2 mmol/L (3.5-5.0); TOTAL PROTEIN 8.1 g/dL (6.7-8.2)
[2022-12-14 19:11] LABS: THYROID STIMULATING HORMONE 0.64 uIU/mL (0.34-5.60)
[2022-12-14 19:13] LABS: FREE T3 3.32 pg/mL (2.5-3.9); FREE T4 (FREE THYROXINE) 0.99 ng/dL (0.58-1.64)
[2022-12-14 20:49] LABS: ESTIMATED AVERAGE GLUCOSE 157 mg/dL (70-100); HEMOGLOBIN A1c% 7.1 % (4.27-6.07)
== END 2022-12-14 23:59 | disposition home or self-care (01) ==
LOC: LAB.N 08:00
PROVIDERS: ATTEND Registered Nurse
DX: E04.1 Nontoxic single thyroid nodule (principal); R22.1 Localized swelling, mass and lump, neck; Z86.39 Personal history of other endocrine, nutritional and metabolic disease; R13.10 Dysphagia, unspecified
CPT/HCPCS: 36415; 80053; 83036; 84439; 84443; 84481; 85025; 86800

== ENCOUNTER 2023-01-01 08:02 | Outpatient (CLI) | payer MEDICAID ==
--- NOTE | 2023-01-01 16:17 | Ultrasound Report ---
LIMITED ULTRASOUND OF LEFT BREAST: 01/01/2023 CLINICAL: Palpable left breast lump. Focal left breast pain. Comparison is made to exams dated: 01/01/2023 mammogram - [facility], 06/10/2022 mammo gram, 11/02/2021 ultrasound, and 10/17/2021 mammogram - [facility]. Color flow ultrasound of the left breast 2 o'clock and 8-11 o'clock regions was performed on the are as of interest. Tello scale images of the real-time examination were reviewed. There is a lymph node in the left breast at 10 o'clock middle depth. This lymph node is hypoechoic w ith fatty hilum. This correlates with mammography findings. Color flow imaging demonstrates that th ere is no vascularity present. IMPRESSION: BENIGN There is no sonographic evidence of malignancy. The lymph node in the left breast is benign. There are no mammographic or sonographic abnormalities seen in the left breast to correspond with the palpable nodularities, however, clinical followup is recommended. Return to annual mammogram screening schedule is recommended. This exam was interpreted at Station ID: [id number]. Electronically Signed By: Africa Burciaga M.D. lk/:01/01/2023 09:51:57 Ultrasound BI-RADS: 2 Benign BI-RADS CATEGORY: (2) - 2 RECOMMENDATION: (ANNUAL) - Recommend routine annual screening mammography. [id number] return to screening LATERALITY: (B)
--- NOTE | 2023-01-01 16:17 | Mammography Report ---
BILATERAL DIGITAL DIAGNOSTIC MAMMOGRAM 3D/2D: 01/01/2023 CLINICAL: Palpable left breast lump. Due for bilateral. Comparison is made to exams dated: 06/10/2022 mammogram and 10/17/2021 mammogram - [facility]. There are scattered areas of fibroglandular density in both breasts (category b / 25%-50% glandular t issue). There is a stable 0.6 cm mass in the left breast central to the nipple middle depth. No other significant masses, calcifications, or other findings are seen in either breast. IMPRESSION: INCOMPLETE: NEEDS ADDITIONAL IMAGING EVALUATION The stable 0.6 cm mass in the left breast is indeterminate. There are no mammographic abnormalities seen in the left breast to correspond with the palpable nodul arities. A targeted ultrasound of the left breast is recommended and will be performed immediately following t his exam. Based on the Tyrer Cuzick model (a risk assessment model) the patients lifetime risk is 7.1% and her 10 year risk is 1.7%. According to the ACR, ACS, and NCCN guidelines, an annual breast MRI exam sav g with mammogram is recommended if the patients lifetime risk is 20% or greater. This exam was interpreted at Station ID: [id number]. NOTE: For mammograms, a report in lay terms will be sent to the patient. Approximately 15% of breast malignancies will not be visualized mammographically. In the management of a palpable breast mass, a negative mammogram must not discourage biopsy of a clinically suspicious lesion. Electronically Signed By: Africa Burciaga M.D. lk/:01/01/2023 09:18:11 ACR BI-RADS Category 0: Incomplete 3340F PARENCHYMAL PATTERN: (A) - The breast(s) demonstrate(s) scattered fibroglandular densities. BI-RADS CATEGORY: (0) - 0 RECOMMENDATION: (ADDMAM) - Recommend additional mammographic views. [id number] Immediate follow-up LATERALITY: (B)
== END 2023-01-01 08:03 | disposition home or self-care (01) ==
LOC: DI 08:02
PROVIDERS: ATTEND Nurse Practitioner
DX: N64.4 Mastodynia (principal); N63.42 Unspecified lump in left breast, subareolar

== ENCOUNTER 2023-01-01 20:05 | Emergency (ER) | payer MEDICAID ==
[2023-01-01] MEDS ORDERED: BUFFERED LIDOCAINE 10 ML SYRINGE SUBQ STA (20:16)
--- NOTE | 2023-01-01 20:16 | ED Physician Documentation ---
History of Present Illness - Stated complaint Stated Complaint: RT TOE PX - Chief complaint Chief Complaint: Ext Problem - History obtained from History obtained from: Patient - Additonal information Additional information: 52-year-old female with history of awg-vwzgbco-pchcrtewh diabetes presents for right great toe pain since 5:00 this afternoon. Patient states that she had her right great toenail removed for a fungal infection, since then her pain has been throbbing and severe. Pain radiates from her toe up her leg. She tried taking home Percocets that were prescribed from a previous ER visit, but she is continuing to complain of pain. 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 : None HEENT: None Psych: Depression, Anxiety Derm: Eczema - Past Surgical History Past Surgical History: Yes HEENT: Other - Present Medications Home Medications: Ambulatory Orders Medication Instructions Recorded Confirmed Albuterol Sulf [Ventolin Hfa 1 - 2 puffs INH Q4HR PRN 08/23/21 12/19/22 Inhaler] EPINEPHrine [Epinephrine] 0.3 mg IJ ONCE PRN 08/23/21 12/19/22 Levetiracetam [Keppra] 500 mg PO BID 08/23/21 12/19/22 Montelukast [Singulair] 10 mg PO QPM 08/23/21 12/19/22 Omeprazole 20 mg PO BID 08/23/21 12/19/22 Rosuvastatin Calcium [Crestor] 5 mg PO QPM 08/23/21 12/19/22 Sertraline HCl 200 mg PO QPM 08/23/21 12/19/22 Spironolactone [Aldactone] 50 mg PO DAILY 08/23/21 12/19/22 Thyroid,Pork [[place] Thyroid] 60 mg PO DAILY 08/23/21 12/19/22 Triamterene/Hydrochlorothiazid 0.5 tab PO DAILY 08/23/21 12/19/22 [Maxzide 37.5 mg-25 mg Tablet] metFORMIN [Glucophage] 500 mg PO BIDWM 10/26/21 12/19/22 Sucralfate [Carafate] 1 gm PO ACHS #60 tablet 01/14/22 12/19/22 Naproxen 500 mg PO BID #20 tab 05/06/22 12/19/22 Benzonatate [Tessalon] 100 mg PO TID PRN #20 cap 10/28/22 12/19/22 Dexlansoprazole [Dexilant] 60 mg PO DAILY 10/28/22 12/19/22 HYDROcod/ACETAM 5/325 [Bunn 5/325] 1 ea PO Q6H PRN #18 tablet 10/28/22 12/19/22 Levalbuterol [Xopenex] 1.25 mg INH Q8H #30 each 10/28/22 12/19/22 Linaclotide [Linzess] 290 mcg ORAL DAILY 10/28/22 12/19/22 dexAMETHasone [Decadron] 4 mg PO DAILY #5 tablet 10/28/22 12/19/22 oxyCODONE [Roxicodone] 5 - 10 mg PO Q6H PRN #14 tablet 11/13/22 12/19/22 dexAMETHasone [Decadron] 4 mg PO DAILY #6 tablet 12/19/22 - Allergies Allergies/Adverse Reactions: Allergies Allergy/AdvReac Type Severity Reaction Status Date / Time Iodinated Contrast Media AdvReac Rash Verified 12/19/22 06:22 morphine AdvReac Unknown Verified 01/01/23 20:09 procaine [From Novocain] AdvReac Unknown Verified 01/01/23 20:10 - Social History Does the pt smoke?: No Smoking Status: Never smoker Does the pt have substance abuse?: No - Immunizations Immunizations are current?: Yes - POLST Patient has POLST: No PD ED PE NORMAL - Vitals Vital signs reviewed: Yes - General General: Alert and oriented X 3, Well developed/nourished, Other (TEARFUL, CRYING) - HEENT HEENT: Atraumatic - Cardiac Cardiac: RRR, Strong equal pulses - Respiratory Respiratory: No respiratory distress, Clear bilaterally - Abdomen Abdomen: Soft, Non tender - Extremities Extremities: No deformity, Normal ROM s pain, Other (R GREAT TOENAIL REMOVED, EXCELLENT HEMOSTASIS, NO SWELLING, GRANULATED TISSUE ON NAILBED. 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, No motor deficit Results - Vitals Vitals: Vital Signs - 24 hr 01/01/23 01/01/23 01/02/23 20:07 23:30 01:13 Temperature 36.5 C Heart Rate 100 80 78 Respiratory 24 20 16 Rate Blood Pressure 153/103 H 130/86 H 123/86 H O2 Saturation 94 100 98 Oxygen O2 Source Room air - Labs Labs: Laboratory Tests 01/01/23 01/01/23 01/01/23 22:37 22:37 22:37 WBC 8.2 RBC 4.34 Hgb 12.4 Hct 37.8 MCV 87.1 MCH 28.6 MCHC 32.8 RDW 13.7 Plt Count 203 MPV 8.6 Neut # (Auto) 4.5 Lymph # (Auto) 3.1 [place] # (Auto) 0.6 Eos # (Auto) 0.0 Baso # (Auto) 0.0 Absolute Nucleated RBC 0.00 Nucleated RBC % 0.0 ESR 17 Sodium 135 Potassium 3.9 Chloride 98 L Carbon Dioxide 27 Anion Gap 10.0 BUN 17 Creatinine 0.8 Estimated GFR (MDRD) 76 L Glucose 133 H Calcium 9.2 Total Bilirubin 0.4 AST 16 ALT 22 Alkaline Phosphatase 52 C-Reactive Protein 0.5 Total Protein 7.4 Albumin 4.0 Globulin 3.4 Albumin/Globulin Ratio 1.2 PD Medical Decision Making - ED course ED course: Right great toe pain after removal of great toenail for fungal infection. Pain is out of proportion to a relatively benign appearing exam, patient screams when I go to remove the bandage, crying even before I was able to touch the bandage. The wound appears to be clean, dry, the nailbed is not bleeding and there is no erythema or swelling to suggest infection. No crepitus. Will perform digital block with buffered lidocaine for pain control and obtain XR imaging. Patient complaining of return and worsening of pain after ambulating barefoot to the bathroom. Patient was advised against walking barefoot by nursing staff. Will give p.o. oxycodone. X-ray report shows possible distal fracture with lucency to suggest osteomyelitis. Swelling also noted, however patient did receive volume of buffered lidocaine for digital block prior to obtaining XR. I discussed case with Dr. Anglin of orthopedic surgery, who stated that in the absence of a preceding ulcer it is extremely unlikely that patient would develop osteomyelitis. Her toenail was only removed 2 hours prior to presentation in ED. Will order laboratory work including sed/crp Patient's laboratory work is unremarkable. Patient has continued to cry of pain in the exam room, repeat exam shows toe is unchanged. SED/CRP normal limits. At this point I do not strongly feel that patient has inection, however due to her continued reports of severe pain will obtain CT imaging of foot. No MRI available at this time. CT shows no evidence of fracture or osteomyelitis. This confirms lab work and clinical picture. Patient continuing to complain of pain, at this time there is no indication for any additional testing or treatment. Daughter informed nursing staff that patient sees a client care specialist in [place]. Patient was counseled that she should follow with her client care specialist. She may take Tylenol and Motrin as needed for pain. Departure - Departure Disposition: 01 Home, Self Care Clinical Impression: Toe pain Condition: Stable Instructions: ED Removal Nail Print Language: Citizen Of The [place] Comments: TYLENOL AND MOTRIN AT HOME FOR PAIN Forms: PCP List
[2023-01-01] MEDS ORDERED: oxyCODONE 5 MG TABLET PO STA (21:42)
--- NOTE | 2023-01-01 21:57 | XRAY Report ---
PROCEDURE: Toe(s) RT INDICATIONS: GREAT TOE PAIN TECHNIQUE: AP view of the right foot and 2 additional views of the great toe acquired. COMPARISON: None. FINDINGS: Bones: There is a mildly displaced fracture within the medial aspect of the first distal phalanx. Ass ociated lucency along the fracture margins with an erosion is suspicious for osteomyelitis. No suspic ious bony lesions. Soft tissues: There is soft tissue swelling of the great toe. IMPRESSION: 1. Lucency and erosive changes within the medial first distal phalanx suspicious for osteomyelitis gi enrique clinical history. 2. Mildly displaced fracture of the first distal phalanx medially suggestive of a pathologic fracture . Reviewed by: Yaw Calvo MD on 01/01/2023 9:56 PM PDT Approved by: Yaw Calvo MD on 01/01/2023 9:56 PM PDT Station ID: [id number]
[2023-01-01 22:43] LABS: BASOPHILS % (AUTO) 0.5 %; EOSINOPHILS % (AUTO) 0.5 %; HCT - HEMATOCRIT 37.8 % (37.0-47.0); HGB - HEMOGLOBIN 12.4 g/dL (12.0-16.0); LYMPHOCYTES # (AUTO) 3.1 10^3/uL (1.5-3.5); LYMPHOCYTES % (AUTO) 37.4 %; MEAN CORPUSCULAR HEMOGLOBIN 28.6 pg (27.0-31.0); MEAN CORPUSCULAR HGB CONC 32.8 g/dL (32.0-36.0); MEAN CORPUSCULAR VOLUME 87.1 fL (81.0-99.0); MEAN PLATELET VOLUME 8.6 fL (7.9-10.8); MONOCYTES # (AUTO) 0.6 10^3/uL (0.0-1.0); MONOCYTES % (AUTO) 6.7 %; NEUTROPHILS # (AUTO) 4.5 10^3/uL (1.5-6.6); NEUTROPHILS % (AUTO) 54.7 %; PLT - PLATELET COUNT 203 10^3/uL (130-450); RED BLOOD COUNT 4.34 10^6/uL (4.20-5.40); RED CELL DISTRIBUTION WIDTH 13.7 % (12.0-15.0); WHITE BLOOD COUNT 8.2 x10^3/uL (4.8-10.8)
[2023-01-01 23:01] LABS: ALBUMIN/GLOBULIN RATIO 1.2 (1.0-2.2); BILIRUBIN,TOTAL 0.4 mg/dL (0.2-1.0); CALCIUM 9.2 mg/dL (8.5-10.3); CREATININE 0.8 mg/dL (0.4-1.0); POTASSIUM 3.9 mmol/L (3.5-5.0); TOTAL PROTEIN 7.4 g/dL (6.7-8.2)
[2023-01-01] MEDS ORDERED: DROPERIDOL 5 MG/2 ML VIAL IVP STA (23:07)
[2023-01-02] MEDS ORDERED: iohexoL-300 100 ML VIAL IVP ONE (01:14)
[2023-01-02 01:17] VITALS: O2SAT 98
[2023-01-02 01:43] LABS: CRP - C-REACTIVE PROTEIN 0.5 mg/dL (<0.5)
[2023-01-02] MEDS ORDERED: KETOROLAC 15 MG/ML VIAL IVP STA (02:16)
--- NOTE | 2023-01-02 02:17 | CT Report ---
PROCEDURE: LOWER EXTREMITY W - RT INDICATIONS: TOE INFECTION/INTRACTABLE PAIN TECHNIQUE: After administration of contrast 3 mm axial sections acquired of the great toe, with coronal and sagi ttal reformats. For radiation dose reduction, the following was used: automated exposure control, a djustment of mA and/or kV according to patient size. CONTRAST: Omni 300 100ml COMPARISON: Prior x-ray from 01/01/2023. FINDINGS: Image quality: Excellent. Bones: No acute fracture or dislocation. Specifically, no discrete fracture of the first distal phal anx identified to correlate with the finding on x-ray. No definite bony erosions or periosteal reacti on. There is mild degeneration at the first metatarsophalangeal joint. Soft tissues: There is irregularity of the nailbed dorsally in the great toe. No soft tissue fluid c ollections to suggest an abscess. The visualized flexor and extensor tendons appear intact. The visua lized musculature appears preserved. IMPRESSION: 1. No definite CT evidence of osteomyelitis or discrete fracture. Findings on prior x-ray were likely artifactual due to overlying densities in the nailbed. Reviewed by: Yaw Calvo MD on 01/02/2023 2:16 AM PDT Approved by: Yaw Calvo MD on 01/02/2023 2:16 AM PDT Station ID: [id number]
[2023-01-02 02:42] VITALS: BP 102/68
== END 2023-01-02 02:41 | disposition home or self-care (01) ==
LOC: ED 20:05
DX: M79.674 Pain in right toe(s) (principal); I10 Essential (primary) hypertension; E78.00 Pure hypercholesterolemia, unspecified; J44.9 Chronic obstructive pulmonary disease, unspecified; E11.9 Type 2 diabetes mellitus without complications; Z79.84 Long term (current) use of oral hypoglycemic drugs
CPT/HCPCS: 36415; 64450; 73660; 73701; 80053; 85025; 85651; 86140; 96374; 96375; 99283; 99284; A9270; Q9967

== ENCOUNTER 2023-01-07 10:00 | Outpatient (CLI) | payer MEDICAID ==
[2023-01-07 12:56] LABS: CALCIUM 9.7 mg/dL (8.5-10.3); CREATININE 0.7 mg/dL (0.6-1.3); POTASSIUM 3.9 mmol/L (3.5-4.5)
== END 2023-01-07 10:15 | disposition home or self-care (01) ==
LOC: LAB.N 10:00
PROVIDERS: ATTEND Physician Assistant Medical
DX: E11.39 Type 2 diabetes mellitus with other diabetic ophthalmic complication (principal)
CPT/HCPCS: 36415; 80048

== ENCOUNTER 2023-02-11 07:19 | Outpatient (CLI) | payer MEDICAID ==
[2023-02-11 07:29] LABS: BASOPHILS % (AUTO) 0.5 %; EOSINOPHILS # (AUTO) 0.1 10^3/uL (0.0-0.7); EOSINOPHILS % (AUTO) 0.7 %; HCT - HEMATOCRIT 41.9 % (37.0-47.0); HGB - HEMOGLOBIN 13.4 g/dL (12.0-16.0); LYMPHOCYTES # (AUTO) 2.3 10^3/uL (1.5-3.5); LYMPHOCYTES % (AUTO) 30.5 %; MEAN CORPUSCULAR HEMOGLOBIN 28.3 pg (27.0-31.0); MEAN CORPUSCULAR VOLUME 88.4 fL (81.0-99.0); MEAN PLATELET VOLUME 8.7 fL (7.9-10.8); MONOCYTES # (AUTO) 0.5 10^3/uL (0.0-1.0); MONOCYTES % (AUTO) 7.3 %; NEUTROPHILS # (AUTO) 4.5 10^3/uL (1.5-6.6); NEUTROPHILS % (AUTO) 60.6 %; PLT - PLATELET COUNT 214 10^3/uL (130-450); RED BLOOD COUNT 4.74 10^6/uL (4.20-5.40); RED CELL DISTRIBUTION WIDTH 13.9 % (12.0-15.0); WHITE BLOOD COUNT 7.4 x10^3/uL (4.8-10.8)
[2023-02-11 07:44] LABS: ALBUMIN 4.5 g/dL (3.2-5.5); ALBUMIN/GLOBULIN RATIO 1.5 (1.0-2.2); ALKALINE PHOSPHATASE 61 IU/L (42-121); ALT ALANINE AMINOTRANSFERASE 17 IU/L (10-60); AMYLASE 59 U/L (28-100); AST ASPARTATE AMINOTRANSFERASE 12 IU/L (10-42); BILIRUBIN,TOTAL 0.4 mg/dL (0.2-1.0); BUN - BLOOD UREA NITROGEN 17 mg/dL (6-20); CALCIUM 9.5 mg/dL (8.5-10.3); CARBON DIOXIDE - CO2 30 mmol/L (21-32); CHLORIDE 102 mmol/L (101-111); CHOL/HDL RATIO 3.6 (<4.4); CHOLESTEROL 193 mg/dL; CREATININE 0.7 mg/dL (0.6-1.3); GFR - MDRD 88 (>89); GLUCOSE 152 mg/dL (74-104); HDL CHOLESTEROL 53 mg/dL; LDL CHOLESTEROL,CALCULATED 114 mg/dL; LDL/HDL RATIO 2.2 (<4.4); LIPASE 104 U/L (11-82); POTASSIUM 4.3 mmol/L (3.5-4.5); SODIUM 136 mmol/L (135-145); TOTAL PROTEIN 7.5 g/dL (6.4-8.9); TRIGLYCERIDES 129 mg/dL (48-352); VLDL CHOLESTEROL 26 mg/dL
--- NOTE | 2023-02-11 15:08 | Ultrasound Report ---
PROCEDURE: Abdomen Complete INDICATIONS: NAUSEA, ABD PAIN TECHNIQUE: Real-time scanning was performed of the abdominal and retroperitoneal organs, with image documentatio n. COMPARISON: CT abdomen pelvis 10/03/2022 FINDINGS: Liver: Liver is normal in size and increased in echotexture. Gallbladder: Nonmobile echogenic foci are identified. Wall thickness measures 2 mm. Biliary ducts: Intrahepatic bile ducts are non-dilated. Extrahepatic bile duct caliber measures 3.5 mm. Normal is 6-7 mm or less in diameter, or 10 mm or less post-cholecystectomy. Pancreas: Visualized portions of the pancreas are sonographically normal. Spleen: Spleen is normal in size and homogeneous in echotexture. Kidneys: Kidneys are normal in size and echotexture. Right kidney measures 10.1 cm long; left kidne y measures 11.1 cm long. No hydronephrosis or nephrolithiasis. No solid masses. No complex renal cy stic lesions which require follow-up. Aorta: Visualized aorta is normal in caliber at less than 3 cm. Iliacs: Proximal common iliac arteries are normal in caliber at less than 2.5 cm. IVC: Intrahepatic inferior vena cava is patent. Miscellaneous: No free abdominal fluid. IMPRESSION: Nonmobile foci of echogenicity within the gallbladder suggestive of polyps. Hepatic steatosis. Reviewed by: Kimberly Mayen MD on 02/11/2023 3:07 PM PDT Approved by: Kimberly Mayen MD on 02/11/2023 3:07 PM PDT Station ID: [id number]
== END 2023-02-11 07:20 | disposition home or self-care (01) ==
LOC: DI 07:19
PROVIDERS: ATTEND Nurse Practitioner Family
DX: Z80.0 Family history of malignant neoplasm of digestive organs (principal); R11.0 Nausea; R10.10 Upper abdominal pain, unspecified; E11.39 Type 2 diabetes mellitus with other diabetic ophthalmic complication; R94.8 Abnormal results of function studies of other organs and systems; K76.0 Fatty (change of) liver, not elsewhere classified
CPT/HCPCS: 36415; 80053; 80061; 82150; 83690; 83721; 85025

== ENCOUNTER 2023-03-14 08:31 | Outpatient (CLI) | payer MEDICAID ==
[2023-03-14 08:46] LABS: HCT - HEMATOCRIT 37.8 % (37.0-47.0); HGB - HEMOGLOBIN 12.4 g/dL (12.0-16.0); MEAN CORPUSCULAR HEMOGLOBIN 28.4 pg (27.0-31.0); MEAN CORPUSCULAR HGB CONC 32.8 g/dL (32.0-36.0); MEAN CORPUSCULAR VOLUME 86.5 fL (81.0-99.0); MEAN PLATELET VOLUME 8.6 fL (7.9-10.8); RED BLOOD COUNT 4.37 10^6/uL (4.20-5.40); RED CELL DISTRIBUTION WIDTH 13.5 % (12.0-15.0); WHITE BLOOD COUNT 9.3 x10^3/uL (4.8-10.8)
[2023-03-14 09:15] LABS: ALBUMIN 4.2 g/dL (3.2-5.5); ALBUMIN/GLOBULIN RATIO 1.4 (1.0-2.2); BILIRUBIN,TOTAL 0.3 mg/dL (0.2-1.0); CALCIUM 9.3 mg/dL (8.5-10.3); CREATININE 0.7 mg/dL (0.6-1.3); POTASSIUM 4.1 mmol/L (3.5-4.5); TOTAL PROTEIN 7.2 g/dL (6.4-8.9)
[2023-03-14 13:44] LABS: ESTIMATED AVERAGE GLUCOSE 157 mg/dL (70-100); HEMOGLOBIN A1c% 7.1 % (4.27-6.07)
== END 2023-03-14 08:32 | disposition home or self-care (01) ==
LOC: LAB 08:31
PROVIDERS: ATTEND Nurse Practitioner
DX: E11.39 Type 2 diabetes mellitus with other diabetic ophthalmic complication (principal)
CPT/HCPCS: 36415; 80053; 83036; 83690; 85027

== ENCOUNTER 2023-04-15 08:00 | Outpatient (CLI) | payer MEDICAID ==
--- NOTE | 2023-04-15 17:19 | XRAY Report ---
PROCEDURE: Hip 2 View LT INDICATIONS: LEFT HIP PAIN TECHNIQUE: 2 views of the hip were acquired. COMPARISON: None. FINDINGS: Bones: No fractures or dislocations. No evidence of avascular necrosis of femoral head. No suspicio us bony lesions. Soft tissues: No suspicious soft tissue calcifications or masses. IMPRESSION: No left hip fracture or dislocation. No evidence of avascular necrosis. Reviewed by: Dakota Clay MD on 04/15/2023 5:17 PM PST Approved by: Dakota Clay MD on 04/15/2023 5:17 PM PST Station ID: [id number]
--- NOTE | 2023-04-15 19:18 | XRAY Report ---
PROCEDURE: Knee 4 View BILAT INDICATIONS: BILAT KNEE PAIN TECHNIQUE: views of the knee(s) were acquired. COMPARISON: None. FINDINGS: Bones: No fractures or dislocations. No suspicious bony lesions. Minimal bilateral medial femorot ibial compartment joint space narrowing on weightbearing views. Soft tissues: No knee joint effusion. No suspicious soft tissue calcifications or masses. IMPRESSION: No acute bony abnormality. Minimal bilateral medial femorotibial compartment joint space narrowing. Reviewed by: Campos Nowak MD on 04/15/2023 7:17 PM PST Approved by: Campos Nowak MD on 04/15/2023 7:17 PM PST Station ID: [id number]
== END 2023-04-15 23:59 | disposition home or self-care (01) ==
LOC: DI.WOS 08:00
PROVIDERS: ATTEND Orthopaedic Surgery
DX: M25.552 Pain in left hip (principal); M17.0 Bilateral primary osteoarthritis of knee

== ENCOUNTER 2023-04-17 08:45 | Outpatient (CLI) | payer MEDICAID ==
[2023-04-17 11:37] LABS: BASOPHILS % (AUTO) 0.6 %; EOSINOPHILS # (AUTO) 0.1 10^3/uL (0.0-0.7); EOSINOPHILS % (AUTO) 0.9 %; LYMPHOCYTES # (AUTO) 1.8 10^3/uL (1.5-3.5); LYMPHOCYTES % (AUTO) 28.5 %; MEAN CORPUSCULAR HEMOGLOBIN 29.3 pg (27.0-31.0); MEAN CORPUSCULAR HGB CONC 33.3 g/dL (32.0-36.0); MEAN CORPUSCULAR VOLUME 87.8 fL (81.0-99.0); MEAN PLATELET VOLUME 9.1 fL (7.9-10.8); MONOCYTES # (AUTO) 0.5 10^3/uL (0.0-1.0); MONOCYTES % (AUTO) 7.1 %; NEUTROPHILS % (AUTO) 62.7 %; PLT - PLATELET COUNT 221 10^3/uL (130-450); RED BLOOD COUNT 4.44 10^6/uL (4.20-5.40); RED CELL DISTRIBUTION WIDTH 13.8 % (12.0-15.0); WHITE BLOOD COUNT 6.3 x10^3/uL (4.8-10.8)
[2023-04-17 12:14] LABS: ALBUMIN 4.3 g/dL (3.2-5.5); ALBUMIN/GLOBULIN RATIO 1.5 (1.0-2.2); BILIRUBIN,TOTAL 0.3 mg/dL (0.2-1.0); CALCIUM 9.3 mg/dL (8.5-10.3); CREATININE 0.7 mg/dL (0.6-1.3); TOTAL PROTEIN 7.1 g/dL (6.4-8.9)
== END 2023-04-17 09:00 | disposition home or self-care (01) ==
LOC: LAB.N 08:45
PROVIDERS: ATTEND Physician Assistant Medical
DX: R10.12 Left upper quadrant pain (principal)
CPT/HCPCS: 36415; 80053; 83690; 85025

== ENCOUNTER 2023-04-18 10:11 | Emergency (ER) | payer MEDICAID ==
[2023-04-18 10:31] VITALS: O2SAT 98
[2023-04-18 10:50] LABS: BASOPHILS % (AUTO) 0.5 %; EOSINOPHILS % (AUTO) 0.7 %; HCT - HEMATOCRIT 40.8 % (37.0-47.0); HGB - HEMOGLOBIN 13.1 g/dL (12.0-16.0); LYMPHOCYTES # (AUTO) 1.7 10^3/uL (1.5-3.5); LYMPHOCYTES % (AUTO) 29.2 %; MEAN CORPUSCULAR HEMOGLOBIN 28.2 pg (27.0-31.0); MEAN CORPUSCULAR HGB CONC 32.1 g/dL (32.0-36.0); MEAN CORPUSCULAR VOLUME 87.7 fL (81.0-99.0); MEAN PLATELET VOLUME 8.6 fL (7.9-10.8); MONOCYTES # (AUTO) 0.4 10^3/uL (0.0-1.0); MONOCYTES % (AUTO) 6.8 %; NEUTROPHILS # (AUTO) 3.6 10^3/uL (1.5-6.6); NEUTROPHILS % (AUTO) 62.5 %; PLT - PLATELET COUNT 197 10^3/uL (130-450); RED BLOOD COUNT 4.65 10^6/uL (4.20-5.40); RED CELL DISTRIBUTION WIDTH 13.9 % (12.0-15.0); WHITE BLOOD COUNT 5.8 x10^3/uL (4.8-10.8)
--- NOTE | 2023-04-18 11:07 | ED Physician Documentation ---
PD HPI ABD PAIN - Stated complaint Stated Complaint: ABD PX - Chief complaint Chief Complaint: Abd Pain - History obtained from History obtained from: Patient, Family (her daughter was on facetime to assist with history, adding input of info.) - History of Present Illness Timing - onset: How many days ago (5) Timing - duration: Days (5) Timing - details: Gradual onset, Still present, Waxing and waning Quality: Cramping, Aching, Pain Location: RUQ, Epigastric Improved by: No: Eating, Meds (takes PPI care home. Had not tried other meds for this.) Worsened by: Eating Associated symptoms: Nausea. No: Fever, Vomiting, Diarrhea, Melena Similar symptoms before: No diagnosis (has had intermittent upper abd pains for year or more. No formal Dx. Has had blood tests showing mild elevated lipase for past year (60ish range) with increase to 90-104 in the past 2 months and 233 drawn 3 days ago when seen at Walk In. No Dx. Pt states no workup of it previously (U/S nor CT).) Recently seen: Clinic ([facility] clinic 3 days ago.) Review of Systems Constitutional: denies: Fever, Chills, Myalgias Cardiac: denies: Chest pain / pressure, Palpitations, Pedal edema, Calf pain Respiratory: denies: Cough GI: reports: Abdominal Pain, Nausea. denies: Abdominal Swelling, Vomiting, Diarrhea, Bloody / black stool Skin: denies: Rash Neurologic: denies: Generalized weakness, Near syncope PD PAST MEDICAL HISTORY - Past Medical History Cardiovascular: High cholesterol, Hypertension Respiratory: Asthma, COPD Neuro: Migraines, Seizure disorder Endocrine/Autoimmune: Type 2 diabetes GI: Diverticulitis, GERD SHAREMILKER: None : None HEENT: None Psych: Depression, Anxiety Derm: Eczema - Past Surgical History Past Surgical History: Yes HEENT: Other - Present Medications Home Medications: Ambulatory Orders Medication Instructions Recorded Confirmed Albuterol Sulf [Ventolin Hfa 1 - 2 puffs INH Q4HR PRN 08/23/21 12/19/22 Inhaler] EPINEPHrine [Epinephrine] 0.3 mg IJ ONCE PRN 08/23/21 12/19/22 Levetiracetam [Keppra] 500 mg PO BID 08/23/21 12/19/22 Montelukast [Singulair] 10 mg PO QPM 08/23/21 12/19/22 Omeprazole 20 mg PO BID 08/23/21 12/19/22 Rosuvastatin Calcium [Crestor] 5 mg PO QPM 08/23/21 12/19/22 Sertraline HCl 200 mg PO QPM 08/23/21 12/19/22 Spironolactone [Aldactone] 50 mg PO DAILY 08/23/21 12/19/22 Thyroid,Pork [[place] Thyroid] 60 mg PO DAILY 08/23/21 12/19/22 Triamterene/Hydrochlorothiazid 0.5 tab PO DAILY 08/23/21 12/19/22 [Maxzide 37.5 mg-25 mg Tablet] metFORMIN [Glucophage] 500 mg PO BIDWM 10/26/21 12/19/22 Sucralfate [Carafate] 1 gm PO ACHS #60 tablet 01/14/22 12/19/22 Naproxen 500 mg PO BID #20 tab 05/06/22 12/19/22 Benzonatate [Tessalon] 100 mg PO TID PRN #20 cap 10/28/22 12/19/22 Dexlansoprazole [Dexilant] 60 mg PO DAILY 10/28/22 12/19/22 HYDROcod/ACETAM 5/325 [[place] 5/325] 1 ea PO Q6H PRN #18 tablet 10/28/22 12/19/22 Levalbuterol [Xopenex] 1.25 mg INH Q8H #30 each 10/28/22 12/19/22 Linaclotide [Linzess] 290 mcg ORAL DAILY 10/28/22 12/19/22 dexAMETHasone [Decadron] 4 mg PO DAILY #5 tablet 10/28/22 12/19/22 oxyCODONE [Roxicodone] 5 - 10 mg PO Q6H PRN #14 tablet 11/13/22 12/19/22 dexAMETHasone [Decadron] 4 mg PO DAILY #6 tablet 12/19/22 Sucralfate [Carafate] 1 gm PO ACHS 10 Days #400 ml 04/18/23 - Allergies Allergies/Adverse Reactions: Allergies Allergy/AdvReac Type Severity Reaction Status Date / Time Iodinated Contrast Media AdvReac Rash Verified 12/19/22 06:22 morphine AdvReac Unknown Verified 01/01/23 20:09 procaine [From Novocain] AdvReac Unknown Verified 01/01/23 20:10 - Social History Does the pt smoke?: No Smoking Status: Never smoker Does the pt have substance abuse?: No - Immunizations Immunizations are current?: Yes - POLST Patient has POLST: No PD ED PE NORMAL - Vitals Vital signs reviewed: Yes - General General: Alert and oriented X 3, No acute distress, Well developed/nourished - HEENT HEENT: Pharynx benign - Neck Neck: Supple, no meningeal sign, No adenopathy - Cardiac Cardiac: RRR, No murmur - Respiratory Respiratory: No respiratory distress, Clear bilaterally - Abdomen Abdomen: Normal bowel sounds, Soft, Non distended, No organomegaly, Other (tender mainly epigastric area with some local guarding but no rebound nor percussion tenderness. Lower abd not tender. ) - Rectal Rectal: Deferred - Back Back: No CVA TTP - Derm Derm: Normal color, Warm and dry - Extremities Extremities: No edema, No calf tenderness / cord - Neuro Neuro: Alert and oriented X 3, No motor deficit, No sensory deficit, Normal speech Results - Vitals Vitals: Vital Signs - 24 hr 04/18/23 04/18/23 10:26 16:54 Temperature 36.2 C L Heart Rate 84 79 Respiratory 16 18 Rate Blood Pressure 128/86 H 158/93 H O2 Saturation 98 98 Oxygen O2 Source Room air - Labs Labs: Laboratory Tests 04/18/23 04/18/23 04/18/23 10:47 10:47 11:58 WBC 5.8 RBC 4.65 Hgb 13.1 Hct 40.8 MCV 87.7 MCH 28.2 MCHC 32.1 RDW 13.9 Plt Count 197 MPV 8.6 Neut # (Auto) 3.6 Lymph # (Auto) 1.7 Nance # (Auto) 0.4 Eos # (Auto) 0.0 Baso # (Auto) 0.0 Absolute Nucleated RBC 0.00 Nucleated RBC % 0.0 Sodium 137 Potassium 3.8 Chloride 100 L Carbon Dioxide 30 Anion Gap 7.0 BUN 14 Creatinine 0.8 Estimated GFR (MDRD) 76 L Glucose 196 H Calcium 9.5 Total Bilirubin 0.4 AST 12 ALT 17 Alkaline Phosphatase 61 Total Protein 7.5 Albumin 4.7 Globulin 2.8 Albumin/Globulin Ratio 1.7 Lipase 62 Urine Color YELLOW Urine Clarity CLEAR Urine pH 6.0 Ur Specific Broad Top 1.010 Urine Protein NEGATIVE Urine Glucose (UA) NEGATIVE Urine Ketones NEGATIVE Urine Occult Blood NEGATIVE Urine Nitrite NEGATIVE Urine Bilirubin NEGATIVE Urine Urobilinogen 0.2 (NORMAL) Ur Leukocyte Esterase SMALL H Urine RBC 0-5 Urine WBC 4-5 Ur Squamous Epith Cells MANY Squamous H Urine Bacteria Few Urine Mucus Marked Strands Ur Microscopic Review INDICATED Urine Culture Comments NOT INDICATED - Rads (name of study) abd upper US Relevant Findings:: Prelim report reviewed, Other (from US tech: some fatty liver, normal GB and nondilated cbd. GB wall polyps unchanged.) Abd/pelvic CT Relevant Findings:: Prelim report reviewed (no acute abnormalities in abd/pelvis. fatty liver (diffuse decreased attenuation) without focal mass lesion. Pancreas normal. ), EMP independent interpretation of test PD Medical Decision Making - ED course Complexity details: considered differential (upper abd pain with recent elevated lipase. No alcohol use. Canc heck US to eval for biliary cause. Also consider medication related. ), d/w patient, d/w family (her daughter was on phone facetime when I gave summation of labs and test results, thought process. ) Reviewed Lab Results: Her lipase is normal today. US done to evaluate for potential biliary cause. GB normal and no gallstones. CBD normal. On labs, the alk phos and LFTs are normal as well, so less likely a transient CBD obstruction. With the US appearing too normal, I then considered potential other causes for the pancreatic enzyme elevation, such as tumor/masses. Opted for CT to suppplement the US. Shared decision with patient to do this before ordering and she was in agreement. Her pain is still present despite improved lipase and normal pancreas on CT. Consider other cuases such as gastritis,ulcer. She is on PPI already buttermaker continuous churn. Can add carafate. I evaluated her med list and referenced on [employer] and the only med to clearly related to pancreatitis as adverse effect was her statin. Can have her stop it. This might be leading to longer term elevated lipase and her intermittent pains. However, also consider gastritis/ulcer. Her PCP may consider stool testing for H Pylori (she did not have to have BM here). Drug Therapy Requiring Monitoring for Toxicity: the patient was given toradol, Zofran, and Dilaudid IV along with fluids with good improvement in her pain. Departure - Departure Disposition: 01 Home, Self Care Clinical Impression: Acute upper abdominal pain, Pancreatitis, Gastritis Condition: Stable Record reviewed to determine appropriate education?: Yes Instructions: ED Epigastric Pain UKO Prescriptions: Sucralfate [Carafate] 1 gm PO ACHS 10 Days #400 ml Comments: I looked up your medications and the main 1 associated with pancreatic inflammation was your cholesterol medicine, rosuvastatin. Stop that medication. Your other medicines were not associated with pancreatic inflammation according to the reference I looked up. Your pancreatic marker in the blood test (lipase) was elevated on the test a few days ago but was normal today. It has been elevated at times in the past without obvious good reason. We did do a CT scan and an ultrasound and there is no signs of gallstones or gallbladder/common bile duct problems. Your liver enzymes are normal. I therefore assume at this point that it is related to a side effect of one of your medicines. I would have you stop your cholesterol medicine. It is okay to continue your other ones at this point. However I do not know if you are upper abdominal pain is entirely caused by pancreatic inflammation. Your pancreas appeared normal on the CT scan though it can have some pain to it with mild inflammation even if it appears normal. The same is true of the stomach lining that it can appear normal on scanning yet still be irritated. I would treat you with some further medication to coat the stomach lining over the next 7 to 10 days and see if that helps with your symptoms. Liquids only for this evening and increase to bland food and such tomorrow and then regular diet after that if you are doing okay with eating. Tylenol 500-650 mg every 6 hours if needed for pain. I sent a prescription to your preferred pharmacy. Follow-up with your primary care or walk in in the next week or so if not fully improved, call for an appointment. Return to the ER if worsening. Forms: PCP List Discharge Date/Time: 04/18/23 17:01
[2023-04-18 11:16] LABS: ALBUMIN 4.7 g/dL (3.2-5.5); ALBUMIN/GLOBULIN RATIO 1.7 (1.0-2.2); BILIRUBIN,TOTAL 0.4 mg/dL (0.2-1.0); CALCIUM 9.5 mg/dL (8.5-10.3); CREATININE 0.8 mg/dL (0.6-1.3); POTASSIUM 3.8 mmol/L (3.5-4.5); TOTAL PROTEIN 7.5 g/dL (6.4-8.9)
[2023-04-18] MEDS: KETOROLAC 15 MG/ML VIAL IVP STA (11:50)
[2023-04-18] MEDS: ONDANSETRON 4 MG/2 ML VIAL IVP STA (11:50)
[2023-04-18] MEDS: SODIUM CHLORIDE 0.9% 1,000 ML IV STA (11:50)
[2023-04-18 12:09] LABS: BILIRUBIN,URINE NEGATIVE (NEGATIVE); GLUCOSE, URINE (UA) NEGATIVE (NEGATIVE); KETONES,URINE (UA) NEGATIVE (NEGATIVE); LEUKOCYTE ESTERASE, URINE SMALL (NEGATIVE); NITRITE,URINE NEGATIVE (NEGATIVE); OCCULT BLOOD,URINE NEGATIVE (NEGATIVE); PROTEIN,URINE NEGATIVE (NEGATIVE); UROBILINOGEN,URINE 0.2 (NORMAL) E.U./dL (NORMAL)
[2023-04-18 12:11] LABS: CLARITY,URINE CLEAR (CLEAR)
[2023-04-18 12:19] LABS: BACTERIA,URINE Few /HPF (None Seen); MUCUS,URINE Marked Strands; RBC,URINE 0-5 /HPF (0-5); SQUAMOUS EPITHELIAL CELL,UR MANY Squamous (<= Few)
[2023-04-18] MEDS: HYDROmorphone 1 MG/ML CARPUJECT IVP STA (13:41)
--- NOTE | 2023-04-18 15:48 | CT Report ---
PROCEDURE: CT of abdomen and pelvis with contrast INDICATIONS: upper abd pain TECHNIQUE: Helical axial CT of the abdomen and pelvis was obtained after intravenous contrast adminis tration and reformatted in multiple planes. Radiation dose reduction was achieved using automated exp osure control or adjustment of mA and/or kV according to patient size. COMPARISON: 01/02/2023 FINDINGS: Lower thorax: The lung bases are clear. Heart size normal. No hiatal hernia. Liver: Hepatic parenchyma is diffusely decreased in attenuation without focal mass lesion. Biliary system: No calcified cholelithiasis or pericholecystic inflammation. No evidence of bile du ct dilatation. Pancreas: Unremarkable without mass or inflammation evident. Spleen: Normal in size and density. Adrenals: Normal morphology and density. Reproductive system: Hysterectomy Urinary system: Normal renal size and attenuation. No renal calculi, hydronephrosis, or solid mass p resent. Urinary bladder unremarkable. Gastrointestinal system: The bowel appears unremarkable with no evidence of bowel obstruction or inf lammation. The stomach appears unremarkable. Multiple diverticula arise from the sigmoid colon witho ut evidence of diverticulitis. Appendix: No findings to suggest acute appendicitis. Peritoneal spaces: No mesenteric or retroperitoneal adenopathy. No free air. No free fluid. Vasculature: The IVC, aorta and iliac vasculature are unremarkable. Abdominal wall: Abdominal wall is intact without evidence of ventral or inguinal hernias. Musculoskeletal: Degenerative disc disease and arthropathy in lower lumbar spine results in severe c entral stenosis L4-5 IMPRESSION: No acute CT findings in the abdomen and pelvis. Hepatic fatty infiltration of focal mass lesion. Sigmoid diverticulosis without diverticulitis. 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
--- NOTE | 2023-04-18 16:31 | Ultrasound Report ---
PROCEDURE: Abdomen Limited INDICATIONS: RUQ pain TECHNIQUE: Ultrasound of the abdominal right upper quadrant was obtained with image documentation. COMPARISONS: None. FINDINGS: Liver: Hepatic parenchyma is diffusely decreased in attenuation without focal mass lesion. Gallbladder: Sonolucent without cholelithiasis. No gallbladder wall thickening. No pericholecystic fluid or Ramirez's sign. Several small gallbladder wall polyps, stable Common Bile Duct: 2.9 mm. Pancreas: Unremarkable as visualized. Right Kidney: Appropriate in size and echotexture. No evidence of hydronephrosis. No shadowing calc venessa. No solid or cystic mass lesion. IMPRESSION: No acute findings. Stable gallbladder wall polyps Hepatic fatty infiltration Reviewed by: Dung Howard MD on 04/18/2023 3:30 PM AKST Approved by: Dung Howard MD on 04/18/2023 3:30 PM AKST Station ID: [id number]
[2023-04-18] MEDS: SUCRALFATE 1 GM/10 ML UDC PO STA (16:47)
[2023-04-18 17:02] VITALS: BP 158/93
[2023-04-18] MEDS: iohexoL-300 100 ML VIAL IVP ONE (17:04)
== END 2023-04-18 17:01 | disposition home or self-care (01) ==
LOC: ED 10:11
DX: K85.90 Acute pancreatitis without necrosis or infection, unspecified (principal); K29.70 Gastritis, unspecified, without bleeding; I10 Essential (primary) hypertension; E78.00 Pure hypercholesterolemia, unspecified; J44.9 Chronic obstructive pulmonary disease, unspecified; E11.9 Type 2 diabetes mellitus without complications; G40.909 Epilepsy, unspecified, not intractable, without status epilepticus; Z79.899 Other long term (current) drug therapy; Z79.84 Long term (current) use of oral hypoglycemic drugs
CPT/HCPCS: 36415; 80053; 81001; 81003; 83690; 85025; 87086; 96374; 96375; 99284

== ENCOUNTER 2023-04-23 07:00 | Outpatient (CLI) | payer MEDICAID ==
[2023-04-23 10:36] LABS: BILIRUBIN,URINE NEGATIVE (NEGATIVE); GLUCOSE, URINE (UA) NEGATIVE (NEGATIVE); KETONES,URINE (UA) NEGATIVE (NEGATIVE); LEUKOCYTE ESTERASE, URINE SMALL (NEGATIVE); NITRITE,URINE NEGATIVE (NEGATIVE); OCCULT BLOOD,URINE TRACE-INTA (NEGATIVE); PROTEIN,URINE NEGATIVE (NEGATIVE); UROBILINOGEN,URINE 0.2 (NORMAL) E.U./dL (NORMAL)
[2023-04-23 10:48] LABS: BACTERIA,URINE Rare /HPF (None Seen); CLARITY,URINE CLEAR (CLEAR); RBC,URINE 0-5 /HPF (0-5); SQUAMOUS EPITHELIAL CELL,UR FEW Squamous (<= Few); YEAST,URINE PRESENT
== END 2023-04-23 23:59 | disposition home or self-care (01) ==
LOC: LAB.S 07:00
PROVIDERS: ATTEND Urology
DX: R39.14 Feeling of incomplete bladder emptying (principal)
CPT/HCPCS: 81001; 81003; 87086

== ENCOUNTER 2023-04-23 10:57 | Outpatient (CLI) | payer MEDICAID ==
[2023-04-23 11:21] LABS: CALCIUM 9.7 mg/dL (8.5-10.3); CREATININE 0.7 mg/dL (0.6-1.3); POTASSIUM 4.1 mmol/L (3.5-4.5)
== END 2023-04-23 10:58 | disposition home or self-care (01) ==
LOC: LAB 10:57
PROVIDERS: ATTEND Urology
DX: R34 Anuria and oliguria (principal); R39.14 Feeling of incomplete bladder emptying
CPT/HCPCS: 36415; 80048; 81001; 87086

== ENCOUNTER 2023-06-30 10:15 | Outpatient (CLI) | payer MEDICAID ==
[2023-06-30 17:58] LABS: BASOPHILS % (AUTO) 0.6 %; EOSINOPHILS # (AUTO) 0.1 10^3/uL (0.0-0.7); EOSINOPHILS % (AUTO) 0.9 %; HCT - HEMATOCRIT 39.4 % (37.0-47.0); HGB - HEMOGLOBIN 12.6 g/dL (12.0-16.0); LYMPHOCYTES # (AUTO) 1.7 10^3/uL (1.5-3.5); LYMPHOCYTES % (AUTO) 26.4 %; MEAN CORPUSCULAR HEMOGLOBIN 28.3 pg (27.0-31.0); MEAN CORPUSCULAR VOLUME 88.5 fL (81.0-99.0); MEAN PLATELET VOLUME 9.1 fL (7.9-10.8); MONOCYTES # (AUTO) 0.5 10^3/uL (0.0-1.0); NEUTROPHILS # (AUTO) 4.2 10^3/uL (1.5-6.6); NEUTROPHILS % (AUTO) 63.8 %; PLT - PLATELET COUNT 227 10^3/uL (130-450); RED BLOOD COUNT 4.45 10^6/uL (4.20-5.40); RED CELL DISTRIBUTION WIDTH 13.5 % (12.0-15.0); WHITE BLOOD COUNT 6.5 x10^3/uL (4.8-10.8)
[2023-06-30 18:53] LABS: ALBUMIN 4.3 g/dL (3.2-5.5); ALBUMIN/GLOBULIN RATIO 1.3 (1.0-2.2); BILIRUBIN,TOTAL 0.4 mg/dL (0.2-1.0); CALCIUM 9.6 mg/dL (8.5-10.3); CREATININE 0.6 mg/dL (0.6-1.3); POTASSIUM 4.2 mmol/L (3.5-4.5); TOTAL PROTEIN 7.6 g/dL (6.4-8.9)
[2023-06-30 20:44] LABS: ESTIMATED AVERAGE GLUCOSE 151 mg/dL (70-100); HEMOGLOBIN A1c% 6.9 % (4.27-6.07)
== END 2023-06-30 10:30 | disposition home or self-care (01) ==
LOC: LAB.N 10:15
PROVIDERS: ATTEND Physician Assistant Medical
DX: R10.13 Epigastric pain (principal)
CPT/HCPCS: 36415; 80053; 82150; 83036; 83690; 85025; 87086

== ENCOUNTER 2023-07-11 11:37 | Outpatient (CLI) | payer MEDICAID ==
[2023-07-11] MEDS ORDERED: iohexoL-300 100 ML VIAL ONE (11:43)
[2023-07-11] MEDS ORDERED: DIATRIZOATE MEGLU/DIATRIZO SOD 30 ML BOTTLE PO ONE (11:43)
--- NOTE | 2023-07-12 11:03 | CT Report ---
PROCEDURE: Abdomen/Pelvis W INDICATIONS: EPIGASTRIC PAIN CONTRAST: 100ml omni 300 TECHNIQUE: After the administration of intravenous contrast, a CT scan of the abdomen and pelvis was performed. Images were recorded and evaluated at appropriate window settings. Reformats: coronal and sagittal. F or radiation dose reduction, the following was used: automated exposure control, adjustment of mA and /or kV according to patient size. COMPARISON: CT abdomen and pelvis, 04/18/2023. FINDINGS: Image quality: Diagnostic. Lower chest: There are subpleural scarring and atelectasis in right middle lobe, lingula and lower lo bes bilaterally. Liver: Normal size. Mild hepatic steatosis. No solid mass. Gallbladder and biliary tree: Normal gallbladder. No biliary dilation. Spleen: No splenomegaly. Pancreas: No pancreatic ductal dilation. Adrenals: No adrenal nodule. Kidneys and ureters: No hydronephrosis. No renal cystic lesion which requires follow up. No solid mas s. Stomach, bowel and peritoneum: No bowel distension. No pathologic free fluid. There are scattered col onic diverticula. No acute diverticulitis. Lymph nodes: No central or retroperitoneal adenopathy. Vessels: No infrarenal aortic aneurysm. PELVIS Reproductive organs: Unremarkable. Bladder: No abnormal wall thickening, accounting for underdistention. Pelvic lymph nodes: No pelvic adenopathy by size criteria. Bones: No aggressive osseous abnormality. There is a densely sclerotic lesion in L1 vertebral body, m ost likely a bone island. Severe spondylitic changes at L4-L5 with [id number] central canal s tenosis. Other: No significant ventral or inguinal hernia. IMPRESSION: 1. No acute abnormalities in abdomen or pelvis. 2. Hepatic steatosis. 3. Mild diverticulosis. No diverticulitis. 4. Severe spondylitic changes at L4-L5, causing [id number] central canal stenosis. Reviewed by: Sveta York MD on 07/12/2023 11:01 AM PST Approved by: Sveta York MD on 07/12/2023 11:01 AM PST Station ID: [id number]
== END 2023-07-11 11:38 | disposition home or self-care (01) ==
LOC: DI 11:37
PROVIDERS: ATTEND Physician Assistant Medical
DX: R10.13 Epigastric pain (principal); K76.0 Fatty (change of) liver, not elsewhere classified; K57.30 Diverticulosis of large intestine without perforation or abscess without bleeding; M47.816 Spondylosis without myelopathy or radiculopathy, lumbar region; M48.061 Spinal stenosis, lumbar region without neurogenic claudication
CPT/HCPCS: 74177; Q9963; Q9967

== ENCOUNTER 2023-08-12 11:00 | Outpatient (CLI) | payer MEDICAID ==
[2023-08-12 17:53] LABS: BASOPHILS % (AUTO) 0.6 %; EOSINOPHILS # (AUTO) 0.1 10^3/uL (0.0-0.7); EOSINOPHILS % (AUTO) 0.9 %; HGB - HEMOGLOBIN 12.5 g/dL (12.0-16.0); LYMPHOCYTES # (AUTO) 1.5 10^3/uL (1.5-3.5); LYMPHOCYTES % (AUTO) 22.4 %; MEAN CORPUSCULAR HEMOGLOBIN 28.2 pg (27.0-31.0); MEAN CORPUSCULAR HGB CONC 32.1 g/dL (32.0-36.0); MEAN CORPUSCULAR VOLUME 87.8 fL (81.0-99.0); MEAN PLATELET VOLUME 8.9 fL (7.9-10.8); MONOCYTES # (AUTO) 0.4 10^3/uL (0.0-1.0); NEUTROPHILS # (AUTO) 4.8 10^3/uL (1.5-6.6); PLT - PLATELET COUNT 291 10^3/uL (130-450); RED BLOOD COUNT 4.44 10^6/uL (4.20-5.40); RED CELL DISTRIBUTION WIDTH 13.4 % (12.0-15.0); WHITE BLOOD COUNT 6.9 x10^3/uL (4.8-10.8)
[2023-08-12 18:56] LABS: ALBUMIN 4.4 g/dL (3.2-5.5); ALBUMIN/GLOBULIN RATIO 1.3 (1.0-2.2); BILIRUBIN,TOTAL 0.3 mg/dL (0.2-1.0); CREATININE 0.7 mg/dL (0.6-1.3); POTASSIUM 4.5 mmol/L (3.5-4.5); TOTAL PROTEIN 7.7 g/dL (6.4-8.9)
== END 2023-08-12 11:15 | disposition home or self-care (01) ==
LOC: LAB.N 11:00
PROVIDERS: ATTEND Physician Assistant Medical
DX: R10.12 Left upper quadrant pain (principal)
CPT/HCPCS: 36415; 80053; 83690; 85025

== ENCOUNTER 2023-08-12 18:53 | Outpatient (CLI) | payer MEDICAID | END 2023-08-12 18:54 | disposition critical access hospital (66) | LOC: EMS 18:53 | DX: E11.649 Type 2 diabetes mellitus with hypoglycemia without coma (principal); R56.9 Unspecified convulsions; Z79.84 Long term (current) use of oral hypoglycemic drugs | CPT/HCPCS: A0425; A0429; A0999 ==

== ENCOUNTER 2023-08-12 19:15 | Emergency (ER) | payer MEDICAID ==
--- NOTE | 2023-08-12 19:25 | ED Physician Documentation ---
PD HPI ALTERED MENTAL STATUS - Stated complaint Stated Complaint: CODE STROKE - History obtained from History obtained from: Patient, EMS - History of Present Illness Timing - onset: How many minutes ago (20-30), Today Timing - duration: Hours (an hour or so) Timing - details: Abrupt onset, Still present (The patient lives with her daughter. The patient called her daughter as she was feeling a bit confused and lightheaded. Her daughter tried giving her some fluid and juice. However the patient became more confused and then poorly responsive over the next 20 or 30 minutes despite trying juice.) Quality / character: Less responsive, Unresponsive, Other (daughter states the pt started with shaking tremors of arms/legs after going unresponsive.) Contributing factors: Recent med change (started on glypizide a week ago for her diabetes. Also a med for sleep, but had not taken it as yet today. 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 No diarrhea nor vomiting.). denies: Vomiting, Diarrhea, Bloody / black stool : denies: Dysuria, Frequency Neurologic: denies: Focal weakness, Numbness PD PAST MEDICAL HISTORY - Past Medical History Cardiovascular: High cholesterol, Hypertension Respiratory: Asthma, COPD Neuro: Migraines, Seizure disorder Endocrine/Autoimmune: Type 2 diabetes GI: Diverticulitis, GERD RESPIRATORY SCIENTIST: None : None HEENT: None Psych: Depression, Anxiety Derm: Eczema - Past Surgical History Past Surgical History: Yes HEENT: Other - Present Medications Home Medications: Ambulatory Orders Medication Instructions Recorded Confirmed Albuterol Sulf [Ventolin Hfa 1 - 2 puffs INH Q4HR PRN 08/23/21 12/19/22 Inhaler] EPINEPHrine [Epinephrine] 0.3 mg IJ ONCE PRN 08/23/21 12/19/22 Levetiracetam [Keppra] 500 mg PO BID 08/23/21 12/19/22 Montelukast [Singulair] 10 mg PO QPM 08/23/21 12/19/22 Omeprazole 20 mg PO BID 08/23/21 12/19/22 Rosuvastatin Calcium [Crestor] 5 mg PO QPM 08/23/21 12/19/22 Sertraline HCl 200 mg PO QPM 08/23/21 12/19/22 Spironolactone [Aldactone] 50 mg PO DAILY 08/23/21 12/19/22 Thyroid,Pork [[place] Thyroid] 60 mg PO DAILY 08/23/21 12/19/22 Triamterene/Hydrochlorothiazid 0.5 tab PO DAILY 08/23/21 12/19/22 [Maxzide 37.5 mg-25 mg Tablet] metFORMIN [Glucophage] 500 mg PO BIDWM 10/26/21 12/19/22 Sucralfate [Carafate] 1 gm PO ACHS #60 tablet 01/14/22 12/19/22 Naproxen 500 mg PO BID #20 tab 05/06/22 12/19/22 Benzonatate [Tessalon] 100 mg PO TID PRN #20 cap 10/28/22 12/19/22 Dexlansoprazole [Dexilant] 60 mg PO DAILY 10/28/22 12/19/22 HYDROcod/ACETAM 5/325 [[place] 5/325] 1 ea PO Q6H PRN #18 tablet 10/28/22 12/19/22 Levalbuterol [Xopenex] 1.25 mg INH Q8H #30 each 10/28/22 12/19/22 Linaclotide [Linzess] 290 mcg ORAL DAILY 10/28/22 12/19/22 dexAMETHasone [Decadron] 4 mg PO DAILY #5 tablet 10/28/22 12/19/22 oxyCODONE [Roxicodone] 5 - 10 mg PO Q6H PRN #14 tablet 11/13/22 12/19/22 dexAMETHasone [Decadron] 4 mg PO DAILY #6 tablet 12/19/22 Sucralfate [Carafate] 1 gm PO ACHS 10 Days #400 ml 04/18/23 Docusate Sodium 100Mg Capsule 100 mg PO DAILY #20 cap 08/13/23 [Colace 100Mg Capsule] Psyllium Husk [Metamucil] 0.52 gm PO DAILY #30 cap 08/13/23 - Allergies Allergies/Adverse Reactions: Allergies Allergy/AdvReac Type Severity Reaction Status Date / Time Iodinated Contrast Media AdvReac Rash Verified 12/19/22 06:22 morphine AdvReac Unknown Verified 01/01/23 20:09 procaine [From Novocain] AdvReac Unknown Verified 01/01/23 20:10 - Social History Does the pt smoke?: No Smoking Status: Never smoker Does the pt have substance abuse?: No - Immunizations Immunizations are current?: Yes - POLST Patient has POLST: No PD ED PE NORMAL - Vitals Vital signs reviewed: Yes - General General: Well developed/nourished. No: Alert and oriented X 3 (initially arrived with minimally responsive. Eyes flutter some with tapping forehead. Good relfexes in all extremities. Good pain withdrawal to nailbed pressure. ) - HEENT HEENT: Atraumatic, Pharynx benign (no tongue lesions) - Neck Neck: Supple, no meningeal sign, No adenopathy - Cardiac Cardiac: RRR, No murmur - Respiratory Respiratory: No respiratory distress, Clear bilaterally - Abdomen Abdomen: Normal bowel sounds, Soft, Non distended - Derm Derm: Normal color, Warm and dry - Extremities Extremities: No deformity, No edema, No calf tenderness / cord Results - Vitals Vitals: Vital Signs - 24 hr 08/12/23 08/12/23 08/12/23 19:24 21:37 23:44 Temperature 36.6 C Heart Rate 94 97 89 Respiratory 16 20 18 Rate Blood Pressure 142/86 H 117/78 123/84 H O2 Saturation 95 99 99 08/13/23 08/13/23 08/13/23 01:00 03:05 05:05 Temperature Heart Rate 84 75 Respiratory 20 16 18 Rate Blood Pressure 124/81 H 125/88 H 124/78 O2 Saturation 99 100 100 Oxygen O2 Source Room air - Labs Labs: Laboratory Tests 08/12/23 08/12/23 08/12/23 19:19 19:19 21:09 WBC 10.5 RBC 4.79 Hgb 13.2 Hct 41.8 MCV 87.3 MCH 27.6 MCHC 31.6 L RDW 13.2 Plt Count 319 MPV 8.9 Neut # (Auto) 6.0 Lymph # (Auto) 3.5 [place] # (Auto) 0.7 Eos # (Auto) 0.1 Baso # (Auto) 0.1 Absolute Nucleated RBC 0.00 Nucleated RBC % 0.0 Sodium 134 L Potassium 3.9 Chloride 99 L Carbon Dioxide 23 Anion Gap 12.0 BUN 29 H Creatinine 0.9 Estimated GFR (MDRD) 66 L Glucose 78 POC Whole Bld Glucose 187 H Calcium 10.4 H Magnesium 2.1 Total Bilirubin 0.2 AST 14 ALT 17 Alkaline Phosphatase 75 Total Protein 8.2 Albumin 4.6 Globulin 3.6 Albumin/Globulin Ratio 1.3 Lipase 78 TSH 1.24 Urine Color Urine Clarity Urine pH Ur Specific [place] Urine Protein Urine Glucose (UA) Urine Ketones Urine Occult Blood Urine Nitrite Urine Bilirubin Urine Urobilinogen Ur Leukocyte Esterase Urine RBC Urine WBC Ur Squamous Epith Cells Urine Bacteria Ur Microscopic Review Urine Culture Comments Salicylates < 1.5 Urine Opiates Screen Ur Buprenorphine Scrn Ur Oxycodone Screen Urine Methadone Screen Acetaminophen 0.2 Ur Barbiturates Screen Ur Tricyclics Screen Ur Phencyclidine Scrn Ur Amphetamine Screen U Methamphetamines Scrn U Benzodiazepines Scrn Urine Cocaine Screen U Cannabinoids Screen Ur Drug Screen Comment Ethyl Alcohol < 10.0 08/12/23 08/12/23 21:35 22:59 WBC RBC Hgb Hct MCV MCH MCHC RDW Plt Count MPV Neut # (Auto) Lymph # (Auto) [place] # (Auto) Eos # (Auto) Baso # (Auto) Absolute Nucleated RBC Nucleated RBC % Sodium Potassium Chloride Carbon Dioxide Anion Gap BUN Creatinine Estimated GFR (MDRD) Glucose POC Whole Bld Glucose 198 H Calcium Magnesium Total Bilirubin AST ALT Alkaline Phosphatase Total Protein Albumin Globulin Albumin/Globulin Ratio Lipase TSH Urine Color YELLOW Urine Clarity CLEAR Urine pH 6.0 Ur Specific [place] <=1.005 Urine Protein NEGATIVE Urine Glucose (UA) NEGATIVE Urine Ketones NEGATIVE Urine Occult Blood NEGATIVE Urine Nitrite NEGATIVE Urine Bilirubin NEGATIVE Urine Urobilinogen 0.2 (NORMAL) Ur Leukocyte Esterase SMALL H Urine RBC 0-5 Urine WBC 6-10 H Ur Squamous Epith Cells FEW Squamous Urine Bacteria Few Ur Microscopic Review INDICATED Urine Culture Comments INDICATED Salicylates Urine Opiates Screen NEGATIVE Ur Buprenorphine Scrn NEGATIVE Ur Oxycodone Screen NEGATIVE Urine Methadone Screen NEGATIVE Acetaminophen Ur Barbiturates Screen NEGATIVE Ur Tricyclics Screen NEGATIVE Ur Phencyclidine Scrn NEGATIVE Ur Amphetamine Screen NEGATIVE U Methamphetamines Scrn NEGATIVE U Benzodiazepines Scrn NEGATIVE Urine Cocaine Screen NEGATIVE U Cannabinoids Screen NEGATIVE Ur Drug Screen Comment CUTOFF CONC BELOW: Ethyl Alcohol - Rads (name of study) head CT Relevant Findings:: Prelim report reviewed (no ICH nor acute process), EMP independent interpretation of test angio head/neck Relevant Findings:: Prelim report reviewed (no stenoses nor acute findings) abd/pelvic CT Relevant Findings:: Prelim report reviewed (some diverticula without diverticulosis. Waery stool upper colon, moderate stool burden in left colon.) PD Medical Decision Making - ED course Complexity details: reviewed results, re-evaluated patient (Gradually more alert and conversant over 20 to 30 minutes without any complaints of pain or other symptoms.), considered differential, d/w patient ED course: The patient arrived still poorly responsive. There was some slight eye movement and a reflexive handgrip to my holding her hands. Reflexes generally were normal to brisk. No obvious unilateral weaknesses. Her respirations were adequate with good oxygenation. No obvious distention or abdominal tenderness. The patient did have some labs performed and also a CT of the head and chest x- ray. No report of recent illnesses from the patient's daughter. The patient herself was not yet conversant. The patient did have a gradual improvement in alertness over the next half hour or so with eye-opening and movement and then conversation. She seemed back to fully normal conversation according to her daughter within 45 minutes or so. She did describe some left-sided abdominal pain should had for several days so we did do a CT scan as there was some tenderness there. No acute abnormalities are identified. 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 At this point the patient and her daughter describe that she had just started medications of glipizide about a week ago which is now in addition to her metformin. She is not on insulin. She also had a medication started for sleep but she had not taken it as yet today. There is no apparent infectious source and no change in diet per se. I presume she had hypoglycemia related to the new glipizide concurrent with the smaller appetite in general. She had not eaten much earlier in the day though was not an unusually less amount. At this point I would have her stop the glipizide and rediscuss it with her primary care. Either lower dose or a different medicine. My concern with the episode though is the half-life of the glipizide. Even though she had taken it earlier in the day I would still be concern for the potential of repeated hypoglycemia. I felt it prudent to observe the patient for a longer period of time in the 6 to 12-hour timeframe. During that time we would recheck the fingerstick sugars or use the readings off of her glucose monitor every 1-2 hours. She was allowed to eat freely. I would have placed the patient in the hospital under observation for this but there were no beds available as told to me. The decision that I would have hospitalize the patient was made approximately 11 PM (2300). Instead we will observe the patient here in the ER until the morning. If her blood sugars remained stable and no other problems, then we will discharge her home with the above instructions of stopping the glipizide and maintaining other medicines, regular diet, follow-up with her primary care. Departure - Departure Clinical Impression: Altered mental status, Hypoglycemic coma in type 2 diabetes mellitus, Seizure d ue to hypoglycemia, Left sided abdominal pain Condition: Stable Record reviewed to determine appropriate education?: Yes Comments: Stay well-hydrated and continue usual diet. Try to eat regularly. I would stop your new glipizide medication. Continue your other usual ones. Contact your primary care for a follow-up discussion or appointment. See if they want to replace your medication with something else or started on the lower dose etc. It seems likely that you had a seizure related to the low blood sugar. This does not indicate epilepsy necessarily and would be unusual to have a new onset primary seizure disorder at this point. This is good in the sense that I would not anticipate seizures outside of the setting of low blood sugar and hopefully that will not be happening regularly. We did do testing to look for other causes for the low blood sugar and there were no other abnormalities identified on head CT scan, chest x-ray, urine test, blood tests. Your blood sugars remained normal overnight, and so I would not expect repeated low sugar episodes as the effect of the glypizide should be worn off. Your CT of the abdomen did not show any obvious acute problem going on. They commented on some watery stool appearance in the upper intestine but then a moderate stool burden in the lower left-sided colon. There is some diverticula but no signs of diverticulitis. No other acute abnormality. For the stomach I would suggest perhaps a mild stool softener as well as some fiber. This will help homogenized the stool a bit more and even out the watery in the firm stool. This might be what is causing the pains.
[2023-08-12] MEDS ORDERED: iohexoL-300 100 ML VIAL ONE (19:39)
[2023-08-12] MEDS: DEXTROSE 10% 250 ML IV STA (20:01)
--- NOTE | 2023-08-12 20:01 | CT Report ---
PROCEDURE: Head WO INDICATIONS: AMS abruptly today TECHNIQUE: Noncontrast 4.5 mm thick angled axial sections acquired from the foramen magnum to the vertex. For r adiation dose reduction, the following was used: automated exposure control, adjustment of mA and/or kV according to patient size. COMPARISON: None. FINDINGS: Image quality: Excellent. CSF spaces: Basal cisterns are patent. No extra-axial fluid collections. Ventricles are normal in size and shape. Brain: No midline shift. No intracranial masses or hemorrhage. Tello-white matter interface is norm al. Skull and face: Calvarium and visualized facial bones are intact, without suspicious lesions. Sinuses: Visualized sinuses and mastoids are clear. IMPRESSION: No acute intracranial pathology. Reviewed by: Tatum Chong MD on 08/12/2023 7:59 PM PDT Approved by: Tatum Chong MD on 08/12/2023 7:59 PM PDT Station ID: [id number]
[2023-08-12 20:03] LABS: BASOPHILS # (AUTO) 0.1 10^3/uL (0.0-0.1); BASOPHILS % (AUTO) 0.6 %; EOSINOPHILS # (AUTO) 0.1 10^3/uL (0.0-0.7); EOSINOPHILS % (AUTO) 1.1 %; HCT - HEMATOCRIT 41.8 % (37.0-47.0); HGB - HEMOGLOBIN 13.2 g/dL (12.0-16.0); LYMPHOCYTES # (AUTO) 3.5 10^3/uL (1.5-3.5); LYMPHOCYTES % (AUTO) 33.6 %; MEAN CORPUSCULAR HEMOGLOBIN 27.6 pg (27.0-31.0); MEAN CORPUSCULAR HGB CONC 31.6 g/dL (32.0-36.0); MEAN CORPUSCULAR VOLUME 87.3 fL (81.0-99.0); MEAN PLATELET VOLUME 8.9 fL (7.9-10.8); MONOCYTES # (AUTO) 0.7 10^3/uL (0.0-1.0); NEUTROPHILS % (AUTO) 57.4 %; PLT - PLATELET COUNT 319 10^3/uL (130-450); RED BLOOD COUNT 4.79 10^6/uL (4.20-5.40); RED CELL DISTRIBUTION WIDTH 13.2 % (12.0-15.0); WHITE BLOOD COUNT 10.5 x10^3/uL (4.8-10.8)
[2023-08-12] MEDS: SODIUM CHLORIDE 0.9% 1,000 ML IV STA (20:06)
--- NOTE | 2023-08-12 20:09 | CT Report ---
PROCEDURE: Angio Head/Neck INDICATIONS: AMS abruptly today TECHNIQUE: After the administration of intravenous contrast, 1 mm thick sections acquired from the aortic arch t hrough the [place] of [place]. 3-dimensional fmktlrl-aeoplmkuo-gqqjzcjmgx (MIP) and/or volume renderin g reformats were acquired of the central intracranial vasculature and neck separately. For radiation dose reduction, the following was used: automated exposure control, adjustment of mA and/or kV acco rding to patient size. CONTRAST: 80 mL Omnipaque 300 COMPARISON: CT head 08/12/2023, CTA head/neck 11/13/2022. FINDINGS: Image quality: Diagnostic. HEAD CT: CSF Spaces: Basal cisterns are patent. No extra-axial fluid collections. Ventricles are normal in size and shape. Brain: The brain is within normal limits for age and scanning technique. Skull and face: Calvarium and visualized facial bones appear intact, without suspicious lesions. Sinuses: Visualized sinuses and mastoids are clear. HEAD CT ANGIOGRAPHY: Anterior circulation: Intracranial internal carotid arteries are normal in size and flow. The flow within the paired anterior cerebral arteries is normal and symmetric. The flow within the middle cer ebral arteries is normal and symmetric. The anterior communicating artery is seen. No aneurysms are seen. Posterior circulation: Visualized portions of the vertebral arteries demonstrate normal caliber, and join to form a normal appearing basilar artery. Flow within the posterior cerebral arteries is norm al and symmetric. No aneurysms are seen. NECK CT ANGIOGRAPHY: Carotid system: The great vessels demonstrate a conventional anatomy as they arise from the aortic a rch. The origins of the common carotid arteries appear patent. The common carotid arteries demonstr ate normal caliber and courses. The bifurcation regions are both widely patent. The internal caroti d arteries demonstrate normal calibers and courses. Posterior circulation: The origins of the vertebral arteries both appear widely patent. The more sanchez perior extracranial portions of both vertebral arteries also demonstrate normal courses and calibers. They join to form a normal appearing basilar artery. Soft tissues: Visualized neck soft tissues demonstrate no suspicious abnormalities. Surgical clips are seen in the region of the thyroid. Bones: No suspicious bony lesions. Mild degenerative changes are seen in the cervical spine. IMPRESSION: No significant intracranial arterial abnormality is seen. No significant abnormality is seen within the arteries of the neck. The estimate of stenosis included in the report of the imaging study was calculated using the NASCET method Reviewed by: Neto Salazar MD on 08/12/2023 8:08 PM PDT Approved by: Neto Salazar MD on 08/12/2023 8:08 PM PDT Station ID: [id number]
[2023-08-12 20:25] LABS: THYROID STIMULATING HORMONE 1.24 uIU/mL (0.34-5.60)
[2023-08-12 20:51] LABS: ACETAMINOPHEN 0.2 ug/mL; ALBUMIN 4.6 g/dL (3.2-5.5); ALBUMIN/GLOBULIN RATIO 1.3 (1.0-2.2); ALKALINE PHOSPHATASE 75 IU/L (42-121); ALT ALANINE AMINOTRANSFERASE 17 IU/L (10-60); AST ASPARTATE AMINOTRANSFERASE 14 IU/L (10-42); BILIRUBIN,TOTAL 0.2 mg/dL (0.2-1.0); BUN - BLOOD UREA NITROGEN 29 mg/dL (6-20); CALCIUM 10.4 mg/dL (8.5-10.3); CARBON DIOXIDE - CO2 23 mmol/L (21-32); CHLORIDE 99 mmol/L (101-111); CREATININE 0.9 mg/dL (0.6-1.3); ETOH - ETHANOL < 10.0 mg/dL; GFR - MDRD 66 (>89); GLUCOSE 78 mg/dL (74-104); LIPASE 78 U/L (11-82); MAGNESIUM 2.1 mg/dL (1.7-2.3); POTASSIUM 3.9 mmol/L (3.5-4.5); SODIUM 134 mmol/L (135-145); TOTAL PROTEIN 8.2 g/dL (6.4-8.9)
[2023-08-12 20:58] LABS: SALICYLATE < 1.5 mg/dL
--- NOTE | 2023-08-12 21:31 | XRAY Report ---
PROCEDURE: Chest 1V INDICATIONS: AMS TECHNIQUE: One view of the chest was acquired. COMPARISON: Chest radiographs 10/28/2022. FINDINGS: Surgical changes and devices: None. Lungs and pleura: No pleural effusions or pneumothorax. Lungs are clear. Mediastinum: Mediastinal contours appear normal. Heart size is normal. Bones and chest wall: No suspicious bony lesions. Overlying soft tissues appear unremarkable. IMPRESSION: No acute cardiopulmonary process. Reviewed by: Neto Salazar MD on 08/12/2023 9:30 PM PDT Approved by: Neto Salazar MD on 08/12/2023 9:30 PM PDT Station ID: [id number]
[2023-08-12 21:39] LABS: BILIRUBIN,URINE NEGATIVE (NEGATIVE); GLUCOSE, URINE (UA) NEGATIVE (NEGATIVE); KETONES,URINE (UA) NEGATIVE (NEGATIVE); LEUKOCYTE ESTERASE, URINE SMALL (NEGATIVE); NITRITE,URINE NEGATIVE (NEGATIVE); OCCULT BLOOD,URINE NEGATIVE (NEGATIVE); PROTEIN,URINE NEGATIVE (NEGATIVE); UROBILINOGEN,URINE 0.2 (NORMAL) E.U./dL (NORMAL)
[2023-08-12 21:41] LABS: CLARITY,URINE CLEAR (CLEAR)
[2023-08-12 21:52] LABS: AMPHETAMINE SCREEN,URINE NEGATIVE (NEGATIVE); BACTERIA,URINE Few /HPF (None Seen); BARBITURATE SCREEN,UR NEGATIVE (NEGATIVE); BENZODIAZEPINES SCREEN, URINE NEGATIVE (NEGATIVE); BUPRENORPHINE SCREEN, URINE NEGATIVE (NEGATIVE); COCAINE SCREEN URINE NEGATIVE (NEGATIVE); METHADONE SCREEN, URINE NEGATIVE (NEGATIVE); METHAMPHETAMINES SCREEN, URINE NEGATIVE (NEGATIVE); OPIATE SCREEN, URINE NEGATIVE (NEGATIVE); OXYCODONE SCREEN, URINE NEGATIVE (NEGATIVE); RBC,URINE 0-5 /HPF (0-5); SQUAMOUS EPITHELIAL CELL,UR FEW Squamous (<= Few); THC CANNABINOID SCREEN, URINE NEGATIVE (NEGATIVE); TRICYCLIC ANTIDEPRESSANT,URINE NEGATIVE (NEGATIVE)
[2023-08-12] MEDS ORDERED: iohexoL-300 150 ML BOTTLE ONE (22:16)
--- NOTE | 2023-08-13 00:20 | CT Report ---
PROCEDURE: Abdomen/Pelvis WO INDICATIONS: left abd pain for few days TECHNIQUE: A CT scan of the abdomen and pelvis was performed without the use of intravenous contrast. Images we re recorded and evaluated at appropriate window settings. Reformats: coronal and sagittal. For radiat ion dose reduction, the following was used: automated exposure control, adjustment of mA and/or kV ac cording to patient size. COMPARISON: CT abdomen/pelvis 07/11/2023. FINDINGS: Image quality: Diagnostic. Lower chest: Unremarkable. Liver: No contour-deforming mass. Gallbladder and biliary tree: No radiopaque stones or wall thickening. No biliary dilation. Spleen: No splenomegaly. Pancreas: No pancreatic ductal dilation. Adrenals: No adrenal nodule. Kidneys and ureters: Hyperdense material is seen in the renal collecting systems related to the CT an giogram performed earlier the same day. No hydronephrosis. No renal cystic lesion which requires foll ow up. No solid mass. Stomach, bowel and peritoneum: Mild scattered colonic diverticulosis without signs of acute diverticu litis. Liquid stool material is seen in the ascending and transverse colon. Moderate stool in the lef t colon. Small bowel loops and stomach are unremarkable. Lymph nodes: No central or retroperitoneal adenopathy. Vessels: No infrarenal aortic aneurysm. PELVIS Reproductive organs: Status post hysterectomy. No suspicious adnexal mass.. Bladder: No wall thickness, accounting for underdistention. Pelvic lymph nodes: No pelvic adenopathy by size criteria. Bones: No aggressive osseous abnormality. Degenerative changes are seen in the included spine. Other: No significant ventral or inguinal hernia. IMPRESSION: 1.No hydronephrosis or obstructing renal stone. No acute abnormality identified in the abdomen or pel vis. 2.Colonic diverticulosis without signs of acute diverticulitis. Reviewed by: Neto Salazar MD on 08/13/2023 12:19 AM PDT Approved by: Neto Salazar MD on 08/13/2023 12:19 AM PDT Station ID: [id number]
[2023-08-13] MEDS: ONDANSETRON 4 MG/2 ML VIAL IVP STA (07:41)
[2023-08-13] MEDS: DOCUSATE SODIUM 100 MG CAPSULE PO STA (07:42)
[2023-08-13 08:40] VITALS: BP 127/82; O2SAT 98
== END 2023-08-13 08:36 | disposition home or self-care (01) ==
LOC: EDUNIT# → ED 19:15
DX: G40.909 Epilepsy, unspecified, not intractable, without status epilepticus (principal); E11.641 Type 2 diabetes mellitus with hypoglycemia with coma; R10.12 Left upper quadrant pain; R41.82 Altered mental status, unspecified; I10 Essential (primary) hypertension; Z79.84 Long term (current) use of oral hypoglycemic drugs
CPT/HCPCS: 36415; 70450; 70496; 70498; 71045; 74176; 80053; 80143; 80179; 80306; 81001; 82077; 83690; 83735; 84443; 85025; 87086; 93005; 96361; 96374; 99284; A9270; J3490; 81003

== ENCOUNTER 2023-08-22 07:58 | Outpatient (CLI) | payer MEDICAID ==
--- NOTE | 2023-08-25 09:26 | Mammography Report ---
UNILATERAL LEFT DIGITAL DIAGNOSTIC MAMMOGRAM 3D/2D: 08/22/2023 CLINICAL: Worsening diffuse left breast pain. Palpable left breast lumps. Comparison is made to exams dated: 01/01/2023 mammogram - [facility], 06/10/2022 mammo gram, and 10/17/2021 mammogram - [facility]. There are scattered areas of fibroglandular density in the left breast (category b / 25%-50% glandula r tissue). No significant masses, calcifications, or other findings are seen in the breast. IMPRESSION: INCOMPLETE: NEEDS ADDITIONAL IMAGING EVALUATION There are no mammographic abnormalities seen in the left breast to correspond with the palpable nodul arities, however, targeted ultrasound of the left breast is recommended and will be performed immedi ately following this exam. Based on the Tyrer Cuzick model (a risk assessment model) the patient's lifetime risk is 5.4% and her 10 year risk is 1.4%. According to the ACR, ACS, and NCCN guidelines, an annual breast MRI exam sav g with mammogram is recommended if the patient's lifetime risk is 20% or greater. This exam was interpreted at Station ID: [id number]. NOTE: For mammograms, a report in lay terms will be sent to the patient. Approximately 15% of breast malignancies will not be visualized mammographically. In the management of a palpable breast mass, a negative mammogram must not discourage biopsy of a clinically suspicious lesion. Electronically Signed By: Africa Burciaga M.D. lk/:08/22/2023 08:29:50 ACR BI-RADS Category 0: Incomplete 3340F PARENCHYMAL PATTERN: (A) - The breast(s) demonstrate(s) scattered fibroglandular densities. BI-RADS CATEGORY: (0) - 0 Ultrasound [id number] Immediate follow-up LATERALITY: (B)
--- NOTE | 2023-08-25 09:26 | Ultrasound Report ---
LIMITED ULTRASOUND OF LEFT BREAST: 08/22/2023 CLINICAL: Pt reports focal left breast pain and palp areas. Comparison is made to exams dated: 01/01/2023 ultrasound, [facility], and 06/10/[facility] mamm[facility] - [facility]. Color flow ultrasound of the left breast 2-3 o'clock region was performed on the areas of interest. Tello scale images of the real-time examination were reviewed. IMPRESSION: NEGATIVE There is no sonographic evidence of malignancy. There are no mammographic or sonographic abnormalities seen in the left breast to correspond with the palpable nodularities, however, clinical followup is recommended. Return to annual mammogram screening schedule is recommended. Future imaging is recommended as follo ws: 01/02/2024 screening mammogram. This exam was interpreted at Station ID: [id number]. Electronically Signed By: Africa alarcon/:08/22/2023 09:08:28 Ultrasound BI-RADS: 1 Negative BI-RADS CATEGORY: (1) - 1 RECOMMENDATION: (ANNUAL) - Recommend routine annual screening mammography. [id number] return to screening LATERALITY: (B)
== END 2023-08-22 07:59 | disposition home or self-care (01) ==
LOC: DI 07:58
PROVIDERS: ATTEND Nurse Practitioner
DX: N64.4 Mastodynia (principal); R92.322 Mammographic fibroglandular density, left breast